=== PATIENT | female | born 1940 | race Caucasian/White ===

== ENCOUNTER 2017-07-22 16:23 | Inpatient (IN) | payer MEDICARE ==
[2017-07-22] MEDS ORDERED: IPRATROPIUM 0.5 MG/2.5 ML NEBU INHALATION STA (16:58)
[2017-07-22] MEDS ORDERED: SODIUM CHLORIDE 0.9% 500 ML IV STA (16:58)
[2017-07-22] MEDS ORDERED: SODIUM CHLORIDE 0.9% 1,000 ML IV STA (16:58)
[2017-07-22] MEDS ORDERED: ALBUTEROL NEBULIZED 2.5 MG/3 ML INHALATION STA (16:58)
--- NOTE | 2017-07-22 16:58 | ED ---
General Adult HPI - General Chief complaint: Shortness of Breath Stated complaint: SOB Time Seen by Provider: 07/22/17 16:57 Source: patient, RN notes reviewed, old records reviewed Mode of arrival: wheelchair Limitations: no limitations - History of Present Illness Initial comments: This is a 37-year-old female here for evaluation Sharla, severe shortness of breath and dyspnea. 3-4 days with taking her 's oxygen is alert has been COPD and having low oxygen levels. Patient has no chest pain no fever. She does have significant increasing cough and congestion. No prior diagnosis of COPD and patient hasn't smoked in 10 days - Related Data Home Medications Medication Instructions Recorded Confirmed Cholecalciferol [Vitamin D3] 1,000 unit PO DAILY 07/22/17 07/22/17 Ipratropium-Albuterol Nebulize 3 ml INHALATION RT-BID 07/22/17 07/22/17 [Duoneb 0.5 mg-3 mg/3 ml Soln] Levothyroxine Sodium [Synthroid] 75 mcg PO DAILY 07/22/17 07/22/17 Montelukast [Singulair] 10 mg PO DAILY 07/22/17 07/22/17 Multivitamins, Thera [Multivitamin 1 tab PO DAILY 07/22/17 07/22/17 (formulary)] Umeclidinium Brm/Vilanterol Tr 1 puff INHALATION RT-DAILY 07/22/17 07/22/17 [Anoro Ellipta 62.5-25 Mcg INH] Venlafaxine HCl [Effexor XR] 75 mg PO DAILY 07/22/17 07/22/17 Vitamin B Complex 1 cap PO DAILY 07/22/17 07/22/17 Allergies Allergy/AdvReac Type Severity Reaction Status Date / Time No Known Allergies Allergy Verified 07/22/17 16:45 Review of Systems ROS Statement: Those systems with pertinent positive or pertinent negative responses have been documented in the HPI. ROS Other: All systems not noted in ROS Statement are negative. Past Medical History Past Medical History: Hyperlipidemia, Thyroid Disorder History of Any Multi-Drug Resistant Organisms: None Reported Past Surgical History: Appendectomy, Hysterectomy Past Psychological History: No Psychological Hx Reported Smoking Status: Former smoker Past Alcohol Use History: None Reported Past Drug Use History: None Reported General Exam Limitations: no limitations General appearance: alert, in no apparent distress Head exam: Present: atraumatic, normocephalic, normal inspection Eye exam: Present: normal appearance, PERRL, EOMI. Absent: scleral icterus, conjunctival injection, periorbital swelling ENT exam: Present: normal exam, mucous membranes moist Neck exam: Present: normal inspection. Absent: tenderness, meningismus, lymphadenopathy Respiratory exam: Present: normal lung sounds bilaterally. Absent: respiratory distress, wheezes, rales, rhonchi, stridor Cardiovascular Exam: Present: regular rate, normal rhythm, normal heart sounds. Absent: systolic murmur, diastolic murmur, rubs, gallop, clicks GI/Abdominal exam: Present: soft, normal bowel sounds. Absent: distended, tenderness, guarding, rebound, rigid Extremities exam: Present: normal inspection, full ROM, normal capillary refill. Absent: tenderness, pedal edema, joint swelling, calf tenderness Back exam: Present: normal inspection Neurological exam: Present: alert, oriented X3, CN II-XII intact Psychiatric exam: Present: normal affect, normal mood Skin exam: Present: warm, dry, intact, normal color. Absent: rash Course Vital Signs 07/22/17 07/22/17 07/22/17 16:31 18:06 18:24 Temperature 98 F Pulse Rate 89 87 88 Respiratory 16 20 Rate Blood Pressure 139/66 132/62 O2 Sat by Pulse 87 L 94 L Oximetry - Reevaluation(s) Reevaluation #1: 07/22/17 18:38 Patient does have improvement with breathing treatment EKG Findings - EKG Comments: EKG Findings:: EKG shows normal sinus rhythm rate of 80, OR 138, QRS 78, QTC 447 Medical Decision Making - Medical Decision Making 77 female ear with significant COPD exacerbation with history of smoking. Hypoxia. Patient will be admitted for continued breathing treatments steroids and IV resuscitation. - Lab Data Result diagrams: 07/22/17 17:10 07/22/17 17:10 Lab Results 07/22/17 07/22/17 07/22/17 Range/Units 17:10 17:10 17:10 WBC 12.3 H (3.8-10.6) k/uL RBC 4.86 (3.80-5.40) m/uL Hgb 16.7 H (11.4-16.0) gm/dL Hct 48.3 H (34.0-46.0) % MCV 99.5 (80.0-100.0) fL MCH 34.4 (25.0-35.0) pg MCHC 34.6 (31.0-37.0) g/dL RDW 12.7 (11.5-15.5) % Plt Count 302 (150-450) k/uL Neutrophils % 57 % Lymphocytes % 27 % Monocytes % 9 % Eosinophils % 5 % Basophils % 1 % Neutrophils # 7.0 (1.3-7.7) k/uL Lymphocytes # 3.3 (1.0-4.8) k/uL Monocytes # 1.1 H (0-1.0) k/uL Eosinophils # 0.6 (0-0.7) k/uL Basophils # 0.1 (0-0.2) k/uL PT (9.0-12.0) sec INR (<1.2) APTT (22.0-30.0) sec D-Dimer (<0.60) mg/L FEU Sodium 141 (137-145) mmol/L Potassium 4.7 (3.5-5.1) mmol/L Chloride 105 (98-107) mmol/L Carbon Dioxide 28 (22-30) mmol/L Anion Gap 8 mmol/L BUN 14 (7-17) mg/dL Creatinine 0.70 (0.52-1.04) mg/dL Est GFR (MDRD) Af Amer >60 (>60 ml/min/1.73 sqM) Est GFR (MDRD) Non-Af >60 (>60 ml/min/1.73 sqM) Glucose 96 (74-99) mg/dL Calcium 10.2 (8.4-10.2) mg/dL Magnesium 1.9 (1.6-2.3) mg/dL Total Bilirubin 0.5 (0.2-1.3) mg/dL AST 29 (14-36) U/L ALT 55 H (9-52) U/L Alkaline Phosphatase 74 (38-126) U/L Total Creatine Kinase 57 (30-135) U/L CK-MB (CK-2) 2.7 H* (0.0-2.4) ng/mL CK-MB (CK-2) Rel Index 4.7 Troponin I <0.012 (0.000-0.034) ng/mL NT-Pro-B Natriuret Pep pg/mL Total Protein 6.8 (6.3-8.2) g/dL Albumin 4.2 (3.5-5.0) g/dL 07/22/17 07/22/17 Range/Units 17:10 17:10 WBC (3.8-10.6) k/uL RBC (3.80-5.40) m/uL Hgb (11.4-16.0) gm/dL Hct (34.0-46.0) % MCV (80.0-100.0) fL MCH (25.0-35.0) pg MCHC (31.0-37.0) g/dL RDW (11.5-15.5) % Plt Count (150-450) k/uL Neutrophils % % Lymphocytes % % Monocytes % % Eosinophils % % Basophils % % Neutrophils # (1.3-7.7) k/uL Lymphocytes # (1.0-4.8) k/uL Monocytes # (0-1.0) k/uL Eosinophils # (0-0.7) k/uL Basophils # (0-0.2) k/uL PT 10.2 (9.0-12.0) sec INR 1.0 (<1.2) APTT 23.0 (22.0-30.0) sec D-Dimer 0.31 (<0.60) mg/L FEU Sodium (137-145) mmol/L Potassium (3.5-5.1) mmol/L Chloride (98-107) mmol/L Carbon Dioxide (22-30) mmol/L Anion Gap mmol/L BUN (7-17) mg/dL Creatinine (0.52-1.04) mg/dL Est GFR (MDRD) Af Amer (>60 ml/min/1.73 sqM) Est GFR (MDRD) Non-Af (>60 ml/min/1.73 sqM) Glucose (74-99) mg/dL Calcium (8.4-10.2) mg/dL Magnesium (1.6-2.3) mg/dL Total Bilirubin (0.2-1.3) mg/dL AST (14-36) U/L ALT (9-52) U/L Alkaline Phosphatase (38-126) U/L Total Creatine Kinase (30-135) U/L CK-MB (CK-2) (0.0-2.4) ng/mL CK-MB (CK-2) Rel Index Troponin I (0.000-0.034) ng/mL NT-Pro-B Natriuret Pep 83 pg/mL Total Protein (6.3-8.2) g/dL Albumin (3.5-5.0) g/dL - Radiology Data Radiology results: report reviewed (Chest x-ray shows COPD), image reviewed Disposition Clinical Impression: Acute exacerbation of chronic obstructive airways disease Disposition: ADMITTED IP TO THIS HOSP Condition: Fair Referrals: Heri Alexandra DO [Primary Care Provider] - 1-2 days
[2017-07-22 17:25] LABS: Basophils # (A) 0.1 k/uL (0-0.2); Basophils % (A) 1 %; CH 33.8; CHCM 34.1; Eosinophils # (A) 0.6 k/uL (0-0.7); Eosinophils % (A) 5 %; HCT 48.3 % (34.0-46.0); HDW 2.26; HGB 16.7 gm/dL (11.4-16.0); Luc # (Auto) 0.32; Luc % (Auto) 3; Lymphocytes # (A) 3.3 k/uL (1.0-4.8); Lymphocytes % (A) 27 %; MCH 34.4 pg (25.0-35.0); MCHC 34.6 g/dL (31.0-37.0); MCV 99.5 fL (80.0-100.0); Mean Platelet Volume 7.4; Monocytes # (A) 1.1 k/uL (0-1.0); Monocytes % (A) 9 %; Neutrophils % (A) 57 %; RBC 4.86 m/uL (3.80-5.40); RDW 12.7 % (11.5-15.5); WBC 12.3 k/uL (3.8-10.6); WBC (Perox) 12.22
[2017-07-22 17:44] LABS: Creatine Kinase 57 U/L (30-135)
[2017-07-22 17:46] LABS: ALT 55 U/L (9-52); AST 29 U/L (14-36); Alkaline Phosphatase 74 U/L (38-126); Anion Gap 8 mmol/L; Blood Urea Nitrogen 14 mg/dL (7-17); Calcium 10.2 mg/dL (8.4-10.2); Carbon Dioxide 28 mmol/L (22-30); Chloride 105 mmol/L (98-107); Glucose 96 mg/dL (74-99); Magnesium 1.9 mg/dL (1.6-2.3); Non-African American GFR(MDRD) >60 (>60 ml/min/1.73 sqM); Potassium 4.7 mmol/L (3.5-5.1); Prothrombin Time 10.2 sec (9.0-12.0); Sodium 141 mmol/L (137-145); Total Bilirubin 0.5 mg/dL (0.2-1.3); Total Protein 6.8 g/dL (6.3-8.2)
[2017-07-22 17:56] LABS: Troponin I <0.012 ng/mL (0.000-0.034)
[2017-07-22 18:07] LABS: Creatine Kinase MB 2.7 ng/mL (0.0-2.4)
--- NOTE | 2017-07-22 18:13 | XR ---
EXAMINATION TYPE: XR chest 2V DATE OF EXAM: 07/22/2017 COMPARISON: NONE HISTORY: Shortness of breath TECHNIQUE: Frontal and lateral views of the chest are obtained. FINDINGS: There is no focal air space opacity, pleural effusion, or pneumothorax seen. There is pulm onary hyperinflation and flattening of the diaphragms on the lateral image. The cardiac silhouette si ze is within normal limits. The osseous structures are intact. Mild degenerative changes are appreciated of the thoracic spine. Degenerative changes are also seen o f the acromio clavicular joints. IMPRESSION: 1. No acute cardiopulmonary process. 2. Radiographic sequela of COPD.
[2017-07-22] MEDS ORDERED: methylPREDNISolone SOD SUCCI 125 MG/2 ML VIAL IV STA (18:36)
[2017-07-22] MEDS: IPRATROPIUM-ALBUTEROL 3 ML NEB INHALATION SCH (20:27)
[2017-07-22 20:31] LABS: Glucose,Whole Blood 178 mg/dL (75-99)
[2017-07-23] MEDS: methylPREDNISolone SOD SUCCI 125 MG/2 ML VIAL IV SCH ×4 (00:24→17:05)
[2017-07-23] MEDS ORDERED: IPRATROPIUM-ALBUTEROL 3 ML NEB INHALATION PRN (03:51)
[2017-07-23 07:13] LABS: Glucose,Whole Blood 160 mg/dL (75-99)
[2017-07-23] MEDS: IPRATROPIUM-ALBUTEROL 3 ML NEB INHALATION SCH ×4 (08:34→20:51)
[2017-07-23] MEDS: INSULIN LISPRO (humaLOG) 300 UNIT/3 ML VIAL SQ SCH ×4 (08:54→21:28)
[2017-07-23] MEDS: NICOTINE 21MG/24HR PATCH TRANSDERM SCH (08:54)
[2017-07-23] MEDS: ENOXAPARIN 40 MG/0.4 ML SYRINGE SQ SCH (08:54)
[2017-07-23 12:25] LABS: Glucose,Whole Blood 178 mg/dL (75-99)
[2017-07-23 12:32] LABS: Hemoglobin A1C 6.6 % (4.2-6.1)
[2017-07-23] MEDS: MULTIVITAMINS, THERA 1 EACH TAB PO SCH (13:28)
[2017-07-23] MEDS: MONTELUKAST 10 MG TAB PO SCH (13:28)
[2017-07-23] MEDS: VENLAFAXINE HCL ER 75 MG CAP PO SCH (13:28)
[2017-07-23] MEDS: LEVOTHYROXINE 75 MCG TAB PO SCH (13:28)
--- NOTE | 2017-07-23 16:04 | P.CNPUL ---
History of Present Illness Consult date: 07/23/17 Reason for consult: COPD History of present illness: 77-year-old female patient who was brought into the ED because of severe shortness of breath. The patient has been gradually getting worse over the past 3-4 days and has been utilizing her 's oxygen. She denied having any chest pain. She had increased cough and congestion. She is a chronic smoker in she states that she hasn't smoked for the past 10 days. She has been maintained on Anoro one inhalation a day on outpatient basis addition to DuoNeb nebulized treatments twice a day. Her chest x-ray shows no acute abnormalities are than chronic COPD. No significant leukocytosis. Her white cell count is at 12.3. The patient's troponin has been negative. BNP level was nonelevated. Rest of the blood work and electrodes are all within normal limits. Note that this is the patient's first hospitalization for COPD exacerbation. She has no previous pulmonary complications pH she states that she was able to do activities of daily today life without any major difficulties. Review of Systems Constitutional: Denies chills, Denies fever Eyes: denies blurred vision, denies bulging eye, denies decreased vision Ears: deny: decreased hearing, ear discharge, earache Ears, nose, mouth and throat: Denies headache, Denies sore throat Breasts: absent: change in shape, gynecomastia Cardiovascular: Reports decreased exercise tolerance, Reports dyspnea on exertion, Reports shortness of breath Respiratory: Reports cough, Reports cough with sputum, Reports dyspnea, Reports wheezing Gastrointestinal: Denies abdominal pain, Denies diarrhea, Denies nausea, Denies vomiting Genitourinary: Denies dysuria, Denies hematuria Musculoskeletal: Denies myalgias Musculoskeletal: absent: ankle pain, ankle stiffness, ankle swelling Integumentary: Denies pruritus, Denies rash Neurological: Denies numbness, Denies weakness Psychiatric: Denies anxiety, Denies depression Endocrine: Reports as per HPI Hematologic/Lymphatic: Reports as per HPI Past Medical History Past Medical History: COPD, Hyperlipidemia, Thyroid Disorder History of Any Multi-Drug Resistant Organisms: None Reported Past Surgical History: Appendectomy, Hysterectomy, Tonsillectomy Past Psychological History: No Psychological Hx Reported Smoking Status: Former smoker Past Alcohol Use History: None Reported Past Drug Use History: None Reported - Past Family History Father Family Medical History: Myocardial Infarction ([place]) Additional Family Medical History / Comment(s): in 2009 from [place]. Mother Family Medical History: COPD Sister(s) Family Medical History: Cancer, COPD Additional Family Medical History / Comment(s): pt has two sisters who both had breast cancer. 1 sister has COPD. Medications and Allergies Home Medications Medication Instructions Recorded Confirmed Type Cholecalciferol [Vitamin D3] 1,000 unit PO DAILY 07/22/17 07/22/17 History Ipratropium-Albuterol Nebulize 3 ml INHALATION RT-BID 07/22/17 07/22/17 History [Duoneb 0.5 mg-3 mg/3 ml Soln] Levothyroxine Sodium [Synthroid] 75 mcg PO DAILY 07/22/17 07/22/17 History Montelukast [Singulair] 10 mg PO DAILY 07/22/17 07/22/17 History Multivitamins, Thera [Multivitamin 1 tab PO DAILY 07/22/17 07/22/17 History (formulary)] Umeclidinium Brm/Vilanterol Tr 1 puff INHALATION RT-DAILY 07/22/17 07/22/17 History [Anoro Ellipta 62.5-25 Mcg INH] Venlafaxine HCl [Effexor XR] 75 mg PO DAILY 07/22/17 07/22/17 History Vitamin B Complex 1 cap PO DAILY 07/22/17 07/22/17 History Allergies Allergy/AdvReac Type Severity Reaction Status Date / Time No Known Allergies Allergy Verified 07/22/17 16:45 Physical Exam Vitals: Vital Signs Temp Pulse Pulse Resp BP BP Pulse Ox 07/23/17 12:42 92 07/23/17 12:32 90 07/23/17 08:44 92 07/23/17 08:35 90 07/23/17 08:00 16 07/23/17 07:00 97.7 F 93 16 132/64 92 L 07/23/17 04:30 92 07/23/17 04:23 88 07/22/17 23:00 97.7 F 100 24 129/60 91 L 07/22/17 20:15 97.9 F 103 H 20 137/69 98 07/22/17 19:35 97.9 F 103 H 20 137/69 98 07/22/17 18:57 91 07/22/17 18:52 98.0 F 97 20 138/60 98 07/22/17 18:24 88 07/22/17 18:06 87 20 132/62 94 L 07/22/17 16:31 98 F 89 16 139/66 87 L Intake and Output 07/22/17 07/23/17 07/23/17 22:59 06:59 14:59 Intake Total 1500 Balance 1500 Intake: Intake, IV Titration 1500 Amount Sodium Chloride 0.9% 1, 1000 000 ml @ 100 mls/hr IV . Q10H STA Rx#:[id number] Sodium Chloride 0.9% 500 500 ml @ 999 mls/hr IV .Q31M STA Rx#:[id number] Other: Voiding Method Bedside Commode Bedside Commode Bedside Commode # Voids 1 Weight 72.575 kg 74.5 kg The patient appeared well nourished and normally developed. Vital signs as documented. Head exam is unremarkable. No scleral icterus or corneal arcus noted. Neck is without jugular venous distension, thyromegaly, or carotid bruits. Carotid upstrokes are brisk bilaterally. Lungs are diminished and there is diffuse expiratory wheezes and prolongation of expiratory phase of breathing.. Cardiac exam reveals the PMI to be normally sized and situated. Rhythm is regular. First and second heart sounds normal. No murmurs, rubs or gallops. Abdominal exam reveals normal bowel sounds, no masses, no organomegaly and no aortic enlargement. Extremities are nonedematous and both femoral and pedal pulses are normal. Results - Laboratory Findings CBC and BMP: 07/22/17 17:10 07/22/17 17:10 PT/INR, D-dimer PT 10.2 sec (9.0-12.0) 07/22/17 17:10 INR 1.0 (<1.2) 07/22/17 17:10 D-Dimer 0.31 mg/L FEU (<0.60) 07/22/17 17:10 Abnormal lab findings: Abnormal Labs 07/22/17 07/22/17 07/22/17 17:10 17:10 17:10 WBC 12.3 H Hgb 16.7 H Hct 48.3 H Monocytes # 1.1 H POC Glucose (mg/dL) ALT 55 H CK-MB (CK-2) 2.7 H* 07/22/17 07/23/17 07/23/17 20:29 06:51 12:21 WBC Hgb Hct Monocytes # POC Glucose (mg/dL) 178 H 160 H 178 H ALT CK-MB (CK-2) - Diagnostic Findings Chest x-ray: image reviewed Assessment and Plan Plan: Assessment 1 acute COPD exacerbation with secondary shortness of breath 2 chronic smoking 3 hypothyroidism 4 depression Plan Immediate smoking cessation and the patient was counseled in this regard. We' ll treat acute COPD exacerbation by putting this patient on DuoNeb nebulized treatments around the clock every 4 hours and IV Solu Medrol 60 mg every 6 hours. We'll add Tussionex for cough and chest congestion. Nicotine patch for smoking cessation. Empiric antibiotic coverage with Zithromax. Outpatient follow-up regarding this patient COPD. She needs oxygen for now however her oxygen requirements will be reassessed and the address of the time of discharge. We'll continue to follow.
[2017-07-23] MEDS: CHLORPHEN-HYDROcod 8-10mg/5ml 5 ML ORAL.SYRG PO SCH (16:49)
[2017-07-23] MEDS: AZITHROMYCIN 250 MG TAB PO SCH (16:49)
[2017-07-23 17:12] LABS: Glucose,Whole Blood 163 mg/dL (75-99)
[2017-07-23 20:59] LABS: Glucose,Whole Blood 231 mg/dL (75-99)
[2017-07-24] MEDS: methylPREDNISolone SOD SUCCI 125 MG/2 ML VIAL IV SCH ×5 (00:10→22:55)
[2017-07-24] MEDS: CHLORPHEN-HYDROcod 8-10mg/5ml 5 ML ORAL.SYRG PO SCH ×2 (06:33→17:12)
[2017-07-24] MEDS: LEVOTHYROXINE 75 MCG TAB PO SCH (06:34)
[2017-07-24 07:11] LABS: Glucose,Whole Blood 148 mg/dL (75-99)
[2017-07-24] MEDS: ENOXAPARIN 40 MG/0.4 ML SYRINGE SQ SCH (07:47)
[2017-07-24] MEDS: NICOTINE 21MG/24HR PATCH TRANSDERM SCH (07:47)
[2017-07-24] MEDS: INSULIN LISPRO (humaLOG) 300 UNIT/3 ML VIAL SQ SCH ×4 (07:48→22:54)
[2017-07-24] MEDS: MONTELUKAST 10 MG TAB PO SCH (07:50)
[2017-07-24] MEDS: VENLAFAXINE HCL ER 75 MG CAP PO SCH (07:51)
[2017-07-24] MEDS: CHOLECALCIFEROL 1,000 UNIT TAB PO SCH (07:51)
[2017-07-24] MEDS: IPRATROPIUM-ALBUTEROL 3 ML NEB INHALATION SCH ×5 (08:36→21:11)
--- NOTE | 2017-07-24 11:03 | P.PN ---
Subjective Principal diagnosis: 77-year-old female who is seen this morning in rounds with Dr. Alexandra. Patient was admitted for shortness of breath and had been using her 's oxygen at home. She has a history of tobacco abuse but states she quit smoking 10 days ago. The patient continues to have audible wheezing and shortness of breath when walking to the bathroom. She states she slept only and feels comfortable this morning. She denies abdominal pain or chest pain. She is tolerating her diet without nausea or vomiting. She is wearing ABE hose. She remained afebrile. Her blood pressure has been stable. She remains on 3 L nasal cannula. Blood cultures were drawn and pulmonary results show gram- positive cocci in clusters. Dr. Alexandra would like to repeat blood cultures today. Dr. Alexandra discussed the possibility of pulmonary rehab once the patient is discharged from the hospital. Objective - Vital Signs Vital signs: Vital Signs Temp 98.6 F 07/24/17 09:11 Pulse 84 07/24/17 09:11 Resp 20 07/24/17 09:11 BP 120/60 07/24/17 09:11 Pulse Ox 91 L 07/24/17 09:11 Intake & Output 07/23/17 07/24/17 07/24/17 18:59 06:59 18:59 Intake Total 472 Balance 472 Intake: Oral 472 Other: Voiding Method Bedside Commode # Voids 2 1 - Exam GENERAL: Alert and oriented. Pleasant and cooperative Appears short of breath when holding a lengthy conversation. RESPIRATORY: Patient with inspiratory and expiratory wheezing. No use of accessory muscles. Remains on nasal cannula. CARDIOVASCULAR: S1 and S2 noted. No murmurs auscultated. No JVD noted. EXTREMITIES: No edema noted. Palpable pedal pulses +2. ABE hose present ABDOMEN: No distention noted. Abdomen soft and round. Normal active bowel sounds auscultated 4 quadrants. No pain or tenderness noted upon palpation. - Labs CBC & Chem 7: 07/22/17 17:10 07/22/17 17:10 Labs: Abnormal Lab Results - Last 24 Hours (Table) 07/22/17 07/23/17 07/23/17 Range/Units 17:10 12:21 16:58 POC Glucose (mg/dL) 178 H 163 H (75-99) mg/dL Hemoglobin A1c 6.6 H (4.2-6.1) % 07/23/17 07/24/17 Range/Units 20:54 07:02 POC Glucose (mg/dL) 231 H 148 H (75-99) mg/dL Hemoglobin A1c (4.2-6.1) % Microbiology - Last 24 Hours (Table) 07/22/17 18:36 Blood Culture Gram Stain - Preliminary Blood 07/22/17 17:10 Blood Culture - Preliminary Blood Assessment and Plan Plan: ASSESSMENT: 1. Chronic obstructive pulmonary disease, acute exacerbation, present on admission 2. History of tobacco abuse 3. Dyspnea, related to acute COPD exacerbation 4. Leukocytosis, likely due to steroid administration in emergency room. 5. History of hypothyroidism 6. History of hyperlipidemia PLAN: -We'll repeat blood cultures. -Continue Zithromax -Continue DuoNeb breathing treatments -Continue IV steroids. Patient receiving 60 mg IV every 6 hours. -Pulmonary on consult. Appreciate recommendations and input -DVT prophylaxis: Patient receiving Lovenox 40 mg daily -GI prophylaxis: Patient receiving 20 mg Pepcid daily -Continue to monitor vital signs address as indicated -Continue home meds -Monitor labs -Encouraged patient to continue with smoking cessation The above impression and plan of care have been discussed and directed by signing physician. Alyson Clemente, nurse practitioner, acting as scribe for signing physician.
[2017-07-24] MEDS: MULTIVITAMINS, THERA 1 EACH TAB PO SCH (11:34)
--- NOTE | 2017-07-24 11:51 | P.PN ---
Subjective 77-year-old female patient who was brought into the ED because of severe shortness of breath. The patient has been gradually getting worse over the past 3-4 days and has been utilizing her 's oxygen. She denied having any chest pain. She had increased cough and congestion. She is a chronic smoker in she states that she hasn't smoked for the past 10 days. She has been maintained on Anoro one inhalation a day on outpatient basis addition to DuoNeb nebulized treatments twice a day. Her chest x-ray shows no acute abnormalities are than chronic COPD. No significant leukocytosis. Her white cell count is at 12.3. The patient's troponin has been negative. BNP level was nonelevated. Rest of the blood work and electrodes are all within normal limits. Note that this is the patient's first hospitalization for COPD exacerbation. She has no previous pulmonary complications pH she states that she was able to do activities of daily today life without any major difficulties. The patient was seen again today 07/24/2017 in follow-up on the regular medical floor. She is awake and alert in no acute distress. She is breathing slightly better today as compared to yesterday. Not quite back to her baseline. She remains on bronchodilators, Singulair, IV Solu-Medrol. She is currently on antibiotics in the form of ceftriaxone and azithromycin. Preliminary blood cultures remain reveal gram-positive cocci in clusters. She is maintaining O2 saturations in the low 90s on 3 L/m per nasal cannula. She's been afebrile. Hemodynamically stable. Objective - Vital Signs Vital signs: Vital Signs Temp 98.6 F 07/24/17 09:11 Pulse 89 07/24/17 11:14 Resp 16 07/24/17 11:14 BP 120/60 07/24/17 09:11 Pulse Ox 91 L 07/24/17 11:04 Intake & Output 07/23/17 07/24/17 07/24/17 18:59 06:59 18:59 Intake Total 472 Balance 472 Intake: Oral 472 Other: Voiding Method Bedside Commode # Voids 2 1 - Exam The patient appeared well nourished and normally developed. Vital signs as documented. Head exam is unremarkable. No scleral icterus or corneal arcus noted. Neck is without jugular venous distension, thyromegaly, or carotid bruits. Carotid upstrokes are brisk bilaterally. Lungs are diminished and there is diffuse expiratory wheezes and prolongation of expiratory phase of breathing.. Cardiac exam reveals the PMI to be normally sized and situated. Rhythm is regular. First and second heart sounds normal. No murmurs, rubs or gallops. Abdominal exam reveals normal bowel sounds, no masses, no organomegaly and no aortic enlargement. Extremities are nonedematous and both femoral and pedal pulses are normal. - Labs CBC & Chem 7: 07/22/17 17:10 07/22/17 17:10 Labs: Abnormal Lab Results - Last 24 Hours (Table) 07/22/17 07/23/17 07/23/17 Range/Units 17:10 12:21 16:58 POC Glucose (mg/dL) 178 H 163 H (75-99) mg/dL Hemoglobin A1c 6.6 H (4.2-6.1) % 07/23/17 07/24/17 Range/Units 20:54 07:02 POC Glucose (mg/dL) 231 H 148 H (75-99) mg/dL Hemoglobin A1c (4.2-6.1) % Microbiology - Last 24 Hours (Table) 07/22/17 18:36 Blood Culture Gram Stain - Preliminary Blood 07/22/17 17:10 Blood Culture - Preliminary Blood Assessment and Plan Plan: Assessment 1 acute COPD exacerbation with secondary shortness of breath 2 chronic smoking 3 hypothyroidism 4 depression Plan: The patient was seen and evaluated by Dr. Zarate. We'll continue with her current medications for now. She is again educated regarding the importance of complete smoking cessation. A NicoDerm patch is in place. We will titrate down the FiO2 well maintaining O2 saturations greater than 90%. We'll continue to follow.
--- NOTE | 2017-07-24 12:25 | HP ---
Patient is a pleasant 77-year-old white female who was admitted through the emergency department with acute exacerbation of COPD/shortness of breath, wheezing and difficulty breathing. She started this a few days prior to hospital admission, about 3 to 4 day. She was taking her 's oxygen. She has no chest pain or fever and patient states she has previously quite smoking earlier in the month of June, approximately 2 to 3 weeks ago. Her current medications include: 1. Vitamin D3. 2. DuoNeb updrafts. 3. Synthroid. 4. Singulair. 5. Effexor. 6. Vitamin B. 7. Multivitamin. No known drug allergies. REVIEW OF SYSTEMS: Patient denies any chest pain. She admits to shortness of breath, wheezing and COPD. She admits to tobacco abuse. She admits to having an underactive thyroid. Other review of systems is essentially unremarkable. She denies any abdominal pain, just severe incontinence. Past medical history is significant for hyperlipidemia, thyroid disease, COPD. PAST SURGICAL HISTORY: Appendix, hysterectomy. Positive for tobacco, quit 2 to 3 weeks ago. Denies any drugs or alcohol. Family history is noncontributory. PHYSICAL EXAM: GENERAL: She is alert and oriented x3, during the breathing treatment, during the evaluation. Head is cephalic, atraumatic. Neck is supple no JVD. HEART: Regular rate and rhythm. LUNGS: Diminished breath sounds with coarse wheezing and rhonchi bilateral with prolonged expiratory phase. EXTREMITIES: No cyanosis, clubbing or jaundice. NEUROLOGICAL: Cranial nerves 2 through 12 are grossly intact. PSYCHOLOGICAL: Answers questions appropriately. Skin is warm and dry to palpation. IMPRESSION: 1. Acute exacerbation of chronic obstructive pulmonary disease. 2. Purulent tracheobronchitis with leukocytosis and possible pneumonia. 3. Chronic hypoxia with history of tobacco abuse with acute respiratory failure. PLAN: 1. Admit patient. 2. Complete pulmonary toilet. 3. Consultation by Dr. Zarate. 4. Continue to follow patient's overall guarded prognosis. [facility]
[2017-07-24 12:41] LABS: Glucose,Whole Blood 165 mg/dL (75-99)
[2017-07-24] MEDS: AZITHROMYCIN 250 MG TAB PO SCH (16:07)
[2017-07-24 17:38] LABS: Glucose,Whole Blood 144 mg/dL (75-99)
[2017-07-24 20:57] LABS: Glucose,Whole Blood 164 mg/dL (75-99)
[2017-07-25] MEDS: methylPREDNISolone SOD SUCCI 125 MG/2 ML VIAL IV SCH ×4 (06:28→23:15)
[2017-07-25] MEDS: CHLORPHEN-HYDROcod 8-10mg/5ml 5 ML ORAL.SYRG PO SCH ×2 (06:28→17:19)
[2017-07-25] MEDS: LEVOTHYROXINE 75 MCG TAB PO SCH (06:29)
[2017-07-25 07:28] LABS: Glucose,Whole Blood 186 mg/dL (75-99)
[2017-07-25] MEDS: NICOTINE 21MG/24HR PATCH TRANSDERM SCH ×2 (07:50→08:42)
[2017-07-25] MEDS: MONTELUKAST 10 MG TAB PO SCH (07:51)
[2017-07-25] MEDS: FAMOTIDINE 20 MG TAB PO SCH (07:51)
[2017-07-25] MEDS: VENLAFAXINE HCL ER 75 MG CAP PO SCH (07:52)
[2017-07-25] MEDS: INSULIN LISPRO (humaLOG) 300 UNIT/3 ML VIAL SQ SCH ×4 (07:53→22:27)
[2017-07-25] MEDS: ENOXAPARIN 40 MG/0.4 ML SYRINGE SQ SCH (07:55)
[2017-07-25] MEDS: CHOLECALCIFEROL 1,000 UNIT TAB PO SCH (07:57)
[2017-07-25] MEDS: IPRATROPIUM-ALBUTEROL 3 ML NEB INHALATION SCH ×4 (08:03→19:46)
--- NOTE | 2017-07-25 08:44 | P.PN ---
Subjective Principal diagnosis: 77-year-old female who is seen this morning by Dr. Alexandra. Patient was admitted for shortness of breath and had been using her 's oxygen at home. She has a history of tobacco abuse but states she quit smoking 10 days ago. The patient's wheezing has improved since yesterday. She did experience a nosebleed yesterday due to nasal cannula. Will add humidified oxygen. She is on 3 L nasal cannula. She is tolerating her diet without nausea or vomiting. She remains afebrile and vital signs are stable. Objective - Vital Signs Vital signs: Vital Signs Temp 98.2 F 07/25/17 08:27 Pulse 83 07/25/17 08:27 Resp 18 07/25/17 08:27 BP 114/66 07/25/17 08:27 Pulse Ox 91 L 07/24/17 23:00 Intake & Output 07/24/17 07/25/17 07/25/17 18:59 06:59 18:59 Other: # Voids 1 1 - Exam GENERAL: Alert and oriented. Pleasant and cooperative. Appears in no acute distress. RESPIRATORY: Patient with inspiratory and expiratory wheezing. No use of accessory muscles. Remains on nasal cannula. CARDIOVASCULAR: S1 and S2 noted. No murmurs auscultated. No JVD noted. EXTREMITIES: No edema noted. Palpable pedal pulses +2. ABE hose present ABDOMEN: No distention noted. Abdomen soft and round. Normal active bowel sounds auscultated 4 quadrants. No pain or tenderness noted upon palpation. - Labs CBC & Chem 7: 07/22/17 17:10 07/22/17 17:10 Labs: Abnormal Lab Results - Last 24 Hours (Table) 07/24/17 07/24/17 07/24/17 Range/Units 12:26 17:14 20:45 POC Glucose (mg/dL) 165 H 144 H 164 H (75-99) mg/dL 07/25/17 Range/Units 07:26 POC Glucose (mg/dL) 186 H (75-99) mg/dL Microbiology - Last 24 Hours (Table) 07/22/17 18:36 Blood Culture Gram Stain - Preliminary Blood Blood Culture - Preliminary Coagulase Negative Staph Assessment and Plan Plan: ASSESSMENT: 1. Chronic obstructive pulmonary disease, acute exacerbation, present on admission 2. History of tobacco abuse 3. Dyspnea, related to acute COPD exacerbation 4. Leukocytosis, likely due to steroid administration in emergency room. 5. History of hypothyroidism 6. History of hyperlipidemia PLAN: -Awaiting results of blood cultures. -Continue Zithromax -Continue DuoNeb breathing treatments -Continue IV steroids. Patient receiving 60 mg IV every 6 hours. taper steroids if okay with pulmonary. -Pulmonary on consult. Appreciate recommendations and input -DVT prophylaxis: Patient receiving Lovenox 40 mg daily -GI prophylaxis: Patient receiving 20 mg Pepcid daily -Continue to monitor vital signs address as indicated -Continue home meds -Monitor labs -Encouraged patient to continue with smoking cessation The above impression and plan of care have been discussed and directed by signing physician. Alyson Clemente, nurse practitioner, acting as scribe for signing physician.
[2017-07-25] MEDS: MULTIVITAMINS, THERA 1 EACH TAB PO SCH (11:27)
[2017-07-25 14:07] LABS: Glucose,Whole Blood 174 mg/dL (75-99)
[2017-07-25] MEDS ORDERED: RX INFO: IV CONTRAST WAS GIVEN 1 EACH MISC MISCELLANE PRN (15:14)
--- NOTE | 2017-07-25 15:32 | P.PN ---
Subjective 77-year-old female patient who was brought into the ED because of severe shortness of breath. The patient has been gradually getting worse over the past 3-4 days and has been utilizing her 's oxygen. She denied having any chest pain. She had increased cough and congestion. She is a chronic smoker in she states that she hasn't smoked for the past 10 days. She has been maintained on Anoro one inhalation a day on outpatient basis addition to DuoNeb nebulized treatments twice a day. Her chest x-ray shows no acute abnormalities are than chronic COPD. No significant leukocytosis. Her white cell count is at 12.3. The patient's troponin has been negative. BNP level was nonelevated. Rest of the blood work and electrodes are all within normal limits. Note that this is the patient's first hospitalization for COPD exacerbation. She has no previous pulmonary complications pH she states that she was able to do activities of daily today life without any major difficulties. The patient was seen again today 07/24/2017 in follow-up on the regular medical floor. She is awake and alert in no acute distress. She is breathing slightly better today as compared to yesterday. Not quite back to her baseline. She remains on bronchodilators, Singulair, IV Solu-Medrol. She is currently on antibiotics in the form of ceftriaxone and azithromycin. Preliminary blood cultures remain reveal gram-positive cocci in clusters. She is maintaining O2 saturations in the low 90s on 3 L/m per nasal cannula. She's been afebrile. Hemodynamically stable. Patient is seen again today 07/25/2017 in follow-up on the regular medical floor. She is awake and alert in no acute distress. Her breathing is a little worse today as compared to yesterday. She is still bronchospastic and wheezing. She still has significant shortness of breath with minimal exertion. Cor in 3 L /m per nasal cannula to maintain O2 saturations in the 90s. She's been hemodynamically stable. Currently afebrile. He has been continued on bronchodilators and IV Solu-Medrol. Objective - Vital Signs Vital signs: Vital Signs Temp 98.2 F 07/25/17 08:27 Pulse 92 07/25/17 12:07 Resp 18 07/25/17 12:07 BP 114/66 07/25/17 08:27 Pulse Ox 91 L 07/24/17 23:00 Intake & Output 07/24/17 07/25/17 07/25/17 18:59 06:59 18:59 Intake Total 480 Balance 480 Intake: Oral 480 Other: Voiding Method Bedside Commode # Voids 1 1 1 - Exam The patient appeared well nourished and normally developed. Vital signs as documented. Head exam is unremarkable. No scleral icterus or corneal arcus noted. Neck is without jugular venous distension, thyromegaly, or carotid bruits. Carotid upstrokes are brisk bilaterally. Lungs are diminished and there is diffuse expiratory wheezes and prolongation of expiratory phase of breathing.. Cardiac exam reveals the PMI to be normally sized and situated. Rhythm is regular. First and second heart sounds normal. No murmurs, rubs or gallops. Abdominal exam reveals normal bowel sounds, no masses, no organomegaly and no aortic enlargement. Extremities are nonedematous and both femoral and pedal pulses are normal. - Labs CBC & Chem 7: 07/22/17 17:10 07/22/17 17:10 Labs: Abnormal Lab Results - Last 24 Hours (Table) 07/24/17 07/24/17 07/25/17 Range/Units 17:14 20:45 07:26 POC Glucose (mg/dL) 144 H 164 H 186 H (75-99) mg/dL 07/25/17 Range/Units 11:27 POC Glucose (mg/dL) 174 H (75-99) mg/dL Microbiology - Last 24 Hours (Table) 07/22/17 17:10 Blood Culture - Final Blood 07/24/17 09:16 Blood Culture - Preliminary Blood No Growth after 24 hours 07/22/17 18:36 Blood Culture Gram Stain - Preliminary Blood Blood Culture - Preliminary Coagulase Negative Staph Assessment and Plan Plan: Assessment 1 acute COPD exacerbation with secondary shortness of breath 2 chronic smoking 3 hypothyroidism 4 depression Plan: The patient was seen and evaluated by Dr. Zarate. We will go ahead and obtain a CT of the chest with contrast as the patient has not shown significant improvement. Will add Pulmicort and Perforomist inhalations twice a day. Continue with bronchodilators, continue IV Solu-Medrol. She remains on antibiotics in the form of ceftriaxone and Zithromax. She is on Lovenox for DVT prophylaxis. Continue Tussionex. She is again educated regarding the importance of complete smoking cessation. A NicoDerm patch is in place. We'll continue to follow.
--- NOTE | 2017-07-25 17:07 | CT ---
EXAMINATION TYPE: CT chest w con DATE OF EXAM: 07/25/2017 COMPARISON: NONE HISTORY: Dyspnea x [address] DLP: 620.00 mGycm Automated exposure control for dose reduction was used. CONTRAST: CT scan of the chest is performed with IV Contrast, patient injected with 100 mL of Omnipaque 300. FINDINGS: There is some pleural thickening at the right lung apex. There is mild upper lobe pulmonary emphysema . There is patchy linear density at the right lung base. Heart size is normal. There is no pericardial effusion. There is no pleural effusion. There is no med iastinal adenopathy. There are no hilar masses. There is no evidence of aortic aneurysm or dissection . The bony thorax appears intact. IMPRESSION: There is some linear consolidation and atelectasis at the right posterior lung base. Mil d pleural thickening at the right lung apex. No evidence of a pulmonary mass. Emphysema. Mild atheros clerotic vascular disease.
[2017-07-25] MEDS: AZITHROMYCIN 250 MG TAB PO SCH (17:19)
[2017-07-25 17:25] LABS: Glucose,Whole Blood 173 mg/dL (75-99)
[2017-07-25] MEDS: FORMOTEROL FUMARATE 20 MCG/2 ML NEBU INHALATION SCH (19:46)
[2017-07-25] MEDS: BUDESONIDE 1 MG/2 ML NEBU INHALATION SCH (19:46)
[2017-07-25 21:25] LABS: Glucose,Whole Blood 214 mg/dL (75-99)
[2017-07-26] MEDS: LEVOTHYROXINE 75 MCG TAB PO SCH (06:33)
[2017-07-26] MEDS: CHLORPHEN-HYDROcod 8-10mg/5ml 5 ML ORAL.SYRG PO SCH ×2 (06:33→17:57)
[2017-07-26] MEDS: methylPREDNISolone SOD SUCCI 125 MG/2 ML VIAL IV SCH ×2 (06:33→21:03)
[2017-07-26] MEDS: INSULIN LISPRO (humaLOG) 300 UNIT/3 ML VIAL SQ SCH ×4 (07:50→22:04)
[2017-07-26] MEDS: ENOXAPARIN 40 MG/0.4 ML SYRINGE SQ SCH (07:51)
[2017-07-26] MEDS: FAMOTIDINE 20 MG TAB PO SCH (07:51)
[2017-07-26] MEDS: MONTELUKAST 10 MG TAB PO SCH (07:51)
[2017-07-26] MEDS: VENLAFAXINE HCL ER 75 MG CAP PO SCH (07:52)
[2017-07-26] MEDS: CHOLECALCIFEROL 1,000 UNIT TAB PO SCH (07:52)
[2017-07-26] MEDS: NICOTINE 21MG/24HR PATCH TRANSDERM SCH (07:53)
[2017-07-26 08:04] LABS: Glucose,Whole Blood 148 mg/dL (75-99)
[2017-07-26] MEDS: BUDESONIDE 1 MG/2 ML NEBU INHALATION SCH ×2 (08:38→19:27)
[2017-07-26] MEDS: IPRATROPIUM-ALBUTEROL 3 ML NEB INHALATION SCH ×4 (08:38→19:27)
[2017-07-26] MEDS: FORMOTEROL FUMARATE 20 MCG/2 ML NEBU INHALATION SCH ×2 (08:38→19:27)
--- NOTE | 2017-07-26 11:14 | P.PN ---
Subjective Principal diagnosis: 77-year-old female who is seen this morning by Dr. Alexandra. Patient was admitted for shortness of breath and had been using her 's oxygen at home. She has a history of tobacco abuse but states she quit smoking a couple weeks ago. The patient had a nicotine patch ordered but states she refused it because she has already went almost 2 weeks without smoking. The patient's wheezing has improved since yesterday and she states she is breathing better. She remained then he modified oxygen at 3 L nasal cannula. She is tolerating her diet without nausea or vomiting. Her vital signs are stable. She remains on IV steroids: 60 mg every 6 hours. We will decrease her steroids to 60 mg every [address] Alexandra. She remains on bronchodilators per pulmonary's recommendations. Objective - Vital Signs Vital signs: Vital Signs Temp 97.8 F 07/26/17 07:00 Pulse 84 07/26/17 09:05 Resp 16 07/26/17 09:05 BP 118/72 07/26/17 07:00 Pulse Ox 93 L 07/26/17 08:38 Intake & Output 07/25/17 07/26/17 07/26/17 18:59 06:59 18:59 Intake Total 480 400 Balance 480 400 Intake: Oral 480 400 Other: Voiding Method Bedside Commode Bedside Commode Bedside Commode # Voids 1 1 - Exam GENERAL: Alert and oriented. Pleasant and cooperative. Appears in no acute distress. RESPIRATORY: Patient with inspiratory and expiratory wheezing. No use of accessory muscles. Remains on nasal cannula. CARDIOVASCULAR: S1 and S2 noted. No murmurs auscultated. No JVD noted. EXTREMITIES: No edema noted. Palpable pedal pulses +2. ABE hose present ABDOMEN: No distention noted. Abdomen soft and round. Normal active bowel sounds auscultated 4 quadrants. No pain or tenderness noted upon palpation. - Labs CBC & Chem 7: 07/22/17 17:10 07/22/17 17:10 Labs: Abnormal Lab Results - Last 24 Hours (Table) 07/25/17 07/25/17 07/25/17 Range/Units 11:27 17:22 21:20 POC Glucose (mg/dL) 174 H 173 H 214 H (75-99) mg/dL 07/26/17 Range/Units 07:44 POC Glucose (mg/dL) 148 H (75-99) mg/dL Microbiology - Last 24 Hours (Table) 07/22/17 18:36 Blood Culture Gram Stain - Final Blood Blood Culture - Final Staph hominis sub sp. hominis 07/22/17 17:10 Blood Culture - Final Blood 07/24/17 09:16 Blood Culture - Preliminary Blood No Growth after 24 hours Assessment and Plan Plan: ASSESSMENT: 1. Chronic obstructive pulmonary disease, acute exacerbation, present on admission 2. History of tobacco abuse 3. Dyspnea, related to acute COPD exacerbation 4. Leukocytosis, likely due to steroid administration in emergency room. 5. History of hypothyroidism 6. History of hyperlipidemia PLAN: -Decrease IV steroids to 60 mg every [address] Alexandra -Pulmonary on consult. Appreciate recommendations and input -DVT prophylaxis: Patient receiving Lovenox 40 mg daily -GI prophylaxis: Patient receiving 20 mg Pepcid daily -Continue Zithromax and ceftriaxone -Pulmonary on consult. Appreciate recommendations and input -DVT prophylaxis: Patient receiving Lovenox 40 mg daily -GI prophylaxis: Patient receiving 20 mg Pepcid daily -Continue to monitor vital signs address as indicated -Continue home meds -Monitor labs -Discontinue nicotine patch -Encouraged patient to continue with smoking cessation -Anticipate discharge in the next 24-48 hours The above impression and plan of care have been discussed and directed by signing physician. Alyson Clemente, nurse practitioner, acting as scribe for signing physician.
[2017-07-26] MEDS: MULTIVITAMINS, THERA 1 EACH TAB PO SCH (12:14)
[2017-07-26 12:17] LABS: Glucose,Whole Blood 220 mg/dL (75-99)
--- NOTE | 2017-07-26 13:39 | P.PN ---
Subjective 77-year-old female patient who was brought into the ED because of severe shortness of breath. The patient has been gradually getting worse over the past 3-4 days and has been utilizing her 's oxygen. She denied having any chest pain. She had increased cough and congestion. She is a chronic smoker in she states that she hasn't smoked for the past 10 days. She has been maintained on Anoro one inhalation a day on outpatient basis addition to DuoNeb nebulized treatments twice a day. Her chest x-ray shows no acute abnormalities are than chronic COPD. No significant leukocytosis. Her white cell count is at 12.3. The patient's troponin has been negative. BNP level was nonelevated. Rest of the blood work and electrodes are all within normal limits. Note that this is the patient's first hospitalization for COPD exacerbation. She has no previous pulmonary complications pH she states that she was able to do activities of daily today life without any major difficulties. The patient was seen again today 07/24/2017 in follow-up on the regular medical floor. She is awake and alert in no acute distress. She is breathing slightly better today as compared to yesterday. Not quite back to her baseline. She remains on bronchodilators, Singulair, IV Solu-Medrol. She is currently on antibiotics in the form of ceftriaxone and azithromycin. Preliminary blood cultures remain reveal gram-positive cocci in clusters. She is maintaining O2 saturations in the low 90s on 3 L/m per nasal cannula. She's been afebrile. Hemodynamically stable. Patient is seen again today 07/25/2017 in follow-up on the regular medical floor. She is awake and alert in no acute distress. Her breathing is a little worse today as compared to yesterday. She is still bronchospastic and wheezing. She still has significant shortness of breath with minimal exertion. Cor in 3 L /m per nasal cannula to maintain O2 saturations in the 90s. She's been hemodynamically stable. Currently afebrile. He has been continued on bronchodilators and IV Solu-Medrol. The patient was seen again today 07/26/2017 in follow-up on the regular medical floor. She is better today as compared to yesterday but still not back to her baseline. She is maintaining good O2 saturations in the low 90s on 3 L/m per nasal cannula. She is afebrile. Hemodynamically stable. Her computed tomography scan of the chest revealed some linear consolidation and atelectasis of the right posterior lung base. No evidence of pulmonary mass. Noted emphysema. Objective - Vital Signs Vital signs: Vital Signs Temp 97.8 F 07/26/17 07:00 Pulse 86 07/26/17 11:55 Resp 16 07/26/17 11:55 BP 118/72 07/26/17 07:00 Pulse Ox 93 L 07/26/17 08:38 Intake & Output 07/25/17 07/26/17 07/26/17 18:59 06:59 18:59 Intake Total 480 400 Balance 480 400 Intake: Oral 480 400 Other: Voiding Method Bedside Commode Bedside Commode Bedside Commode # Voids 1 1 - Exam The patient appeared well nourished and normally developed. Vital signs as documented. Head exam is unremarkable. No scleral icterus or corneal arcus noted. Neck is without jugular venous distension, thyromegaly, or carotid bruits. Carotid upstrokes are brisk bilaterally. Lungs are diminished and there is diffuse expiratory wheezes and prolongation of expiratory phase of breathing.. Cardiac exam reveals the PMI to be normally sized and situated. Rhythm is regular. First and second heart sounds normal. No murmurs, rubs or gallops. Abdominal exam reveals normal bowel sounds, no masses, no organomegaly and no aortic enlargement. Extremities are nonedematous and both femoral and pedal pulses are normal. - Labs CBC & Chem 7: 07/22/17 17:10 07/22/17 17:10 Labs: Abnormal Lab Results - Last 24 Hours (Table) 07/25/17 07/25/17 07/25/17 Range/Units 11:27 17:22 21:20 POC Glucose (mg/dL) 174 H 173 H 214 H (75-99) mg/dL 07/26/17 07/26/17 Range/Units 07:44 12:01 POC Glucose (mg/dL) 148 H 220 H (75-99) mg/dL Microbiology - Last 24 Hours (Table) 07/24/17 09:16 Blood Culture - Preliminary Blood No Growth after 48 hours 07/22/17 18:36 Blood Culture Gram Stain - Final Blood Blood Culture - Final Staph hominis sub sp. hominis 08/27/17 17:10 Blood Culture - Final Blood Assessment and Plan Plan: Assessment 1 acute COPD exacerbation with secondary shortness of breath 2 chronic smoking 3 hypothyroidism 4 depression Plan: The patient was seen and evaluated by Dr. Zarate. Her CAT scan was reviewed. We'll continue with her current medications. Initiate prednisone burst and taper tomorrow prior to her probable discharge. She is again educated regarding the importance of complete smoking cessation. A NicoDerm patch is in place. We'll continue to follow.
[2017-07-26] MEDS: SULFAMETHOX-TMP 800-160MG 1 EACH TAB PO SCH ×2 (14:16→21:04)
[2017-07-26 17:21] LABS: Glucose,Whole Blood 133 mg/dL (75-99)
[2017-07-26] MEDS: AZITHROMYCIN 250 MG TAB PO SCH (17:35)
[2017-07-26 21:07] LABS: Glucose,Whole Blood 128 mg/dL (75-99)
[2017-07-27] MEDS: CHLORPHEN-HYDROcod 8-10mg/5ml 5 ML ORAL.SYRG PO SCH ×2 (06:21→17:13)
[2017-07-27] MEDS: LEVOTHYROXINE 75 MCG TAB PO SCH (06:22)
[2017-07-27 07:53] LABS: Glucose,Whole Blood 159 mg/dL (75-99)
[2017-07-27 08:02] LABS: CH 34.4; CHCM 34.5; HCT 45.2 % (34.0-46.0); HGB 15.1 gm/dL (11.4-16.0); MCH 33.6 pg (25.0-35.0); MCHC 33.5 g/dL (31.0-37.0); MCV 100.3 fL (80.0-100.0); Mean Platelet Volume 7.7; RDW 13.7 % (11.5-15.5); WBC 13.7 k/uL (3.8-10.6)
[2017-07-27 08:16] LABS: ALT 84 U/L (9-52); AST 27 U/L (14-36); Alkaline Phosphatase 57 U/L (38-126); Anion Gap 8 mmol/L; Blood Urea Nitrogen 21 mg/dL (7-17); Calcium 9.2 mg/dL (8.4-10.2); Carbon Dioxide 25 mmol/L (22-30); Chloride 105 mmol/L (98-107); Glucose 152 mg/dL (74-99); Non-African American GFR(MDRD) >60 (>60 ml/min/1.73 sqM); Potassium 4.7 mmol/L (3.5-5.1); Sodium 138 mmol/L (137-145); Total Bilirubin 0.4 mg/dL (0.2-1.3); Total Protein 5.8 g/dL (6.3-8.2)
[2017-07-27] MEDS: CHOLECALCIFEROL 1,000 UNIT TAB PO SCH (08:29)
[2017-07-27] MEDS: FAMOTIDINE 20 MG TAB PO SCH (08:29)
[2017-07-27] MEDS: MONTELUKAST 10 MG TAB PO SCH (08:29)
[2017-07-27] MEDS: INSULIN LISPRO (humaLOG) 300 UNIT/3 ML VIAL SQ SCH ×4 (08:29→21:56)
[2017-07-27] MEDS: VENLAFAXINE HCL ER 75 MG CAP PO SCH (08:29)
[2017-07-27] MEDS: ENOXAPARIN 40 MG/0.4 ML SYRINGE SQ SCH (08:30)
[2017-07-27] MEDS: SULFAMETHOX-TMP 800-160MG 1 EACH TAB PO SCH ×2 (08:30→20:13)
[2017-07-27] MEDS: methylPREDNISolone SOD SUCCI 125 MG/2 ML VIAL IV SCH ×2 (08:30→21:57)
[2017-07-27] MEDS: DOCUSATE 100 MG CAP PO PRN (08:31)
[2017-07-27] MEDS: IPRATROPIUM-ALBUTEROL 3 ML NEB INHALATION SCH ×4 (08:36→21:22)
[2017-07-27] MEDS: FORMOTEROL FUMARATE 20 MCG/2 ML NEBU INHALATION SCH ×2 (08:36→21:22)
[2017-07-27] MEDS: BUDESONIDE 1 MG/2 ML NEBU INHALATION SCH ×2 (08:36→21:22)
[2017-07-27 12:14] LABS: Glucose,Whole Blood 164 mg/dL (75-99)
--- NOTE | 2017-07-27 12:45 | P.DS ---
Providers Date of admission: 07/22/17 18:36 Expected date of discharge: 07/31/17 Attending physician: Heri Alexandra Consults: 07/22/17 18:36 Consult Physician Routine Consulting Provider: Herber Coleman Reason/Comments: copdy Do you want consulting provider notified?: Yes Primary care physician: Heri Alexandra [place] [facility] Course: This is a 77-year-old female who presented to the hospital on 07/22/2017 with a chief complaint of shortness of breath. Patient has a history of COPD and tobacco abuse. She states she quit smoking 10 days before her admission to the hospital. Pulmonary was consulted. The patient received updraft treatments and IV steroids during her admission. A chest x-ray was completed upon admission which displayed chronic changes consistent with COPD but otherwise was unremarkable. A CT of the chest was performed which did not show evidence of a pericardial effusion or pleural effusion. It did show some linear consolidation and atelectasis at the right posterior lung base. A set of blood cultures was drawn which showed gram-positive cocci in clusters. The patient was placed on Zithromax and ceftriaxone. Blood cultures were repeated, which were negative for growth at the [address] Alexandra would like the patient to be discharged home on Bactrim for 7 days. Her blood pressure has been stable and she has remained afebrile. The patient is be discharged home on home o2. Discharge Diagnosis: 1. Chronic obstructive pulmonary disease, acute exacerbation, present on admission, improving 2. History of tobacco abuse 3. Dyspnea, related to acute COPD exacerbation, improving 4. Leukocytosis, blood cultures positive, no indication of sepsis. Patient to be D/C home on Bactrim. 5. History of hypothyroidism 6. History of hyperlipidemia The above impression and plan of care have been discussed and directed by signing physician. Alyson Clemente, nurse practitioner, acting as scribe for signing physician. Patient Condition at Discharge: Stable Plan - Discharge Summary New Discharge Prescriptions: New Sulfamethox-Tmp 800-160Mg [Bactrim DS 800-160 mg] 1 each PO BID #14 tab predniSONE 10 mg PO DAILY #30 tab Continue Venlafaxine HCl [Effexor XR] 75 mg PO DAILY Levothyroxine Sodium [Synthroid] 75 mcg PO DAILY Vitamin B Complex 1 cap PO DAILY Multivitamins, Thera [Multivitamin (formulary)] 1 tab PO DAILY Cholecalciferol [Vitamin D3] 1,000 unit PO DAILY Montelukast [Singulair] 10 mg PO DAILY No Action Umeclidinium Brm/Vilanterol Tr [Anoro Ellipta 62.5-25 Mcg INH] 1 puff INHALATION RT-DAILY Ipratropium-Albuterol Nebulize [Duoneb 0.5 mg-3 mg/3 ml Soln] 3 ml INHALATION RT-BID Discharge Medication List Cholecalciferol [Vitamin D3] 1,000 unit PO DAILY 07/22/17 [History] Ipratropium-Albuterol Nebulize [Duoneb 0.5 mg-3 mg/3 ml Soln] 3 ml INHALATION RT -BID 07/22/17 [History] Levothyroxine Sodium [Synthroid] 75 mcg PO DAILY 07/22/17 [History] Montelukast [Singulair] 10 mg PO DAILY 07/22/17 [History] Multivitamins, Thera [Multivitamin (formulary)] 1 tab PO DAILY 07/22/17 [History ] Umeclidinium Brm/Vilanterol Tr [Anoro Ellipta 62.5-25 Mcg INH] 1 puff INHALATION RT-DAILY 07/22/17 [History] Venlafaxine HCl [Effexor XR] 75 mg PO DAILY 07/22/17 [History] Vitamin B Complex 1 cap PO DAILY 07/22/17 [History] Sulfamethox-Tmp 800-160Mg [Bactrim DS 800-160 mg] 1 each PO BID #14 tab [Rx] predniSONE 10 mg PO DAILY #30 tab 07/27/17 [Rx] Follow up Appointment(s)/Referral(s): Heri Alexandra DO [Primary Care Provider] - 08/02/17 2:20 pm Dani Zarate MD [STAFF PHYSICIAN] - 08/20/17 1:00 pm Patient Instructions/Handouts: COPD (Chronic Obstructive Pulmonary Disease) (DC ), Hypoxia (GEN) Activity/Diet/Wound Care/Special [phone] Discharge Disposition: HOME SELF-CARE
[2017-07-27] MEDS: MULTIVITAMINS, THERA 1 EACH TAB PO SCH (13:44)
[2017-07-27 14:36] VITALS: BMI 27.3
[2017-07-27] MEDS: AZITHROMYCIN 250 MG TAB PO SCH (16:46)
[2017-07-27 17:02] LABS: Glucose,Whole Blood 125 mg/dL (75-99)
--- NOTE | 2017-07-27 18:52 | P.PN ---
Subjective 77-year-old female patient who was brought into the ED because of severe shortness of breath. The patient has been gradually getting worse over the past 3-4 days and has been utilizing her 's oxygen. She denied having any chest pain. She had increased cough and congestion. She is a chronic smoker in she states that she hasn't smoked for the past 10 days. She has been maintained on Anoro one inhalation a day on outpatient basis addition to DuoNeb nebulized treatments twice a day. Her chest x-ray shows no acute abnormalities are than chronic COPD. No significant leukocytosis. Her white cell count is at 12.3. The patient's troponin has been negative. BNP level was nonelevated. Rest of the blood work and electrodes are all within normal limits. Note that this is the patient's first hospitalization for COPD exacerbation. She has no previous pulmonary complications pH she states that she was able to do activities of daily today life without any major difficulties. The patient was seen again today 07/24/2017 in follow-up on the regular medical floor. She is awake and alert in no acute distress. She is breathing slightly better today as compared to yesterday. Not quite back to her baseline. She remains on bronchodilators, Singulair, IV Solu-Medrol. She is currently on antibiotics in the form of ceftriaxone and azithromycin. Preliminary blood cultures remain reveal gram-positive cocci in clusters. She is maintaining O2 saturations in the low 90s on 3 L/m per nasal cannula. She's been afebrile. Hemodynamically stable. Patient is seen again today 07/25/2017 in follow-up on the regular medical floor. She is awake and alert in no acute distress. Her breathing is a little worse today as compared to yesterday. She is still bronchospastic and wheezing. She still has significant shortness of breath with minimal exertion. Cor in 3 L /m per nasal cannula to maintain O2 saturations in the 90s. She's been hemodynamically stable. Currently afebrile. He has been continued on bronchodilators and IV Solu-Medrol. The patient was seen again today 07/26/2017 in follow-up on the regular medical floor. She is better today as compared to yesterday but still not back to her baseline. She is maintaining good O2 saturations in the low 90s on 3 L/m per nasal cannula. She is afebrile. Hemodynamically stable. Her computed tomography scan of the chest revealed some linear consolidation and atelectasis of the right posterior lung base. No evidence of pulmonary mass. Noted emphysema. On 07/27/2017 I'm seeing this patient in follow-up. The patient is doing better. She is gradually improving. She made an attempt to walk today in the hallway around afternoon and she became hypoxic and the walker to be aborted. Her chest is still congested. On and off she is still coughing. Breathing easier however. I will say that his progress however the progress is slow. CAT scan of the chest was essentially negative. No swelling in lower extremities. No side effects of systemic steroids for now. Objective - Vital Signs Vital signs: Vital Signs Temp 97.4 F L 07/27/17 15:00 Pulse 80 07/27/17 17:00 Resp 18 07/27/17 15:00 BP 122/85 07/27/17 15:00 Pulse Ox 99 07/27/17 16:45 Intake & Output 07/26/17 07/27/17 07/27/17 18:59 06:59 18:59 Intake Total 899 016 6989 Balance 748 225 7019 Weight 74.5 kg Intake: Oral 492 765 7286 Other: Voiding Method Bedside Commode Bedside Commode Toilet # Voids 1 1 1 - Exam The patient appeared well nourished and normally developed. Vital signs as documented. Head exam is unremarkable. No scleral icterus or corneal arcus noted. Neck is without jugular venous distension, thyromegaly, or carotid bruits. Carotid upstrokes are brisk bilaterally. Lungs are diminished and there is diffuse expiratory wheezes and prolongation of expiratory phase of breathing.. Cardiac exam reveals the PMI to be normally sized and situated. Rhythm is regular. First and second heart sounds normal. No murmurs, rubs or gallops. Abdominal exam reveals normal bowel sounds, no masses, no organomegaly and no aortic enlargement. Extremities are nonedematous and both femoral and pedal pulses are normal. - Labs CBC & Chem 7: 07/27/17 07:35 07/27/17 07:35 Labs: Abnormal Lab Results - Last 24 Hours (Table) 07/26/17 07/27/17 07/27/17 Range/Units 21:00 07:33 07:35 WBC 13.7 H (3.8-10.6) k/uL MCV 100.3 H (80.0-100.0) fL BUN (7-17) mg/dL Glucose (74-99) mg/dL POC Glucose (mg/dL) 128 H 159 H (75-99) mg/dL ALT (9-52) U/L Total Protein (6.3-8.2) g/dL 07/27/17 07/27/17 07/27/17 Range/Units 07:35 12:11 16:57 WBC (3.8-10.6) k/uL MCV (80.0-100.0) fL BUN 21 H (7-17) mg/dL Glucose 152 H (74-99) mg/dL POC Glucose (mg/dL) 164 H 125 H (75-99) mg/dL ALT 84 H (9-52) U/L Total Protein 5.8 L (6.3-8.2) g/dL Microbiology - Last 24 Hours (Table) 07/24/17 09:16 Blood Culture - Preliminary Blood No Growth after 72 hours Assessment and Plan Plan: Assessment 1 acute COPD exacerbation with secondary shortness of breath 2 chronic smoking 3 hypothyroidism 4 depression Plan Continue DuoNeb nebulized treatments around the clock, continue Pulmicort Respules and Perforomist neb last 2 minutes twice a day, continued IV Solu- Medrol. CAT scan of the chest was reviewed. We'll continue to follow. Improvement is slow. The patient is still experiencing exertional dyspnea and hypoxemia. She would likely need home O2. She will likely need also home nebulizer. Anticipate hospital stay for another 24-48 hours.
[2017-07-27 21:02] LABS: Glucose,Whole Blood 203 mg/dL (75-99)
[2017-07-28] MEDS: CHLORPHEN-HYDROcod 8-10mg/5ml 5 ML ORAL.SYRG PO SCH ×2 (06:24→16:47)
[2017-07-28] MEDS: LEVOTHYROXINE 75 MCG TAB PO SCH (06:24)
[2017-07-28 07:43] LABS: Glucose,Whole Blood 136 mg/dL (75-99)
[2017-07-28] MEDS: INSULIN LISPRO (humaLOG) 300 UNIT/3 ML VIAL SQ SCH ×4 (07:48→22:04)
[2017-07-28] MEDS: CHOLECALCIFEROL 1,000 UNIT TAB PO SCH (07:50)
[2017-07-28] MEDS: FAMOTIDINE 20 MG TAB PO SCH (07:50)
[2017-07-28] MEDS: methylPREDNISolone SOD SUCCI 125 MG/2 ML VIAL IV SCH ×2 (07:50→22:05)
[2017-07-28] MEDS: ENOXAPARIN 40 MG/0.4 ML SYRINGE SQ SCH (07:50)
[2017-07-28] MEDS: VENLAFAXINE HCL ER 75 MG CAP PO SCH (07:51)
[2017-07-28] MEDS: MONTELUKAST 10 MG TAB PO SCH (07:51)
[2017-07-28] MEDS: SULFAMETHOX-TMP 800-160MG 1 EACH TAB PO SCH ×2 (07:51→22:05)
[2017-07-28] MEDS: BUDESONIDE 1 MG/2 ML NEBU INHALATION SCH ×2 (08:12→20:10)
[2017-07-28] MEDS: IPRATROPIUM-ALBUTEROL 3 ML NEB INHALATION SCH ×4 (08:12→20:10)
[2017-07-28] MEDS: FORMOTEROL FUMARATE 20 MCG/2 ML NEBU INHALATION SCH ×2 (08:12→20:10)
[2017-07-28] MEDS: DOCUSATE 100 MG CAP PO PRN (09:40)
[2017-07-28] MEDS: MULTIVITAMINS, THERA 1 EACH TAB PO SCH (11:11)
[2017-07-28 12:31] LABS: Glucose,Whole Blood 302 mg/dL (75-99)
--- NOTE | 2017-07-28 13:40 | P.PN ---
Subjective 77-year-old female patient who was brought into the ED because of severe shortness of breath. The patient has been gradually getting worse over the past 3-4 days and has been utilizing her 's oxygen. She denied having any chest pain. She had increased cough and congestion. She is a chronic smoker in she states that she hasn't smoked for the past 10 days. She has been maintained on Anoro one inhalation a day on outpatient basis addition to DuoNeb nebulized treatments twice a day. Her chest x-ray shows no acute abnormalities are than chronic COPD. No significant leukocytosis. Her white cell count is at 12.3. The patient's troponin has been negative. BNP level was nonelevated. Rest of the blood work and electrodes are all within normal limits. Note that this is the patient's first hospitalization for COPD exacerbation. She has no previous pulmonary complications pH she states that she was able to do activities of daily today life without any major difficulties. The patient was seen again today 07/24/2017 in follow-up on the regular medical floor. She is awake and alert in no acute distress. She is breathing slightly better today as compared to yesterday. Not quite back to her baseline. She remains on bronchodilators, Singulair, IV Solu-Medrol. She is currently on antibiotics in the form of ceftriaxone and azithromycin. Preliminary blood cultures remain reveal gram-positive cocci in clusters. She is maintaining O2 saturations in the low 90s on 3 L/m per nasal cannula. She's been afebrile. Hemodynamically stable. Patient is seen again today 07/25/2017 in follow-up on the regular medical floor. She is awake and alert in no acute distress. Her breathing is a little worse today as compared to yesterday. She is still bronchospastic and wheezing. She still has significant shortness of breath with minimal exertion. Cor in 3 L /m per nasal cannula to maintain O2 saturations in the 90s. She's been hemodynamically stable. Currently afebrile. He has been continued on bronchodilators and IV Solu-Medrol. The patient was seen again today 07/26/2017 in follow-up on the regular medical floor. She is better today as compared to yesterday but still not back to her baseline. She is maintaining good O2 saturations in the low 90s on 3 L/m per nasal cannula. She is afebrile. Hemodynamically stable. Her computed tomography scan of the chest revealed some linear consolidation and atelectasis of the right posterior lung base. No evidence of pulmonary mass. Noted emphysema. On 07/27/2017 I'm seeing this patient in follow-up. The patient is doing better. She is gradually improving. She made an attempt to walk today in the hallway around afternoon and she became hypoxic and the walker to be aborted. Her chest is still congested. On and off she is still coughing. Breathing easier however. I will say that his progress however the progress is slow. CAT scan of the chest was essentially negative. No swelling in lower extremities. No side effects of systemic steroids for now. The patient is seen again today 07/28/2017 in follow-up on the regular medical floor. She is resting quite comfortably in bed. She denies any worsening shortness of breath. She is still dyspneic on minimal exertion. Improved today as compared to yesterday however. Maintaining O2 saturations in the low 90s on 2.5 L/m per nasal cannula. Afebrile. She remains on her COPD exacerbation treatment. Objective - Vital Signs Vital signs: Vital Signs Temp 97.8 F 07/28/17 07:00 Pulse 78 07/28/17 11:46 Resp 16 07/28/17 07:00 BP 117/78 07/28/17 07:00 Pulse Ox 92 L 07/28/17 07:00 Intake & Output 07/27/17 07/28/17 07/28/17 18:59 06:59 18:59 Intake Total 1200 Balance 1200 Weight 74.5 kg Intake: Oral 1200 Other: Voiding Method Toilet # Voids 1 2 - Exam The patient appeared well nourished and normally developed. Vital signs as documented. Head exam is unremarkable. No scleral icterus or corneal arcus noted. Neck is without jugular venous distension, thyromegaly, or carotid bruits. Carotid upstrokes are brisk bilaterally. Lungs are diminished and there is diffuse expiratory wheezes and prolongation of expiratory phase of breathing.. Cardiac exam reveals the PMI to be normally sized and situated. Rhythm is regular. First and second heart sounds normal. No murmurs, rubs or gallops. Abdominal exam reveals normal bowel sounds, no masses, no organomegaly and no aortic enlargement. Extremities are nonedematous and both femoral and pedal pulses are normal. - Labs CBC & Chem 7: 07/27/17 07:35 07/27/17 07:35 Labs: Abnormal Lab Results - Last 24 Hours (Table) 07/27/17 07/27/17 07/28/17 Range/Units 16:57 21:00 07:38 POC Glucose (mg/dL) 125 H 203 H 136 H (75-99) mg/dL 07/28/17 Range/Units 11:59 POC Glucose (mg/dL) 302 H (75-99) mg/dL Microbiology - Last 24 Hours (Table) 07/24/17 09:16 Blood Culture - Preliminary Blood No Growth after 96 hours Assessment and Plan Plan: Assessment 1 acute COPD exacerbation with secondary shortness of breath 2 chronic smoking 3 hypothyroidism 4 depression Plan: The patient was seen and evaluated by Dr. Zarate. We'll continue with her current medications. She has been slow to progress. Initiate prednisone burst and taper prior to her probable discharge. She is again educated regarding the importance of complete smoking cessation. A NicoDerm patch is in place. We'll continue to follow.
[2017-07-28] MEDS: AZITHROMYCIN 250 MG TAB PO SCH (16:47)
[2017-07-28 17:28] LABS: Glucose,Whole Blood 128 mg/dL (75-99)
--- NOTE | 2017-07-28 18:46 | P.PN ---
Subjective Mrs. 77-year-old female seen in [facility] for Dr. Alexandra. Patient apparently has been admitted to the hospital for the last 6 days with difficulty breathing patient was smoking until a month ago and has had smoked intermittently. Patient was admitted to the hospital a CT angiogram was done to rule out a pulmonary embolism patient is noted to have oxygen need. Patient was noted to have significant wheezing on examination patient was started on breathing treatments and steroids appropriately No pneumonic infiltrate is noted Today patient is seen states that she is short of breath with minimal exertion Prior to this patient was able to relate significantly No fevers chills nausea vomiting or diarrhea is reported. Physical exam Gen. appearance oriented 3 in no distress Neck is supple no JVD Lungs good air entry clear to auscultation no rhonchi or wheezing Lower diminished breath sounds did evaluate the patient after breathing treatment patient did appear to be slightly tachypnea. Heart S1-S2 heard regular rate and rhythm no murmurs appreciated Abdomen is soft nontender no organomegaly bowel sounds are intact Neurologically cranial nerves II-12 grossly intact no focal motor or sensory deficits noted Skin no abnormalities appreciated Objective - Vital Signs Vital signs: Vital Signs Temp 97.6 F 07/28/17 14:06 Pulse 68 07/28/17 15:45 Resp 24 07/28/17 14:06 BP 166/74 07/28/17 14:06 Pulse Ox 91 L 07/28/17 14:06 Intake & Output 07/27/17 07/28/17 07/28/17 18:59 06:59 18:59 Intake Total 1200 350 Balance 1200 350 Weight 74.5 kg Intake: Oral 1200 350 Other: Voiding Method Toilet Toilet # Voids 1 2 1 - Labs CBC & Chem 7: 07/27/17 07:35 07/27/17 07:35 Labs: Abnormal Lab Results - Last 24 Hours (Table) 07/27/17 07/28/17 07/28/17 Range/Units 21:00 07:38 11:59 POC Glucose (mg/dL) 203 H 136 H 302 H (75-99) mg/dL 07/28/17 Range/Units 17:15 POC Glucose (mg/dL) 128 H (75-99) mg/dL Microbiology - Last 24 Hours (Table) 07/24/17 09:16 Blood Culture - Preliminary Blood No Growth after 96 hours Assessment and Plan Plan: #1 acute hypoxic respiratory failure secondary to acute exacerbation of COPD from tracheal bronchitis #2 hypothyroidism #3 depression #4 ongoing tobacco use #5 steroid-induced hyperglycemia Plan Patient appears to be slowly improving however difficulty breathing has been prolonged There are some difficulty to communicate with the patient as patient's was at bedside would answer most of her questions During my evaluation patient did appear to be tachypnea however air movement was noted other consideration would be to evaluate right ventricular systolic pressure there is any concern for pulmonary hypertension from another etiology.
[2017-07-28 21:33] LABS: Glucose,Whole Blood 167 mg/dL (75-99)
[2017-07-29] MEDS: CHLORPHEN-HYDROcod 8-10mg/5ml 5 ML ORAL.SYRG PO SCH ×2 (06:30→18:18)
[2017-07-29] MEDS: LEVOTHYROXINE 75 MCG TAB PO SCH (06:31)
[2017-07-29 07:22] LABS: Glucose,Whole Blood 160 mg/dL (75-99)
[2017-07-29] MEDS: IPRATROPIUM-ALBUTEROL 3 ML NEB INHALATION SCH ×4 (07:58→20:51)
[2017-07-29] MEDS: BUDESONIDE 1 MG/2 ML NEBU INHALATION SCH ×2 (07:58→20:51)
[2017-07-29] MEDS: FORMOTEROL FUMARATE 20 MCG/2 ML NEBU INHALATION SCH ×2 (07:58→20:51)
[2017-07-29] MEDS: INSULIN LISPRO (humaLOG) 300 UNIT/3 ML VIAL SQ SCH ×4 (08:35→21:43)
[2017-07-29] MEDS: FAMOTIDINE 20 MG TAB PO SCH (08:36)
[2017-07-29] MEDS: CHOLECALCIFEROL 1,000 UNIT TAB PO SCH (08:36)
[2017-07-29] MEDS: methylPREDNISolone SOD SUCCI 125 MG/2 ML VIAL IV SCH (08:36)
[2017-07-29] MEDS: ENOXAPARIN 40 MG/0.4 ML SYRINGE SQ SCH (08:36)
[2017-07-29] MEDS: SULFAMETHOX-TMP 800-160MG 1 EACH TAB PO SCH ×2 (08:37→21:44)
[2017-07-29] MEDS: VENLAFAXINE HCL ER 75 MG CAP PO SCH (08:37)
[2017-07-29] MEDS: MONTELUKAST 10 MG TAB PO SCH (08:37)
[2017-07-29] MEDS: DOCUSATE 100 MG CAP PO PRN (10:40)
[2017-07-29 12:29] LABS: Glucose,Whole Blood 73 mg/dL (75-99)
[2017-07-29] MEDS: MULTIVITAMINS, THERA 1 EACH TAB PO SCH (12:29)
[2017-07-29] MEDS: AZITHROMYCIN 250 MG TAB PO SCH (15:51)
--- NOTE | 2017-07-29 16:29 | P.PN ---
Subjective 77-year-old female patient who was brought into the ED because of severe shortness of breath. The patient has been gradually getting worse over the past 3-4 days and has been utilizing her 's oxygen. She denied having any chest pain. She had increased cough and congestion. She is a chronic smoker in she states that she hasn't smoked for the past 10 days. She has been maintained on Anoro one inhalation a day on outpatient basis addition to DuoNeb nebulized treatments twice a day. Her chest x-ray shows no acute abnormalities are than chronic COPD. No significant leukocytosis. Her white cell count is at 12.3. The patient's troponin has been negative. BNP level was nonelevated. Rest of the blood work and electrodes are all within normal limits. Note that this is the patient's first hospitalization for COPD exacerbation. She has no previous pulmonary complications pH she states that she was able to do activities of daily today life without any major difficulties. The patient was seen again today 07/24/2017 in follow-up on the regular medical floor. She is awake and alert in no acute distress. She is breathing slightly better today as compared to yesterday. Not quite back to her baseline. She remains on bronchodilators, Singulair, IV Solu-Medrol. She is currently on antibiotics in the form of ceftriaxone and azithromycin. Preliminary blood cultures remain reveal gram-positive cocci in clusters. She is maintaining O2 saturations in the low 90s on 3 L/m per nasal cannula. She's been afebrile. Hemodynamically stable. Patient is seen again today 07/25/2017 in follow-up on the regular medical floor. She is awake and alert in no acute distress. Her breathing is a little worse today as compared to yesterday. She is still bronchospastic and wheezing. She still has significant shortness of breath with minimal exertion. Cor in 3 L /m per nasal cannula to maintain O2 saturations in the 90s. She's been hemodynamically stable. Currently afebrile. He has been continued on bronchodilators and IV Solu-Medrol. The patient was seen again today 07/26/2017 in follow-up on the regular medical floor. She is better today as compared to yesterday but still not back to her baseline. She is maintaining good O2 saturations in the low 90s on 3 L/m per nasal cannula. She is afebrile. Hemodynamically stable. Her computed tomography scan of the chest revealed some linear consolidation and atelectasis of the right posterior lung base. No evidence of pulmonary mass. Noted emphysema. On 07/27/2017 I'm seeing this patient in follow-up. The patient is doing better. She is gradually improving. She made an attempt to walk today in the hallway around afternoon and she became hypoxic and the walker to be aborted. Her chest is still congested. On and off she is still coughing. Breathing easier however. I will say that his progress however the progress is slow. CAT scan of the chest was essentially negative. No swelling in lower extremities. No side effects of systemic steroids for now. The patient is seen again today 07/28/2017 in follow-up on the regular medical floor. She is resting quite comfortably in bed. She denies any worsening shortness of breath. She is still dyspneic on minimal exertion. Improved today as compared to yesterday however. Maintaining O2 saturations in the low 90s on 2.5 L/m per nasal cannula. Afebrile. She remains on her COPD exacerbation treatment. On 07/29/2017, the patient is Down to 2 L of oxygen nasal cannula. She is less short of breath pH is improving. No chest pain. No fever or chills per no other complaints. We will switch her to a prednisone burst taper as of tomorrow. Objective - Vital Signs Vital signs: Vital Signs Temp 97.4 F L 07/29/17 15:00 Pulse 72 07/29/17 16:08 Resp 20 07/29/17 15:00 BP 138/83 07/29/17 15:00 Pulse Ox 93 L 07/29/17 15:00 Intake & Output 07/28/17 07/29/17 07/29/17 18:59 06:59 18:59 Intake Total 350 500 Balance 350 500 Intake: Oral 350 500 Other: Voiding Method Toilet # Voids 1 1 3 - Exam The patient appeared well nourished and normally developed. Vital signs as documented. Head exam is unremarkable. No scleral icterus or corneal arcus noted. Neck is without jugular venous distension, thyromegaly, or carotid bruits. Carotid upstrokes are brisk bilaterally. Lungs are diminished and there is diffuse expiratory wheezes and prolongation of expiratory phase of breathing.. Cardiac exam reveals the PMI to be normally sized and situated. Rhythm is regular. First and second heart sounds normal. No murmurs, rubs or gallops. Abdominal exam reveals normal bowel sounds, no masses, no organomegaly and no aortic enlargement. Extremities are nonedematous and both femoral and pedal pulses are normal. - Labs CBC & Chem 7: 07/27/17 07:35 07/27/17 07:35 Labs: Abnormal Lab Results - Last 24 Hours (Table) 07/28/17 07/28/17 07/29/17 Range/Units 17:15 21:12 07:14 POC Glucose (mg/dL) 128 H 167 H 160 H (75-99) mg/dL 07/29/17 Range/Units 12:26 POC Glucose (mg/dL) 73 L (75-99) mg/dL Microbiology - Last 24 Hours (Table) 07/24/17 09:16 Blood Culture - Preliminary Blood No Growth after 120 hours Assessment and Plan Plan: Assessment 1 acute COPD exacerbation with secondary shortness of breath, improving. The patient's oxygenation is improved and the patient is currently down to 2 L of oxygen nasal cannula. 2 chronic smoking 3 hypothyroidism 4 depression Plan Continue DuoNeb nebulized treatments around the clock, continue Pulmicort Respules and Perforomist neb last 2 minutes twice a day, continued IV Solu- Medrol. The patient is slowly improving from acute COPD exacerbation. I will switch her to a prednisone burst taper as of tomorrow the rest of the treatments can be done on outpatient basis. She may need home O2 for a while. She is fully recovered. This will be decided upon at a day of discharge. She will also need a nebulizer machine at a time of discharge. She is improving.
[2017-07-29 16:47] LABS: Glucose,Whole Blood 188 mg/dL (75-99)
[2017-07-29 21:44] LABS: Glucose,Whole Blood 125 mg/dL (75-99)
[2017-07-29] MEDS: methylPREDNISolone SOD SUCCI 40 MG/ML 1 ML VIAL IV SCH (21:44)
[2017-07-30] MEDS: CHLORPHEN-HYDROcod 8-10mg/5ml 5 ML ORAL.SYRG PO SCH ×2 (06:18→17:44)
[2017-07-30] MEDS: LEVOTHYROXINE 75 MCG TAB PO SCH (06:18)
[2017-07-30] MEDS: BUDESONIDE 1 MG/2 ML NEBU INHALATION SCH ×2 (07:13→20:42)
[2017-07-30] MEDS: FORMOTEROL FUMARATE 20 MCG/2 ML NEBU INHALATION SCH ×2 (07:13→20:41)
[2017-07-30] MEDS: IPRATROPIUM-ALBUTEROL 3 ML NEB INHALATION SCH ×4 (07:13→20:41)
[2017-07-30 07:33] LABS: Glucose,Whole Blood 126 mg/dL (75-99)
[2017-07-30] MEDS: INSULIN LISPRO (humaLOG) 300 UNIT/3 ML VIAL SQ SCH ×4 (07:59→21:01)
[2017-07-30] MEDS: ENOXAPARIN 40 MG/0.4 ML SYRINGE SQ SCH (07:59)
[2017-07-30] MEDS: CHOLECALCIFEROL 1,000 UNIT TAB PO SCH (07:59)
[2017-07-30] MEDS: FAMOTIDINE 20 MG TAB PO SCH (07:59)
[2017-07-30] MEDS: MONTELUKAST 10 MG TAB PO SCH (08:00)
[2017-07-30] MEDS: SULFAMETHOX-TMP 800-160MG 1 EACH TAB PO SCH ×2 (08:00→21:01)
[2017-07-30] MEDS: methylPREDNISolone SOD SUCCI 40 MG/ML 1 ML VIAL IV SCH ×2 (08:00→21:01)
[2017-07-30] MEDS: VENLAFAXINE HCL ER 75 MG CAP PO SCH (08:00)
[2017-07-30] MEDS: DOCUSATE 100 MG CAP PO PRN (09:04)
[2017-07-30] MEDS: MULTIVITAMINS, THERA 1 EACH TAB PO SCH (11:02)
[2017-07-30 11:58] LABS: Glucose,Whole Blood 154 mg/dL (75-99)
--- NOTE | 2017-07-30 12:46 | PN ---
PROGRESS NOTE DATE OF SERVICE: 07/29/2017 I am covering for Dr. Alexandra This 77-year-old woman who was admitted with a COPD acute exacerbation, also had acute hypoxic respiratory failure. On admission the patient was given IV steroids. The patient is feeling slightly better. Dr. Zarate is following the patient closely. No chest pain, no palpitation, no fever. EXAM: Alert and oriented x3. Pulse 88, blood pressure 130/82, respirations 20, temp 97.2, pulse ox 93% on 2 L HEENT: Conjunctivae normal. NECK: No JVD. No carotid bruit. No thyromegaly. CARDIOVASCULAR: S1/S2 normal. RESPIRATORY: Diminished breath sounds especially at the bases. Bilateral scattered rhonchi and crackles. ABDOMEN: Soft, nontender. LEGS: No edema. NERVOUS SYSTEM: No focal deficits. LAB STUDIES: Accu-Cheks 201, 167. WBC 13.7. ASSESSMENT: 1. Chronic obstructive pulmonary disease acute exacerbation with acute tracheobronchitis as well as acute hypoxic respiratory failure. 2. Hypothyroidism. 3. Depression. 4. Ongoing nicotine dependence. 5. History of steroid induced hyperglycemia. 6. Increased WBC. RECOMMENDATIONS AND DISCUSSION: Recommend to continue current medication, continue to monitor, continue symptomatic treatment. Continue to taper steroids. Continue bronchodilators. Closely follow with pulmonary doctor. Prognosis guarded. Further recommendations to follow. MMODL / IJN: [id number] /
--- NOTE | 2017-07-30 15:09 | P.PN ---
Subjective 77-year-old female patient who was brought into the ED because of severe shortness of breath. The patient has been gradually getting worse over the past 3-4 days and has been utilizing her 's oxygen. She denied having any chest pain. She had increased cough and congestion. She is a chronic smoker in she states that she hasn't smoked for the past 10 days. She has been maintained on Anoro one inhalation a day on outpatient basis addition to DuoNeb nebulized treatments twice a day. Her chest x-ray shows no acute abnormalities are than chronic COPD. No significant leukocytosis. Her white cell count is at 12.3. The patient's troponin has been negative. BNP level was nonelevated. Rest of the blood work and electrodes are all within normal limits. Note that this is the patient's first hospitalization for COPD exacerbation. She has no previous pulmonary complications pH she states that she was able to do activities of daily today life without any major difficulties. The patient was seen again today 07/24/2017 in follow-up on the regular medical floor. She is awake and alert in no acute distress. She is breathing slightly better today as compared to yesterday. Not quite back to her baseline. She remains on bronchodilators, Singulair, IV Solu-Medrol. She is currently on antibiotics in the form of ceftriaxone and azithromycin. Preliminary blood cultures remain reveal gram-positive cocci in clusters. She is maintaining O2 saturations in the low 90s on 3 L/m per nasal cannula. She's been afebrile. Hemodynamically stable. Patient is seen again today 07/25/2017 in follow-up on the regular medical floor. She is awake and alert in no acute distress. Her breathing is a little worse today as compared to yesterday. She is still bronchospastic and wheezing. She still has significant shortness of breath with minimal exertion. Cor in 3 L /m per nasal cannula to maintain O2 saturations in the 90s. She's been hemodynamically stable. Currently afebrile. He has been continued on bronchodilators and IV Solu-Medrol. The patient was seen again today 07/26/2017 in follow-up on the regular medical floor. She is better today as compared to yesterday but still not back to her baseline. She is maintaining good O2 saturations in the low 90s on 3 L/m per nasal cannula. She is afebrile. Hemodynamically stable. Her computed tomography scan of the chest revealed some linear consolidation and atelectasis of the right posterior lung base. No evidence of pulmonary mass. Noted emphysema. On 07/27/2017 I'm seeing this patient in follow-up. The patient is doing better. She is gradually improving. She made an attempt to walk today in the hallway around afternoon and she became hypoxic and the walker to be aborted. Her chest is still congested. On and off she is still coughing. Breathing easier however. I will say that his progress however the progress is slow. CAT scan of the chest was essentially negative. No swelling in lower extremities. No side effects of systemic steroids for now. The patient is seen again today 07/28/2017 in follow-up on the regular medical floor. She is resting quite comfortably in bed. She denies any worsening shortness of breath. She is still dyspneic on minimal exertion. Improved today as compared to yesterday however. Maintaining O2 saturations in the low 90s on 2.5 L/m per nasal cannula. Afebrile. She remains on her COPD exacerbation treatment. On 07/29/2017, the patient is Down to 2 L of oxygen nasal cannula. She is less short of breath pH is improving. No chest pain. No fever or chills per no other complaints. We will switch her to a prednisone burst taper as of tomorrow. On 07/30 the patient is being seen in follow-up H is doing well. Her room air pulse ox is ranging between 88-90%. She is also demonstrating some limited desaturation with activity and based on that the patient was discharged home on home oxygen concentrator and portable tanks. She'll be also given a prednisone burst taper. I arranged for her at home nebulizer addition. She has made a commitment not to smoke. She was discharged home to followed up on outpatient basis. Objective - Vital Signs Vital signs: Vital Signs Temp 97.2 F L 07/30/17 07:00 Pulse 80 07/30/17 11:24 Resp 16 07/30/17 07:00 BP 115/68 07/30/17 07:00 Pulse Ox 93 L 07/30/17 07:00 Intake & Output 07/29/17 07/30/17 07/30/17 18:59 06:59 18:59 Intake Total 500 340 Balance 500 340 Intake: Oral 500 340 Other: Voiding Method Toilet # Voids 3 2 2 - Exam The patient appeared well nourished and normally developed. Vital signs as documented. Head exam is unremarkable. No scleral icterus or corneal arcus noted. Neck is without jugular venous distension, thyromegaly, or carotid bruits. Carotid upstrokes are brisk bilaterally. Lungs are diminished and there is diffuse expiratory wheezes and prolongation of expiratory phase of breathing.. Cardiac exam reveals the PMI to be normally sized and situated. Rhythm is regular. First and second heart sounds normal. No murmurs, rubs or gallops. Abdominal exam reveals normal bowel sounds, no masses, no organomegaly and no aortic enlargement. Extremities are nonedematous and both femoral and pedal pulses are normal. - Labs CBC & Chem 7: 07/27/17 07:35 07/27/17 07:35 Labs: Abnormal Lab Results - Last 24 Hours (Table) 07/29/17 07/29/17 07/30/17 Range/Units 16:46 21:41 07:27 POC Glucose (mg/dL) 188 H 125 H 126 H (75-99) mg/dL 07/30/17 Range/Units 11:54 POC Glucose (mg/dL) 154 H (75-99) mg/dL Microbiology - Last 24 Hours (Table) 07/24/17 09:16 Blood Culture - Final Blood No Growth after 144 hours Assessment and Plan Plan: Assessment 1 acute COPD exacerbation with secondary shortness of breath, improving. The patient has significantly improved that she has not completely normalized. Further recovered based anticipated on outpatient basis once the patient's completing a prednisone burst taper. We'll send her home with oxygen and nebulizer. 2 chronic smoking 3 hypothyroidism 4 depression Plan I will follow this patient on outpatient basis regarding her COPD exacerbation. Prednisone burst taper. Oxygen to maintain a saturation above 90%. We'll ask the patient purchase a pulse oximeter. We'll ask the patient to utilize her albuterol about treatments 4 times a day for now and the second being gradually weaned as the patient's condition is improved. Smoking cessation counseling was again done.
[2017-07-30] MEDS: AZITHROMYCIN 250 MG TAB PO SCH (16:07)
[2017-07-30 17:37] LABS: Glucose,Whole Blood 135 mg/dL (75-99)
[2017-07-30 21:03] LABS: Glucose,Whole Blood 197 mg/dL (75-99)
[2017-07-31] MEDS: CHLORPHEN-HYDROcod 8-10mg/5ml 5 ML ORAL.SYRG PO SCH (06:25)
[2017-07-31] MEDS: LEVOTHYROXINE 75 MCG TAB PO SCH (06:25)
[2017-07-31 07:04] LABS: Glucose,Whole Blood 143 mg/dL (75-99)
[2017-07-31] MEDS: INSULIN LISPRO (humaLOG) 300 UNIT/3 ML VIAL SQ SCH ×2 (07:48→13:00)
[2017-07-31] MEDS: FAMOTIDINE 20 MG TAB PO SCH (07:49)
[2017-07-31] MEDS: VENLAFAXINE HCL ER 75 MG CAP PO SCH (07:49)
[2017-07-31] MEDS: CHOLECALCIFEROL 1,000 UNIT TAB PO SCH (07:49)
[2017-07-31] MEDS: methylPREDNISolone SOD SUCCI 40 MG/ML 1 ML VIAL IV SCH (07:49)
[2017-07-31] MEDS: MONTELUKAST 10 MG TAB PO SCH (07:49)
[2017-07-31] MEDS: SULFAMETHOX-TMP 800-160MG 1 EACH TAB PO SCH (07:49)
[2017-07-31] MEDS: ENOXAPARIN 40 MG/0.4 ML SYRINGE SQ SCH (07:50)
[2017-07-31 07:52] VITALS: BP 137/67; RESP 16; TEMP 97.3
[2017-07-31] MEDS: BUDESONIDE 1 MG/2 ML NEBU INHALATION SCH (08:45)
[2017-07-31] MEDS: IPRATROPIUM-ALBUTEROL 3 ML NEB INHALATION SCH ×2 (08:45→12:31)
[2017-07-31] MEDS: FORMOTEROL FUMARATE 20 MCG/2 ML NEBU INHALATION SCH (08:45)
--- NOTE | 2017-07-31 09:02 | PN ---
PROGRESS NOTE DATE OF SERVICE: 07/30/2017 I am covering for Dr. Alexandra. This 77-year-old woman was admitted with COPD acute exacerbation, status post acute tracheobronchitis also acute hypoxic respiratory failure. Patient also requires home oxygen. No chest pain. No palpitations. No fever. EXAM: Alert, oriented x3. Pulse is 85, blood pressure is 115/60, respirations 16, temperature 97.2, pulse ox 93% on 2 L. HEENT: Conjunctivae normal. NECK: No jugular venous distention. CARDIOVASCULAR: S1, S2. RESPIRATORY: Breath sounds diminished in the bases. A few scattered rhonchi and crackles. Expiratory wheezing. ABDOMEN: Soft, nontender. LEGS: No edema. NERVOUS SYSTEM: No focal deficits. LABS: Accu-Cheks noted. ASSESSMENT: 1. Chronic obstructive pulmonary disease acute exacerbation with acute purulent tracheobronchitis, suspected hypoxic respiratory failure. 2. Chronic hypoxic respiratory failure. Needed home O2. 3. Hypothyroidism. 4. Depression. 5. Ongoing nicotine dependence. 6. History of steroid induced hyperglycemia. 7. Increased WBC. RECOMMENDATIONS AND DISCUSSION: I recommend to continue current medications, continue symptomatic treatment. Otherwise, the home O2 could not be arranged today. The patient also will need nebulizer also. We will recommend to continue the current medications and follow closely with pillowcase turner and director of social services tomorrow morning to arrange home O2 and as well as nebulizer treatments. Currently stable. Overall prognosis is guarded. Dr. Alexandra will follow. Discussed with the patient and who understand and agree. MMODL / IJN: [id number] /
--- NOTE | 2017-07-31 10:24 | ECHOF ---
Referral Reason:rvsp MEASUREMENTS -------- HEIGHT: 165.1 cm WEIGHT: 74.4 kg BP: 144/63 RVIDd: 2.6 cm (< 3.3) IVSd: 0.8 cm (0.6 - 1.1) LVIDd: 3.6 cm (3.9 - 5.3) LVPWd: 1.1 cm (0.6 - 1.1) IVSs: 1.4 cm LVIDs: 2.2 cm LVPWs: 1.4 cm LA Diam: 2.4 cm (2.7 - 3.8) LAESV Index (A-L): 26.32 ml/m Ao Diam: 3.1 cm (2.0 - 3.7) AV Cusp: 2.2 cm (1.5 - 2.6) MV EXCURSION: 11.063 mm (> 18.000) MV EF SLOPE: 44 mm/s (70 - 150) EPSS: 0.8 cm MV E Alejandro: 1.04 m/s MV DecT: 294 ms MV A Alejandro: 1.15 m/s MV E/A Ratio: 0.90 FINDINGS -------- Sinus rhythm. This was a technically good study. The left ventricular size is normal. Left ventricular wall thickness is normal. Overall left ventricular systolic function is normal with, an EF between 60 - 65 %. The right ventricle is normal in size. Normal LA size by volume 22+/-6 ml/m2. The right atrium is normal in size. The aortic valve is trileaflet and appears structurally normal. Mild mitral annular calcification present. The tricuspid valve appears structurally normal. The pulmonic valve was not well visualized. The aortic root size is normal. Normal inferior vena cava with normal inspiratory collapse consistent with estimated right atrial pressure of 5 mmHg. There is no pericardial effusion. CONCLUSIONS -------- 1. Sinus rhythm. 2. Mild mitral annular calcification present. 3. The tricuspid valve appears structurally normal. 4. The pulmonic valve was not well visualized. 5. The aortic root size is normal. 6. Normal inferior vena cava with normal inspiratory collapse consistent with estimated right atrial pressure of 5 mmHg. 7. There is no pericardial effusion. 8. This was a technically good study. 9. The left ventricular size is normal. 10. Left ventricular wall thickness is normal. 11. Overall left ventricular systolic function is normal with, an EF between 60 - 65 %. 12. The right ventricle is normal in size. 13. Normal LA size by volume 22+/-6 ml/m2. 14. The right atrium is normal in size. 15. The aortic valve is trileaflet and appears structurally normal. BANKING REPRESENTATIVE: Hilary Devries RDCS
[2017-07-31 12:28] LABS: Glucose,Whole Blood 181 mg/dL (75-99)
[2017-07-31 13:00] VITALS: PULSE 80
[2017-07-31] MEDS: MULTIVITAMINS, THERA 1 EACH TAB PO SCH (13:00)
--- NOTE | 2017-07-31 13:13 | P.PN ---
Subjective 77-year-old female patient who was brought into the ED because of severe shortness of breath. The patient has been gradually getting worse over the past 3-4 days and has been utilizing her 's oxygen. She denied having any chest pain. She had increased cough and congestion. She is a chronic smoker in she states that she hasn't smoked for the past 10 days. She has been maintained on Anoro one inhalation a day on outpatient basis addition to DuoNeb nebulized treatments twice a day. Her chest x-ray shows no acute abnormalities are than chronic COPD. No significant leukocytosis. Her white cell count is at 12.3. The patient's troponin has been negative. BNP level was nonelevated. Rest of the blood work and electrodes are all within normal limits. Note that this is the patient's first hospitalization for COPD exacerbation. She has no previous pulmonary complications pH she states that she was able to do activities of daily today life without any major difficulties. The patient was seen again today 07/24/2017 in follow-up on the regular medical floor. She is awake and alert in no acute distress. She is breathing slightly better today as compared to yesterday. Not quite back to her baseline. She remains on bronchodilators, Singulair, IV Solu-Medrol. She is currently on antibiotics in the form of ceftriaxone and azithromycin. Preliminary blood cultures remain reveal gram-positive cocci in clusters. She is maintaining O2 saturations in the low 90s on 3 L/m per nasal cannula. She's been afebrile. Hemodynamically stable. Patient is seen again today 07/25/2017 in follow-up on the regular medical floor. She is awake and alert in no acute distress. Her breathing is a little worse today as compared to yesterday. She is still bronchospastic and wheezing. She still has significant shortness of breath with minimal exertion. Cor in 3 L /m per nasal cannula to maintain O2 saturations in the 90s. She's been hemodynamically stable. Currently afebrile. He has been continued on bronchodilators and IV Solu-Medrol. The patient was seen again today 07/26/2017 in follow-up on the regular medical floor. She is better today as compared to yesterday but still not back to her baseline. She is maintaining good O2 saturations in the low 90s on 3 L/m per nasal cannula. She is afebrile. Hemodynamically stable. Her computed tomography scan of the chest revealed some linear consolidation and atelectasis of the right posterior lung base. No evidence of pulmonary mass. Noted emphysema. On 07/27/2017 I'm seeing this patient in follow-up. The patient is doing better. She is gradually improving. She made an attempt to walk today in the hallway around afternoon and she became hypoxic and the walker to be aborted. Her chest is still congested. On and off she is still coughing. Breathing easier however. I will say that his progress however the progress is slow. CAT scan of the chest was essentially negative. No swelling in lower extremities. No side effects of systemic steroids for now. The patient is seen again today 07/28/2017 in follow-up on the regular medical floor. She is resting quite comfortably in bed. She denies any worsening shortness of breath. She is still dyspneic on minimal exertion. Improved today as compared to yesterday however. Maintaining O2 saturations in the low 90s on 2.5 L/m per nasal cannula. Afebrile. She remains on her COPD exacerbation treatment. On 07/29/2017, the patient is Down to 2 L of oxygen nasal cannula. She is less short of breath pH is improving. No chest pain. No fever or chills per no other complaints. We will switch her to a prednisone burst taper as of tomorrow. On 07/30/2017 the patient is being seen in follow-up H is doing well. Her room air pulse ox is ranging between 88-90%. She is also demonstrating some limited desaturation with activity and based on that the patient was discharged home on home oxygen concentrator and portable tanks. She'll be also given a prednisone burst taper. I arranged for her at home nebulizer addition. She has made a commitment not to smoke. She was discharged home to followed up on outpatient basis. The patient is seen again today 07/31/2017 in follow-up on the regular medical floor. She is awake and alert in no acute distress. She is back to her baseline as far as her breathing is concerned. However she does qualify for home oxygen now. He is anxious to go home. Objective - Vital Signs Vital signs: Vital Signs Temp 97.3 F L 07/31/17 07:00 Pulse 80 07/31/17 13:00 Resp 16 07/31/17 07:00 BP 137/67 07/31/17 07:00 Pulse Ox 93 L 07/31/17 12:37 Intake & Output 07/30/17 07/31/17 07/31/17 18:59 06:59 18:59 Intake Total 500 Balance 500 Intake: Oral 500 Other: Voiding Method Toilet # Voids 2 1 - Exam The patient appeared well nourished and normally developed. Vital signs as documented. Head exam is unremarkable. No scleral icterus or corneal arcus noted. Neck is without jugular venous distension, thyromegaly, or carotid bruits. Carotid upstrokes are brisk bilaterally. Lungs are diminished and there is faint expiratory wheezes and prolongation of expiratory phase of breathing.. Cardiac exam reveals the PMI to be normally sized and situated. Rhythm is regular. First and second heart sounds normal. No murmurs, rubs or gallops. Abdominal exam reveals normal bowel sounds, no masses, no organomegaly and no aortic enlargement. Extremities are nonedematous and both femoral and pedal pulses are normal. - Labs CBC & Chem 7: 07/27/17 07:35 07/27/17 07:35 Labs: Abnormal Lab Results - Last 24 Hours (Table) 07/30/17 07/30/17 07/31/17 Range/Units 17:33 20:26 06:48 POC Glucose (mg/dL) 135 H 197 H 143 H (75-99) mg/dL 07/31/17 Range/Units 12:24 POC Glucose (mg/dL) 181 H (75-99) mg/dL Microbiology - Last 24 Hours (Table) 07/24/17 09:16 Blood Culture - Final Blood No Growth after 144 hours Assessment and Plan Plan: Assessment 1 acute COPD exacerbation with secondary shortness of breath 2 chronic smoking 3 hypothyroidism 4 depression Plan: The patient was seen and evaluated by Dr. Kaye. She is cleared for discharge from the pulmonary standpoint. She is set up for home oxygen along with the nebulizer and DuoNeb inhalations. Resume her Anoro and Singulair. She'll continue her prednisone taper. She'll follow up with Dr. Zarate in our office in 1-2 weeks' time. She is however encouraged to call sooner if any recurrence of symptoms or other questions or concerns.
== END 2017-07-31 14:31 | disposition home or self-care (01) | DRG 190 ==
LOC: EC 16:23 → 4MS4W 18:36
PROVIDERS: ADMIT Family Medicine; ATTEND Family Medicine
DX: J44.0 Chronic obstructive pulmonary disease with (acute) lower respiratory infection (principal); J96.21 Acute and chronic respiratory failure with hypoxia; J98.11 Atelectasis; F32.9 Major depressive disorder, single episode, unspecified; E03.9 Hypothyroidism, unspecified; J44.1 Chronic obstructive pulmonary disease with (acute) exacerbation; E78.5 Hyperlipidemia, unspecified; J20.9 Acute bronchitis, unspecified; F17.200 Nicotine dependence, unspecified, uncomplicated; R73.9 Hyperglycemia, unspecified; R04.0 Epistaxis; D72.829 Elevated white blood cell count, unspecified; T38.0X5A Adverse effect of glucocorticoids and synthetic analogues, initial encounter; Z79.899 Other long term (current) drug therapy; Z82.5 Family history of asthma and other chronic lower respiratory diseases
CPT/HCPCS: 36415; 71020; 71260; 80053; 82550; 82553; 83036; 83735; 83880; 84484; 85025; 85027; 85379; 85610; 85730; 87040; 87077; 87186; 93005; 93306; 94640; 94760; 96361; 96374; 99285

== ENCOUNTER → 2017-08-20 | Outpatient (CLI) | payer MEDICARE ==
--- NOTE | 2017-08-22 09:19 | MM ---
Reason for exam: screening (asymptomatic). Last mammogram was performed 9 years and 3 months ago. History: Patient is postmenopausal. Family history of breast cancer in sister at age 55 and breast cancer in sister at age 74. Physical Findings: A clinical breast exam by your physician is recommended on an annual basis and results should be correlated with mammographic findings. MG 3D Screening Mammo W/Cad Bilateral CC and MLO view(s) were taken. Prior study comparison: May 25, 2008, mammogram, performed at [facility]. March 26, 2007, mammogram, performed at [facility]. There are scattered fibroglandular densities. There is no discrete abnormality. ASSESSMENT: Negative, BI-RAD 1 RECOMMENDATION: Routine screening mammogram of both breasts in 1 year.
== END | disposition home or self-care (01) ==
LOC: RADMAMWWP 14:50
PROVIDERS: ATTEND Family Medicine
DX: Z12.31 Encounter for screening mammogram for malignant neoplasm of breast (principal)
CPT/HCPCS: 77063; G0202

== ENCOUNTER 2018-01-22 13:39 | Inpatient (IN) | payer MEDICARE ==
[2018-01-22] MEDS ORDERED: IPRATROPIUM 0.5 MG/2.5 ML NEBU INHALATION STA (14:25)
[2018-01-22] MEDS ORDERED: ALBUTEROL NEBULIZED 2.5 MG/3 ML INHALATION STA (14:25)
[2018-01-22] MEDS ORDERED: methylPREDNISolone SOD SUCCI 125 MG/2 ML VIAL IV STA (14:25)
--- NOTE | 2018-01-22 14:28 | ED ---
General Adult HPI - General Chief complaint: Shortness of Breath Stated complaint: Sob Time Seen by Provider: 01/22/18 14:14 Source: patient, RN notes reviewed, old records reviewed Mode of arrival: wheelchair Limitations: no limitations - History of Present Illness Initial comments: 77-year-old female history of COPD presents with a two-week history of worsening cough and dyspnea. Patient was seen by her eye glass frame polisher approximately one week ago started on a prednisone taper, despite oral steroids patient has failed to improve. She was requiring more supplemental oxygen at home and is severely short of breath with ambulation or activity. Patient denies chest pain. Denies fever or chills. States her cough is severe and nonproductive. Denies abdominal pain. Denies nausea vomiting or diarrhea. Denies URI symptoms. - Related Data Home Medications Medication Instructions Recorded Confirmed Ipratropium-Albuterol Nebulize 3 ml INHALATION RT-TID 07/22/17 01/22/18 [Duoneb 0.5 mg-3 mg/3 ml Soln] Levothyroxine Sodium [Synthroid] 75 mcg PO DAILY 07/22/17 01/22/18 Montelukast [Singulair] 10 mg PO DAILY 07/22/17 01/22/18 Umeclidinium Brm/Vilanterol Tr 1 puff INHALATION RT-DAILY 07/22/17 01/22/18 [Anoro Ellipta 62.5-25 Mcg INH] Venlafaxine HCl [Effexor XR] 75 mg PO DAILY 07/22/17 01/22/18 Ascorbic Acid [Vitamin C] 500 mg PO DAILY 09/10/17 01/22/18 Calcium Carbonate/Vitamin D3 1 tab PO DAILY 09/10/17 01/22/18 [Calcium 500-Vit D3 200 Tablet] [place]-3 Fatty Acids/Fish Oil [Fish 1 cap PO DAILY 09/10/17 01/22/18 Oil 1,000 mg Softgel] Amoxicillin/Potassium Clav 1 tab PO Q12HR 01/22/18 01/22/18 [Augmentin 875-125 Tablet] Cholecalciferol [Vitamin D3] 1,000 unit PO DAILY 01/22/18 01/22/18 Promethazine HCl/Codeine 5 ml PO Q6H PRN 01/22/18 01/22/18 [Prometh-Codein 6.25-10 mg/5 ml] Simvastatin [Zocor] 20 mg PO HS 01/22/18 01/22/18 Vitamin B Complex 1 cap PO DAILY 01/22/18 01/22/18 Vitamin E (Dl,Tocopheryl Acet) 400 unit PO DAILY 01/22/18 01/22/18 [Vitamin E] predniSONE See Taper PO DAILY 01/22/18 01/22/18 Allergies Allergy/AdvReac Type Severity Reaction Status Date / Time No Known Allergies Allergy Verified 01/22/18 14:21 Review of Systems ROS Statement: Those systems with pertinent positive or pertinent negative responses have been documented in the HPI. ROS Other: All systems not noted in ROS Statement are negative. Past Medical History Past Medical History: COPD, Hyperlipidemia, Thyroid Disorder History of Any Multi-Drug Resistant Organisms: None Reported Past Surgical History: Appendectomy, Hysterectomy, Tonsillectomy Past Anesthesia/Blood Transfusion Reactions: No Reported Reaction Past Psychological History: No Psychological Hx Reported Smoking Status: Former smoker Past Alcohol Use History: None Reported Past Drug Use History: None Reported - Past Family History Father Family Medical History: Myocardial Infarction ([place]) Additional Family Medical History / Comment(s): in 2009 from [place]. Mother Family Medical History: COPD Sister(s) Family Medical History: Cancer, COPD Additional Family Medical History / Comment(s): pt has two sisters who both had breast cancer. 1 sister has COPD. General Exam Limitations: no limitations General appearance: alert, in distress (Moderate respiratory) Head exam: Present: atraumatic, normocephalic Eye exam: Present: normal appearance, PERRL, EOMI ENT exam: Present: normal exam Neck exam: Present: normal inspection. Absent: tenderness, meningismus Respiratory exam: Present: respiratory distress, wheezes, accessory muscle use, decreased breath sounds, prolonged expiratory Cardiovascular Exam: Present: regular rate, normal rhythm GI/Abdominal exam: Present: soft. Absent: distended, tenderness, guarding Extremities exam: Present: normal inspection, normal capillary refill. Absent: pedal edema Neurological exam: Present: alert, oriented X3, CN II-XII intact. Absent: motor sensory deficit Psychiatric exam: Present: normal affect, normal mood Skin exam: Present: warm, dry, intact. Absent: cyanosis, diaphoretic Course Vital Signs 01/22/18 01/22/18 01/22/18 13:52 14:51 15:05 Temperature 97.9 F Pulse Rate 94 89 91 Respiratory 24 Rate Blood Pressure 144/85 O2 Sat by Pulse 88 L Oximetry 01/22/18 01/22/18 01/22/18 15:07 15:19 15:33 Temperature Pulse Rate 85 90 96 Respiratory 22 Rate Blood Pressure 119/71 O2 Sat by Pulse 96 Oximetry EKG Findings - EKG Comments: EKG Findings:: EKG shows normal sinus rhythm, ventricular rate 87, TN interval 132, castration 82, QTC 450, no signs of ischemia or infarction Medical Decision Making - Medical Decision Making [age] female history of COPD presents with worsening cough and dyspnea. Patient has decreased air entry with wheezing throughout bilateral lung ramirez. She is given albuterol Atrovent, and prednisone in the emergency department with minimal improvement. Laboratory studies reveal white blood cell count 14.4 , however she has been on outpatient steroids. Hemoglobin stable. Lites within normal limits, troponin negative. Influenza negative. There is concern for possible infiltrate on x-ray. Patient's symptoms were consistent with COPD exacerbation without significant pneumonia, however she will be started on oral Levaquin and will be admitted for further treatment of COPD exacerbation. Her eye glass frame polisher will be placed on consult. - Lab Data Result diagrams: 01/22/18 14:40 01/22/18 14:40 Lab Results 01/22/18 01/22/18 01/22/18 Range/Units 14:40 14:40 14:40 WBC 14.4 H (3.8-10.6) k/uL RBC 4.35 (3.80-5.40) m/uL Hgb 14.3 (11.4-16.0) gm/dL Hct 43.0 (34.0-46.0) % MCV 98.9 (80.0-100.0) fL MCH 32.8 (25.0-35.0) pg MCHC 33.2 (31.0-37.0) g/dL RDW 12.7 (11.5-15.5) % Plt Count 337 (150-450) k/uL Neutrophils % 86 % Lymphocytes % 7 % Monocytes % 3 % Eosinophils % 3 % Basophils % 0 % Neutrophils # 12.3 H (1.3-7.7) k/uL Lymphocytes # 1.0 (1.0-4.8) k/uL Monocytes # 0.5 (0-1.0) k/uL Eosinophils # 0.4 (0-0.7) k/uL Basophils # 0.0 (0-0.2) k/uL PT (9.0-12.0) sec INR (<1.2) APTT (22.0-30.0) sec Sodium 140 (137-145) mmol/L Potassium 4.3 (3.5-5.1) mmol/L Chloride 103 (98-107) mmol/L Carbon Dioxide 29 (22-30) mmol/L Anion Gap 8 mmol/L BUN 20 H (7-17) mg/dL Creatinine 0.70 (0.52-1.04) mg/dL Est GFR (MDRD) Af Amer >60 (>60 ml/min/1.73 sqM) Est GFR (MDRD) Non-Af >60 (>60 ml/min/1.73 sqM) Glucose 165 H (74-99) mg/dL Plasma Lactic Acid Iker (0.7-2.0) mmol/L Calcium 9.9 (8.4-10.2) mg/dL Magnesium 2.0 (1.6-2.3) mg/dL Total Bilirubin 0.4 (0.2-1.3) mg/dL AST 22 (14-36) U/L ALT 57 H (9-52) U/L Alkaline Phosphatase 77 (38-126) U/L Total Creatine Kinase 34 (30-135) U/L CK-MB (CK-2) 1.6 (0.0-2.4) ng/mL CK-MB (CK-2) Rel Index 4.7 Troponin I <0.012 (0.000-0.034) ng/mL NT-Pro-B Natriuret Pep pg/mL Total Protein 6.0 L (6.3-8.2) g/dL Albumin 3.8 (3.5-5.0) g/dL Influenza Type A RNA (Not Detectd) Influenza Type B (PCR) (Not Detectd) 01/22/18 01/22/18 01/22/18 Range/Units 14:40 14:40 14:40 WBC (3.8-10.6) k/uL RBC (3.80-5.40) m/uL Hgb (11.4-16.0) gm/dL Hct (34.0-46.0) % MCV (80.0-100.0) fL MCH (25.0-35.0) pg MCHC (31.0-37.0) g/dL RDW (11.5-15.5) % Plt Count (150-450) k/uL Neutrophils % % Lymphocytes % % Monocytes % % Eosinophils % % Basophils % % Neutrophils # (1.3-7.7) k/uL Lymphocytes # (1.0-4.8) k/uL Monocytes # (0-1.0) k/uL Eosinophils # (0-0.7) k/uL Basophils # (0-0.2) k/uL PT 10.1 (9.0-12.0) sec INR 1.0 (<1.2) APTT 21.1 L (22.0-30.0) sec Sodium (137-145) mmol/L Potassium (3.5-5.1) mmol/L Chloride (98-107) mmol/L Carbon Dioxide (22-30) mmol/L Anion Gap mmol/L BUN (7-17) mg/dL Creatinine (0.52-1.04) mg/dL Est GFR (MDRD) Af Amer (>60 ml/min/1.73 sqM) Est GFR (MDRD) Non-Af (>60 ml/min/1.73 sqM) Glucose (74-99) mg/dL Plasma Lactic Acid Iker (0.7-2.0) mmol/L Calcium (8.4-10.2) mg/dL Magnesium (1.6-2.3) mg/dL Total Bilirubin (0.2-1.3) mg/dL AST (14-36) U/L ALT (9-52) U/L Alkaline Phosphatase (38-126) U/L Total Creatine Kinase (30-135) U/L CK-MB (CK-2) (0.0-2.4) ng/mL CK-MB (CK-2) Rel Index Troponin I (0.000-0.034) ng/mL NT-Pro-B Natriuret Pep 212 pg/mL Total Protein (6.3-8.2) g/dL Albumin (3.5-5.0) g/dL Influenza Type A RNA Not Detected (Not Detectd) Influenza Type B (PCR) Not Detected (Not Detectd) 01/22/18 Range/Units 14:40 WBC (3.8-10.6) k/uL RBC (3.80-5.40) m/uL Hgb (11.4-16.0) gm/dL Hct (34.0-46.0) % MCV (80.0-100.0) fL MCH (25.0-35.0) pg MCHC (31.0-37.0) g/dL RDW (11.5-15.5) % Plt Count (150-450) k/uL Neutrophils % % Lymphocytes % % Monocytes % % Eosinophils % % Basophils % % Neutrophils # (1.3-7.7) k/uL Lymphocytes # (1.0-4.8) k/uL Monocytes # (0-1.0) k/uL Eosinophils # (0-0.7) k/uL Basophils # (0-0.2) k/uL PT (9.0-12.0) sec INR (<1.2) APTT (22.0-30.0) sec Sodium (137-145) mmol/L Potassium (3.5-5.1) mmol/L Chloride (98-107) mmol/L Carbon Dioxide (22-30) mmol/L Anion Gap mmol/L BUN (7-17) mg/dL Creatinine (0.52-1.04) mg/dL Est GFR (MDRD) Af Amer (>60 ml/min/1.73 sqM) Est GFR (MDRD) Non-Af (>60 ml/min/1.73 sqM) Glucose (74-99) mg/dL Plasma Lactic Acid Iker 1.7 (0.7-2.0) mmol/L Calcium (8.4-10.2) mg/dL Magnesium (1.6-2.3) mg/dL Total Bilirubin (0.2-1.3) mg/dL AST (14-36) U/L ALT (9-52) U/L Alkaline Phosphatase (38-126) U/L Total Creatine Kinase (30-135) U/L CK-MB (CK-2) (0.0-2.4) ng/mL CK-MB (CK-2) Rel Index Troponin I (0.000-0.034) ng/mL NT-Pro-B Natriuret Pep pg/mL Total Protein (6.3-8.2) g/dL Albumin (3.5-5.0) g/dL Influenza Type A RNA (Not Detectd) Influenza Type B (PCR) (Not Detectd) Disposition Clinical Impression: Acute exacerbation of chronic obstructive airways disease Disposition: ADMITTED IP TO THIS HOSP Condition: Stable Referrals: Heri Alexandra DO [Primary Care Provider] - 1-2 days Decision to Admit Reason: Admit from EC Decision Date: 01/22/18 Decision Time: 16:03
[2018-01-22 14:59] LABS: Basophils % (A) 0 %; Eosinophils # (A) 0.4 k/uL (0-0.7); Eosinophils % (A) 3 %; HGB 14.3 gm/dL (11.4-16.0); Lymphocytes % (A) 7 %; MCH 32.8 pg (25.0-35.0); MCHC 33.2 g/dL (31.0-37.0); MCV 98.9 fL (80.0-100.0); Mean Platelet Volume 7.4; Monocytes # (A) 0.5 k/uL (0-1.0); Monocytes % (A) 3 %; Neutrophils # (A) 12.3 k/uL (1.3-7.7); Neutrophils % (A) 86 %; Platelet Count 337 k/uL (150-450); RBC 4.35 m/uL (3.80-5.40); RDW 12.7 % (11.5-15.5); WBC 14.4 k/uL (3.8-10.6)
[2018-01-22 15:08] LABS: Prothrombin Time 10.1 sec (9.0-12.0)
[2018-01-22 15:14] LABS: Partial Thromboplastin Time 21.1 sec (22.0-30.0)
[2018-01-22 15:20] LABS: ALT 57 U/L (9-52); AST 22 U/L (14-36); Albumin 3.8 g/dL (3.5-5.0); Alkaline Phosphatase 77 U/L (38-126); Anion Gap 8 mmol/L; Blood Urea Nitrogen 20 mg/dL (7-17); Calcium 9.9 mg/dL (8.4-10.2); Carbon Dioxide 29 mmol/L (22-30); Chloride 103 mmol/L (98-107); Creatine Kinase 34 U/L (30-135); Glucose 165 mg/dL (74-99); Potassium 4.3 mmol/L (3.5-5.1); Sodium 140 mmol/L (137-145); Total Bilirubin 0.4 mg/dL (0.2-1.3)
[2018-01-22 15:31] LABS: Creatine Kinase MB 1.6 ng/mL (0.0-2.4); Troponin I <0.012 ng/mL (0.000-0.034)
--- NOTE | 2018-01-22 15:47 | XR ---
EXAMINATION TYPE: XR chest 2V DATE OF EXAM: 01/22/2018 COMPARISON: 01/17/2018 TECHNIQUE: PA and lateral views submitted. HISTORY: Shortness of breath FINDINGS: The lungs are clear and there is no pneumothorax, pleural effusion, or focal pneumonia. Atheroscler otic change aorta. Biapical pleural thickening. Hypertrophic change of the AC joints. Subsegmental ch anges at the right lung base. Degenerative change of the spine. IMPRESSION: 1. Correlate for COPD. Right basilar atelectasis or infiltrate.
[2018-01-22] MEDS ORDERED: IPRATROPIUM-ALBUTEROL 3 ML NEB INHALATION PRN (15:59)
[2018-01-22] MEDS ORDERED: ALBUTEROL NEBULIZED 2.5 MG/3 ML INHALATION PRN (16:01)
[2018-01-22] MEDS ORDERED: PROMETHAZ-COD 6.25-10 MG/5 ML 5 ML CUP PO PRN (17:37)
[2018-01-22] MEDS: LEVOFLOXACIN 500 MG TAB PO SCH (17:39)
[2018-01-22] MEDS: methylPREDNISolone SOD SUCCI 125 MG/2 ML VIAL IV SCH ×2 (17:39→23:31)
[2018-01-22] MEDS: VENLAFAXINE HCL ER 75 MG CAP PO SCH (19:02)
[2018-01-22] MEDS: ATORVASTATIN 10 MG TAB PO SCH (19:39)
[2018-01-22] MEDS ORDERED: IPRATROPIUM-ALBUTEROL 3 ML NEB INHALATION SCH (20:00)
[2018-01-22] MEDS: IPRATROPIUM-ALBUTEROL 3 ML NEB INHALATION SCH ×2 (20:01→20:04)
[2018-01-23] MEDS: methylPREDNISolone SOD SUCCI 125 MG/2 ML VIAL IV SCH ×3 (05:32→17:38)
[2018-01-23] MEDS: LEVOTHYROXINE 75 MCG TAB PO SCH (05:32)
[2018-01-23] MEDS: IPRATROPIUM-ALBUTEROL 3 ML NEB INHALATION SCH ×4 (07:49→20:17)
[2018-01-23] MEDS ORDERED: NON-FORMULARY DRUG (Umeclidinium Brm/Vilanterol Tr [Anoro Ellipta 62.5-25 Mcg Inh] 1 PUFF) INHALATION SCH (08:00)
[2018-01-23] MEDS: MONTELUKAST 10 MG TAB PO SCH (08:31)
[2018-01-23] MEDS: VENLAFAXINE HCL ER 75 MG CAP PO SCH (08:31)
--- NOTE | 2018-01-23 09:57 | P.CNPUL ---
History of Present Illness Consult date: 01/23/18 Reason for consult: dyspnea, cough, COPD, hypoxemia Chief complaint: Shortness of breath History of present illness: Consult dated 01/23/2018 77-year-old female well-known to me. She comes into the hospital with complaints of increasing shortness of breath cough wheezing chest tightness. Lots of chest congestion. She was recently seen by our office and started on prednisone and antibiotics. Despite with a pretty aggressive prednisone burst and taper and antibiotics as shot of Depo-Medrol in the office, she continued to progress. She decided to come into the emergency room to be evaluated. She was producing some phlegm not a lot. Very short of breath. Lots of chest tightness wheezing and chest congestion. No fever or chills. No chest pain or chest discomfort. No nausea vomiting or diarrhea. She was taking her medications and other things as prescribed. She does have a nebulizer treatment at home. In addition, she was on a long-acting muscarinic antagonist/ long-acting beta agonist combination. She has a history of hyperlipidemia COPD previous appendectomy hysterectomy and tonsillectomy as well as hypothyroidism. Her COPD was caused by previous heavy tobacco use. Does not smoke currently. Review of Systems A 12 point review of system is positive for shortness of breath chest tightness wheezing cough chest congestion phlegm production. The rest of the review of systems is unremarkable. Constitutional negative neurologic negative HEENT negative cardiovascular negative GI negative rheumatologic immunologic negative endocrinologic and dermatologic all negative. Past Medical History Past Medical History: COPD, Hyperlipidemia, Thyroid Disorder Additional Past Medical History / Comment(s): home 02 2 lirers at hs and prn, past thyroid nodules(benign) History of Any Multi-Drug Resistant Organisms: None Reported Past Surgical History: Appendectomy, Hysterectomy, Tonsillectomy Additional Past Surgical History / Comment(s): colonoscopy, one thyroid nodule removed from each side-bother were benign. Past Anesthesia/Blood Transfusion Reactions: No Reported Reaction Smoking Status: Former smoker - Past Family History Father Family Medical History: Myocardial Infarction ([place]) Additional Family Medical History / Comment(s): in 2009 from [place]. Mother Family Medical History: COPD Sister(s) Family Medical History: Cancer, COPD Additional Family Medical History / Comment(s): pt has two sisters who both had breast cancer. 1 sister has COPD. Medications and Allergies Home Medications Medication Instructions Recorded Confirmed Type Ipratropium-Albuterol Nebulize 3 ml INHALATION RT-TID 07/22/17 01/22/18 History [Duoneb 0.5 mg-3 mg/3 ml Soln] Levothyroxine Sodium [Synthroid] 75 mcg PO DAILY 07/22/17 01/22/18 History Montelukast [Singulair] 10 mg PO DAILY 07/22/17 01/22/18 History Umeclidinium Brm/Vilanterol Tr 1 puff INHALATION RT-DAILY 07/22/17 01/22/18 History [Anoro Ellipta 62.5-25 Mcg INH] Venlafaxine HCl [Effexor XR] 75 mg PO DAILY 07/22/17 01/22/18 History Ascorbic Acid [Vitamin C] 500 mg PO DAILY 09/10/17 01/22/18 History Calcium Carbonate/Vitamin D3 1 tab PO DAILY 09/10/17 01/22/18 History [Calcium 500-Vit D3 200 Tablet] [place]-3 Fatty Acids/Fish Oil [Fish 1 cap PO DAILY 09/10/17 01/22/18 History Oil 1,000 mg Softgel] Amoxicillin/Potassium Clav 1 tab PO Q12HR 01/22/18 01/22/18 History [Augmentin 875-125 Tablet] Cholecalciferol [Vitamin D3] 1,000 unit PO DAILY 01/22/18 01/22/18 History Promethazine HCl/Codeine 5 ml PO Q6H PRN 01/22/18 01/22/18 History [Prometh-Codein 6.25-10 mg/5 ml] Simvastatin [Zocor] 20 mg PO HS 01/22/18 01/22/18 History Vitamin B Complex 1 cap PO DAILY 01/22/18 01/22/18 History Vitamin E (Dl,Tocopheryl Acet) 400 unit PO DAILY 01/22/18 01/22/18 History [Vitamin E] predniSONE See Taper PO DAILY 01/22/18 01/22/18 History Allergies Allergy/AdvReac Type Severity Reaction Status Date / Time No Known Allergies Allergy Verified 01/22/18 14:21 Physical Exam Osteopathic Statement: *. No significant issues noted on an osteopathic structural exam other than those noted in the History and Physical/Consult. Vitals: Vital Signs Temp Pulse Pulse Resp BP BP Pulse Ox 01/23/18 07:59 89 01/23/18 07:49 88 01/23/18 07:46 97.4 F L 90 16 126/70 92 L 01/22/18 22:48 98.3 F 99 16 126/61 93 L 01/22/18 20:04 94 01/22/18 17:16 99.9 F H 99 20 124/60 93 L 01/22/18 16:23 98.0 F 92 16 138/63 98 01/22/18 15:33 96 01/22/18 15:19 90 01/22/18 15:07 85 22 119/71 96 01/22/18 15:05 91 01/22/18 14:51 89 01/22/18 13:52 97.9 F 94 24 144/85 88 L Intake and Output 01/22/18 01/23/18 01/23/18 22:59 06:59 14:59 Intake Total 780 300 Balance 780 300 Intake: Oral 780 300 Other: Voiding Method Toilet # Voids 1 2 No acute distress, oriented 3. Nasal O2 in place HEENT examination is grossly unremarkable. Mucous membranes are moist. No oral lesions. Neck supple. Full range of motion. No adenopathy thyromegaly or neck vein distention. Cardiovascular examination reveals regular rhythm rate. S1-S2 normal. No S3 or S4. No discernible murmur noted. Lungs reveal diffuse bilateral breath sounds. Diffuse coarse rhonchi and wheezes are noted. Breath sounds are diminished. There is prolongation on forced maneuver. The patient coughs and wheezes on forced maneuver. Abdomen soft bowel sounds are heard. No masses or tenderness. Extremities are intact. No cyanosis clubbing or edema. Skin is without rash or lesion. Neurologic examination is brief but nonfocal. Results - Laboratory Findings CBC and BMP: 01/22/18 14:40 01/22/18 14:40 PT/INR, D-dimer PT 10.1 sec (9.0-12.0) 01/22/18 14:40 INR 1.0 (<1.2) 01/22/18 14:40 Abnormal lab findings: Abnormal Labs 01/22/18 01/22/18 01/22/18 14:40 14:40 14:40 WBC 14.4 H Neutrophils # 12.3 H APTT 21.1 L BUN 20 H Glucose 165 H ALT 57 H Total Protein 6.0 L - Diagnostic Findings Chest x-ray: image reviewed (Chest x-ray labs and medications are all reviewed.) Assessment and Plan Assessment: Assessment COPD exacerbation complicated by purulent tracheobronchitis. No papito pneumonia noted. Right basilar abnormality likely represents atelectasis as opposed infiltrate. History of COPD secondary to tobacco use History of hyperlipidemia Hypothyroidism Failing outpatient therapy. Plan: Plan dated 01/23/2018 The patient's medications labs x-rays are all reviewed. We'll make sure that she is on appropriate medications. She should be on systemic corticosteroids a long-acting beta agonist and inhaled corticosteroid and a short acting beta agonist and some muscarinic antagonist whether it be short or long acting. Additional recommendations and suggestions are forthcoming. We'll continue to follow. Prognosis is guarded. I suspect 2 days here and he will get her turned around and she can probably be discharged by Sunday. Time with Patient: Greater than 30
--- NOTE | 2018-01-23 10:02 | P.HPIM ---
History of Present Illness H&P Date: 01/23/18 Chief Complaint: Shortness of breath 77-year-old female who presented to the emergency room with a chief complaint of worsening shortness of breath and persistent cough. Patient states that she was evaluated by her edi programmer approximately one week ago and was started on Augmentin and oral steroids. She states that she took 5 days of these medications and her symptoms were not improving so she decided to come to the emergency room for further evaluation. Patient states she has quit smoking approximately 2 months ago. She states her shortness of breath has been getting worse and is only able to ambulate a short distance without severe dyspnea. Patient wears home oxygen at 2-3 L per nasal cannula. Positive for nonproductive cough. Patient denies chest pain or pressure. Denies fever or chills. The patient has a history of chronic obstructive pulmonary disease, hyperlipidemia, and thyroid nodules which were removed and benign. She states she quit smoking 2 months ago. She wears home O2 at 2 L. Chest x-ray: Correlate for chronic obstructive disease. Right basilar atelectasis or infiltrate. Laboratory data: WBC 14.4. Hemoglobin 14.3. Platelet count 337. Sodium 140. Potassium 4.3. BUN 20. Creatinine 0.70. Glucose 165. Magnesium 2.0. Troponins negative 1 BNP: 212 Testing for influenza A and B was negative The patient was admitted to the hospital under the care of Dr. Alexandra. Consultations were placed to pulmonary. Review of Systems GENERAL: Patient denies fever. Denies chills. EYES: Denies blurred vision. Denies vision changes. Denies eye pain. EARS, NOSE, MOUTH, & THROAT: Denies headache. Denies sore throat. Denies ear pain. RESPIRATORY: Positive for shortness of breath. Positive for nonproductive cough. Denies sputum production. Denies hemoptysis. CARDIOVASCULAR: Denies chest pain or pressure. Denies palpitations. Denies arrhythmias. GASTROINTESTINAL: Denies abdominal pain. Denies diarrhea. Denies constipation. Denies nausea. Denies vomiting. Denies heartburn. Denies blood in the stool. GENITOURINARY: Denies urinary frequency. Denies burning. Denies dysuria. Denies cloudy urine. Denies blood in the urine. MUSCULOSKELETAL: Denies myalgias. Denies joint swelling. Denies decreased range of motion beyond patients baseline. INTEGUMENTARY: Denies pruitis. Denies rash. PSYCHIATRIC: Denies suicidal or homicial ideations. ENDOCRINE: Denies weight change. Denies polydipsia. Denies polyuria. HEMATOLOGIC: Denies bleeding disorders. Past Medical History Past Medical History: COPD, Hyperlipidemia, Thyroid Disorder Additional Past Medical History / Comment(s): home 02 2 lirers at hs and prn, past thyroid nodules(benign) History of Any Multi-Drug Resistant Organisms: None Reported Past Surgical History: Appendectomy, Hysterectomy, Tonsillectomy Additional Past Surgical History / Comment(s): colonoscopy, one thyroid nodule removed from each side-bother were benign. Past Anesthesia/Blood Transfusion Reactions: No Reported Reaction Smoking Status: Former smoker - Past Family History Father Family Medical History: Myocardial Infarction ([place]) Additional Family Medical History / Comment(s): in 2009 from [place]. Mother Family Medical History: COPD Sister(s) Family Medical History: Cancer, COPD Additional Family Medical History / Comment(s): pt has two sisters who both had breast cancer. 1 sister has COPD. Medications and Allergies Home Medications Medication Instructions Recorded Confirmed Type Ipratropium-Albuterol Nebulize 3 ml INHALATION RT-TID 07/22/17 01/22/18 History [Duoneb 0.5 mg-3 mg/3 ml Soln] Levothyroxine Sodium [Synthroid] 75 mcg PO DAILY 07/22/17 01/22/18 History Montelukast [Singulair] 10 mg PO DAILY 07/22/17 01/22/18 History Umeclidinium Brm/Vilanterol Tr 1 puff INHALATION RT-DAILY 07/22/17 01/22/18 History [Anoro Ellipta 62.5-25 Mcg INH] Venlafaxine HCl [Effexor XR] 75 mg PO DAILY 07/22/17 01/22/18 History Ascorbic Acid [Vitamin C] 500 mg PO DAILY 09/10/17 01/22/18 History Calcium Carbonate/Vitamin D3 1 tab PO DAILY 09/10/17 01/22/18 History [Calcium 500-Vit D3 200 Tablet] [place]-3 Fatty Acids/Fish Oil [Fish 1 cap PO DAILY 09/10/17 01/22/18 History Oil 1,000 mg Softgel] Amoxicillin/Potassium Clav 1 tab PO Q12HR 01/22/18 01/22/18 History [Augmentin 875-125 Tablet] Cholecalciferol [Vitamin D3] 1,000 unit PO DAILY 01/22/18 01/22/18 History Promethazine HCl/Codeine 5 ml PO Q6H PRN 01/22/18 01/22/18 History [Prometh-Codein 6.25-10 mg/5 ml] Simvastatin [Zocor] 20 mg PO HS 01/22/18 01/22/18 History Vitamin B Complex 1 cap PO DAILY 01/22/18 01/22/18 History Vitamin E (Dl,Tocopheryl Acet) 400 unit PO DAILY 01/22/18 01/22/18 History [Vitamin E] predniSONE See Taper PO DAILY 01/22/18 01/22/18 History Allergies Allergy/AdvReac Type Severity Reaction Status Date / Time No Known Allergies Allergy Verified 01/22/18 14:21 Physical Exam Vitals: Vital Signs Temp Pulse Pulse Resp BP BP Pulse Ox 01/23/18 07:59 89 01/23/18 07:49 88 01/23/18 07:46 97.4 F L 90 16 126/70 92 L 01/22/18 22:48 98.3 F 99 16 126/61 93 L 01/22/18 20:04 94 01/22/18 17:16 99.9 F H 99 20 124/60 93 L 01/22/18 16:23 98.0 F 92 16 138/63 98 01/22/18 15:33 96 01/22/18 15:19 90 01/22/18 15:07 85 22 119/71 96 01/22/18 15:05 91 01/22/18 14:51 89 01/22/18 13:52 97.9 F 94 24 144/85 88 L Intake and Output 01/22/18 01/23/18 01/23/18 22:59 06:59 14:59 Intake Total 780 300 Balance 780 300 Intake: Oral 780 300 Other: Voiding Method Toilet # Voids 1 2 GENERAL: This is a 77-year-old female who appears slightly short of breath at the time of examination. HEENT: Head is atraumatic, normocephalic. Pupils are equal, round, and reactive to light. Sclerae anicteric. Conjunctivae are clear. Mucus membranes of the mouth are moist. Neck is supple. RESPIRATORY: Inspiratory and expiratory wheezing throughout. Nonproductive cough noted during examination. Patient maintaining oxygen saturation greater than 92% on 3 L nasal cannula. No chest wall tenderness is noted on palpation or with deep breathing. CARDIOVASCULAR: Regular rate and rhythm. S1 and S2 noted. No JVD noted. No S3 or S4 noted. GASTROINTESTINAL: No distention noted. Abdomen soft and round. Normal active bowel sounds auscultated x 4 quadrants. No pain or tenderness noted upon palpation. INTEGUMENTARY: No cyanosis. No jaundice. No rashes noted. No cellulitis noted. EXTREMITIES: 2+ peripheral pulses. No evidence of peripheral edema. No calf tenderness noted. NEUROLOGIC: Cranial nerves II-XII intact. PSYCHIATRIC: Awake, alert, and oriented X 3. Appropriate affect. Intact judgement and insight. Results CBC & Chem 7: 01/22/18 14:40 01/22/18 14:40 Labs: Abnormal Lab Results - Last 24 Hours (Table) 01/22/18 01/22/18 01/22/18 Range/Units 14:40 14:40 14:40 WBC 14.4 H (3.8-10.6) k/uL Neutrophils # 12.3 H (1.3-7.7) k/uL APTT 21.1 L (22.0-30.0) sec BUN 20 H (7-17) mg/dL Glucose 165 H (74-99) mg/dL ALT 57 H (9-52) U/L Total Protein 6.0 L (6.3-8.2) g/dL Thrombosis Risk Factor Assmnt - Choose All That Apply Any of the Below Risk Factors Present?: Yes Each Factor Represents 1 point: Abnormal pulmonary function (COPD), Obesity ( BMI >25) Other Risk Factors: Yes Each Risk Factor Represents 3 Points: Age 75 years or older Other congenital or acquired thrombophilia - If yes, enter type in comment: No Thrombosis Risk Factor Assessment Total Risk Factor Score: 5 Thrombosis Risk Factor Assessment Level: High Risk Assessment and Plan Plan: ASSESSMENT: Acute exacerbation of chronic obstructive pulmonary disease Leukocytosis, likely secondary to steroids, however cannot rule out possibility of pneumonia as chest x-ray reveals right basilar infiltrates, however atelectasis is more likely Chronic hypoxic respiratory failure, requiring home oxygen Hyperlipidemia Obesity: BMI 31.6 History of nicotine dependence, in remission, patient states she quit smoking approximately 2 months ago PLAN: Pulmonary on consult. Appreciate recommendations and input Continue IV steroids: 60 mg every 6 hours Continue Levaquin: 500 mg every 24 hours Begin novolog sliding scale ACHS secondary to IV steroids Encourage continued smoking cessation Home meds as appropriate Monitor labs GI prophylaxis: Protonix 40 mg PO Daily DVT prophylaxis: Heparin 5000 units subcu every 8 hours Monitor vital signs and address as appropriate Discharge planning: Patient to return home when stable Further recommendations pending patient's course Nurse practitioner note has been reviewed by physician. Signing provider agrees with the documented findings, assessment, and plan of care.
[2018-01-23 12:10] LABS: Glucose,Whole Blood 278 mg/dL (75-99)
[2018-01-23] MEDS: CHOLECALCIFEROL 1,000 UNIT TAB PO SCH (12:33)
[2018-01-23] MEDS: INSULIN ASPART 100 UNIT/ML 1 ML 10 ML VIAL SQ SCH ×3 (12:34→21:07)
[2018-01-23] MEDS: HEPARIN SODIUM,PORCINE 5,000 UNIT/ML 1 ML VIAL SQ SCH (16:12)
[2018-01-23] MEDS: LEVOFLOXACIN 500 MG TAB PO SCH (16:12)
[2018-01-23 16:41] LABS: Glucose,Whole Blood 272 mg/dL (75-99)
[2018-01-23 18:32] LABS: Hemoglobin A1C 7.6 % (4.0-6.0)
[2018-01-23] MEDS: SYMBICORT 160-4.5 MCG INHALER INHALATION SCH ×2 (20:16→20:20)
[2018-01-23 20:40] LABS: Glucose,Whole Blood 286 mg/dL (75-99)
[2018-01-23] MEDS: ATORVASTATIN 10 MG TAB PO SCH (21:07)
[2018-01-24] MEDS: HEPARIN SODIUM,PORCINE 5,000 UNIT/ML 1 ML VIAL SQ SCH ×4 (00:16→23:25)
[2018-01-24] MEDS: methylPREDNISolone SOD SUCCI 125 MG/2 ML VIAL IV SCH ×2 (00:16→05:43)
[2018-01-24] MEDS: LEVOTHYROXINE 75 MCG TAB PO SCH (05:43)
[2018-01-24] MEDS: IPRATROPIUM-ALBUTEROL 3 ML NEB INHALATION SCH ×4 (07:22→18:54)
[2018-01-24] MEDS: SYMBICORT 160-4.5 MCG INHALER INHALATION SCH ×2 (07:23→18:55)
[2018-01-24 07:27] LABS: Glucose,Whole Blood 185 mg/dL (75-99)
[2018-01-24] MEDS: VENLAFAXINE HCL ER 75 MG CAP PO SCH (07:47)
[2018-01-24] MEDS: PANTOPRAZOLE 40 MG TABLET PO SCH (07:47)
[2018-01-24] MEDS: MONTELUKAST 10 MG TAB PO SCH (07:47)
[2018-01-24] MEDS: INSULIN ASPART 100 UNIT/ML 1 ML 10 ML VIAL SQ SCH ×4 (07:48→21:09)
--- NOTE | 2018-01-24 10:32 | P.PN ---
Subjective Progress Note Date: 01/24/18 Principal diagnosis: Shortness of breath Progress note dated 01/24/2018 This is a 77-year-old female Y saw yesterday in consultation. She came into the hospital with complaints of increasing shortness of breath cough wheezing and chest tightness. She is doing better today. She was admitted with a diagnosis of COPD exacerbation. Her COPD was likely complicated by tracheobronchitis. There was no papito pneumonia in my opinion. She has a history of hyperlipidemia and hypothyroidism as well and was admitted primarily because of failing outpatient therapy. The patient is doing better. Feeling better. Less short of breath. Coughing. Not producing any phlegm or mucus. Objective - Vital Signs Vital signs: Vital Signs Temp 97.7 F 01/24/18 07:00 Pulse 79 01/24/18 08:00 Resp 79 H 01/24/18 08:00 BP 130/69 01/24/18 07:00 Pulse Ox 95 01/24/18 07:00 Intake & Output 01/23/18 01/24/18 01/24/18 18:59 06:59 18:59 Intake Total 1560 450 240 Balance 1560 450 240 Weight 86.183 kg Intake: Oral 1560 450 240 Other: Voiding Method Toilet Toilet Toilet # Voids 2 1 - Exam No acute distress, oriented 3. Her face is a bit flushed. HEENT examination is grossly unremarkable. Mucous membranes are moist. No oral lesions. Neck supple. Full range of motion. No adenopathy thyromegaly or neck vein distention. Cardiovascular examination reveals regular rhythm rate. S1-S2 normal. No S3 or S4. No discernible murmur noted. Lungs reveal diffuse inspiratory and expiratory wheezes and rhonchi. Breath sounds are diminished. There is prolongation. The patient does some better today than she did yesterday. Abdomen soft bowel sounds are heard. No masses or tenderness. Extremities are intact. No cyanosis clubbing or edema. Skin is without rash or lesion. Neurologic examination is brief but nonfocal. - Labs CBC & Chem 7: 01/22/18 14:40 01/22/18 14:40 Labs: Abnormal Lab Results - Last 24 Hours (Table) 01/22/18 01/23/18 01/23/18 Range/Units 14:40 12:08 16:40 POC Glucose (mg/dL) 278 H 272 H (75-99) mg/dL Hemoglobin A1c 7.6 H (4.0-6.0) % 01/23/18 01/24/18 Range/Units 20:27 07:26 POC Glucose (mg/dL) 286 H 185 H (75-99) mg/dL Hemoglobin A1c (4.0-6.0) % Microbiology - Last 24 Hours (Table) 01/22/18 14:40 Blood Culture - Preliminary Blood No Growth after 24 hours Assessment and Plan Assessment: Assessment COPD exacerbation complicated by purulent tracheobronchitis. No papito pneumonia noted. Right basilar abnormality likely represents atelectasis as opposed infiltrate. History of COPD secondary to tobacco use History of hyperlipidemia Hypothyroidism Failing outpatient therapy. Plan: Plan dated 01/23/2018 The patient's medications labs x-rays are all reviewed. We'll make sure that she is on appropriate medications. She should be on systemic corticosteroids a long-acting beta agonist and inhaled corticosteroid and a short acting beta agonist and some muscarinic antagonist whether it be short or long acting. Additional recommendations and suggestions are forthcoming. We'll continue to follow. Prognosis is guarded. I suspect 2 days here and he will get her turned around and she can probably be discharged by Sunday. Plan dated 01/24/2018 The patient's medications were reviewed. Her chest x-ray was reviewed. She is doing better. Hoping to be able to discharge her tomorrow on January 25. When she does go home, she should go home a short course of antibiotics for about 5- 7 days. In addition, she should be discharged on a prednisone burst and taper beginning with 40 mg a day for 4 days, 30 mg a day for 4 days, 20 mg a day for 4 days, and then 10 mg a day for 4 days. The patient should follow-up in the pulmonary office. Time with Patient: Less than 30
[2018-01-24 11:02] LABS: Glucose,Whole Blood 310 mg/dL (75-99)
[2018-01-24] MEDS ORDERED: INSULIN ASPART 100 UNIT/ML 1 ML 10 ML VIAL SQ ONE (11:14)
--- NOTE | 2018-01-24 11:17 | P.PN ---
Subjective Progress Note Date: 01/24/18 77-year-old female who presented to the emergency room with a chief complaint of worsening shortness of breath and persistent cough. Patient states that she was evaluated by her pipe fitter maintenance approximately one week ago and was started on Augmentin and oral steroids. She states that she took 5 days of these medications and her symptoms were not improving so she decided to come to the emergency room for further evaluation. Patient states she has quit smoking approximately 2 months ago. She states her shortness of breath has been getting worse and is only able to ambulate a short distance without severe dyspnea. Patient wears home oxygen at 2-3 L per nasal cannula. Positive for nonproductive cough. Patient denies chest pain or pressure. Denies fever or chills. The patient has a history of chronic obstructive pulmonary disease, hyperlipidemia, and thyroid nodules which were removed and benign. She states she quit smoking 2 months ago. She wears home O2 at 2 L. Chest x-ray: Correlate for chronic obstructive disease. Right basilar atelectasis or infiltrate. Laboratory data: WBC 14.4. Hemoglobin 14.3. Platelet count 337. Sodium 140. Potassium 4.3. BUN 20. Creatinine 0.70. Glucose 165. Magnesium 2.0. Troponins negative 1 BNP: 212 Testing for influenza A and B was negative The patient was admitted to the hospital under the care of Dr. Alexandra. Consultations were placed to pulmonary. 01/24/2018 Patient evaluated at the bedside on rounds with Dr. Alexandra. Patient states her breathing feels better this morning. She is sitting up in the bed. Patient remains on 3 L nasal cannula with oxygen saturations greater than 92%. Nonproductive cough continues. Denies chest pain or pressure. Voiding without difficulty. Denies pain or discomfort. Patient remains on IV steroids: 60mg IV Q6 hours. Patient has been hyperglycemic with blood sugars ranging in the 200s. Remains on NovoLog sliding scale coverage. Objective - Vital Signs Vital signs: Vital Signs Temp 97.7 F 01/24/18 07:00 Pulse 82 01/24/18 10:59 Resp 79 H 01/24/18 08:00 BP 130/69 01/24/18 07:00 Pulse Ox 95 01/24/18 07:00 Intake & Output 01/23/18 01/24/18 01/24/18 18:59 06:59 18:59 Intake Total 1560 450 240 Balance 1560 450 240 Weight 86.183 kg Intake: Oral 1560 450 240 Other: Voiding Method Toilet Toilet Toilet # Voids 2 1 - Exam GENERAL: This is a 77-year-old female who appears in no acute distress at the time of examination. HEENT: Head is atraumatic, normocephalic. Pupils are equal, round, and reactive to light. Sclerae anicteric. Conjunctivae are clear. Mucus membranes of the mouth are moist. Neck is supple. RESPIRATORY: Inspiratory and expiratory wheezing throughout, however lung sounds are improved in comparison to yesterday. Nonproductive cough noted during examination. Patient maintaining oxygen saturation greater than 92% on 3 L nasal cannula. No chest wall tenderness is noted on palpation or with deep breathing. CARDIOVASCULAR: Regular rate and rhythm. S1 and S2 noted. No JVD noted. No S3 or S4 noted. GASTROINTESTINAL: No distention noted. Abdomen soft and round. Normal active bowel sounds auscultated x 4 quadrants. No pain or tenderness noted upon palpation. INTEGUMENTARY: No cyanosis. No jaundice. No rashes noted. No cellulitis noted. EXTREMITIES: 2+ peripheral pulses. No evidence of peripheral edema. No calf tenderness noted. NEUROLOGIC: Cranial nerves II-XII intact. PSYCHIATRIC: Awake, alert, and oriented X 3. Appropriate affect. Intact judgement and insight. - Labs CBC & Chem 7: 01/22/18 14:40 01/22/18 14:40 Labs: Abnormal Lab Results - Last 24 Hours (Table) 01/22/18 01/23/18 01/23/18 Range/Units 14:40 12:08 16:40 POC Glucose (mg/dL) 278 H 272 H (75-99) mg/dL Hemoglobin A1c 7.6 H (4.0-6.0) % 01/23/18 01/24/18 Range/Units 20:27 07:26 POC Glucose (mg/dL) 286 H 185 H (75-99) mg/dL Hemoglobin A1c (4.0-6.0) % Microbiology - Last 24 Hours (Table) 01/22/18 14:40 Blood Culture - Preliminary Blood No Growth after 24 hours Assessment and Plan Plan: ASSESSMENT: Acute exacerbation of chronic obstructive pulmonary disease, failed outpatient treatment Leukocytosis, likely secondary to steroids, however cannot rule out possibility of pneumonia as chest x-ray reveals right basilar infiltrates, however atelectasis is more likely Chronic hypoxic respiratory failure, requiring home oxygen Hyperglycemia, secondary to IV steroids Hyperlipidemia Obesity: BMI 31.6 History of nicotine dependence, in remission, patient states she quit smoking approximately 2 months ago PLAN: Pulmonary on consult. Appreciate recommendations and input Spoke with Dayana pulmonary RN PHYSICIAN OFFICE, federico to decrease steroids to 40mg IV Q8 Continue Levaquin: 500 mg every 24 hours Continue novolog sliding scale ACHS secondary to IV steroids Novolog 10 units x1 now Encourage continued smoking cessation Home meds as appropriate Monitor labs GI prophylaxis: Protonix 40 mg PO Daily DVT prophylaxis: Heparin 5000 units subcu every 8 hours Monitor vital signs and address as appropriate Discharge planning: Patient to return home when stable Further recommendations pending patient's course Anticipate discharge home tomorrow if patient remains stable Nurse practitioner note has been reviewed by physician. Signing provider agrees with the documented findings, assessment, and plan of care.
[2018-01-24] MEDS: CHOLECALCIFEROL 1,000 UNIT TAB PO SCH (12:57)
[2018-01-24] MEDS: methylPREDNISolone SOD SUCCI 40 MG/ML 1 ML VIAL IV SCH ×2 (16:32→23:25)
[2018-01-24] MEDS: LEVOFLOXACIN 500 MG TAB PO SCH (17:17)
[2018-01-24 17:18] LABS: Glucose,Whole Blood 243 mg/dL (75-99)
[2018-01-24 19:50] LABS: Glucose,Whole Blood 293 mg/dL (75-99)
[2018-01-24] MEDS: ATORVASTATIN 10 MG TAB PO SCH (20:14)
[2018-01-25] MEDS: LEVOTHYROXINE 75 MCG TAB PO SCH (06:07)
[2018-01-25 07:23] LABS: Glucose,Whole Blood 185 mg/dL (75-99)
[2018-01-25 07:58] VITALS: BP 132/75; RESP 16; TEMP 98.1
[2018-01-25] MEDS: INSULIN ASPART 100 UNIT/ML 1 ML 10 ML VIAL SQ SCH (08:05)
[2018-01-25] MEDS: methylPREDNISolone SOD SUCCI 40 MG/ML 1 ML VIAL IV SCH (08:06)
[2018-01-25] MEDS: PANTOPRAZOLE 40 MG TABLET PO SCH (08:06)
[2018-01-25] MEDS: MONTELUKAST 10 MG TAB PO SCH (08:06)
[2018-01-25] MEDS: HEPARIN SODIUM,PORCINE 5,000 UNIT/ML 1 ML VIAL SQ SCH (08:06)
[2018-01-25] MEDS: VENLAFAXINE HCL ER 75 MG CAP PO SCH (08:06)
[2018-01-25] MEDS: CHOLECALCIFEROL 1,000 UNIT TAB PO SCH (08:10)
--- NOTE | 2018-01-25 09:07 | P.DS ---
Providers Date of admission: 01/22/18 15:59 Expected date of discharge: 01/25/18 Attending physician: Heri Alexandra Consults: 01/22/18 15:59 Consult Physician Routine Consulting Provider: Dani Zarate Consult Reason/Comments: COPD Do you want consulting provider notified?: Yes Primary care physician: Heri Alexandra [facility] Course: 77-year-old female who presented to the emergency room with a chief complaint of worsening shortness of breath and persistent cough. Patient states that she was evaluated by her geriatrician approximately one week ago and was started on Augmentin and oral steroids. She states that she took 5 days of these medications and her symptoms were not improving so she decided to come to the emergency room for further evaluation. Patient states she has quit smoking approximately 2 months ago. She states her shortness of breath has been getting worse and is only able to ambulate a short distance without severe dyspnea. Patient wears home oxygen at 2-3 L per nasal cannula. Positive for nonproductive cough. Patient denies chest pain or pressure. Denies fever or chills. The patient has a history of chronic obstructive pulmonary disease, hyperlipidemia, and thyroid nodules which were removed and benign. She states she quit smoking 2 months ago. She wears home O2 at 2 L. Chest x-ray: Correlate for chronic obstructive disease. Right basilar atelectasis or infiltrate. Laboratory data: WBC 14.4. Hemoglobin 14.3. Platelet count 337. Sodium 140. Potassium 4.3. BUN 20. Creatinine 0.70. Glucose 165. Magnesium 2.0. Troponins negative 1 BNP: 212 Testing for influenza A and B was negative The patient was admitted to the hospital under the care of Dr. Alexandra. Consultations were placed to pulmonary. The patient was started on IV steroids and Levaquin during hospitalization. She also received breathing treatments. She was evaluated by geriatrician. Her steroids were tapered as tolerated. The patient's breathing has improved significantly and patient feels much better. Patient still has slight nonproductive cough which she states is chronic. the patient was hyperglycemic during hospitalization secondary to IV steroids. She was placed on a NovoLog sliding scale. Her blood sugars have improved as her steroids were tapered down. The patient was deemed stable for discharge per Dr. Alexandra. Prescriptions for a prednisone taper and Levaquin were sent to the patient's preferred pharmacy. She is to follow up on an outpatient basis with Dr. Alexandra and her geriatrician. DISCHARGE DIAGNOSIS: Acute exacerbation of chronic obstructive pulmonary disease, failed outpatient treatment, improved at the time of discharge Leukocytosis, likely secondary to steroids, however cannot rule out possibility of pneumonia as chest x-ray reveals right basilar infiltrates, however atelectasis is more likely Chronic hypoxic respiratory failure, requiring home oxygen Hyperglycemia, secondary to IV steroids, improved at the time of discharge Hyperlipidemia Obesity: BMI 31.6 History of nicotine dependence, in remission, patient states she quit smoking approximately 2 months ago Nurse practitioner note has been reviewed by physician. Signing provider agrees with the documented findings, assessment, and plan of care. Patient Condition at Discharge: Stable Plan - Discharge Summary Discharge Rx Participant: Yes New Discharge Prescriptions: New Levofloxacin [Levaquin] 500 mg PO Q24H #7 tab predniSONE See Taper PO DIRECTED #30 tab Continue Venlafaxine HCl [Effexor XR] 75 mg PO DAILY Levothyroxine Sodium [Synthroid] 75 mcg PO DAILY Umeclidinium Brm/Vilanterol Tr [Anoro Ellipta 62.5-25 Mcg INH] 1 puff INHALATION RT-DAILY Montelukast [Singulair] 10 mg PO DAILY Ipratropium-Albuterol Nebulize [Duoneb 0.5 mg-3 mg/3 ml Soln] 3 ml INHALATION RT-TID Calcium Carbonate/Vitamin D3 [Calcium 500-Vit D3 200 Tablet] 1 tab PO DAILY Ascorbic Acid [Vitamin C] 500 mg PO DAILY [place]-3 Fatty Acids/Fish Oil [Fish Oil 1,000 mg Softgel] 1 cap PO DAILY Cholecalciferol [Vitamin D3] 1,000 unit PO DAILY Vitamin B Complex 1 cap PO DAILY Vitamin E (Dl,Tocopheryl Acet) [Vitamin E] 400 unit PO DAILY Promethazine HCl/Codeine [Prometh-Codein 6.25-10 mg/5 ml] 5 ml PO Q6H PRN PRN Reason: cough/congestion Simvastatin [Zocor] 20 mg PO HS Discontinued Amoxicillin/Potassium Clav [Augmentin 875-125 Tablet] 1 tab PO Q12HR predniSONE See Taper PO DAILY Discharge Medication List Ipratropium-Albuterol Nebulize [Duoneb 0.5 mg-3 mg/3 ml Soln] 3 ml INHALATION RT -TID 07/22/17 [History] Levothyroxine Sodium [Synthroid] 75 mcg PO DAILY 07/22/17 [History] Montelukast [Singulair] 10 mg PO DAILY 07/22/17 [History] Umeclidinium Brm/Vilanterol Tr [Anoro Ellipta 62.5-25 Mcg INH] 1 puff INHALATION RT-DAILY 07/22/17 [History] Venlafaxine HCl [Effexor XR] 75 mg PO DAILY 07/22/17 [History] Ascorbic Acid [Vitamin C] 500 mg PO DAILY 09/10/17 [History] Calcium Carbonate/Vitamin D3 [Calcium 500-Vit D3 200 Tablet] 1 tab PO DAILY [History] [place]-3 Fatty Acids/Fish Oil [Fish Oil 1,000 mg Softgel] 1 cap PO DAILY [History] Cholecalciferol [Vitamin D3] 1,000 unit PO DAILY 01/22/18 [History] Promethazine HCl/Codeine [Prometh-Codein 6.25-10 mg/5 ml] 5 ml PO Q6H PRN [History] Simvastatin [Zocor] 20 mg PO HS 01/22/18 [History] Vitamin B Complex 1 cap PO DAILY 01/22/18 [History] Vitamin E (Dl,Tocopheryl Acet) [Vitamin E] 400 unit PO DAILY 01/22/18 [History] Levofloxacin [Levaquin] 500 mg PO Q24H #7 tab 01/25/18 [Rx] predniSONE See Taper PO DIRECTED #30 tab 01/25/18 [Rx] Follow up Appointment(s)/Referral(s): Heri Alexandra DO [Primary Care Provider] - 1 Week Herebr Coleman DO [Doctor of Osteopathic Medicine] - 1 Week Discharge Disposition: HOME SELF-CARE
[2018-01-25] MEDS: SYMBICORT 160-4.5 MCG INHALER INHALATION SCH (10:36)
[2018-01-25] MEDS: IPRATROPIUM-ALBUTEROL 3 ML NEB INHALATION SCH ×2 (10:37→11:14)
[2018-01-25 11:18] VITALS: PULSE 92
--- NOTE | 2018-01-25 12:33 | P.PN ---
Subjective Progress Note Date: 01/25/18 Principal diagnosis: COPD exacerbation comfortable purulent tracheobronchitis, right basilar abnormality representing atelectasis Progress note dated 01/24/2018 This is a 77-year-old female Y saw yesterday in consultation. She came into the hospital with complaints of increasing shortness of breath cough wheezing and chest tightness. She is doing better today. She was admitted with a diagnosis of COPD exacerbation. Her COPD was likely complicated by tracheobronchitis. There was no papito pneumonia in my opinion. She has a history of hyperlipidemia and hypothyroidism as well and was admitted primarily because of failing outpatient therapy. The patient is doing better. Feeling better. Less short of breath. Coughing. Not producing any phlegm or mucus. On 01/25/2018 patient is seen in follow-up. She continues to improve, today's exam revealed hardly any wheezes, good air entry noted bilaterally. She denies any acute respiratory distress. His been ambulating in the room, tolerating it well. Vital signs are stable, she is afebrile, she is on 3 L per nasal cannula with O2 sat 94%. Blood culture remains negative. No chest congestion or sputum production. From pulmonary standpoint patient is stable for discharge home today. Objective - Vital Signs Vital signs: Vital Signs Temp 98.1 F 01/25/18 07:00 Pulse 92 01/25/18 11:29 Resp 16 01/25/18 08:00 BP 132/75 01/25/18 07:00 Pulse Ox 94 L 01/25/18 11:14 Intake & Output 01/24/18 01/25/18 01/25/18 18:59 06:59 18:59 Intake Total 880 240 Balance 880 240 Weight 86.1 kg Intake: Oral 880 240 Other: Voiding Method Toilet Toilet Toilet # Voids 1 - Exam GENERAL EXAM: Alert, pleasant 77-year-old female, comfortable in no apparent distress. HEAD: Normocephalic/atraumatic. EYES: Normal reaction of pupils, equal size. Conjunctiva pink, sclera white. NOSE: Clear with pink turbinates. THROAT: No erythema or exudates. NECK: No masses, no JVD, no thyroid enlargement, no adenopathy. CHEST: No chest wall deformity. Symmetrical expansion. LUNGS: Equal air entry with minimal faint wheezes, but no rhonchi or dullness. CVS: Regular rate and rhythm, normal S1 and S2, no gallops, no murmurs, no rubs ABDOMEN: Soft, nontender. No hepatosplenomegaly, normal bowel sounds, no guarding or rigidity. EXTREMITIES: No clubbing, no edema, no cyanosis, 2+ pulses and upper and lower extremities. MUSCULOSKELETAL: Muscle strength and tone normal. SPINE: No scoliosis or deformity SKIN: No rashes CENTRAL NERVOUS SYSTEM: Alert and oriented -3. No focal deficits, tone is normal in all 4 extremities. PSYCHIATRIC: Alert and oriented -3. Appropriate affect. Intact judgment and insight. - Labs CBC & Chem 7: 01/22/18 14:40 01/22/18 14:40 Labs: Abnormal Lab Results - Last 24 Hours (Table) 01/24/18 01/24/18 01/25/18 Range/Units 17:13 19:48 07:07 POC Glucose (mg/dL) 243 H 293 H 185 H (75-99) mg/dL Microbiology - Last 24 Hours (Table) 01/22/18 14:40 Blood Culture - Preliminary Blood No Growth after 48 hours Assessment and Plan Plan: Assessment: COPD exacerbation complicated by purulent tracheobronchitis. No papito pneumonia noted. Right basilar abnormality likely represents atelectasis as opposed infiltrate. History of COPD secondary to tobacco use History of hyperlipidemia Hypothyroidism Failing outpatient therapy. Plan: Plan dated 01/23/2018 The patient's medications labs x-rays are all reviewed. We'll make sure that she is on appropriate medications. She should be on systemic corticosteroids a long-acting beta agonist and inhaled corticosteroid and a short acting beta agonist and some muscarinic antagonist whether it be short or long acting. Additional recommendations and suggestions are forthcoming. We'll continue to follow. Prognosis is guarded. I suspect 2 days here and he will get her turned around and she can probably be discharged by Sunday. Plan dated 01/24/2018 The patient's medications were reviewed. Her chest x-ray was reviewed. She is doing better. Hoping to be able to discharge her tomorrow on January 25. When she does go home, she should go home a short course of antibiotics for about 5- 7 days. In addition, she should be discharged on a prednisone burst and taper beginning with 40 mg a day for 4 days, 30 mg a day for 4 days, 20 mg a day for 4 days, and then 10 mg a day for 4 days. The patient should follow-up in the pulmonary office. On 01/25/2018 patient continues to improve. Vital signs are stable, she is afebrile. Lung sounds are positive only for minimal faint wheezing. No fevers , no chills, no sputum production or chest congestion. No hemoptysis, no chest wall tenderness. From pulmonary standpoint she stable for discharge home today on outpatient course of Levaquin, and prednisone taper, and her maintenance inhalers and nebulizers. Follow-up with Dr. Coleman in the office in 7-10 days. I performed a history & physical examination of the patient and discussed their management with my nurse practitioner, Dayana Collier. I reviewed the nurse practitioner's note and agree with the documented findings and plan of care. Lung sounds are positive very minimal wheezes. The findings and the impression was discussed with the patient. I attest to the documentation by the nurse practitioner. Time with Patient: Less than 30
== END 2018-01-25 11:30 | disposition home or self-care (01) | DRG 191 ==
LOC: EC 13:39 → 5MS5E 15:59
PROVIDERS: ADMIT Family Medicine; ATTEND Family Medicine
DX: J44.0 Chronic obstructive pulmonary disease with (acute) lower respiratory infection (principal); J98.11 Atelectasis; J96.11 Chronic respiratory failure with hypoxia; Z99.81 Dependence on supplemental oxygen; J20.9 Acute bronchitis, unspecified; J44.1 Chronic obstructive pulmonary disease with (acute) exacerbation; E78.5 Hyperlipidemia, unspecified; E03.9 Hypothyroidism, unspecified; R73.9 Hyperglycemia, unspecified; T38.0X5A Adverse effect of glucocorticoids and synthetic analogues, initial encounter; E66.9 Obesity, unspecified; Z68.31 Body mass index [BMI] 31.0-31.9, adult; F17.211 Nicotine dependence, cigarettes, in remission; Z79.899 Other long term (current) drug therapy; Z90.710 Acquired absence of both cervix and uterus; Z90.49 Acquired absence of other specified parts of digestive tract; Z82.5 Family history of asthma and other chronic lower respiratory diseases
CPT/HCPCS: 36415; 71046; 80053; 82550; 82553; 83036; 83605; 83735; 83880; 84484; 85025; 85610; 85730; 87040; 87502; 93005; 94640; 94644; 94760; 96374; 99285

== ENCOUNTER 2018-02-18 12:01 | Inpatient (IN) | payer MEDICARE ==
[2018-02-18] MEDS ORDERED: methylPREDNISolone SOD SUCCI 125 MG/2 ML VIAL IV STA (12:28)
[2018-02-18] MEDS ORDERED: IPRATROPIUM-ALBUTEROL 3 ML NEB INHALATION STA (12:28)
[2018-02-18 12:42] LABS: Basophils # (A) 0.1 k/uL (0-0.2); Basophils % (A) 1 %; Eosinophils # (A) 1.2 k/uL (0-0.7); Eosinophils % (A) 13 %; HCT 42.6 % (34.0-46.0); HGB 14.5 gm/dL (11.4-16.0); Lymphocytes # (A) 2.1 k/uL (1.0-4.8); Lymphocytes % (A) 21 %; MCHC 34.1 g/dL (31.0-37.0); MCV 96.7 fL (80.0-100.0); Mean Platelet Volume 7.3; Monocytes # (A) 0.8 k/uL (0-1.0); Monocytes % (A) 8 %; Neutrophils # (A) 5.2 k/uL (1.3-7.7); Neutrophils % (A) 55 %; Platelet Count 337 k/uL (150-450); RBC 4.41 m/uL (3.80-5.40); RDW 13.2 % (11.5-15.5); WBC 9.6 k/uL (3.8-10.6)
[2018-02-18 12:51] LABS: Prothrombin Time 9.7 sec (9.0-12.0)
--- NOTE | 2018-02-18 12:54 | ED ---
SOB HPI - General Chief Complaint: Shortness of Breath Stated Complaint: Diff Breathing Time Seen by Provider: 02/18/18 12:07 Source: patient, RN notes reviewed Mode of arrival: ambulatory Limitations: no limitations - History of Present Illness Initial Comments: Is a 77-year-old female presents emergency department with family chief complaint shortness of breath. Patient's had increasing shortness with the last 3 days. Patient has extensive COPD does wear O2 at nighttime. She states her last few days she's having to wear O2 while ambulating and doing activities. Patient states she's had increased wheezing and minimal response with breathing treatments. Patient is on no current steroids. 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 Patient reports no fevers or chills she had slight nasal congestion. Patient has no nausea vomiting diarrhea constipation. No sick contacts. - Related Data Home Medications Medication Instructions Recorded Confirmed Ipratropium-Albuterol Nebulize 3 ml INHALATION RT-TID 07/22/17 02/18/18 [Duoneb 0.5 mg-3 mg/3 ml Soln] Levothyroxine Sodium [Synthroid] 75 mcg PO DAILY 07/22/17 02/18/18 Montelukast [Singulair] 10 mg PO DAILY 07/22/17 02/18/18 Umeclidinium Brm/Vilanterol Tr 1 puff INHALATION RT-DAILY 07/22/17 02/18/18 [Anoro Ellipta 62.5-25 Mcg INH] Venlafaxine HCl [Effexor XR] 75 mg PO DAILY 07/22/17 02/18/18 Ascorbic Acid [Vitamin C] 500 mg PO DAILY 09/10/17 02/18/18 Calcium Carbonate/Vitamin D3 1 tab PO DAILY 09/10/17 02/18/18 [Calcium 500-Vit D3 200 Tablet] [place]-3 Fatty Acids/Fish Oil [Fish 1 cap PO DAILY 09/10/17 02/18/18 Oil 1,000 mg Softgel] Cholecalciferol [Vitamin D3] 1,000 unit PO DAILY 01/22/18 02/18/18 Promethazine HCl/Codeine 5 ml PO Q6H PRN 01/22/18 02/18/18 [Prometh-Codein 6.25-10 mg/5 ml] Simvastatin [Zocor] 20 mg PO HS 01/22/18 02/18/18 Vitamin B Complex 1 cap PO DAILY 01/22/18 02/18/18 Vitamin E (Dl,Tocopheryl Acet) 400 unit PO DAILY 01/22/18 02/18/18 [Vitamin E] guaiFENesin-DM 600/30MG [Mucinex 1 tab PO Q12HR 02/18/18 02/18/18 Dm] Allergies Allergy/AdvReac Type Severity Reaction Status Date / Time No Known Allergies Allergy Verified 02/18/18 12:28 Review of Systems ROS Statement: Those systems with pertinent positive or pertinent negative responses have been documented in the HPI. ROS Other: All systems not noted in ROS Statement are negative. Past Medical History Past Medical History: COPD, Hyperlipidemia, Thyroid Disorder Additional Past Medical History / Comment(s): home 02 2 lirers at hs and prn, past thyroid nodules(benign) History of Any Multi-Drug Resistant Organisms: None Reported Past Surgical History: Appendectomy, Hysterectomy, Tonsillectomy Additional Past Surgical History / Comment(s): colonoscopy, one thyroid nodule removed from each side-bother were benign. Past Anesthesia/Blood Transfusion Reactions: No Reported Reaction Past Psychological History: No Psychological Hx Reported Smoking Status: Former smoker Past Alcohol Use History: None Reported Past Drug Use History: None Reported - Past Family History Father Family Medical History: Myocardial Infarction ([place]) Additional Family Medical History / Comment(s): in 2009 from [place]. Mother Family Medical History: COPD Sister(s) Family Medical History: Cancer, COPD Additional Family Medical History / Comment(s): pt has two sisters who both had breast cancer. 1 sister has COPD. General Exam Limitations: no limitations General appearance: alert, in no apparent distress Eye exam: Present: normal appearance, PERRL, EOMI. Absent: scleral icterus, conjunctival injection, periorbital swelling ENT exam: Present: normal exam, normal oropharynx, mucous membranes moist, TM's normal bilaterally, normal external ear exam Neck exam: Present: normal inspection, full ROM. Absent: tenderness, meningismus, lymphadenopathy Respiratory exam: Present: respiratory distress (moderate), wheezes, accessory muscle use, prolonged expiratory. Absent: normal lung sounds bilaterally, rales , rhonchi, stridor Cardiovascular Exam: Present: normal rhythm, tachycardia, normal heart sounds. Absent: systolic murmur, diastolic murmur, rubs, gallop, clicks Course Vital Signs 02/18/18 02/18/18 02/18/18 12:02 12:35 12:52 Temperature 98.9 F Pulse Rate 102 H 102 H 109 H Respiratory 24 Rate Blood Pressure 152/69 O2 Sat by Pulse 92 L Oximetry Medical Decision Making - Medical Decision Making 77-year-old female present with from for shortness of breath. She's had worsening shortness breath the last 2 days. Patient has a significant history of COPD. Patient has acute COPD exacerbation. Patient be admitted for IV steroids, breathing treatments, Dr. Elliot ramos. Patient was scheduled for bronchoscopy this week. EKG is unchanged chest x-ray shows chronic changes. - Lab Data Result diagrams: 02/18/18 12:31 02/18/18 12:31 Lab Results 02/18/18 02/18/18 02/18/18 Range/Units 12:31 12:31 12:31 WBC 9.6 (3.8-10.6) k/uL RBC 4.41 (3.80-5.40) m/uL Hgb 14.5 (11.4-16.0) gm/dL Hct 42.6 (34.0-46.0) % MCV 96.7 (80.0-100.0) fL MCH 33.0 (25.0-35.0) pg MCHC 34.1 (31.0-37.0) g/dL RDW 13.2 (11.5-15.5) % Plt Count 337 (150-450) k/uL Neutrophils % 55 % Lymphocytes % 21 % Monocytes % 8 % Eosinophils % 13 % Basophils % 1 % Neutrophils # 5.2 (1.3-7.7) k/uL Lymphocytes # 2.1 (1.0-4.8) k/uL Monocytes # 0.8 (0-1.0) k/uL Eosinophils # 1.2 H (0-0.7) k/uL Basophils # 0.1 (0-0.2) k/uL PT (9.0-12.0) sec INR (<1.2) APTT (22.0-30.0) sec Sodium 140 (137-145) mmol/L Potassium 4.4 (3.5-5.1) mmol/L Chloride 103 (98-107) mmol/L Carbon Dioxide 26 (22-30) mmol/L Anion Gap 11 mmol/L BUN 15 (7-17) mg/dL Creatinine 0.70 (0.52-1.04) mg/dL Est GFR (CKD-EPI)AfAm >90 (>60 ml/min/1.73 sqM) Est GFR (CKD-EPI)NonAf 85 (>60 ml/min/1.73 sqM) Glucose 315 H (74-99) mg/dL Calcium 9.5 (8.4-10.2) mg/dL Magnesium 1.9 (1.6-2.3) mg/dL Total Bilirubin 0.5 (0.2-1.3) mg/dL AST 22 (14-36) U/L ALT 57 H (9-52) U/L Alkaline Phosphatase 72 (38-126) U/L Total Creatine Kinase 44 (30-135) U/L CK-MB (CK-2) 1.6 (0.0-2.4) ng/mL CK-MB (CK-2) Rel Index 3.6 Troponin I <0.012 (0.000-0.034) ng/mL NT-Pro-B Natriuret Pep pg/mL Total Protein 5.9 L (6.3-8.2) g/dL Albumin 3.5 (3.5-5.0) g/dL Influenza Type A RNA (Not Detectd) Influenza Type B (PCR) (Not Detectd) 02/18/18 02/18/18 02/18/18 Range/Units 12:31 12:31 13:00 WBC (3.8-10.6) k/uL RBC (3.80-5.40) m/uL Hgb (11.4-16.0) gm/dL Hct (34.0-46.0) % MCV (80.0-100.0) fL MCH (25.0-35.0) pg MCHC (31.0-37.0) g/dL RDW (11.5-15.5) % Plt Count (150-450) k/uL Neutrophils % % Lymphocytes % % Monocytes % % Eosinophils % % Basophils % % Neutrophils # (1.3-7.7) k/uL Lymphocytes # (1.0-4.8) k/uL Monocytes # (0-1.0) k/uL Eosinophils # (0-0.7) k/uL Basophils # (0-0.2) k/uL PT 9.7 (9.0-12.0) sec INR 1.0 (<1.2) APTT 22.0 (22.0-30.0) sec Sodium (137-145) mmol/L Potassium (3.5-5.1) mmol/L Chloride (98-107) mmol/L Carbon Dioxide (22-30) mmol/L Anion Gap mmol/L BUN (7-17) mg/dL Creatinine (0.52-1.04) mg/dL Est GFR (CKD-EPI)AfAm (>60 ml/min/1.73 sqM) Est GFR (CKD-EPI)NonAf (>60 ml/min/1.73 sqM) Glucose (74-99) mg/dL Calcium (8.4-10.2) mg/dL Magnesium (1.6-2.3) mg/dL Total Bilirubin (0.2-1.3) mg/dL AST (14-36) U/L ALT (9-52) U/L Alkaline Phosphatase (38-126) U/L Total Creatine Kinase (30-135) U/L CK-MB (CK-2) (0.0-2.4) ng/mL CK-MB (CK-2) Rel Index Troponin I (0.000-0.034) ng/mL NT-Pro-B Natriuret Pep 78 pg/mL Total Protein (6.3-8.2) g/dL Albumin (3.5-5.0) g/dL Influenza Type A RNA Not Detected (Not Detectd) Influenza Type B (PCR) Not Detected (Not Detectd) - EKG Data EKG Comments: 12:19 normal sinus rhythm with rate of 95 NE 148 QRS 82 QT/QTc is 360/452 Disposition Clinical Impression: Acute exacerbation of chronic obstructive airways disease Disposition: ADMITTED IP TO THIS HOSP Condition: Fair Referrals: Heri Alexandra DO [Primary Care Provider] - 1-2 days
[2018-02-18 13:22] LABS: ALT 57 U/L (9-52); AST 22 U/L (14-36); Albumin 3.5 g/dL (3.5-5.0); Alkaline Phosphatase 72 U/L (38-126); Anion Gap 11 mmol/L; Blood Urea Nitrogen 15 mg/dL (7-17); Calcium 9.5 mg/dL (8.4-10.2); Carbon Dioxide 26 mmol/L (22-30); Chloride 103 mmol/L (98-107); Creatine Kinase 44 U/L (30-135); Glucose 315 mg/dL (74-99); Magnesium 1.9 mg/dL (1.6-2.3); Potassium 4.4 mmol/L (3.5-5.1); Sodium 140 mmol/L (137-145); Total Bilirubin 0.5 mg/dL (0.2-1.3); Total Protein 5.9 g/dL (6.3-8.2)
[2018-02-18] MEDS ORDERED: ALBUTEROL NEBULIZED 2.5 MG/3 ML INHALATION STA (13:23)
[2018-02-18] MEDS ORDERED: INSULIN ASPART 100 UNIT/ML 1 ML 10 ML VIAL SQ ONE (13:27)
[2018-02-18 13:34] LABS: Creatine Kinase MB 1.6 ng/mL (0.0-2.4); Troponin I <0.012 ng/mL (0.000-0.034)
--- NOTE | 2018-02-18 13:42 | XR ---
EXAMINATION TYPE: XR chest 2V DATE OF EXAM: 02/18/2018 COMPARISON: 01/22/2018 TECHNIQUE: PA and lateral views submitted. HISTORY: Difficulty breathing FINDINGS: The lungs are clear and there is no pneumothorax, pleural effusion, or focal pneumonia. Hypertrophi c and degenerative changes spine. Hyperinflation suggests COPD. Biapical pleural thickening. Atherosc lerotic change of aorta. Arthropathy of the shoulders. IMPRESSION: 1. No acute process. Correlate for COPD. 2. Stable chronic apical pleural thickening.
[2018-02-18] MEDS ORDERED: IPRATROPIUM-ALBUTEROL 3 ML NEB INHALATION PRN (13:50)
[2018-02-18] MEDS ORDERED: PROMETHAZ-COD 6.25-10 MG/5 ML 5 ML CUP PO PRN (15:14)
[2018-02-18] MEDS: IPRATROPIUM-ALBUTEROL 3 ML NEB INHALATION SCH ×2 (15:57→20:13)
[2018-02-18] MEDS: HEPARIN SODIUM,PORCINE 5,000 UNIT/ML 1 ML VIAL SQ SCH (16:31)
[2018-02-18] MEDS: methylPREDNISolone SOD SUCCI 125 MG/2 ML VIAL IV SCH (16:31)
[2018-02-18 17:35] LABS: Glucose,Whole Blood 204 mg/dL (75-99)
[2018-02-18] MEDS: INSULIN ASPART 100 UNIT/ML 1 ML 10 ML VIAL SQ SCH ×2 (17:38→21:31)
--- NOTE | 2018-02-18 20:05 | P.CNPUL ---
History of Present Illness Consult date: 02/18/18 Reason for consult: COPD History of present illness: Sofia is a 77-year-old female patient with known history of COPD with a baseline FEV1 of 58% of predicted. She is known to have emphysema. She also has been a smoker in she has quit smoking recently. She has had several hospitalization for COPD exacerbation since the beginning of the year. Her last evaluation was in my office on 02/13/2018 and she was still having some difficulties in breathing. She was maintained on Anoro Ellipta in addition to DuoNeb neb last 2 minutes [id number]. She was also using Ventolin as needed. She continued to have a congested cough. No significant weight gain despite her repeated steroid use. She stated that she had not fully recovered and were planning to do a bronchoscopy for therapeutic it was suctioning 90 the patient continued to have a congested cough and she was not feeling absolutely back to her baseline. Meanwhile her voice was also raspy. Her pulse ox however was 93% on room air. Since then, the patient acutely became progressively more short of breath and more bronchospastic and wheezy. She woke up yesterday with increased dyspnea cough chest tightness and wheezing. She presented to the hospital and a chest x-ray was done that showed no acute pulmonary infiltration or pneumonia. No fever or chills. No nausea vomiting or abdominal pain. No chest pain. No swelling in lower extremities. She denies smoking for the past 3 months. No swelling in lower extremities. For that reason she was admitted to the hospital and a pulmonary consultation was requested. She was started on IV Solu-Medrol and she is feeling slightly better. She is also on DuoNeb nebulized treatments around the clock. No other significant events otherwise. Review of Systems Constitutional: no fever, no night sweats, no significant weight loss, no exercise intolerance, weight gain 8 pounds related to systemic steroid use. Eyes Eyes: no dry eyes, no vision change, no irritation ENMT Ears: no difficulty hearing, no ear pain Nose: no frequent nosebleeds, no nose problems, no sinus problems Mouth/Throat: no sore throat, no bleeding gums, no snoring, no dry mouth, no mouth ulcers, no oral abnormalities, no teeth problems Cardiovascular Cardiovascular: no chest pain, no arm pain on exertion, no shortness of breath when lying down, no palpitations, no known heart murmur, shortness of breath when walking Respiratory Respiratory: no coughing up blood, no sleep apnea, shortness of breath (chest congestion and mucus, unable to bring up sputum.) Gastrointestinal Gastrointestinal: no abdominal pain, no nausea, no vomiting, no constipation, normal appetite, no diarrhea, not vomiting blood, no dyspepsia, no GERD Genitourinary Genitourinary: no incontinence, no difficulty urinating, no hematuria, no increased frequency Musculoskeletal Musculoskeletal: no muscle aches, no muscle weakness, no arthralgias/joint pain , no back pain, no swelling in the extremities Integumentary Skin: no abnormal mole, no jaundice, no rashes, no laceration Neurologic Neurologic: no loss of consciousness, no weakness, no numbness, no seizures, no dizziness, no migraines, no headaches, no tremor Psychiatric Psych: no depression, no sleep disturbances, feeling safe in a relationship, no alcohol abuse, no anxiety, no hallucinations, no suicidal thoughts Endocrine Endocrine: no fatigue Hematologic/Lymphatic Hematologic/Lymphatic no swollen glands, no bruising, no excessive bleeding Allergic/Immunologic Allergy/Immunologic: no runny nose, no sinus pressure, no itching, no hives, no frequent sneezing Past Medical History Past Medical History: COPD, Hyperlipidemia, Thyroid Disorder Additional Past Medical History / Comment(s): home 02 2 lirers at hs and prn, past thyroid nodules(benign) History of Any Multi-Drug Resistant Organisms: Other MDRO Past Surgical History: Appendectomy, Hysterectomy, Tonsillectomy Additional Past Surgical History / Comment(s): colonoscopy, one thyroid nodule removed from each side-bother were benign. Other surgeries include appendectomy , hysterectomy and tonsillectomy Past Anesthesia/Blood Transfusion Reactions: No Reported Reaction Smoking Status: Former smoker (The patient carries a total of [id number] smoking history) - Past Family History Father Family Medical History: Myocardial Infarction ([place]) Additional Family Medical History / Comment(s): in 2009 from [place]. Mother Family Medical History: COPD Sister(s) Family Medical History: Cancer, COPD Additional Family Medical History / Comment(s): pt has two sisters who both had breast cancer. 1 sister has COPD. Medications and Allergies Home Medications Medication Instructions Recorded Confirmed Type Ipratropium-Albuterol Nebulize 3 ml INHALATION RT-TID 07/22/17 02/18/18 History [Duoneb 0.5 mg-3 mg/3 ml Soln] Levothyroxine Sodium [Synthroid] 75 mcg PO DAILY 07/22/17 02/18/18 History Montelukast [Singulair] 10 mg PO DAILY 07/22/17 02/18/18 History Umeclidinium Brm/Vilanterol Tr 1 puff INHALATION RT-DAILY 07/22/17 02/18/18 History [Anoro Ellipta 62.5-25 Mcg INH] Venlafaxine HCl [Effexor XR] 75 mg PO DAILY 07/22/17 02/18/18 History Ascorbic Acid [Vitamin C] 500 mg PO DAILY 09/10/17 02/18/18 History Calcium Carbonate/Vitamin D3 1 tab PO DAILY 09/10/17 02/18/18 History [Calcium 500-Vit D3 200 Tablet] [place]-3 Fatty Acids/Fish Oil [Fish 1 cap PO DAILY 09/10/17 02/18/18 History Oil 1,000 mg Softgel] Cholecalciferol [Vitamin D3] 1,000 unit PO DAILY 01/22/18 02/18/18 History Promethazine HCl/Codeine 5 ml PO Q6H PRN 01/22/18 02/18/18 History [Prometh-Codein 6.25-10 mg/5 ml] Simvastatin [Zocor] 20 mg PO HS 01/22/18 02/18/18 History Vitamin B Complex 1 cap PO DAILY 01/22/18 02/18/18 History Vitamin E (Dl,Tocopheryl Acet) 400 unit PO DAILY 01/22/18 02/18/18 History [Vitamin E] guaiFENesin-DM 600/30MG [Mucinex 1 tab PO Q12HR 02/18/18 02/18/18 History Dm] Allergies Allergy/AdvReac Type Severity Reaction Status Date / Time No Known Allergies Allergy Verified 02/18/18 12:28 Physical Exam Vitals: Vital Signs Temp Pulse Pulse Resp BP BP Pulse Ox 02/18/18 16:19 102 H 02/18/18 15:57 100 94 L 02/18/18 15:24 96.8 F L 99 18 133/72 92 L 02/18/18 14:46 98.1 F 92 18 132/67 95 02/18/18 12:52 109 H 03/26/18 12:35 102 H 02/18/18 12:02 98.9 F 102 H 24 152/69 92 L Intake and Output 02/18/18 02/18/18 02/18/18 06:59 14:59 22:59 Other: Weight 86.636 kg General Appearance no diaphoresis, no respiratory distress, speech not interrupted by breaths, no dyspnea, no pallor, not cachectic, well nourished, appears well, obesity HEENT no pursed lip breathing, no jugular venous distention, no mucous membrane cyanosis, no perioral cyanosis, mallampati classification: class 1, Mallampati Classification: Class 3 Chest no retractions, no sternocleidomastoid muscle contractions, no supraclavicular retractions, no intercostal retractions, no decreased air movement, no rhonchi, no hyperinflation, barrel chest, decreased air movement Heart no right ventricular heave, no distant heart sounds, no s3 gallop, (normal ) jugular vein: jugular venous distention: by 0cm GI bowel sounds: hyperactive (borborygmi), bowel sounds: diminished or absent Extremities no cyanosis, no clubbing, no edema Neurologic no decreased mental status, no somnolence, no confusion Skin Examination of the skin revealed no evidence of significant rashes, suspicious appearing nevi or other concerning lesions. Results - Laboratory Findings CBC and BMP: 02/18/18 12:31 02/18/18 12:31 PT/INR, D-dimer PT 9.7 sec (9.0-12.0) 02/18/18 12:31 INR 1.0 (<1.2) 02/18/18 12:31 Abnormal lab findings: Abnormal Labs 02/18/18 02/18/18 02/18/18 12:31 12:31 17:22 Eosinophils # 1.2 H Glucose 315 H POC Glucose (mg/dL) 204 H ALT 57 H Total Protein 5.9 L - Diagnostic Findings Chest x-ray: image reviewed Assessment and Plan Plan: Assessment 1 acute COPD exacerbation with secondary shortness of breath. This is a recurrent event as the patient has had several hospitalization for this current year for COPD exacerbation. Chest x-ray is free of any acute pulmonary infiltrates. She has a congested cough without significant sputum production. No signs of any fluid overload. 2 COPD which is of a moderate severity at baseline with an FEV1 of 58% of predicted 3 history of smoking 4 hypothyroidism 5 history of depression Plan We'll treat acute COPD exacerbation by putting this patient on DuoNeb nebulized treatments around the clock every 4 hours and IV Solu Medrol 60 mg every 6 hours. We'll add Tussionex for cough and chest congestion. . We'll continue to follow. I am considering a bronchoscopy on this patient with the next 24-48 hours once her COPD is much better optimized to make sure there is no ongoing respirator infection as a maintenance sugar for recurrent COPD exacerbations. She has had previous swallow evaluations from 09/13/2017 and that was within normal limits. Echocardiogram from the past was also within normal limits and the patient has a preserved LV function. Monitor the blood sugars and cover the patient was placed on sliding scale coverage. Influenza screen was negative.
[2018-02-18 20:34] LABS: Glucose,Whole Blood 331 mg/dL (75-99)
[2018-02-18] MEDS: ATORVASTATIN 10 MG TAB PO SCH (21:31)
[2018-02-18] MEDS: guaiFENesin-DM 600/30MG 1 EACH TAB.ER.12H PO SCH (21:31)
[2018-02-19] MEDS: HEPARIN SODIUM,PORCINE 5,000 UNIT/ML 1 ML VIAL SQ SCH ×4 (01:38→23:37)
[2018-02-19] MEDS: methylPREDNISolone SOD SUCCI 125 MG/2 ML VIAL IV SCH ×5 (01:38→23:36)
[2018-02-19] MEDS: LEVOTHYROXINE 75 MCG TAB PO SCH (06:15)
[2018-02-19 07:44] LABS: Glucose,Whole Blood 267 mg/dL (75-99)
[2018-02-19] MEDS: IPRATROPIUM-ALBUTEROL 3 ML NEB INHALATION SCH ×4 (07:51→19:42)
[2018-02-19] MEDS: INSULIN ASPART 100 UNIT/ML 1 ML 10 ML VIAL SQ SCH ×4 (08:13→22:06)
[2018-02-19] MEDS: guaiFENesin-DM 600/30MG 1 EACH TAB.ER.12H PO SCH ×2 (08:14→20:16)
[2018-02-19] MEDS: PANTOPRAZOLE 40 MG TABLET PO SCH (08:14)
[2018-02-19] MEDS: MONTELUKAST 10 MG TAB PO SCH (08:15)
[2018-02-19] MEDS: VENLAFAXINE HCL ER 75 MG CAP PO SCH (08:15)
[2018-02-19] MEDS: LEVOFLOXACIN 500 MG TAB PO SCH (09:55)
[2018-02-19] MEDS ORDERED: MORPHINE SULFATE/PF 10MG/10ML VL IVP PRN (09:57)
--- NOTE | 2018-02-19 10:22 | P.HPIM ---
History of Present Illness H&P Date: 02/19/18 Chief Complaint: Shortness of breath 77-year-old female who presented to the emergency room with a chief complaint of difficulty in breathing 3 days that is increasing in severity. Patient states she saw her peanut sheller, Dr. Zarate, in the office on 2017 and states he was planning to perform a bronchoscopy this week as patient has had multiple hospitalizations for COPD. She states her breathing continued to get more labored and she presented to the ER for further evaluation. Patient denies chest pain or pressure. Denies nausea or vomiting. Denies lightheadedness or dizziness. Denies fever or chills. The patient has a history of COPD. She wears home oxygen. She also has a history of hyperlipidemia and hypothyroidism. She is a former cigarette smoker and recently quit smoking. Chest x-ray: Negative for an acute process. Correlate for COPD. Stable chronic apical pleural thickening. Laboratory data: WBC 9.6. Hemoglobin 14.5. Platelet count 337. Sodium 140. Potassium 4.4. BUN 15. Creatinine 0.70. Glucose 315. BNP: 78 Troponin: Negative 1 Testing for influenza A and B was negative The patient was admitted to the hospital under the care of Dr. Alexandra. Consultations were placed to pulmonary. Review of Systems GENERAL: Patient denies fever. Denies chills. EYES: Denies blurred vision. Denies vision changes. Denies eye pain. EARS, NOSE, MOUTH, & THROAT: Denies headache. Denies sore throat. Denies ear pain. RESPIRATORY: Positive for shortness of breath. Positive for wheezing. Positive for nonproductive cough. Denies hemoptysis. CARDIOVASCULAR: Denies chest pain or pressure. Denies palpitations. Denies arrhythmias. GASTROINTESTINAL: Denies abdominal pain. Denies diarrhea. Denies constipation. Denies nausea. Denies vomiting. Denies heartburn. Denies blood in the stool. GENITOURINARY: Denies urinary frequency. Denies burning. Denies dysuria. Denies cloudy urine. Denies blood in the urine. MUSCULOSKELETAL: Denies myalgias. Denies joint swelling. Denies decreased range of motion beyond patients baseline. INTEGUMENTARY: Denies pruitis. Denies rash. PSYCHIATRIC: Denies suicidal or homicial ideations. ENDOCRINE: Denies weight change. Denies polydipsia. Denies polyuria. HEMATOLOGIC: Denies bleeding disorders. Past Medical History Past Medical History: COPD, Hyperlipidemia, Thyroid Disorder Additional Past Medical History / Comment(s): home 02 2 lirers at hs and prn, past thyroid nodules(benign) History of Any Multi-Drug Resistant Organisms: Other MDRO Past Surgical History: Appendectomy, Hysterectomy, Tonsillectomy Additional Past Surgical History / Comment(s): colonoscopy, one thyroid nodule removed from each side-bother were benign. Other surgeries include appendectomy , hysterectomy and tonsillectomy Past Anesthesia/Blood Transfusion Reactions: No Reported Reaction Smoking Status: Former smoker (The patient carries a total of [id number] smoking history) - Past Family History Father Family Medical History: Myocardial Infarction ([place]) Additional Family Medical History / Comment(s): in 2009 from [place]. Mother Family Medical History: COPD Sister(s) Family Medical History: Cancer, COPD Additional Family Medical History / Comment(s): pt has two sisters who both had breast cancer. 1 sister has COPD. Medications and Allergies Home Medications Medication Instructions Recorded Confirmed Type Ipratropium-Albuterol Nebulize 3 ml INHALATION RT-TID 07/22/17 02/18/18 History [Duoneb 0.5 mg-3 mg/3 ml Soln] Levothyroxine Sodium [Synthroid] 75 mcg PO DAILY 07/22/17 02/18/18 History Montelukast [Singulair] 10 mg PO DAILY 07/22/17 02/18/18 History Umeclidinium Brm/Vilanterol Tr 1 puff INHALATION RT-DAILY 07/22/17 02/18/18 History [Anoro Ellipta 62.5-25 Mcg INH] Venlafaxine HCl [Effexor XR] 75 mg PO DAILY 07/22/17 02/18/18 History Ascorbic Acid [Vitamin C] 500 mg PO DAILY 09/10/17 02/18/18 History Calcium Carbonate/Vitamin D3 1 tab PO DAILY 09/10/17 02/18/18 History [Calcium 500-Vit D3 200 Tablet] [place]-3 Fatty Acids/Fish Oil [Fish 1 cap PO DAILY 09/10/17 02/18/18 History Oil 1,000 mg Softgel] Cholecalciferol [Vitamin D3] 1,000 unit PO DAILY 01/22/18 02/18/18 History Promethazine HCl/Codeine 5 ml PO Q6H PRN 01/22/18 02/18/18 History [Prometh-Codein 6.25-10 mg/5 ml] Simvastatin [Zocor] 20 mg PO HS 01/22/18 02/18/18 History Vitamin B Complex 1 cap PO DAILY 01/22/18 02/18/18 History Vitamin E (Dl,Tocopheryl Acet) 400 unit PO DAILY 01/22/18 02/18/18 History [Vitamin E] [id number]-DM 600/30MG [Mucinex 1 tab PO Q12HR 02/18/18 02/18/18 History Dm] Allergies Allergy/AdvReac Type Severity Reaction Status Date / Time No Known Allergies Allergy Verified 02/18/18 12:28 Physical Exam Vitals: Vital Signs Temp Pulse Pulse Resp BP BP Pulse Ox 02/19/18 08:09 106 H 02/19/18 07:54 100 95 02/19/18 07:00 97.1 F L 97 16 116/66 96 02/18/18 22:55 97.8 F 101 H 16 167/72 92 L 02/18/18 20:25 98 02/18/18 20:13 100 02/18/18 16:19 102 H 02/18/18 15:57 100 94 L 02/18/18 15:24 96.8 F L 99 18 133/72 92 L 02/18/18 14:46 98.1 F 92 18 132/67 95 02/18/18 12:52 109 H 02/18/18 12:35 102 H 02/18/18 12:02 98.9 F 102 H 24 152/69 92 L Intake and Output 02/18/18 02/19/18 02/19/18 22:59 06:59 14:59 Other: # Voids 1 1 GENERAL: This is a 77-year-old female in no apparent distress at the time of examination. Pleasant and cooperative. HEENT: Head is atraumatic, normocephalic. Pupils are equal, round, and reactive to light. Sclerae anicteric. Conjunctivae are clear. Mucus membranes of the mouth are moist. Neck is supple. RESPIRATORY: Decreased air exchange. Expiratory wheezing and scattered rhonchi noted. No use of accessory muscles. Patient maintaining oxygen saturation greater than 92% on nasal cannula. No chest wall tenderness is noted on palpation or with deep breathing. CARDIOVASCULAR: Regular rate and rhythm. S1 and S2 noted. No systolic or diastolic murmur auscultated. No JVD noted. No S3 or S4 noted. GASTROINTESTINAL: No distention noted. Abdomen soft and round. Normal active bowel sounds auscultated x 4 quadrants. No pain or tenderness noted upon palpation. INTEGUMENTARY: No cyanosis. No jaundice. No rashes noted. No cellulitis noted. EXTREMITIES: 2+ peripheral pulses. No evidence of peripheral edema. No calf tenderness noted. NEUROLOGIC: Cranial nerves II-XII intact. PSYCHIATRIC: Awake, alert, and oriented X 3. Appropriate affect. Intact judgement and insight. Results CBC & Chem 7: 02/18/18 12:31 02/18/18 12:31 Labs: Abnormal Lab Results - Last 24 Hours (Table) 02/18/18 02/18/18 02/18/18 Range/Units 12:31 12:31 17:22 Eosinophils # 1.2 H (0-0.7) k/uL Glucose 315 H (74-99) mg/dL POC Glucose (mg/dL) 204 H (75-99) mg/dL ALT 57 H (9-52) U/L Total Protein 5.9 L (6.3-8.2) g/dL 02/18/18 02/19/18 Range/Units 20:30 07:19 Eosinophils # (0-0.7) k/uL Glucose (74-99) mg/dL POC Glucose (mg/dL) 331 H 267 H (75-99) mg/dL ALT (9-52) U/L Total Protein (6.3-8.2) g/dL Thrombosis Risk Factor Assmnt - Choose All That Apply Any of the Below Risk Factors Present?: Yes Each Factor Represents 1 point: Abnormal pulmonary function (COPD), Obesity ( BMI >25) Other Risk Factors: Yes Each Risk Factor Represents 3 Points: Age 75 years or older Other congenital or acquired thrombophilia - If yes, enter type in comment: No Thrombosis Risk Factor Assessment Total Risk Factor Score: 5 Thrombosis Risk Factor Assessment Level: High Risk Assessment and Plan Plan: ASSESSMENT: Acute exacerbation of chronic obstructive pulmonary disease Recent hospitalization secondary to COPD Acute on chronic hypoxic respiratory failure, requiring home oxygen Hyperglycemia, likely secondary to IV steroids Hyperlipidemia Hypothyroidism Obesity: BMI 31.8 History of nicotine dependence, in remission, patient states she quit smoking 3 months ago PLAN: Pulmonary on consult. Appreciate recommendations and input Possible bronchoscopy per pulmonary Continue IV steroids: Solu-Medrol 60 mg every 6 hours IV Continue Levaquin 500 mg every 24 hours Capillary blood glucose accu-checks AC/HS NovoLog sliding scale insulin coverage AC/HS Home meds as appropriate Monitor labs GI prophylaxis: Protonix 40 mg PO Daily DVT prophylaxis: Heparin 5000 units subcu every 8 hours Monitor vital signs and address as appropriate Discharge planning: Patient to return home when stable Further recommendations pending patient's course Nurse practitioner note has been reviewed by physician. Signing provider agrees with the documented findings, assessment, and plan of care.
[2018-02-19] MEDS: FORMOTEROL FUMARATE 20 MCG/2 ML NEBU INHALATION SCH ×2 (11:39→19:42)
[2018-02-19] MEDS: BUDESONIDE 1 MG/2 ML NEBU INHALATION SCH ×2 (11:39→19:42)
[2018-02-19 11:54] LABS: Glucose,Whole Blood 320 mg/dL (75-99)
[2018-02-19] MEDS: ASCORBIC ACID 500 MG TAB PO SCH (11:59)
[2018-02-19] MEDS: CALCIUM CARB-VIT D 500MG-200UN 1 EACH TAB PO SCH (11:59)
[2018-02-19] MEDS: B COMPLEX-VIT C-VIT E-ZINC 1 EACH TAB PO SCH (11:59)
[2018-02-19] MEDS: CHOLECALCIFEROL 1,000 UNIT TAB PO SCH (12:00)
[2018-02-19] MEDS: ACETAMINOPHEN TAB 325 MG TAB PO PRN (12:01)
[2018-02-19] MEDS: VITAMIN E (DL,TOCOPHERYL ACET) 400 UNIT CAP PO SCH (12:01)
--- NOTE | 2018-02-19 17:14 | P.PN ---
Subjective Progress Note Date: 02/19/18 Principal diagnosis: COPD exacerbation Sofia is a 77-year-old female patient with known history of COPD with a baseline FEV1 of 58% of predicted. She is known to have emphysema. She also has been a smoker in she has quit smoking recently. She has had several hospitalization for COPD exacerbation since the beginning of the year. Her last evaluation was in my office on 02/13/2018 and she was still having some difficulties in breathing. She was maintained on Anoro Ellipta in addition to DuoNeb neb last 2 minutes [id number]. She was also using Ventolin as needed. She continued to have a congested cough. No significant weight gain despite her repeated steroid use. She stated that she had not fully recovered and were planning to do a bronchoscopy for therapeutic it was suctioning 90 the patient continued to have a congested cough and she was not feeling absolutely back to her baseline. Meanwhile her voice was also raspy. Her pulse ox however was 93% on room air. Since then, the patient acutely became progressively more short of breath and more bronchospastic and wheezy. She woke up yesterday with increased dyspnea cough chest tightness and wheezing. She presented to the hospital and a chest x-ray was done that showed no acute pulmonary infiltration or pneumonia. No fever or chills. No nausea vomiting or abdominal pain. No chest pain. No swelling in lower extremities. She denies smoking for the past 3 months. No swelling in lower extremities. For that reason she was admitted to the hospital and a pulmonary consultation was requested. She was started on IV Solu-Medrol and she is feeling slightly better. She is also on DuoNeb nebulized treatments around the clock. No other significant events otherwise. On 02/19/2018 patient seen in follow-up on medical surgical floor. She is resting in bed, denies any acute distress. Her lung sounds remain very bronchospastic and congested. Overall she reports some improvement with her dyspnea. She is wearing oxygen intermittently, on room air her O2 sat was 94%. She remains slightly tachycardic with a heart rate up to 104 BPM, she is afebrile, vital signs are stable. Her influenza screen was negative, she has a productive cough with white sputum. In view of her recurrent hospitalizations for COPD exacerbations, patient will be scheduled for bronchoscopy with BAL by Dr. Zarate tomorrow at 11:30 in the morning. This was communicated to the patient, and the patient is in agreement with the plan. Objective - Vital Signs Vital signs: Vital Signs Temp 97.1 F L 02/19/18 07:00 Pulse 100 02/19/18 15:56 Resp 20 02/19/18 15:00 BP 137/71 02/19/18 15:00 Pulse Ox 94 L 02/19/18 15:00 Intake & Output 02/18/18 02/19/18 02/19/18 18:59 06:59 18:59 Weight 86.636 kg Other: # Voids 1 3 - Exam GENERAL EXAM: Alert, pleasant, 77-year-old white female comfortable in no apparent distress. HEAD: Normocephalic/atraumatic. EYES: Normal reaction of pupils, equal size. Conjunctiva pink, sclera white. NOSE: Clear with pink turbinates. THROAT: No erythema or exudates. NECK: No masses, no JVD, no thyroid enlargement, no adenopathy. CHEST: No chest wall deformity. Symmetrical expansion. LUNGS: Equal air entry with diffuse wheezes and rhonchi CVS: Regular rate and rhythm, normal S1 and S2, no gallops, no murmurs, no rubs ABDOMEN: Soft, nontender. No hepatosplenomegaly, normal bowel sounds, no guarding or rigidity. EXTREMITIES: No clubbing, no edema, no cyanosis, 2+ pulses and upper and lower extremities. MUSCULOSKELETAL: Muscle strength and tone normal. SPINE: No scoliosis or deformity SKIN: No rashes CENTRAL NERVOUS SYSTEM: Alert and oriented -3. No focal deficits, tone is normal in all 4 extremities. PSYCHIATRIC: Alert and oriented -3. Appropriate affect. Intact judgment and insight. - Labs CBC & Chem 7: 02/18/18 12:31 02/18/18 12:31 Labs: Abnormal Lab Results - Last 24 Hours (Table) 02/18/18 02/18/18 02/19/18 Range/Units 17:22 20:30 07:19 POC Glucose (mg/dL) 204 H 331 H 267 H (75-99) mg/dL 02/19/18 Range/Units 11:42 POC Glucose (mg/dL) 320 H (75-99) mg/dL Microbiology - Last 24 Hours (Table) 02/18/18 12:31 Blood Culture - Preliminary Blood No Growth after 24 hours Assessment and Plan Plan: Assessment: 1 acute COPD exacerbation with secondary shortness of breath. This is a recurrent event as the patient has had several hospitalization for this current year for COPD exacerbation. Chest x-ray is free of any acute pulmonary infiltrates. She has a congested cough without significant sputum production. No signs of any fluid overload. 2 COPD which is of a moderate severity at baseline with an FEV1 of 58% of predicted 3 history of smoking 4 hypothyroidism 5 history of depression Plan Patient reports some limited improvement in her dyspnea, but overall continues to be very bronchospastic, and congested. Continue current treatment, will add Levaquin, will add Pulmicort and Perforomist. Continue IV Solu-Medrol. In view of patient's recurrent hospitalizations for COPD exacerbation, we will proceed with bronchoscopy with BAL by Dr. Zarate tomorrow at 11:30 in the morning. The patient is in agreement with the plan. Nothing by mouth after midnight. I performed a history & physical examination of the patient and discussed their management with my nurse practitioner, Dayana Collier. I reviewed the nurse practitioner's note and agree with the documented findings and plan of care. Lung sounds are positive for diffuse wheezes and rhonchi throughout the lung ramirez. The findings and the impression was discussed with the patient. I attest to the documentation by the nurse practitioner. Time with Patient: Less than 30
[2018-02-19 17:50] LABS: Glucose,Whole Blood 318 mg/dL (75-99)
[2018-02-19] MEDS: ATORVASTATIN 10 MG TAB PO SCH (20:16)
[2018-02-19 20:58] LABS: Glucose,Whole Blood 365 mg/dL (75-99)
[2018-02-19] MEDS ORDERED: INSULIN ASPART 100 UNIT/ML 1 ML 10 ML VIAL SQ ONE (21:32)
[2018-02-19] MEDS: LACTATED RINGERS 1,000 ML IV SCH (22:06)
[2018-02-20] MEDS: methylPREDNISolone SOD SUCCI 125 MG/2 ML VIAL IV SCH ×3 (06:27→17:08)
[2018-02-20] MEDS: IPRATROPIUM-ALBUTEROL 3 ML NEB INHALATION SCH ×4 (07:29→20:47)
[2018-02-20] MEDS: BUDESONIDE 1 MG/2 ML NEBU INHALATION SCH ×2 (07:29→20:46)
[2018-02-20] MEDS: FORMOTEROL FUMARATE 20 MCG/2 ML NEBU INHALATION SCH ×2 (07:29→20:46)
[2018-02-20] MEDS: INSULIN ASPART 100 UNIT/ML 1 ML 10 ML VIAL SQ SCH ×6 (07:35→22:28)
[2018-02-20 07:44] LABS: Glucose,Whole Blood 281 mg/dL (75-99)
[2018-02-20] MEDS: PANTOPRAZOLE 40 MG TABLET PO SCH (08:32)
[2018-02-20] MEDS: LEVOTHYROXINE 75 MCG TAB PO SCH (08:32)
[2018-02-20] MEDS: VENLAFAXINE HCL ER 75 MG CAP PO SCH (08:33)
[2018-02-20] MEDS: MONTELUKAST 10 MG TAB PO SCH (08:33)
[2018-02-20] MEDS: HEPARIN SODIUM,PORCINE 5,000 UNIT/ML 1 ML VIAL SQ SCH ×3 (08:33→22:48)
[2018-02-20] MEDS: LEVOFLOXACIN 500 MG TAB PO SCH (08:33)
[2018-02-20] MEDS: guaiFENesin-DM 600/30MG 1 EACH TAB.ER.12H PO SCH ×2 (08:33→20:07)
--- NOTE | 2018-02-20 10:59 | P.PN ---
Subjective Progress Note Date: 02/20/18 77-year-old female who presented to the emergency room with a chief complaint of difficulty in breathing 3 days that is increasing in severity. Patient states she saw her automatic packer operator, Dr. Zarate, in the office on 2017 and states he was planning to perform a bronchoscopy this week as patient has had multiple hospitalizations for COPD. She states her breathing continued to get more labored and she presented to the ER for further evaluation. Patient denies chest pain or pressure. Denies nausea or vomiting. Denies lightheadedness or dizziness. Denies fever or chills. The patient has a history of COPD. She wears home oxygen. She also has a history of hyperlipidemia and hypothyroidism. She is a former cigarette smoker and recently quit smoking. Chest x-ray: Negative for an acute process. Correlate for COPD. Stable chronic apical pleural thickening. Laboratory data: WBC 9.6. Hemoglobin 14.5. Platelet count 337. Sodium 140. Potassium 4.4. BUN 15. Creatinine 0.70. Glucose 315. BNP: 78 Troponin: Negative 1 Testing for influenza A and B was negative The patient was admitted to the hospital under the care of Dr. Alexandra. Consultations were placed to pulmonary. 02/20/2018 Patient examined at the bedside on rounds with Dr. Alexandra. Patient is awake and alert. Currently receiving nebulizer treatment. Patient reports dyspnea and wheezing at rest. Patient remains on 2 L nasal cannula with oxygen saturations greater than 92%. Patient's heart rate is in the low 100s. Blood pressure is stable at 125/69. Patient's blood sugar last night was 365. Patient received 15 units of NovoLog last night. Her blood sugar this morning is 281. She is NPO for bronchoscopy today. Will adjust insulin after procedure when patient is able to eat. Objective - Vital Signs Vital signs: Vital Signs Temp 97.3 F L 02/20/18 06:27 Pulse 100 02/20/18 08:03 Resp 18 02/20/18 06:27 BP 125/69 02/20/18 06:27 Pulse Ox 94 L 02/20/18 06:27 Intake & Output 02/19/18 02/20/18 02/20/18 18:59 06:59 18:59 Other: # Voids 3 2 - Exam GENERAL: This is a 77-year-old female in no apparent distress at the time of examination. Pleasant and cooperative. HEENT: Head is atraumatic, normocephalic. Pupils are equal, round, and reactive to light. Sclerae anicteric. Conjunctivae are clear. Mucus membranes of the mouth are moist. Neck is supple. RESPIRATORY: Decreased air exchange. Inspiratory and expiratory wheezing and scattered rhonchi noted. No use of accessory muscles. Patient maintaining oxygen saturation greater than 92% on nasal cannula. No chest wall tenderness is noted on palpation or with deep breathing. CARDIOVASCULAR: Regular rate and rhythm. S1 and S2 noted. No systolic or diastolic murmur auscultated. No JVD noted. No S3 or S4 noted. GASTROINTESTINAL: No distention noted. Abdomen soft and round. Normal active bowel sounds auscultated x 4 quadrants. No pain or tenderness noted upon palpation. INTEGUMENTARY: No cyanosis. No jaundice. No rashes noted. No cellulitis noted. EXTREMITIES: 2+ peripheral pulses. No evidence of peripheral edema. No calf tenderness noted. NEUROLOGIC: Cranial nerves II-XII intact. PSYCHIATRIC: Awake, alert, and oriented X 3. Appropriate affect. Intact judgement and insight. - Labs CBC & Chem 7: 02/18/18 12:31 02/18/18 12:31 Labs: Abnormal Lab Results - Last 24 Hours (Table) 02/19/18 02/19/18 02/19/18 Range/Units 11:42 17:33 20:56 POC Glucose (mg/dL) 320 H 318 H 365 H (75-99) mg/dL 02/20/18 Range/Units 07:15 POC Glucose (mg/dL) 281 H (75-99) mg/dL Microbiology - Last 24 Hours (Table) 02/18/18 12:31 Blood Culture - Preliminary Blood No Growth after 24 hours Assessment and Plan Plan: ASSESSMENT: Acute exacerbation of chronic obstructive pulmonary disease Recent hospitalization secondary to COPD Acute on chronic hypoxic respiratory failure, requiring home oxygen Steroid-induced hyperglycemia Hyperlipidemia Hypothyroidism Obesity: BMI 31.8 History of nicotine dependence, in remission, patient states she quit smoking 3 months ago PLAN: Pulmonary on consult. Appreciate recommendations and input Patient scheduled for bronchoscopy with BAL today per pulmonary Continue IV steroids: Solu-Medrol 60 mg every 6 hours IV Continue Levaquin 500 mg every 24 hours Capillary blood glucose accu-checks AC/HS NovoLog sliding scale insulin coverage AC/HS Add 5 units NovoLog with meals 15 units Levemir at HS Home meds as appropriate Monitor labs GI prophylaxis: Protonix 40 mg PO Daily DVT prophylaxis: Heparin 5000 units subcu every 8 hours Monitor vital signs and address as appropriate Discharge planning: Patient to return home when stable Further recommendations pending patient's course Nurse practitioner note has been reviewed by physician. Signing provider agrees with the documented findings, assessment, and plan of care.
[2018-02-20] MEDS ORDERED: PROPOFOL 10 MG/ML 20 ML VIAL IV ONE (11:39)
[2018-02-20] MEDS ORDERED: LIDOCAINE 1% INJ 10MG/ML (20 ML MDV) ONE (11:39)
[2018-02-20] MEDS ORDERED: LIDOCAINE 2% INJ 20 MG/ML INTRATRACH ONE (12:18)
[2018-02-20] MEDS: ASCORBIC ACID 500 MG TAB PO SCH (12:36)
[2018-02-20] MEDS: VITAMIN E (DL,TOCOPHERYL ACET) 400 UNIT CAP PO SCH (12:36)
[2018-02-20] MEDS: B COMPLEX-VIT C-VIT E-ZINC 1 EACH TAB PO SCH (12:36)
[2018-02-20] MEDS: CHOLECALCIFEROL 1,000 UNIT TAB PO SCH (12:37)
[2018-02-20] MEDS: CALCIUM CARB-VIT D 500MG-200UN 1 EACH TAB PO SCH (12:37)
[2018-02-20 12:48] LABS: Glucose,Whole Blood 283 mg/dL (75-99)
[2018-02-20] MEDS: ACETAMINOPHEN TAB 325 MG TAB PO PRN (12:53)
--- NOTE | 2018-02-20 13:05 | P.PN ---
Subjective Progress Note Date: 02/20/18 Principal diagnosis: COPD exacerbation Sofia is a 77-year-old female patient with known history of COPD with a baseline FEV1 of 58% of predicted. She is known to have emphysema. She also has been a smoker in she has quit smoking recently. She has had several hospitalization for COPD exacerbation since the beginning of the year. Her last evaluation was in my office on 02/13/2018 and she was still having some difficulties in breathing. She was maintained on Anoro Ellipta in addition to DuoNeb neb last 2 minutes [id number]. She was also using Ventolin as needed. She continued to have a congested cough. No significant weight gain despite her repeated steroid use. She stated that she had not fully recovered and were planning to do a bronchoscopy for therapeutic it was suctioning 90 the patient continued to have a congested cough and she was not feeling absolutely back to her baseline. Meanwhile her voice was also raspy. Her pulse ox however was 93% on room air. Since then, the patient acutely became progressively more short of breath and more bronchospastic and wheezy. She woke up yesterday with increased dyspnea cough chest tightness and wheezing. She presented to the hospital and a chest x-ray was done that showed no acute pulmonary infiltration or pneumonia. No fever or chills. No nausea vomiting or abdominal pain. No chest pain. No swelling in lower extremities. She denies smoking for the past 3 months. No swelling in lower extremities. For that reason she was admitted to the hospital and a pulmonary consultation was requested. She was started on IV Solu-Medrol and she is feeling slightly better. She is also on DuoNeb nebulized treatments around the clock. No other significant events otherwise. On 02/19/2018 patient seen in follow-up on medical surgical floor. She is resting in bed, denies any acute distress. Her lung sounds remain very bronchospastic and congested. Overall she reports some improvement with her dyspnea. She is wearing oxygen intermittently, on room air her O2 sat was 94%. She remains slightly tachycardic with a heart rate up to 104 BPM, she is afebrile, vital signs are stable. Her influenza screen was negative, she has a productive cough with white sputum. In view of her recurrent hospitalizations for COPD exacerbations, patient will be scheduled for bronchoscopy with BAL by Dr. Zarate tomorrow at 11:30 in the morning. This was communicated to the patient, and the patient is in agreement with the plan. On 02/20/2018 patient seen in follow-up. She is resting comfortably in bed, denies any acute distress. Her lung sounds are positive for some scattered wheezes, but this appears to be improved from previous exams. She still has a productive cough with occasional production of white sputum. Denies any fever, denies any chills, denies any chest pain. I'll signs are stable, patient is afebrile, she is currently on 2 L per nasal cannula with O2 sat 94%. Patient is on IV steroids, Levaquin, Pulmicort, Brovana, DuoNeb nebulized treatments. We will proceed with bronchoscopy with BAL today by Dr. Zarate. Objective - Vital Signs Vital signs: Vital Signs Temp 97.3 F L 02/20/18 06:27 Pulse 104 H 02/20/18 11:23 Resp 18 02/20/18 06:27 BP 125/69 02/20/18 06:27 Pulse Ox 94 L 02/20/18 06:27 Intake & Output 02/19/18 02/20/18 02/20/18 18:59 06:59 18:59 Other: # Voids 3 2 - Exam GENERAL EXAM: Alert, pleasant, 77-year-old white female comfortable in no apparent distress. HEAD: Normocephalic/atraumatic. EYES: Normal reaction of pupils, equal size. Conjunctiva pink, sclera white. NOSE: Clear with pink turbinates. THROAT: No erythema or exudates. NECK: No masses, no JVD, no thyroid enlargement, no adenopathy. CHEST: No chest wall deformity. Symmetrical expansion. LUNGS: Equal air entry with diffuse wheezes, improved from yesterday's exam CVS: Regular rate and rhythm, normal S1 and S2, no gallops, no murmurs, no rubs ABDOMEN: Soft, nontender. No hepatosplenomegaly, normal bowel sounds, no guarding or rigidity. EXTREMITIES: No clubbing, no edema, no cyanosis, 2+ pulses and upper and lower extremities. MUSCULOSKELETAL: Muscle strength and tone normal. SPINE: No scoliosis or deformity SKIN: No rashes CENTRAL NERVOUS SYSTEM: Alert and oriented -3. No focal deficits, tone is normal in all 4 extremities. PSYCHIATRIC: Alert and oriented -3. Appropriate affect. Intact judgment and insight. - Labs CBC & Chem 7: 02/18/18 12:31 02/18/18 12:31 Labs: Abnormal Lab Results - Last 24 Hours (Table) 02/19/18 02/19/18 02/20/18 Range/Units 17:33 20:56 07:15 POC Glucose (mg/dL) 318 H 365 H 281 H (75-99) mg/dL 02/20/18 Range/Units 12:34 POC Glucose (mg/dL) 283 H (75-99) mg/dL Microbiology - Last 24 Hours (Table) 02/18/18 12:31 Blood Culture - Preliminary Blood No Growth after 24 hours Assessment and Plan Plan: Assessment: 1 acute COPD exacerbation with secondary shortness of breath. This is a recurrent event as the patient has had several hospitalization for this current year for COPD exacerbation. Chest x-ray is free of any acute pulmonary infiltrates. She has a congested cough with whitishsputum production. No signs of any fluid overload. 2 COPD which is of a moderate severity at baseline with an FEV1 of 58% of predicted 3 history of smoking 4 hypothyroidism 5 history of depression Plan Continue current treatment, continue empiric antibiotics, Pulmicort, Brovana, DuoNeb, IV Solu-Medrol. We'll proceed with bronchoscopy with BAL by Dr. Zarate today. I performed a history & physical examination of the patient and discussed their management with my nurse practitioner, Dayana Collier. I reviewed the nurse practitioner's note and agree with the documented findings and plan of care. Lung sounds are positive for diffuse wheeze throughout the lung ramirez. The findings and the impression was discussed with the patient. I attest to the documentation by the nurse practitioner. Time with Patient: Less than 30
[2018-02-20] MEDS ORDERED: ALPRAZolam 0.5 MG TAB PO STA (13:17)
[2018-02-20] MEDS ORDERED: MORPHINE ORAL SOLN 10 MG/5 ML CUP PO PRN (15:21)
[2018-02-20 17:34] LABS: Glucose,Whole Blood 305 mg/dL (75-99)
--- NOTE | 2018-02-20 17:41 | P.PCN ---
Date of Procedure: 02/20/18 Preoperative Diagnosis: Acute COPD exacerbation, acute tracheal bronchitis, possible pneumonia Postoperative Diagnosis: Acute tracheal bronchitis, acute COPD exacerbation, possible pneumonia Procedure(s) Performed: Bronchoscopy and bronchioloalveolar lavage Anesthesia: MAC Surgeon: Dani Zarate Estimated Blood Loss (ml): 0 Pathology: other Condition: stable Disposition: floor Operative Findings: This procedure was done under conscious sedation with anesthetic agents being administered by anesthesia the bedside. After achieving adequate sedation the flexible bronchoscope was inserted through the left nostril was advanced upper airway. Examination of posterior oropharynx, larynx, epiglottis and vocal cords was done and all of these upper airway structures were within normal limits. Vocal cord function and mobility was within normal limits. A total of 2 mL of 1% lidocaine was applied to the vocal cords and following that the bronchoscope was advanced into the upper trachea and examination of the tracheal bronchial tree was done. The visualized airways including the entire trachea. Examination of the right side included a right mainstem bronchus, right upper lobe bronchus, bronchus intermedius, right middle lobe bronchus and right lower lobe bronchus along with a segments and subsegments. Examination of the left side included the left mainstem bronchus, left upper lobe bronchus, lingular segment and left lower lobe bronchus. Some loose respiratory secretions were encountered and there were suctioned out. It was suctioning was done. Following that the bronchoscope was wedged into the lingula and the bronchioloalveolar lavage was done over a total of 80 mL of fluid was infused and 25-30 mL's was suctioned back. Patient tolerated the procedure well. No desaturations were encountered. The bronchoscope was removed and the patient was transferred recovery in stable condition. The samples will be sent for cultures.
[2018-02-20] MEDS: ATORVASTATIN 10 MG TAB PO SCH (20:07)
[2018-02-20] MEDS ORDERED: INSULIN DETEMIR 100 UNIT/ML 10 ML VIAL SQ SCH (21:00)
[2018-02-20 21:37] LABS: Glucose,Whole Blood 362 mg/dL (75-99)
[2018-02-20] MEDS ORDERED: INSULIN ASPART 100 UNIT/ML 1 ML 10 ML VIAL SQ ONE (22:37)
[2018-02-20] MEDS: LACTATED RINGERS 1,000 ML IV SCH (23:07)
[2018-02-21] MEDS: methylPREDNISolone SOD SUCCI 125 MG/2 ML VIAL IV SCH ×4 (01:08→17:03)
[2018-02-21] MEDS: LEVOTHYROXINE 75 MCG TAB PO SCH (06:45)
[2018-02-21 07:44] LABS: Glucose,Whole Blood 286 mg/dL (75-99)
[2018-02-21] MEDS: LEVOFLOXACIN 500 MG TAB PO SCH (08:24)
[2018-02-21] MEDS: guaiFENesin-DM 600/30MG 1 EACH TAB.ER.12H PO SCH ×2 (08:24→21:39)
[2018-02-21] MEDS: INSULIN ASPART 100 UNIT/ML 1 ML 10 ML VIAL SQ SCH ×7 (08:24→21:40)
[2018-02-21] MEDS: HEPARIN SODIUM,PORCINE 5,000 UNIT/ML 1 ML VIAL SQ SCH ×2 (08:24→16:35)
[2018-02-21] MEDS: PANTOPRAZOLE 40 MG TABLET PO SCH (08:24)
[2018-02-21] MEDS: VENLAFAXINE HCL ER 75 MG CAP PO SCH (08:24)
[2018-02-21] MEDS: MONTELUKAST 10 MG TAB PO SCH (08:24)
[2018-02-21] MEDS: FORMOTEROL FUMARATE 20 MCG/2 ML NEBU INHALATION SCH ×2 (08:51→20:56)
[2018-02-21] MEDS: IPRATROPIUM-ALBUTEROL 3 ML NEB INHALATION SCH ×4 (08:51→20:56)
[2018-02-21] MEDS: BUDESONIDE 1 MG/2 ML NEBU INHALATION SCH ×2 (08:51→20:56)
--- NOTE | 2018-02-21 09:04 | P.PN ---
Subjective Progress Note Date: 02/21/18 77-year-old female who presented to the emergency room with a chief complaint of difficulty in breathing 3 days that is increasing in severity. Patient states she saw her career guidance counselor, Dr. Zarate, in the office on 2017 and states he was planning to perform a bronchoscopy this week as patient has had multiple hospitalizations for COPD. She states her breathing continued to get more labored and she presented to the ER for further evaluation. Patient denies chest pain or pressure. Denies nausea or vomiting. Denies lightheadedness or dizziness. Denies fever or chills. The patient has a history of COPD. She wears home oxygen. She also has a history of hyperlipidemia and hypothyroidism. She is a former cigarette smoker and recently quit smoking. Chest x-ray: Negative for an acute process. Correlate for COPD. Stable chronic apical pleural thickening. Laboratory data: WBC 9.6. Hemoglobin 14.5. Platelet count 337. Sodium 140. Potassium 4.4. BUN 15. Creatinine 0.70. Glucose 315. BNP: 78 Troponin: Negative 1 Testing for influenza A and B was negative The patient was admitted to the hospital under the care of Dr. Alexandra. Consultations were placed to pulmonary. 02/20/2018 Patient examined at the bedside on rounds with Dr. Alexandra. Patient is awake and alert. Currently receiving nebulizer treatment. Patient reports dyspnea and wheezing at rest. Patient remains on 2 L nasal cannula with oxygen saturations greater than 92%. Patient's heart rate is in the low 100s. Blood pressure is stable at 125/69. Patient's blood sugar last night was 365. Patient received 15 units of NovoLog last night. Her blood sugar this morning is 281. She is NPO for bronchoscopy today. Will adjust insulin after procedure when patient is able to eat. 02/20/2018 Patient examined at the bedside on rounds with Dr. Alexandra. Patient is awake and alert. Patient underwent bronchoscopy with BAL yesterday. Patient denies shortness of breath at rest, but states she becomes short of breath with minimal exertion. Patient remains on IV steroids: 60mg IV q 6 hours. Blood sugars remain elevated. Patient denies chest pain or pressure. Denies nausea or vomiting. States appetite is good. Voiding without difficulty. Objective - Vital Signs Vital signs: Vital Signs Temp 97.3 F L 02/21/18 07:00 Pulse 83 02/21/18 08:53 Resp 20 02/21/18 07:00 BP 118/56 02/21/18 07:00 Pulse Ox 91 L 02/21/18 07:00 Intake & Output 02/20/18 02/21/18 02/21/18 18:59 06:59 18:59 Intake Total 300 Balance 300 Intake: Oral 300 Other: # Voids 6 2 # Bowel Movements 0 - Exam GENERAL: This is a 77-year-old female in no apparent distress at the time of examination. Pleasant and cooperative. HEENT: Head is atraumatic, normocephalic. Pupils are equal, round, and reactive to light. Sclerae anicteric. Conjunctivae are clear. Mucus membranes of the mouth are moist. Neck is supple. RESPIRATORY: Expiratory wheezing noted, improved since yesterday. No use of accessory muscles. Patient maintaining oxygen saturation greater than 92% on nasal cannula. No chest wall tenderness is noted on palpation or with deep breathing. CARDIOVASCULAR: Regular rate and rhythm. S1 and S2 noted. No systolic or diastolic murmur auscultated. No JVD noted. No S3 or S4 noted. GASTROINTESTINAL: No distention noted. Abdomen soft and round. Normal active bowel sounds auscultated x 4 quadrants. No pain or tenderness noted upon palpation. INTEGUMENTARY: No cyanosis. No jaundice. No rashes noted. No cellulitis noted. EXTREMITIES: 2+ peripheral pulses. No evidence of peripheral edema. No calf tenderness noted. NEUROLOGIC: Cranial nerves II-XII intact. PSYCHIATRIC: Awake, alert, and oriented X 3. Appropriate affect. Intact judgement and insight. - Labs CBC & Chem 7: 02/18/18 12:31 02/18/18 12:31 Labs: Abnormal Lab Results - Last 24 Hours (Table) 02/20/18 02/20/18 02/20/18 Range/Units 12:34 17:16 21:09 POC Glucose (mg/dL) 283 H 305 H 362 H (75-99) mg/dL 02/21/18 Range/Units 07:23 POC Glucose (mg/dL) 286 H (75-99) mg/dL Microbiology - Last 24 Hours (Table) 02/20/18 11:50 Acid Fast Bacilli Smear - Final Bronchoalviolar Lavage - Left Acid Fast Bacilli Culture - Preliminary 02/20/18 11:50 Gram Stain - Preliminary Bronchoalviolar Lavage - Left Bronchial Washings Culture - Preliminary 02/20/18 11:50 Fungal Culture - Preliminary Bronchoalviolar Lavage - Left 02/18/18 12:31 Blood Culture - Preliminary Blood No Growth after 48 hours Assessment and Plan Plan: ASSESSMENT: Acute exacerbation of chronic obstructive pulmonary disease with acute tracheal bronchitis, s/p bronchoscopy with BAL Recent hospitalization secondary to COPD Acute on chronic hypoxic respiratory failure, requiring home oxygen Steroid-induced hyperglycemia Hyperlipidemia Hypothyroidism Obesity: BMI 31.8 History of nicotine dependence, in remission, patient states she quit smoking 3 months ago PLAN: Pulmonary on consult. Appreciate recommendations and input Continue IV steroids: Solu-Medrol 60 mg every 6 hours IV. Wean per pulmonary Continue Levaquin 500 mg every 24 hours Capillary blood glucose accu-checks AC/HS NovoLog sliding scale insulin coverage AC/HS Increase NovoLog to 10 units with meals Increase Levemir to 20 units at HS Home meds as appropriate Monitor labs GI prophylaxis: Protonix 40 mg PO Daily DVT prophylaxis: Heparin 5000 units subcu every 8 hours Monitor vital signs and address as appropriate Discharge planning: Patient to return home when stable Further recommendations pending patient's course Please note Dr. Tran will be covering for Dr. Alexandra from 02-22-2018 until 2017 Nurse practitioner note has been reviewed by physician. Signing provider agrees with the documented findings, assessment, and plan of care.
[2018-02-21 12:01] LABS: Glucose,Whole Blood 286 mg/dL (75-99)
[2018-02-21] MEDS: VITAMIN E (DL,TOCOPHERYL ACET) 400 UNIT CAP PO SCH (12:43)
[2018-02-21] MEDS: CALCIUM CARB-VIT D 500MG-200UN 1 EACH TAB PO SCH (12:43)
[2018-02-21] MEDS: ASCORBIC ACID 500 MG TAB PO SCH (12:43)
[2018-02-21] MEDS: B COMPLEX-VIT C-VIT E-ZINC 1 EACH TAB PO SCH (12:43)
[2018-02-21] MEDS: CHOLECALCIFEROL 1,000 UNIT TAB PO SCH (12:48)
--- NOTE | 2018-02-21 15:29 | P.PN ---
Subjective Progress Note Date: 02/21/18 Principal diagnosis: COPD exacerbation Sofia is a 77-year-old female patient with known history of COPD with a baseline FEV1 of 58% of predicted. She is known to have emphysema. She also has been a smoker in she has quit smoking recently. She has had several hospitalization for COPD exacerbation since the beginning of the year. Her last evaluation was in my office on 02/13/2018 and she was still having some difficulties in breathing. She was maintained on Anoro Ellipta in addition to DuoNeb neb last 2 minutes [id number]. She was also using Ventolin as needed. She continued to have a congested cough. No significant weight gain despite her repeated steroid use. She stated that she had not fully recovered and were planning to do a bronchoscopy for therapeutic it was suctioning 90 the patient continued to have a congested cough and she was not feeling absolutely back to her baseline. Meanwhile her voice was also raspy. Her pulse ox however was 93% on room air. Since then, the patient acutely became progressively more short of breath and more bronchospastic and wheezy. She woke up yesterday with increased dyspnea cough chest tightness and wheezing. She presented to the hospital and a chest x-ray was done that showed no acute pulmonary infiltration or pneumonia. No fever or chills. No nausea vomiting or abdominal pain. No chest pain. No swelling in lower extremities. She denies smoking for the past 3 months. No swelling in lower extremities. For that reason she was admitted to the hospital and a pulmonary consultation was requested. She was started on IV Solu-Medrol and she is feeling slightly better. She is also on DuoNeb nebulized treatments around the clock. No other significant events otherwise. On 02/19/2018 patient seen in follow-up on medical surgical floor. She is resting in bed, denies any acute distress. Her lung sounds remain very bronchospastic and congested. Overall she reports some improvement with her dyspnea. She is wearing oxygen intermittently, on room air her O2 sat was 94%. She remains slightly tachycardic with a heart rate up to 104 BPM, she is afebrile, vital signs are stable. Her influenza screen was negative, she has a productive cough with white sputum. In view of her recurrent hospitalizations for COPD exacerbations, patient will be scheduled for bronchoscopy with BAL by Dr. Zarate tomorrow at 11:30 in the morning. This was communicated to the patient, and the patient is in agreement with the plan. On 02/20/2018 patient seen in follow-up. She is resting comfortably in bed, denies any acute distress. Her lung sounds are positive for some scattered wheezes, but this appears to be improved from previous exams. She still has a productive cough with occasional production of white sputum. Denies any fever, denies any chills, denies any chest pain. I'll signs are stable, patient is afebrile, she is currently on 2 L per nasal cannula with O2 sat 94%. Patient is on IV steroids, Levaquin, Pulmicort, Brovana, DuoNeb nebulized treatments. We will proceed with bronchoscopy with BAL today by Dr. Zarate. On 02/21/2018 patient seen in follow-up in the surgical. Yesterday after bronchoscopy patient was a bit more bronchospastic, and required BiPAP support for. About 4 hours, after which she was able to come off the BiPAP and her breathing improved. Overnight she did not require BiPAP support. Currently patient is on 3 L per nasal cannula with O2 sat between 91 and 92%. She states she is feeling better today, lung sounds are positive for scattered wheezes, a bit better from yesterday's exam. Bronchial wash cultures are pending at this time, patient continues on oral Levaquin, IV Solu-Medrol and nebulized treatments. Continue current treatment, patient was encouraged to use the BiPAP support is needed. Encourage activity as tolerated. Continue to follow Objective - Vital Signs Vital signs: Vital Signs Temp 97.3 F L 02/21/18 07:00 Pulse 88 02/21/18 12:10 Resp 20 02/21/18 07:00 BP 118/56 02/21/18 07:00 Pulse Ox 91 L 02/21/18 07:00 Intake & Output 02/20/18 02/21/18 02/21/18 18:59 06:59 18:59 Intake Total 300 440 Balance 300 440 Intake: Oral 300 440 Other: # Voids 6 2 # Bowel Movements 0 - Exam GENERAL EXAM: Alert, pleasant, 77-year-old white female comfortable in no apparent distress. HEAD: Normocephalic/atraumatic. EYES: Normal reaction of pupils, equal size. Conjunctiva pink, sclera white. NOSE: Clear with pink turbinates. THROAT: No erythema or exudates. NECK: No masses, no JVD, no thyroid enlargement, no adenopathy. CHEST: No chest wall deformity. Symmetrical expansion. LUNGS: Equal air entry with diffuse wheezes, improved from yesterday's exam CVS: Regular rate and rhythm, normal S1 and S2, no gallops, no murmurs, no rubs ABDOMEN: Soft, nontender. No hepatosplenomegaly, normal bowel sounds, no guarding or rigidity. EXTREMITIES: No clubbing, no edema, no cyanosis, 2+ pulses and upper and lower extremities. MUSCULOSKELETAL: Muscle strength and tone normal. SPINE: No scoliosis or deformity SKIN: No rashes CENTRAL NERVOUS SYSTEM: Alert and oriented -3. No focal deficits, tone is normal in all 4 extremities. PSYCHIATRIC: Alert and oriented -3. Appropriate affect. Intact judgment and insight. - Labs CBC & Chem 7: 02/18/18 12:31 02/18/18 12:31 Labs: Abnormal Lab Results - Last 24 Hours (Table) 02/20/18 02/20/18 02/21/18 Range/Units 17:16 21:09 07:23 POC Glucose (mg/dL) 305 H 362 H 286 H (75-99) mg/dL 02/21/18 Range/Units 11:41 POC Glucose (mg/dL) 286 H (75-99) mg/dL Microbiology - Last 24 Hours (Table) 02/18/18 12:31 Blood Culture - Preliminary Blood No Growth after 72 hours 02/20/18 11:50 Acid Fast Bacilli Smear - Final Bronchoalviolar Lavage - Left Acid Fast Bacilli Culture - Preliminary 02/20/18 11:50 Gram Stain - Preliminary Bronchoalviolar Lavage - Left Bronchial Washings Culture - Preliminary 02/20/18 11:50 Fungal Culture - Preliminary Bronchoalviolar Lavage - Left Assessment and Plan Plan: Assessment: 1 acute COPD exacerbation with secondary shortness of breath. This is a recurrent event as the patient has had several hospitalization for this current year for COPD exacerbation. Chest x-ray is free of any acute pulmonary infiltrates. She has a congested cough with whitishsputum production. No signs of any fluid overload. 2 COPD which is of a moderate severity at baseline with an FEV1 of 58% of predicted 3 history of smoking 4 hypothyroidism 5 history of depression Plan Continue BiPAP support as needed, encourage activity, continue current medical treatment. Continue current antibiotic coverage, will await the final cultures. Bronchial washings. Continue IV steroids and nebulized treatments. We'll continue to follow. I performed a history & physical examination of the patient and discussed their management with my nurse practitioner, Dayana Collier. I reviewed the nurse practitioner's note and agree with the documented findings and plan of care. Lung sounds are positive for diffuse wheeze throughout the lung ramirez. The findings and the impression was discussed with the patient. I attest to the documentation by the nurse practitioner. Time with Patient: Less than 30
[2018-02-21] MEDS ORDERED: ALPRAZolam 0.5 MG TAB PO PRN (16:29)
[2018-02-21 17:23] LABS: Glucose,Whole Blood 347 mg/dL (75-99)
[2018-02-21 21:15] LABS: Glucose,Whole Blood 334 mg/dL (75-99)
[2018-02-21] MEDS: LACTATED RINGERS 1,000 ML IV SCH (21:39)
[2018-02-21] MEDS: ATORVASTATIN 10 MG TAB PO SCH (21:39)
[2018-02-21] MEDS: INSULIN DETEMIR 100 UNIT/ML 10 ML VIAL SQ SCH (21:41)
[2018-02-22] MEDS: methylPREDNISolone SOD SUCCI 125 MG/2 ML VIAL IV SCH ×5 (00:12→23:02)
[2018-02-22] MEDS: ACETAMINOPHEN TAB 325 MG TAB PO PRN (00:12)
[2018-02-22] MEDS: HEPARIN SODIUM,PORCINE 5,000 UNIT/ML 1 ML VIAL SQ SCH ×4 (00:13→23:02)
[2018-02-22] MEDS: LEVOTHYROXINE 75 MCG TAB PO SCH (06:41)
[2018-02-22] MEDS: BUDESONIDE 1 MG/2 ML NEBU INHALATION SCH ×2 (07:12→20:00)
[2018-02-22] MEDS: IPRATROPIUM-ALBUTEROL 3 ML NEB INHALATION SCH ×4 (07:12→20:00)
[2018-02-22] MEDS: FORMOTEROL FUMARATE 20 MCG/2 ML NEBU INHALATION SCH ×2 (07:12→20:00)
[2018-02-22 07:35] LABS: Glucose,Whole Blood 273 mg/dL (75-99)
[2018-02-22] MEDS: LEVOFLOXACIN 500 MG TAB PO SCH (07:59)
[2018-02-22] MEDS: VENLAFAXINE HCL ER 75 MG CAP PO SCH (07:59)
[2018-02-22] MEDS: PANTOPRAZOLE 40 MG TABLET PO SCH (07:59)
[2018-02-22] MEDS: MONTELUKAST 10 MG TAB PO SCH (07:59)
[2018-02-22] MEDS: guaiFENesin-DM 600/30MG 1 EACH TAB.ER.12H PO SCH ×2 (07:59→21:04)
[2018-02-22] MEDS: INSULIN ASPART 100 UNIT/ML 1 ML 10 ML VIAL SQ SCH ×7 (07:59→22:53)
[2018-02-22 12:01] LABS: Glucose,Whole Blood 342 mg/dL (75-99)
[2018-02-22] MEDS: VITAMIN E (DL,TOCOPHERYL ACET) 400 UNIT CAP PO SCH (12:41)
[2018-02-22] MEDS: ASCORBIC ACID 500 MG TAB PO SCH (12:41)
[2018-02-22] MEDS: CHOLECALCIFEROL 1,000 UNIT TAB PO SCH (12:41)
[2018-02-22] MEDS: CALCIUM CARB-VIT D 500MG-200UN 1 EACH TAB PO SCH (12:41)
[2018-02-22] MEDS: B COMPLEX-VIT C-VIT E-ZINC 1 EACH TAB PO SCH (12:41)
[2018-02-22] MEDS ORDERED: THEOPHYLLINE 24 HOUR 300 MG CAP.ER.24H PO STA (13:45)
[2018-02-22] MEDS ORDERED: FUROSEMIDE 10 MG/ML 4 ML VIAL IV STA (13:52)
[2018-02-22 14:27] LABS: Calcium 9.6 mg/dL (8.4-10.2); Potassium 4.3 mmol/L (3.5-5.1)
[2018-02-22] MEDS: CITALOPRAM HYDROBROMIDE 20 MG TAB PO SCH (14:46)
--- NOTE | 2018-02-22 15:13 | P.PN ---
Subjective Progress Note Date: 02/22/18 Principal diagnosis: COPD exacerbation Sofia is a 77-year-old female patient with known history of COPD with a baseline FEV1 of 58% of predicted. She is known to have emphysema. She also has been a smoker in she has quit smoking recently. She has had several hospitalization for COPD exacerbation since the beginning of the year. Her last evaluation was in my office on 02/13/2018 and she was still having some difficulties in breathing. She was maintained on Anoro Ellipta in addition to DuoNeb neb last 2 minutes [id number]. She was also using Ventolin as needed. She continued to have a congested cough. No significant weight gain despite her repeated steroid use. She stated that she had not fully recovered and were planning to do a bronchoscopy for therapeutic it was suctioning 90 the patient continued to have a congested cough and she was not feeling absolutely back to her baseline. Meanwhile her voice was also raspy. Her pulse ox however was 93% on room air. Since then, the patient acutely became progressively more short of breath and more bronchospastic and wheezy. She woke up yesterday with increased dyspnea cough chest tightness and wheezing. She presented to the hospital and a chest x-ray was done that showed no acute pulmonary infiltration or pneumonia. No fever or chills. No nausea vomiting or abdominal pain. No chest pain. No swelling in lower extremities. She denies smoking for the past 3 months. No swelling in lower extremities. For that reason she was admitted to the hospital and a pulmonary consultation was requested. She was started on IV Solu-Medrol and she is feeling slightly better. She is also on DuoNeb nebulized treatments around the clock. No other significant events otherwise. On 02/19/2018 patient seen in follow-up on medical surgical floor. She is resting in bed, denies any acute distress. Her lung sounds remain very bronchospastic and congested. Overall she reports some improvement with her dyspnea. She is wearing oxygen intermittently, on room air her O2 sat was 94%. She remains slightly tachycardic with a heart rate up to 104 BPM, she is afebrile, vital signs are stable. Her influenza screen was negative, she has a productive cough with white sputum. In view of her recurrent hospitalizations for COPD exacerbations, patient will be scheduled for bronchoscopy with BAL by Dr. Zarate tomorrow at 11:30 in the morning. This was communicated to the patient, and the patient is in agreement with the plan. On 02/20/2018 patient seen in follow-up. She is resting comfortably in bed, denies any acute distress. Her lung sounds are positive for some scattered wheezes, but this appears to be improved from previous exams. She still has a productive cough with occasional production of white sputum. Denies any fever, denies any chills, denies any chest pain. I'll signs are stable, patient is afebrile, she is currently on 2 L per nasal cannula with O2 sat 94%. Patient is on IV steroids, Levaquin, Pulmicort, Brovana, DuoNeb nebulized treatments. We will proceed with bronchoscopy with BAL today by Dr. Zarate. On 02/21/2018 patient seen in follow-up in the surgical. Yesterday after bronchoscopy patient was a bit more bronchospastic, and required BiPAP support for. About 4 hours, after which she was able to come off the BiPAP and her breathing improved. Overnight she did not require BiPAP support. Currently patient is on 3 L per nasal cannula with O2 sat between 91 and 92%. She states she is feeling better today, lung sounds are positive for scattered wheezes, a bit better from yesterday's exam. Bronchial wash cultures are pending at this time, patient continues on oral Levaquin, IV Solu-Medrol and nebulized treatments. Continue current treatment, patient was encouraged to use the BiPAP support is needed. Encourage activity as tolerated. Continue to follow On 02/22/2018 patient seen in follow-up. She remains very dyspneic with any exertion, even using the bedside commode. At rest she appears to be comfortable , she did wear a BiPAP for 2 hours.yesterday in the afternoon, she did not her BiPAP support at night. She remains on empiric antibiotics of Levaquin, nebulized treatments, IV Solu-Medrol 60 mg every 6 hours. Despite all this patient has intermittent episodes of respiratory distress,, her activity remains very limited, she has only been get not Use the bedside commode, but for the most pressure has been on bedrest. And when necessary Xanax, today we will switch to schedule dose 3 times a day [id number]. Theophylline will be initiated, patient Solu-Medrol will be increased to 125 mg 6 hours. Monitor for patient's response. Objective - Vital Signs Vital signs: Vital Signs Temp 96.7 F L 02/22/18 14:59 Pulse 91 02/22/18 14:59 Resp 21 02/22/18 14:59 BP 126/60 02/22/18 14:59 Pulse Ox 92 L 02/22/18 14:59 Intake & Output 02/21/18 02/22/18 02/22/18 18:59 06:59 18:59 Intake Total 440 300 Balance 440 300 Intake: Oral 440 300 Other: # Voids 2 3 - Exam GENERAL EXAM: Alert, pleasant, 77-year-old white female comfortable in no apparent distress. HEAD: Normocephalic/atraumatic. EYES: Normal reaction of pupils, equal size. Conjunctiva pink, sclera white. NOSE: Clear with pink turbinates. THROAT: No erythema or exudates. NECK: No masses, no JVD, no thyroid enlargement, no adenopathy. CHEST: No chest wall deformity. Symmetrical expansion. LUNGS: Equal air entry with diffuse wheezes, improved from yesterday's exam. However patient was noted to have increased wheezing with any activity CVS: Regular rate and rhythm, normal S1 and S2, no gallops, no murmurs, no rubs ABDOMEN: Soft, nontender. No hepatosplenomegaly, normal bowel sounds, no guarding or rigidity. EXTREMITIES: No clubbing, no edema, no cyanosis, 2+ pulses and upper and lower extremities. MUSCULOSKELETAL: Muscle strength and tone normal. SPINE: No scoliosis or deformity SKIN: No rashes CENTRAL NERVOUS SYSTEM: Alert and oriented -3. No focal deficits, tone is normal in all 4 extremities. PSYCHIATRIC: Alert and oriented -3. Appropriate affect. Intact judgment and insight. - Labs CBC & Chem 7: 02/18/18 12:31 02/22/18 13:54 Labs: Abnormal Lab Results - Last 24 Hours (Table) 02/21/18 02/21/18 02/22/18 Range/Units 17:12 21:11 07:03 BUN (7-17) mg/dL Glucose (74-99) mg/dL POC Glucose (mg/dL) 347 H 334 H 273 H (75-99) mg/dL 02/22/18 02/22/18 Range/Units 11:58 13:54 BUN 25 H (7-17) mg/dL Glucose 306 H (74-99) mg/dL POC Glucose (mg/dL) 342 H (75-99) mg/dL Microbiology - Last 24 Hours (Table) 02/18/18 12:31 Blood Culture - Preliminary Blood No Growth after 96 hours 02/20/18 11:50 Gram Stain - Final Bronchoalviolar Lavage - Left Bronchial Washings Culture - Final Assessment and Plan Plan: Assessment: 1 acute COPD exacerbation with secondary shortness of breath. This is a recurrent event as the patient has had several hospitalization for this current year for COPD exacerbation. Chest x-ray is free of any acute pulmonary infiltrates. She has a congested cough with whitishsputum production. No signs of any fluid overload. 2 COPD which is of a moderate severity at baseline with an FEV1 of 58% of predicted 3 history of smoking 4 hypothyroidism 5 history of depression Plan Increased IV Solu-Medrol 225 mg every 6 hours, we will add theophylline 300 mg by mouth once daily, continue current antibiotic coverage, continue nebulized treatments. BiPAP support is needed. Increase activity as tolerated. Bronchial washing cultures remain negative to date. Switch Xanax to scheduled dose of Xanax 0.5 every 8 hours [id number]. We will add Celexa 20 mg once daily for patient's depression. Continue to follow. I performed a history & physical examination of the patient and discussed their management with my nurse practitioner, Dayana Collier. I reviewed the nurse practitioner's note and agree with the documented findings and plan of care. Lung sounds are positive for diffuse wheeze throughout the lung ramirez. The findings and the impression was discussed with the patient. I attest to the documentation by the nurse practitioner. Time with Patient: Less than 30
[2018-02-22] MEDS: ALPRAZolam 0.5 MG TAB PO SCH ×2 (16:17→22:53)
[2018-02-22 17:10] LABS: Glucose,Whole Blood 274 mg/dL (75-99)
[2018-02-22 20:35] LABS: Glucose,Whole Blood 327 mg/dL (75-99)
[2018-02-22] MEDS: ATORVASTATIN 10 MG TAB PO SCH (21:04)
[2018-02-22] MEDS: LACTATED RINGERS 1,000 ML IV SCH (21:53)
[2018-02-22] MEDS ORDERED: INSULIN DETEMIR 100 UNIT/ML 10 ML VIAL SQ SCH (22:00)
[2018-02-22] MEDS: INSULIN DETEMIR 100 UNIT/ML 10 ML VIAL SQ SCH (22:59)
[2018-02-23 02:17] LABS: Glucose,Whole Blood 349 mg/dL (75-99)
[2018-02-23] MEDS: LEVOTHYROXINE 75 MCG TAB PO SCH (05:36)
[2018-02-23] MEDS: methylPREDNISolone SOD SUCCI 125 MG/2 ML VIAL IV SCH ×4 (05:36→23:18)
[2018-02-23 07:38] LABS: Glucose,Whole Blood 250 mg/dL (75-99)
[2018-02-23] MEDS: PANTOPRAZOLE 40 MG TABLET PO SCH (07:57)
[2018-02-23] MEDS: HEPARIN SODIUM,PORCINE 5,000 UNIT/ML 1 ML VIAL SQ SCH ×3 (07:57→23:18)
[2018-02-23] MEDS: INSULIN ASPART 100 UNIT/ML 1 ML 10 ML VIAL SQ SCH ×7 (07:57→21:32)
[2018-02-23] MEDS: ALPRAZolam 0.5 MG TAB PO SCH ×3 (07:57→21:31)
[2018-02-23] MEDS: VENLAFAXINE HCL ER 75 MG CAP PO SCH (07:58)
[2018-02-23] MEDS: CITALOPRAM HYDROBROMIDE 20 MG TAB PO SCH (07:58)
[2018-02-23] MEDS: guaiFENesin-DM 600/30MG 1 EACH TAB.ER.12H PO SCH ×2 (07:58→21:31)
[2018-02-23] MEDS: THEOPHYLLINE 24 HOUR 300 MG CAP.ER.24H PO SCH (07:58)
[2018-02-23] MEDS: LEVOFLOXACIN 500 MG TAB PO SCH (07:58)
[2018-02-23] MEDS: IPRATROPIUM-ALBUTEROL 3 ML NEB INHALATION SCH ×4 (08:41→19:54)
[2018-02-23] MEDS: BUDESONIDE 1 MG/2 ML NEBU INHALATION SCH ×2 (08:41→19:55)
[2018-02-23] MEDS: FORMOTEROL FUMARATE 20 MCG/2 ML NEBU INHALATION SCH ×2 (08:41→19:55)
[2018-02-23] MEDS: MONTELUKAST 10 MG TAB PO SCH (10:03)
[2018-02-23] MEDS: ASCORBIC ACID 500 MG TAB PO SCH (12:03)
[2018-02-23] MEDS: B COMPLEX-VIT C-VIT E-ZINC 1 EACH TAB PO SCH (12:03)
[2018-02-23] MEDS: VITAMIN E (DL,TOCOPHERYL ACET) 400 UNIT CAP PO SCH (12:03)
[2018-02-23] MEDS: CHOLECALCIFEROL 1,000 UNIT TAB PO SCH (12:03)
[2018-02-23] MEDS: CALCIUM CARB-VIT D 500MG-200UN 1 EACH TAB PO SCH (12:03)
[2018-02-23 12:48] LABS: Glucose,Whole Blood 253 mg/dL (75-99)
--- NOTE | 2018-02-23 13:18 | P.PN ---
Subjective Progress Note Date: 02/23/18 Sofia is a 77-year-old female patient with known history of COPD with a baseline FEV1 of 58% of predicted. She is known to have emphysema. She also has been a smoker in she has quit smoking recently. She has had several hospitalization for COPD exacerbation since the beginning of the year. Her last evaluation was in my office on 02/13/2018 and she was still having some difficulties in breathing. She was maintained on Anoro Ellipta in addition to DuoNeb neb last 2 minutes [id number]. She was also using Ventolin as needed. She continued to have a congested cough. No significant weight gain despite her repeated steroid use. She stated that she had not fully recovered and were planning to do a bronchoscopy for therapeutic it was suctioning 90 the patient continued to have a congested cough and she was not feeling absolutely back to her baseline. Meanwhile her voice was also raspy. Her pulse ox however was 93% on room air. Since then, the patient acutely became progressively more short of breath and more bronchospastic and wheezy. She woke up yesterday with increased dyspnea cough chest tightness and wheezing. She presented to the hospital and a chest x-ray was done that showed no acute pulmonary infiltration or pneumonia. No fever or chills. No nausea vomiting or abdominal pain. No chest pain. No swelling in lower extremities. She denies smoking for the past 3 months. No swelling in lower extremities. For that reason she was admitted to the hospital and a pulmonary consultation was requested. She was started on IV Solu-Medrol and she is feeling slightly better. She is also on DuoNeb nebulized treatments around the clock. No other significant events otherwise. On 02/19/2018 patient seen in follow-up on medical surgical floor. She is resting in bed, denies any acute distress. Her lung sounds remain very bronchospastic and congested. Overall she reports some improvement with her dyspnea. She is wearing oxygen intermittently, on room air her O2 sat was 94%. She remains slightly tachycardic with a heart rate up to 104 BPM, she is afebrile, vital signs are stable. Her influenza screen was negative, she has a productive cough with white sputum. In view of her recurrent hospitalizations for COPD exacerbations, patient will be scheduled for bronchoscopy with BAL by Dr. Zarate tomorrow at 11:30 in the morning. This was communicated to the patient, and the patient is in agreement with the plan. On 02/20/2018 patient seen in follow-up. She is resting comfortably in bed, denies any acute distress. Her lung sounds are positive for some scattered wheezes, but this appears to be improved from previous exams. She still has a productive cough with occasional production of white sputum. Denies any fever, denies any chills, denies any chest pain. I'll signs are stable, patient is afebrile, she is currently on 2 L per nasal cannula with O2 sat 94%. Patient is on IV steroids, Levaquin, Pulmicort, Brovana, DuoNeb nebulized treatments. We will proceed with bronchoscopy with BAL today by Dr. Zarate. On 02/21/2018 patient seen in follow-up in the surgical. Yesterday after bronchoscopy patient was a bit more bronchospastic, and required BiPAP support for. About 4 hours, after which she was able to come off the BiPAP and her breathing improved. Overnight she did not require BiPAP support. Currently patient is on 3 L per nasal cannula with O2 sat between 91 and 92%. She states she is feeling better today, lung sounds are positive for scattered wheezes, a bit better from yesterday's exam. Bronchial wash cultures are pending at this time, patient continues on oral Levaquin, IV Solu-Medrol and nebulized treatments. Continue current treatment, patient was encouraged to use the BiPAP support is needed. Encourage activity as tolerated. Continue to follow On 02/22/2018 patient seen in follow-up. She remains very dyspneic with any exertion, even using the bedside commode. At rest she appears to be comfortable , she did wear a BiPAP for 2 hours.yesterday in the afternoon, she did not her BiPAP support at night. She remains on empiric antibiotics of Levaquin, nebulized treatments, IV Solu-Medrol 60 mg every 6 hours. Despite all this patient has intermittent episodes of respiratory distress,, her activity remains very limited, she has only been get not Use the bedside commode, but for the most pressure has been on bedrest. And when necessary Xanax, today we will switch to schedule dose 3 times a day [id number]. Theophylline will be initiated, patient Solu-Medrol will be increased to 125 mg 6 hours. Monitor for patient's response. On 02/23/2018, the patient is slightly less short of breath compared to yesterday. After yesterday's evaluation, I put the patient on theophylline and I increased the Solu Medrol 225 mg every 6 hours. This has helped in the patient's last bronchus spastic and wheezy. She is able to sit up on a chair for a longer period of time. Cough and congestion is improved. She did not use BiPAP overnight. No significant anxiety as the patient was started on accommodation of Celexa and Xanax also for now. Bronchioloalveolar lavage has been negative thus far. She is gradually improving. No other significant events overnight. Objective - Vital Signs Vital signs: Vital Signs Temp 97.0 F L 02/23/18 06:37 Pulse 92 02/23/18 13:09 Resp 24 02/23/18 06:37 BP 135/73 02/23/18 06:37 Pulse Ox 92 L 02/23/18 06:37 Intake & Output 02/22/18 02/23/18 02/23/18 18:59 06:59 18:59 Intake Total 320 Balance 320 Weight 86 kg Intake: Oral 320 Other: Voiding Method Bedside Commode # Voids 3 2 - Exam GENERAL EXAM: Alert, pleasant, 77-year-old white female comfortable in no apparent distress. HEAD: Normocephalic/atraumatic. EYES: Normal reaction of pupils, equal size. Conjunctiva pink, sclera white. NOSE: Clear with pink turbinates. THROAT: No erythema or exudates. NECK: No masses, no JVD, no thyroid enlargement, no adenopathy. CHEST: No chest wall deformity. Symmetrical expansion. LUNGS: Equal air entry with diffuse wheezes, improved from yesterday's exam. However patient was noted to have increased wheezing with any activity CVS: Regular rate and rhythm, normal S1 and S2, no gallops, no murmurs, no rubs ABDOMEN: Soft, nontender. No hepatosplenomegaly, normal bowel sounds, no guarding or rigidity. EXTREMITIES: No clubbing, no edema, no cyanosis, 2+ pulses and upper and lower extremities. MUSCULOSKELETAL: Muscle strength and tone normal. SPINE: No scoliosis or deformity SKIN: No rashes CENTRAL NERVOUS SYSTEM: Alert and oriented -3. No focal deficits, tone is normal in all 4 extremities. PSYCHIATRIC: Alert and oriented -3. Appropriate affect. Intact judgment and insight. - Labs CBC & Chem 7: 02/18/18 12:31 02/22/18 13:54 Labs: Abnormal Lab Results - Last 24 Hours (Table) 02/22/18 02/22/18 02/22/18 Range/Units 13:54 16:50 20:33 BUN 25 H (7-17) mg/dL Glucose 306 H (74-99) mg/dL POC Glucose (mg/dL) 274 H 327 H (75-99) mg/dL 02/23/18 02/23/18 02/23/18 Range/Units 02:15 07:19 12:18 BUN (7-17) mg/dL Glucose (74-99) mg/dL POC Glucose (mg/dL) 349 H 250 H 253 H (75-99) mg/dL Microbiology - Last 24 Hours (Table) 02/18/18 12:31 Blood Culture - Preliminary Blood No Growth after 96 hours 02/20/18 11:50 Gram Stain - Final Bronchoalviolar Lavage - Left Bronchial Washings Culture - Final Assessment and Plan Plan: Assessment: 1 acute COPD exacerbation with secondary shortness of breath. This is a recurrent event as the patient has had several hospitalization for this current year for COPD exacerbation. Chest x-ray is free of any acute pulmonary infiltrates. She has a congested cough with whitishsputum production. No signs of any fluid overload. The patient is currently on high dose Solu-Medrol which will be extended for another 24 hours. She is gradually improving. I would suggest her using the BiPAP on and off during the day for increased shortness of breath. The patient's bronchioloalveolar lavage has not yielded any microbial growth 2 COPD which is of a moderate severity at baseline with an FEV1 of 58% of predicted 3 history of smoking 4 hypothyroidism 5 history of depression Plan The patient is getting the treatments including normalized treatments, antibiotics and steroids. The patient is also on theophylline. We'll continue the high-dose for the medical for another 24 hours and if things remain stable and improving the patient will be titrated as of tomorrow. We'll continue to follow.
--- NOTE | 2018-02-23 16:03 | P.PN ---
Subjective Progress Note Date: 02/22/18 Progress Note being dictated for Dr. Tran. Interval history: This is a 77-year-old female admitted with acute exacerbation COPD with acute tracheobronchitis and multiple other medical issues. Maintained on nebulized bronchodilators, IV steroids, Levaquin. Breathing slowly improving, did not require BiPAP during the night. Complains of exertional dyspnea with bedside commode. IV steroids dose increased. Blood sugars elevated. Bronchial cultures currently negative. Cytology negative for malignancy. Objective - Vital Signs Vital signs: Vital Signs Temp 96.5 F L 02/23/18 15:00 Pulse 78 02/23/18 15:00 Resp 19 02/23/18 15:00 BP 128/63 02/23/18 15:00 Pulse Ox 90 L 02/23/18 15:00 Intake & Output 02/22/18 02/23/18 02/23/18 18:59 06:59 18:59 Intake Total 320 Balance 320 Weight 86 kg Intake: Oral 320 Other: Voiding Method Bedside Commode # Voids 3 2 - Exam PHYSICAL EXAM: VITAL SIGNS: [Temperature 96.7 oral, pulse 91, respiratory rate 21, blood pressure 126/60, O2 sat 92% on 3 L] GENERAL: Sitting up in bed, no acute distress HEENT: Conjunctivae normal. eyes normal. Oral mucosa moist NECK: No JVD. No thyroid enlargement. No LNs CARDIOVASCULAR: S1, S2 muffled. No murmur RESPIRATION: Breath sounds diminished in the bases. No rhonchi or crackles. Occasional fine expiratory wheezing, ABDOMEN: Soft, nontender . No guarding. no masses palpable. No ascites, No hepatosplenomegaly.Bowel sounds heard. LEGS: No edema. no swelling PSYCHIATRY: Alert and oriented -3, mood and affect normal. NERVOUS SYSTEM: Cranial N 2-12 grossly normal. Moves all 4 limbs. Diffuse weakness No focal deficits. No sensory deficit. No signs of cerebellar dysfucntion. Skin: no ulcer no rash Joints: No active swelling. No inflammation. Lymphatic system. No LN neck axilla or groin. - Labs CBC & Chem 7: 02/18/18 12:31 02/22/18 13:54 Labs: Abnormal Lab Results - Last 24 Hours (Table) 02/22/18 02/22/18 02/23/18 Range/Units 16:50 20:33 02:15 POC Glucose (mg/dL) 274 H 327 H 349 H (75-99) mg/dL 02/23/18 02/23/18 Range/Units 07:19 12:18 POC Glucose (mg/dL) 250 H 253 H (75-99) mg/dL Microbiology - Last 24 Hours (Table) 02/18/18 12:31 Blood Culture - Preliminary Blood No Growth after 120 hours Assessment and Plan Assessment: 1. Acute COPD exacerbation with acute tracheobronchitis, status post bronchoscopy 2. Acute on chronic hypoxic respiratory failure 3. Steroid-induced hyperglycemia 4. Hyperlipidemia 5. Hypothyroidism 6. Obesity, BMI 31.6 7. History of nicotine dependence, recently quit smoking 3 months ago Plan: Continue on current medication regime ,monitoring and symptomatic treatment. Maintain nebulized bronchodilators, Levaquin, IV steroids. Aggressive pulmonary toileting. Levemir dose increased with close monitoring of Accu-Cheks. Xanax around the clock. Further recommendations to follow. The impression and plan of care has been dictated as directed. : I performed a history and examination of this patient, discussed the same with the dictator. I agree with the dictator's note ,documented as a scribe. Any additional findings or plans will be noted.
--- NOTE | 2018-02-23 16:43 | PN ---
PROGRESS NOTE DATE OF SERVICE: 02/23/2018 I am covering for Dr. Alexandra. HISTORY OF PRESENT ILLNESS: This 77-year-old woman was admitted with COPD acute exacerbation, is on high-dose IV steroids. The patient still has shortness of breath. No chest pain. No palpitations. No fever. EXAM: Alert, and oriented x3. Pulse 78, blood pressure 120/68, respiration 18, temp 98.4, pulse ox 98% on 2 L. HEENT: Conjunctivae normal. NECK: No jugular venous distention. CARDIOVASCULAR: S1, S2. RESPIRATORY: Breath sounds diminished in the bases. Bilateral scattered rhonchi and crackles. ABDOMEN: Soft, nontender. LEGS: No edema. NERVOUS SYSTEM: No focal deficits. LABS: Glucose 327. ASSESSMENT: 1. Chronic obstructive pulmonary disease acute exacerbation with acute purulent tracheobronchitis. 2. Acute on chronic hypoxic respiratory failure. 3. Steroid induced hyperglycemia. 4. Hyperlipidemia. 5. Hypothyroidism. 6. Obesity. 7. History of nicotine dependence. RECOMMENDATIONS AND DISCUSSION: I recommend to continue current management and treatment. Continue the bronchodilators. Continue with antibiotics and steroids, high-dose IV steroids. Closely follow with Dr. Zarate. Guarded prognosis. Further recommendations to follow. MMODL / IJN: [id number] /
[2018-02-23 17:00] LABS: Glucose,Whole Blood 368 mg/dL (75-99)
[2018-02-23 20:40] LABS: Glucose,Whole Blood 327 mg/dL (75-99)
[2018-02-23] MEDS: ATORVASTATIN 10 MG TAB PO SCH (21:31)
[2018-02-23] MEDS: INSULIN DETEMIR 100 UNIT/ML 10 ML VIAL SQ SCH (21:32)
[2018-02-23] MEDS: LACTATED RINGERS 1,000 ML IV SCH (21:34)
[2018-02-24] MEDS: methylPREDNISolone SOD SUCCI 125 MG/2 ML VIAL IV SCH (05:36)
[2018-02-24] MEDS: LEVOTHYROXINE 75 MCG TAB PO SCH (05:36)
[2018-02-24 07:01] LABS: Glucose,Whole Blood 280 mg/dL (75-99)
[2018-02-24] MEDS: IPRATROPIUM-ALBUTEROL 3 ML NEB INHALATION SCH ×4 (07:42→20:03)
[2018-02-24] MEDS: BUDESONIDE 1 MG/2 ML NEBU INHALATION SCH ×2 (07:42→20:03)
[2018-02-24] MEDS: FORMOTEROL FUMARATE 20 MCG/2 ML NEBU INHALATION SCH ×2 (07:42→20:03)
[2018-02-24 08:15] LABS: Basophils # (A) 0.1 k/uL (0-0.2); Basophils % (A) 1 %; Eosinophils % (A) 0 %; HCT 42.3 % (34.0-46.0); HGB 14.1 gm/dL (11.4-16.0); Lymphocytes # (A) 1.6 k/uL (1.0-4.8); Lymphocytes % (A) 8 %; MCH 32.6 pg (25.0-35.0); MCHC 33.3 g/dL (31.0-37.0); MCV 97.9 fL (80.0-100.0); Mean Platelet Volume 7.9; Monocytes # (A) 0.9 k/uL (0-1.0); Monocytes % (A) 5 %; Neutrophils # (A) 16.2 k/uL (1.3-7.7); Neutrophils % (A) 86 %; Platelet Count 273 k/uL (150-450); RBC 4.32 m/uL (3.80-5.40); WBC 18.9 k/uL (3.8-10.6)
[2018-02-24] MEDS: ALPRAZolam 0.5 MG TAB PO SCH ×3 (08:30→22:14)
[2018-02-24] MEDS: THEOPHYLLINE 24 HOUR 300 MG CAP.ER.24H PO SCH (08:30)
[2018-02-24] MEDS: VENLAFAXINE HCL ER 75 MG CAP PO SCH (08:31)
[2018-02-24] MEDS: guaiFENesin-DM 600/30MG 1 EACH TAB.ER.12H PO SCH ×2 (08:31→22:18)
[2018-02-24] MEDS: HEPARIN SODIUM,PORCINE 5,000 UNIT/ML 1 ML VIAL SQ SCH ×3 (08:31→23:40)
[2018-02-24] MEDS: CITALOPRAM HYDROBROMIDE 20 MG TAB PO SCH (08:31)
[2018-02-24] MEDS: LEVOFLOXACIN 500 MG TAB PO SCH (08:31)
[2018-02-24] MEDS: MONTELUKAST 10 MG TAB PO SCH (08:31)
[2018-02-24] MEDS: PANTOPRAZOLE 40 MG TABLET PO SCH (08:32)
[2018-02-24] MEDS: INSULIN ASPART 100 UNIT/ML 1 ML 10 ML VIAL SQ SCH ×7 (08:32→22:14)
[2018-02-24 08:49] LABS: Calcium 9.2 mg/dL (8.4-10.2); Potassium 4.6 mmol/L (3.5-5.1)
[2018-02-24 11:38] LABS: Glucose,Whole Blood 315 mg/dL (75-99)
[2018-02-24] MEDS: CHOLECALCIFEROL 1,000 UNIT TAB PO SCH (12:50)
[2018-02-24] MEDS: ASCORBIC ACID 500 MG TAB PO SCH (12:50)
[2018-02-24] MEDS: CALCIUM CARB-VIT D 500MG-200UN 1 EACH TAB PO SCH (12:50)
[2018-02-24] MEDS: B COMPLEX-VIT C-VIT E-ZINC 1 EACH TAB PO SCH (12:50)
[2018-02-24] MEDS: VITAMIN E (DL,TOCOPHERYL ACET) 400 UNIT CAP PO SCH (12:50)
--- NOTE | 2018-02-24 13:34 | P.PN ---
Subjective Progress Note Date: 02/24/18 Sofia is a 77-year-old female patient with known history of COPD with a baseline FEV1 of 58% of predicted. She is known to have emphysema. She also has been a smoker in she has quit smoking recently. She has had several hospitalization for COPD exacerbation since the beginning of the year. Her last evaluation was in my office on 02/13/2018 and she was still having some difficulties in breathing. She was maintained on Anoro Ellipta in addition to DuoNeb neb last 2 minutes [id number]. She was also using Ventolin as needed. She continued to have a congested cough. No significant weight gain despite her repeated steroid use. She stated that she had not fully recovered and were planning to do a bronchoscopy for therapeutic it was suctioning 90 the patient continued to have a congested cough and she was not feeling absolutely back to her baseline. Meanwhile her voice was also raspy. Her pulse ox however was 93% on room air. Since then, the patient acutely became progressively more short of breath and more bronchospastic and wheezy. She woke up yesterday with increased dyspnea cough chest tightness and wheezing. She presented to the hospital and a chest x-ray was done that showed no acute pulmonary infiltration or pneumonia. No fever or chills. No nausea vomiting or abdominal pain. No chest pain. No swelling in lower extremities. She denies smoking for the past 3 months. No swelling in lower extremities. For that reason she was admitted to the hospital and a pulmonary consultation was requested. She was started on IV Solu-Medrol and she is feeling slightly better. She is also on DuoNeb nebulized treatments around the clock. No other significant events otherwise. On 02/19/2018 patient seen in follow-up on medical surgical floor. She is resting in bed, denies any acute distress. Her lung sounds remain very bronchospastic and congested. Overall she reports some improvement with her dyspnea. She is wearing oxygen intermittently, on room air her O2 sat was 94%. She remains slightly tachycardic with a heart rate up to 104 BPM, she is afebrile, vital signs are stable. Her influenza screen was negative, she has a productive cough with white sputum. In view of her recurrent hospitalizations for COPD exacerbations, patient will be scheduled for bronchoscopy with BAL by Dr. Zarate tomorrow at 11:30 in the morning. This was communicated to the patient, and the patient is in agreement with the plan. On 02/20/2018 patient seen in follow-up. She is resting comfortably in bed, denies any acute distress. Her lung sounds are positive for some scattered wheezes, but this appears to be improved from previous exams. She still has a productive cough with occasional production of white sputum. Denies any fever, denies any chills, denies any chest pain. I'll signs are stable, patient is afebrile, she is currently on 2 L per nasal cannula with O2 sat 94%. Patient is on IV steroids, Levaquin, Pulmicort, Brovana, DuoNeb nebulized treatments. We will proceed with bronchoscopy with BAL today by Dr. Zarate. On 02/21/2018 patient seen in follow-up in the surgical. Yesterday after bronchoscopy patient was a bit more bronchospastic, and required BiPAP support for. About 4 hours, after which she was able to come off the BiPAP and her breathing improved. Overnight she did not require BiPAP support. Currently patient is on 3 L per nasal cannula with O2 sat between 91 and 92%. She states she is feeling better today, lung sounds are positive for scattered wheezes, a bit better from yesterday's exam. Bronchial wash cultures are pending at this time, patient continues on oral Levaquin, IV Solu-Medrol and nebulized treatments. Continue current treatment, patient was encouraged to use the BiPAP support is needed. Encourage activity as tolerated. Continue to follow On 02/22/2018 patient seen in follow-up. She remains very dyspneic with any exertion, even using the bedside commode. At rest she appears to be comfortable , she did wear a BiPAP for 2 hours.yesterday in the afternoon, she did not her BiPAP support at night. She remains on empiric antibiotics of Levaquin, nebulized treatments, IV Solu-Medrol 60 mg every 6 hours. Despite all this patient has intermittent episodes of respiratory distress,, her activity remains very limited, she has only been get not Use the bedside commode, but for the most pressure has been on bedrest. And when necessary Xanax, today we will switch to schedule dose 3 times a day [id number]. Theophylline will be initiated, patient Solu-Medrol will be increased to 125 mg 6 hours. Monitor for patient's response. On 02/23/2018, the patient is slightly less short of breath compared to yesterday. After yesterday's evaluation, I put the patient on theophylline and I increased the Solu Medrol 225 mg every 6 hours. This has helped in the patient's last bronchus spastic and wheezy. She is able to sit up on a chair for a longer period of time. Cough and congestion is improved. She did not use BiPAP overnight. No significant anxiety as the patient was started on accommodation of Celexa and Xanax also for now. Bronchioloalveolar lavage has been negative thus far. She is gradually improving. No other significant events overnight. On 1017 the patient is ambulating more actively compared to yesterday. She is less short of breath. I put this patient on high dose IV Solu-Medrol 125 mg every 6 hours for the past 48 hours and today I'm going to taper down to prednisone. She is doing well. No other new complaints otherwise for now. Cough has subsided. The bronchioloalveolar lavage has been negative for any microbial growth. She has developed some steroid use hyperglycemia which improved with the discontinuation of the IV Solu-Medrol. She is also getting some increased anxiety and tremors which is probably related to the steroids and breathing treatments. Objective - Vital Signs Vital signs: Vital Signs Temp 97.8 F 02/24/18 06:49 Pulse 89 02/24/18 11:22 Resp 20 02/24/18 08:40 BP 129/60 02/24/18 06:49 Pulse Ox 92 L 02/24/18 06:49 Intake & Output 02/23/18 02/24/18 02/24/18 18:59 06:59 18:59 Intake Total 320 275 Balance 320 275 Weight 86 kg Intake: Oral 320 275 Other: Voiding Method Bedside Commode Bedside Commode # Voids 2 1 # Bowel Movements 1 - Exam GENERAL EXAM: Alert, pleasant, 77-year-old white female comfortable in no apparent distress. HEAD: Normocephalic/atraumatic. EYES: Normal reaction of pupils, equal size. Conjunctiva pink, sclera white. NOSE: Clear with pink turbinates. THROAT: No erythema or exudates. NECK: No masses, no JVD, no thyroid enlargement, no adenopathy. CHEST: No chest wall deformity. Symmetrical expansion. LUNGS: Equal air entry with diffuse wheezes, improved from yesterday's exam. However patient was noted to have increased wheezing with any activity CVS: Regular rate and rhythm, normal S1 and S2, no gallops, no murmurs, no rubs ABDOMEN: Soft, nontender. No hepatosplenomegaly, normal bowel sounds, no guarding or rigidity. EXTREMITIES: No clubbing, no edema, no cyanosis, 2+ pulses and upper and lower extremities. MUSCULOSKELETAL: Muscle strength and tone normal. SPINE: No scoliosis or deformity SKIN: No rashes CENTRAL NERVOUS SYSTEM: Alert and oriented -3. No focal deficits, tone is normal in all 4 extremities. PSYCHIATRIC: Alert and oriented -3. Appropriate affect. Intact judgment and insight. - Labs CBC & Chem 7: 02/24/18 07:31 02/24/18 07:31 Labs: Abnormal Lab Results - Last 24 Hours (Table) 02/23/18 02/23/18 02/24/18 Range/Units 16:55 20:38 06:52 WBC (3.8-10.6) k/uL Neutrophils # (1.3-7.7) k/uL Sodium (137-145) mmol/L BUN (7-17) mg/dL Glucose (74-99) mg/dL POC Glucose (mg/dL) 368 H 327 H 280 H (75-99) mg/dL 02/24/18 02/24/18 02/24/18 Range/Units 07:31 07:31 11:33 WBC 18.9 H (3.8-10.6) k/uL Neutrophils # 16.2 H (1.3-7.7) k/uL Sodium 136 L (137-145) mmol/L BUN 31 H (7-17) mg/dL Glucose 236 H (74-99) mg/dL POC Glucose (mg/dL) 315 H (75-99) mg/dL Microbiology - Last 24 Hours (Table) 02/18/18 12:31 Blood Culture - Preliminary Blood No Growth after 120 hours Assessment and Plan Plan: Assessment: 1 acute COPD exacerbation with secondary shortness of breath. This is a recurrent event as the patient has had several hospitalization for this current year for COPD exacerbation. Chest x-ray is free of any acute pulmonary infiltrates. She has a congested cough with whitishsputum production. No signs of any fluid overload. The patient is currently on high dose Solu-Medrol which will be extended for another 24 hours. She is gradually improving. I would suggest her using the BiPAP on and off during the day for increased shortness of breath. The patient's bronchioloalveolar lavage has not yielded any microbial growth 2 COPD which is of a moderate severity at baseline with an FEV1 of 58% of predicted 3 history of smoking 4 hypothyroidism 5 history of depression Plan We will discontinue the IV Solu-Medrol and put the patient on a high-dose prednisone taper. BiPAP on and off during the day. Cultures of been all negative. Clinically improved and the patient has extreme some side effect of high-dose steroids. We'll continue to follow and will put the patient a prednisone burst taper for now. Reevaluate this patient in a.m.
[2018-02-24] MEDS ORDERED: FLUCONAZOLE 150 MG TAB PO STA (14:34)
--- NOTE | 2018-02-24 16:54 | P.PN ---
Subjective Progress Note Date: 02/24/18 Principal diagnosis: Acute COPD exacerbation Interval history: This is a 77-year-old female admitted with acute exacerbation COPD with acute tracheobronchitis and multiple other medical issues. Maintained on nebulized bronchodilators, IV steroids, Levaquin. Breathing slowly improving, did not require BiPAP during the night. Complains of exertional dyspnea with bedside commode. IV steroids dose increased. Blood sugars elevated. Bronchial cultures currently negative. Cytology negative for malignancy. 02/24/2018 Patient denied any worsening chest pain or shortness of breath. Able to sit in the bed today. No chest pain. No fever no chills. Patient is being maintained on antibiotics in the form of levofloxacin. BAL fluid cultures showed no growth. WBC 18.9 likely due to steroids. Patient still anxious otherwise. IV steroids have been changed to prednisone 40 mg daily. Pulmonary is following. All other review of systems negative except the above Active Medications Generic Name Dose Route Start Last Admin Trade Name Freq PRN Reason Stop Dose Admin Acetaminophen 650 mg 02/19/18 09:57 02/22/18 00:12 Tylenol Tab PO 650 mg Q6HR PRN Administration Fever and/ or MILD Pain Albuterol/Ipratropium 3 ml 02/18/18 13:50 02/20/18 13:01 Duoneb 0.5 Mg-3 Mg/3 Ml Soln INHALATION 3 ml RT-Q4H PRN Administration Shortness Of Breath Or Wheezing Albuterol/Ipratropium 3 ml 02/18/18 16:00 02/24/18 15:36 Duoneb 0.5 Mg-3 Mg/3 Ml Soln INHALATION 3 ml RT-QID EDILMA Administration Alprazolam 0.5 mg 02/22/18 16:00 02/24/18 16:08 Xanax PO Not Given TID EDILMA Ascorbic Acid 500 mg 02/19/18 12:00 02/24/18 12:50 Vitamin C PO 500 mg 1200 EDILMA Administration Atorvastatin Calcium 10 mg 02/18/18 21:00 02/23/18 21:31 Lipitor PO 10 mg HS EDILMA Administration Budesonide 1 mg 02/19/18 09:15 02/24/18 07:42 Pulmicort INHALATION 1 mg RT-BID EDILMA Administration Calcium Carbonate 1 each 02/19/18 12:00 02/24/18 12:50 Oscal 500+D PO 1 each 1200 EDILMA Administration Cholecalciferol 1,000 unit 02/19/18 12:00 02/24/18 12:50 Vitamin D3 PO 1,000 unit 1200 EDILMA Administration Citalopram Hydrobromide 20 mg 02/22/18 14:00 02/24/18 08:31 Celexa PO 20 mg DAILY EDILMA Administration Formoterol Fumarate 20 mcg 02/19/18 09:15 02/24/18 07:42 Perforomist INHALATION 20 mcg RT-BID [facility] Administration Guaifenesin/Dextromethorphan 1 each 02/18/18 21:00 02/24/18 08:31 Mucinex Dm PO 1 each Q12HR EDILMA Administration Heparin Sodium (Porcine) 5,000 unit 02/18/18 16:00 02/24/18 15:34 Heparin SQ 5,000 unit Q8HR EDILMA Administration Lactated Ringer's 1,000 mls @ 20 mls/hr 02/19/18 20:15 02/23/18 21:34 Lactated Ringers IV Not Given .Q24H [facility] Insulin Aspart 0 unit 02/18/18 17:30 02/24/18 12:51 Novolog SQ 8 unit ACHS [facility] Administration Protocol Insulin Aspart 10 unit 02/21/18 12:30 02/24/18 12:51 Novolog SQ 10 unit AC-TID [facility] Administration Insulin Detemir 30 unit 02/23/18 21:00 02/23/18 21:32 Levemir SQ 30 unit HS [facility] Administration Levofloxacin 500 mg 02/19/18 09:30 02/24/18 08:31 Levaquin PO 500 mg Q24H [facility] Administration Levothyroxine Sodium 75 mcg 02/19/18 06:30 02/24/18 05:36 Synthroid PO 75 mcg 0630 [facility] Administration Montelukast Sodium 10 mg 02/19/18 09:00 02/24/18 08:31 Singulair PO 10 mg DAILY [facility] Administration Morphine Sulfate 6 mg 02/20/18 15:21 Morphine Oral Shanice 2mg/Ml PO Q4HR PRN Pain Pantoprazole Sodium 40 mg 02/19/18 07:30 02/24/18 08:32 Protonix PO 40 mg [id number] EDILMA Administration Prednisone 40 mg 02/25/18 09:00 PO DAILY [facility] Promethazine HCl/Codeine 5 ml 02/18/18 15:14 Phenergan With Codeine PO Q6H PRN cough/congestion Theophylline 300 mg 02/23/18 09:00 02/24/18 08:30 Ben-24 PO 300 mg DAILY EDILMA Administration Venlafaxine HCl 75 mg 02/19/18 09:00 02/24/18 08:31 Effexor Xr PO 75 mg DAILY EDILMA Administration Vitamin B Complex/Vit C/Vit E/Zinc 1 each 02/19/18 12:00 02/24/18 12:50 Z-Bec PO 1 each 1200 EDILMA Administration Vitamin E 400 unit 02/19/18 12:00 02/24/18 12:50 Vitamin E PO 400 unit 1200 EDILMA Administration Objective - Vital Signs Vital signs: Vital Signs Temp 97.5 F L 02/24/18 14:29 Pulse 92 02/24/18 15:50 Resp 20 02/24/18 15:48 BP 135/62 02/24/18 14:29 Pulse Ox 91 L 02/24/18 14:29 Intake & Output 02/23/18 02/24/18 02/24/18 18:59 06:59 18:59 Intake Total 320 275 Balance 320 275 Weight 86 kg 86 kg Intake: Oral 320 275 Other: Voiding Method Bedside Commode Bedside Commode # Voids 2 1 3 # Bowel Movements 1 - Exam PHYSICAL EXAMINATION: Patient is lying in the bed comfortably, no acute distress, awake alert and oriented.. HEENT: Normocephalic. Neck is supple. Pupils reactive. Nostrils clear. Oral cavity is moist. Ears reveal no drainage. Neck reveals no JVD, carotid bruits, or thyromegaly. CHEST EXAMINATION: Trachea is central. Symmetrical expansion. Bilateral improved air entry and prominent expiration with minimal wheezing. CARDIAC: Normal S1, S2 with no gallops. No murmurs ABDOMEN: Soft. Bowel sounds normal. No organomegaly. No abdominal bruits. Extremities: reveal no edema. No clubbing or cyanosis Neurologically awake, alert, oriented x3 with well-coordinated movements. No focal deficits noted Skin: No rash or skin lesions. Psychiatric: Cooperative. Nonsuicidal Musculoskeletal: No joint swelling or deformity. Normal range of motion. - Labs CBC & Chem 7: 02/24/18 07:31 02/24/18 07:31 Labs: Abnormal Lab Results - Last 24 Hours (Table) 03/31/18 03/31/18 04/01/18 Range/Units 16:55 20:38 06:52 WBC (3.8-10.6) k/uL Neutrophils # (1.3-7.7) k/uL Sodium (137-145) mmol/L BUN (7-17) mg/dL Glucose (74-99) mg/dL POC Glucose (mg/dL) 368 H 327 H 280 H (75-99) mg/dL 02/24/18 02/24/18 02/24/18 Range/Units 07:31 07:31 11:33 WBC 18.9 H (3.8-10.6) k/uL Neutrophils # 16.2 H (1.3-7.7) k/uL Sodium 136 L (137-145) mmol/L BUN 31 H (7-17) mg/dL Glucose 236 H (74-99) mg/dL POC Glucose (mg/dL) 315 H (75-99) mg/dL Microbiology - Last 24 Hours (Table) 02/18/18 12:31 Blood Culture - Final Blood No Growth after 144 hours Assessment and Plan Assessment: 1. Acute COPD exacerbation with acute tracheobronchitis, status post bronchoscopy. 2. Acute on chronic hypoxic respiratory failure 3. Steroid-induced hyperglycemia 4. Hyperlipidemia 5. Hypothyroidism 6. Obesity, BMI 31.6 7. History of nicotine dependence, recently quit smoking 3 months ago Plan: Continue on current medication regime ,monitoring and symptomatic treatment. Maintain nebulized bronchodilators, Levaquin. Patient was on high- dose IV steroids currently changed to prednisone orally.. Aggressive pulmonary toileting. Levemir dose increased with close monitoring of Accu-Cheks. Xanax around the clock. Further recommendations to follow. Time with Patient: Greater than 30
[2018-02-24 17:22] LABS: Glucose,Whole Blood 392 mg/dL (75-99)
[2018-02-24 20:37] LABS: Glucose,Whole Blood 345 mg/dL (75-99)
[2018-02-24] MEDS: INSULIN DETEMIR 100 UNIT/ML 10 ML VIAL SQ SCH (22:14)
[2018-02-24] MEDS: ATORVASTATIN 10 MG TAB PO SCH (22:14)
[2018-02-24] MEDS ORDERED: guaiFENesin-DM 100-10MG/5ML 10 ML CUP PO PRN (22:17)
[2018-02-24] MEDS: LACTATED RINGERS 1,000 ML IV SCH (22:17)
[2018-02-24] MEDS: guaiFENesin 600 MG TABLET.ER PO SCH (23:40)
[2018-02-25 02:27] LABS: Glucose,Whole Blood 157 mg/dL (75-99)
[2018-02-25] MEDS: LEVOTHYROXINE 75 MCG TAB PO SCH (06:40)
[2018-02-25 07:00] LABS: Glucose,Whole Blood 102 mg/dL (75-99)
[2018-02-25] MEDS: INSULIN ASPART 100 UNIT/ML 1 ML 10 ML VIAL SQ SCH ×7 (07:34→20:50)
[2018-02-25] MEDS: FORMOTEROL FUMARATE 20 MCG/2 ML NEBU INHALATION SCH ×2 (08:25→21:01)
[2018-02-25] MEDS: IPRATROPIUM-ALBUTEROL 3 ML NEB INHALATION SCH ×4 (08:25→21:01)
[2018-02-25] MEDS: BUDESONIDE 1 MG/2 ML NEBU INHALATION SCH ×2 (08:25→21:01)
[2018-02-25] MEDS: HEPARIN SODIUM,PORCINE 5,000 UNIT/ML 1 ML VIAL SQ SCH ×3 (08:33→23:38)
[2018-02-25] MEDS: LEVOFLOXACIN 500 MG TAB PO SCH (08:33)
[2018-02-25] MEDS: ALPRAZolam 0.5 MG TAB PO SCH (08:33)
[2018-02-25] MEDS: PANTOPRAZOLE 40 MG TABLET PO SCH (08:33)
[2018-02-25 08:34] LABS: Basophils # (A) 0.2 k/uL (0-0.2); Basophils % (A) 1 %; Eosinophils # (A) 0.2 k/uL (0-0.7); Eosinophils % (A) 1 %; HCT 42.2 % (34.0-46.0); HGB 14.2 gm/dL (11.4-16.0); Lymphocytes # (A) 3.9 k/uL (1.0-4.8); Lymphocytes % (A) 19 %; MCH 32.9 pg (25.0-35.0); MCHC 33.7 g/dL (31.0-37.0); MCV 97.5 fL (80.0-100.0); Mean Platelet Volume 8.3; Monocytes # (A) 1.3 k/uL (0-1.0); Monocytes % (A) 6 %; Neutrophils # (A) 15.1 k/uL (1.3-7.7); Neutrophils % (A) 73 %; Platelet Count 273 k/uL (150-450); RBC 4.33 m/uL (3.80-5.40); RDW 13.1 % (11.5-15.5); WBC 20.8 k/uL (3.8-10.6)
[2018-02-25] MEDS: CITALOPRAM HYDROBROMIDE 20 MG TAB PO SCH (08:34)
[2018-02-25] MEDS: guaiFENesin 600 MG TABLET.ER PO SCH ×2 (08:34→20:23)
[2018-02-25] MEDS: VENLAFAXINE HCL ER 75 MG CAP PO SCH (08:34)
[2018-02-25] MEDS: predniSONE 20 MG TAB PO SCH (08:34)
[2018-02-25] MEDS: MONTELUKAST 10 MG TAB PO SCH (08:34)
[2018-02-25] MEDS: THEOPHYLLINE 24 HOUR 300 MG CAP.ER.24H PO SCH (08:35)
[2018-02-25 08:56] LABS: Calcium 9.1 mg/dL (8.4-10.2); Potassium 4.4 mmol/L (3.5-5.1)
--- NOTE | 2018-02-25 12:19 | P.PN ---
Subjective Progress Note Date: 02/25/18 Principal diagnosis: Acute exacerbation of COPD Sofia is a 77-year-old female patient with known history of COPD with a baseline FEV1 of 58% of predicted. She is known to have emphysema. She also has been a smoker in she has quit smoking recently. She has had several hospitalization for COPD exacerbation since the beginning of the year. Her last evaluation was in my office on 02/13/2018 and she was still having some difficulties in breathing. She was maintained on Anoro Ellipta in addition to DuoNeb neb last 2 minutes [id number]. She was also using Ventolin as needed. She continued to have a congested cough. No significant weight gain despite her repeated steroid use. She stated that she had not fully recovered and were planning to do a bronchoscopy for therapeutic it was suctioning 90 the patient continued to have a congested cough and she was not feeling absolutely back to her baseline. Meanwhile her voice was also raspy. Her pulse ox however was 93% on room air. Since then, the patient acutely became progressively more short of breath and more bronchospastic and wheezy. She woke up yesterday with increased dyspnea cough chest tightness and wheezing. She presented to the hospital and a chest x-ray was done that showed no acute pulmonary infiltration or pneumonia. No fever or chills. No nausea vomiting or abdominal pain. No chest pain. No swelling in lower extremities. She denies smoking for the past 3 months. No swelling in lower extremities. For that reason she was admitted to the hospital and a pulmonary consultation was requested. She was started on IV Solu-Medrol and she is feeling slightly better. She is also on DuoNeb nebulized treatments around the clock. No other significant events otherwise. On 02/19/2018 patient seen in follow-up on medical surgical floor. She is resting in bed, denies any acute distress. Her lung sounds remain very bronchospastic and congested. Overall she reports some improvement with her dyspnea. She is wearing oxygen intermittently, on room air her O2 sat was 94%. She remains slightly tachycardic with a heart rate up to 104 BPM, she is afebrile, vital signs are stable. Her influenza screen was negative, she has a productive cough with white sputum. In view of her recurrent hospitalizations for COPD exacerbations, patient will be scheduled for bronchoscopy with BAL by Dr. Zarate tomorrow at 11:30 in the morning. This was communicated to the patient, and the patient is in agreement with the plan. On 02/20/2018 patient seen in follow-up. She is resting comfortably in bed, denies any acute distress. Her lung sounds are positive for some scattered wheezes, but this appears to be improved from previous exams. She still has a productive cough with occasional production of white sputum. Denies any fever, denies any chills, denies any chest pain. I'll signs are stable, patient is afebrile, she is currently on 2 L per nasal cannula with O2 sat 94%. Patient is on IV steroids, Levaquin, Pulmicort, Brovana, DuoNeb nebulized treatments. We will proceed with bronchoscopy with BAL today by Dr. Zarate. On 02/21/2018 patient seen in follow-up in the surgical. Yesterday after bronchoscopy patient was a bit more bronchospastic, and required BiPAP support for. About 4 hours, after which she was able to come off the BiPAP and her breathing improved. Overnight she did not require BiPAP support. Currently patient is on 3 L per nasal cannula with O2 sat between 91 and 92%. She states she is feeling better today, lung sounds are positive for scattered wheezes, a bit better from yesterday's exam. Bronchial wash cultures are pending at this time, patient continues on oral Levaquin, IV Solu-Medrol and nebulized treatments. Continue current treatment, patient was encouraged to use the BiPAP support is needed. Encourage activity as tolerated. Continue to follow On 02/22/2018 patient seen in follow-up. She remains very dyspneic with any exertion, even using the bedside commode. At rest she appears to be comfortable , she did wear a BiPAP for 2 hours.yesterday in the afternoon, she did not her BiPAP support at night. She remains on empiric antibiotics of Levaquin, nebulized treatments, IV Solu-Medrol 60 mg every 6 hours. Despite all this patient has intermittent episodes of respiratory distress,, her activity remains very limited, she has only been get not Use the bedside commode, but for the most pressure has been on bedrest. And when necessary Xanax, today we will switch to schedule dose 3 times a day [id number]. Theophylline will be initiated, patient Solu-Medrol will be increased to 125 mg 6 hours. Monitor for patient's response. On 02/23/2018, the patient is slightly less short of breath compared to yesterday. After yesterday's evaluation, I put the patient on theophylline and I increased the Solu Medrol 225 mg every 6 hours. This has helped in the patient's last bronchus spastic and wheezy. She is able to sit up on a chair for a longer period of time. Cough and congestion is improved. She did not use BiPAP overnight. No significant anxiety as the patient was started on accommodation of Celexa and Xanax also for now. Bronchioloalveolar lavage has been negative thus far. She is gradually improving. No other significant events overnight. On 1017 the patient is ambulating more actively compared to yesterday. She is less short of breath. I put this patient on high dose IV Solu-Medrol 125 mg every 6 hours for the past 48 hours and today I'm going to taper down to prednisone. She is doing well. No other new complaints otherwise for now. Cough has subsided. The bronchioloalveolar lavage has been negative for any microbial growth. She has developed some steroid use hyperglycemia which improved with the discontinuation of the IV Solu-Medrol. She is also getting some increased anxiety and tremors which is probably related to the steroids and breathing treatments. On 02/25/2018, patient seems to be doing a bit better, according to her she is 50 % improved. is at bedside, quite concerned that he cannot take care of her at home, because he is disabled. Hence I recommended that she should seriously consider going to a rehab facility. Patient continues to have cough and wheezing, but significantly improved about 50% improvement noted according to her. Intermittent cough and wheezing is still present. Labs were reviewed including WBC count of 20.8 Lites and renal profile are normal. Objective - Vital Signs Vital signs: Vital Signs Temp 97.6 F 02/25/18 07:00 Pulse 90 02/25/18 11:51 Resp 20 02/25/18 08:00 BP 104/62 02/25/18 07:00 Pulse Ox 93 L 02/25/18 08:28 Intake & Output 02/24/18 02/25/18 02/25/18 18:59 06:59 18:59 Intake Total 275 1300 240 Balance 275 1300 240 Weight 86 kg 90.5 kg 90.5 kg Intake: Oral 275 1300 240 Other: Voiding Method Bedside Commode Bedside Commode # Voids 3 1 1 - Exam GENERAL EXAM: Alert, pleasant, 77-year-old white female comfortable in no apparent distress. HEAD: Normocephalic/atraumatic. EYES: Normal reaction of pupils, equal size. Conjunctiva pink, sclera white. NOSE: Clear with pink turbinates. THROAT: No erythema or exudates. NECK: No masses, no JVD, no thyroid enlargement, no adenopathy. CHEST: No chest wall deformity. Symmetrical expansion. LUNGS: Continues to have significant rhonchi and wheezes more so on forced expiratory maneuver. CVS: Regular rate and rhythm, normal S1 and S2, no gallops, no murmurs, no rubs ABDOMEN: Soft, nontender. No hepatosplenomegaly, normal bowel sounds, no guarding or rigidity. EXTREMITIES: No clubbing, no edema, no cyanosis, 2+ pulses and upper and lower extremities. MUSCULOSKELETAL: Muscle strength and tone normal. SPINE: No scoliosis or deformity SKIN: No rashes CENTRAL NERVOUS SYSTEM: Alert and oriented -3. No focal deficits, tone is normal in all 4 extremities. PSYCHIATRIC: Alert and oriented -3. Appropriate affect. Intact judgment and insight. - Labs CBC & Chem 7: 02/25/18 07:56 02/25/18 07:56 Labs: Abnormal Lab Results - Last 24 Hours (Table) 02/24/18 02/24/18 02/25/18 Range/Units 17:06 20:23 02:12 WBC (3.8-10.6) k/uL Neutrophils # (1.3-7.7) k/uL Monocytes # (0-1.0) k/uL Carbon Dioxide (22-30) mmol/L BUN (7-17) mg/dL POC Glucose (mg/dL) 392 H 345 H 157 H (75-99) mg/dL 02/25/18 02/25/18 02/25/18 Range/Units 06:52 07:56 07:56 WBC 20.8 H (3.8-10.6) k/uL Neutrophils # 15.1 H (1.3-7.7) k/uL Monocytes # 1.3 H (0-1.0) k/uL Carbon Dioxide 31 H (22-30) mmol/L BUN 29 H (7-17) mg/dL POC Glucose (mg/dL) 102 H (75-99) mg/dL Microbiology - Last 24 Hours (Table) 02/18/18 12:31 Blood Culture - Final Blood No Growth after 144 hours Assessment and Plan Assessment: Assessment: 1 acute COPD exacerbation with secondary shortness of breath. This is a recurrent event as the patient has had several hospitalization for this current year for COPD exacerbation. Chest x-ray is free of any acute pulmonary infiltrates. She has a congested cough with whitishsputum production. No signs of any fluid overload. The patient is currently on high dose Solu-Medrol which will be extended for another 24 hours. She is gradually improving. I would suggest her using the BiPAP on and off during the day for increased shortness of breath. The patient's bronchioloalveolar lavage has not yielded any microbial growth 2 COPD which is of a moderate severity at baseline with an FEV1 of 58% of predicted 3 history of smoking 4 hypothyroidism 5 history of depression Recommendation: Patient is improved, according to her she is 50% improved, not back to her baseline. Labs were reviewed suggested considering going to a rehab facility for at least a week before going home. Patient is not quite ready for discharge planning at this point, but seriously consider rehab referral. Time with Patient: Less than 30
[2018-02-25 12:47] LABS: Glucose,Whole Blood 199 mg/dL (75-99)
[2018-02-25] MEDS: B COMPLEX-VIT C-VIT E-ZINC 1 EACH TAB PO SCH (13:07)
[2018-02-25] MEDS: VITAMIN E (DL,TOCOPHERYL ACET) 400 UNIT CAP PO SCH (13:07)
[2018-02-25] MEDS: ASCORBIC ACID 500 MG TAB PO SCH (13:08)
[2018-02-25] MEDS: CHOLECALCIFEROL 1,000 UNIT TAB PO SCH (13:08)
[2018-02-25] MEDS: CALCIUM CARB-VIT D 500MG-200UN 1 EACH TAB PO SCH (13:08)
[2018-02-25 17:43] LABS: Glucose,Whole Blood 217 mg/dL (75-99)
[2018-02-25] MEDS: ATORVASTATIN 10 MG TAB PO SCH (20:23)
[2018-02-25] MEDS: INSULIN DETEMIR 100 UNIT/ML 10 ML VIAL SQ SCH (20:50)
[2018-02-25] MEDS: ALPRAZolam 0.5 MG TAB PO PRN (20:50)
[2018-02-25 21:07] LABS: Glucose,Whole Blood 271 mg/dL (75-99)
[2018-02-26 02:23] LABS: Glucose,Whole Blood 230 mg/dL (75-99)
[2018-02-26] MEDS: LEVOTHYROXINE 75 MCG TAB PO SCH (06:41)
[2018-02-26 07:21] LABS: Glucose,Whole Blood 163 mg/dL (75-99)
[2018-02-26] MEDS: INSULIN ASPART 100 UNIT/ML 1 ML 10 ML VIAL SQ SCH ×7 (07:44→20:39)
[2018-02-26] MEDS: HEPARIN SODIUM,PORCINE 5,000 UNIT/ML 1 ML VIAL SQ SCH ×2 (07:45→17:13)
[2018-02-26] MEDS: guaiFENesin 600 MG TABLET.ER PO SCH ×2 (07:45→20:27)
[2018-02-26] MEDS: PANTOPRAZOLE 40 MG TABLET PO SCH (07:45)
[2018-02-26] MEDS: predniSONE 20 MG TAB PO SCH (07:46)
[2018-02-26] MEDS: CITALOPRAM HYDROBROMIDE 20 MG TAB PO SCH (07:46)
[2018-02-26] MEDS: THEOPHYLLINE 24 HOUR 300 MG CAP.ER.24H PO SCH (07:46)
[2018-02-26] MEDS: VENLAFAXINE HCL ER 75 MG CAP PO SCH (07:46)
[2018-02-26] MEDS: LEVOFLOXACIN 500 MG TAB PO SCH (07:46)
[2018-02-26] MEDS: MONTELUKAST 10 MG TAB PO SCH (07:46)
[2018-02-26 07:54] LABS: HCT 40.3 % (34.0-46.0); HGB 13.6 gm/dL (11.4-16.0); MCH 32.9 pg (25.0-35.0); MCHC 33.7 g/dL (31.0-37.0); MCV 97.7 fL (80.0-100.0); Mean Platelet Volume 7.9; Platelet Count 252 k/uL (150-450); RBC 4.12 m/uL (3.80-5.40); RDW 13.4 % (11.5-15.5); WBC 18.8 k/uL (3.8-10.6)
[2018-02-26 08:14] LABS: Calcium 8.5 mg/dL (8.4-10.2); Potassium 4.3 mmol/L (3.5-5.1)
[2018-02-26 08:17] LABS: Band Neutrophils % 4 %; Lymphocytes # (M) 2.26 k/uL (1.0-4.8); Neutrophils % (M) 76 %; Nucleated Red Blood Cells 0 /100 WBC (0-0); Total Cells Counted 100
[2018-02-26] MEDS: BUDESONIDE 1 MG/2 ML NEBU INHALATION SCH ×2 (08:41→21:04)
[2018-02-26] MEDS: IPRATROPIUM-ALBUTEROL 3 ML NEB INHALATION SCH ×4 (08:42→21:04)
[2018-02-26] MEDS: FORMOTEROL FUMARATE 20 MCG/2 ML NEBU INHALATION SCH ×2 (08:42→21:04)
[2018-02-26] MEDS: B COMPLEX-VIT C-VIT E-ZINC 1 EACH TAB PO SCH (12:02)
[2018-02-26] MEDS: CALCIUM CARB-VIT D 500MG-200UN 1 EACH TAB PO SCH (12:02)
[2018-02-26] MEDS: VITAMIN E (DL,TOCOPHERYL ACET) 400 UNIT CAP PO SCH (12:02)
[2018-02-26] MEDS: ASCORBIC ACID 500 MG TAB PO SCH (12:02)
[2018-02-26] MEDS: CHOLECALCIFEROL 1,000 UNIT TAB PO SCH (12:04)
[2018-02-26 12:29] LABS: Glucose,Whole Blood 166 mg/dL (75-99)
--- NOTE | 2018-02-26 15:13 | P.PN ---
Subjective Progress Note Date: 02/26/18 Principal diagnosis: Acute exacerbation of COPD Sofia is a 77-year-old female patient with known history of COPD with a baseline FEV1 of 58% of predicted. She is known to have emphysema. She also has been a smoker in she has quit smoking recently. She has had several hospitalization for COPD exacerbation since the beginning of the year. Her last evaluation was in my office on 02/13/2018 and she was still having some difficulties in breathing. She was maintained on Anoro Ellipta in addition to DuoNeb neb last 2 minutes [id number]. She was also using Ventolin as needed. She continued to have a congested cough. No significant weight gain despite her repeated steroid use. She stated that she had not fully recovered and were planning to do a bronchoscopy for therapeutic it was suctioning 90 the patient continued to have a congested cough and she was not feeling absolutely back to her baseline. Meanwhile her voice was also raspy. Her pulse ox however was 93% on room air. Since then, the patient acutely became progressively more short of breath and more bronchospastic and wheezy. She woke up yesterday with increased dyspnea cough chest tightness and wheezing. She presented to the hospital and a chest x-ray was done that showed no acute pulmonary infiltration or pneumonia. No fever or chills. No nausea vomiting or abdominal pain. No chest pain. No swelling in lower extremities. She denies smoking for the past 3 months. No swelling in lower extremities. For that reason she was admitted to the hospital and a pulmonary consultation was requested. She was started on IV Solu-Medrol and she is feeling slightly better. She is also on DuoNeb nebulized treatments around the clock. No other significant events otherwise. On 02/19/2018 patient seen in follow-up on medical surgical floor. She is resting in bed, denies any acute distress. Her lung sounds remain very bronchospastic and congested. Overall she reports some improvement with her dyspnea. She is wearing oxygen intermittently, on room air her O2 sat was 94%. She remains slightly tachycardic with a heart rate up to 104 BPM, she is afebrile, vital signs are stable. Her influenza screen was negative, she has a productive cough with white sputum. In view of her recurrent hospitalizations for COPD exacerbations, patient will be scheduled for bronchoscopy with BAL by Dr. Zarate tomorrow at 11:30 in the morning. This was communicated to the patient, and the patient is in agreement with the plan. On 02/20/2018 patient seen in follow-up. She is resting comfortably in bed, denies any acute distress. Her lung sounds are positive for some scattered wheezes, but this appears to be improved from previous exams. She still has a productive cough with occasional production of white sputum. Denies any fever, denies any chills, denies any chest pain. I'll signs are stable, patient is afebrile, she is currently on 2 L per nasal cannula with O2 sat 94%. Patient is on IV steroids, Levaquin, Pulmicort, Brovana, DuoNeb nebulized treatments. We will proceed with bronchoscopy with BAL today by Dr. Zarate. On 02/21/2018 patient seen in follow-up in the surgical. Yesterday after bronchoscopy patient was a bit more bronchospastic, and required BiPAP support for. About 4 hours, after which she was able to come off the BiPAP and her breathing improved. Overnight she did not require BiPAP support. Currently patient is on 3 L per nasal cannula with O2 sat between 91 and 92%. She states she is feeling better today, lung sounds are positive for scattered wheezes, a bit better from yesterday's exam. Bronchial wash cultures are pending at this time, patient continues on oral Levaquin, IV Solu-Medrol and nebulized treatments. Continue current treatment, patient was encouraged to use the BiPAP support is needed. Encourage activity as tolerated. Continue to follow On 02/22/2018 patient seen in follow-up. She remains very dyspneic with any exertion, even using the bedside commode. At rest she appears to be comfortable , she did wear a BiPAP for 2 hours.yesterday in the afternoon, she did not her BiPAP support at night. She remains on empiric antibiotics of Levaquin, nebulized treatments, IV Solu-Medrol 60 mg every 6 hours. Despite all this patient has intermittent episodes of respiratory distress,, her activity remains very limited, she has only been get not Use the bedside commode, but for the most pressure has been on bedrest. And when necessary Xanax, today we will switch to schedule dose 3 times a day [id number]. Theophylline will be initiated, patient Solu-Medrol will be increased to 125 mg 6 hours. Monitor for patient's response. On 02/23/2018, the patient is slightly less short of breath compared to yesterday. After yesterday's evaluation, I put the patient on theophylline and I increased the Solu Medrol 225 mg every 6 hours. This has helped in the patient's last bronchus spastic and wheezy. She is able to sit up on a chair for a longer period of time. Cough and congestion is improved. She did not use BiPAP overnight. No significant anxiety as the patient was started on accommodation of Celexa and Xanax also for now. Bronchioloalveolar lavage has been negative thus far. She is gradually improving. No other significant events overnight. On 1017 the patient is ambulating more actively compared to yesterday. She is less short of breath. I put this patient on high dose IV Solu-Medrol 125 mg every 6 hours for the past 48 hours and today I'm going to taper down to prednisone. She is doing well. No other new complaints otherwise for now. Cough has subsided. The bronchioloalveolar lavage has been negative for any microbial growth. She has developed some steroid use hyperglycemia which improved with the discontinuation of the IV Solu-Medrol. She is also getting some increased anxiety and tremors which is probably related to the steroids and breathing treatments. On 02/25/2018, patient seems to be doing a bit better, according to her she is 50 % improved. is at bedside, quite concerned that he cannot take care of her at home, because he is disabled. Hence I recommended that she should seriously consider going to a rehab facility. Patient continues to have cough and wheezing, but significantly improved about 50% improvement noted according to her. Intermittent cough and wheezing is still present. Labs were reviewed including WBC count of 20.8 Lites and renal profile are normal. Reevaluated today on 02/26/2018, patient is doing better, breathing a lot easier, ambulating down the hallway, uses oxygen, less cough and less wheezing less shortness of breath. Patient is clearly ready to be discharged home today, however she needs to continue on her present meds, home O2, and bronchodilators as well as steroids burst and taper. Labs were reviewed, WBC count is 18.8, chest x-ray on admission showed no evidence of pneumonia. Objective - Vital Signs Vital signs: Vital Signs Temp 97.9 F 02/26/18 14:13 Pulse 96 02/26/18 14:13 Resp 20 02/26/18 14:13 BP 123/71 02/26/18 14:13 Pulse Ox 91 L 02/26/18 14:13 Intake & Output 02/25/18 02/26/18 02/26/18 18:59 06:59 18:59 Intake Total 240 1150 480 Balance 240 1150 480 Weight 90.5 kg 90 kg Intake: Oral 240 1150 480 Other: Voiding Method Bedside Commode Bedside Commode # Voids 2 2 2 # Bowel Movements 1 0 - Exam GENERAL EXAM: Alert, pleasant, 77-year-old white female comfortable in no apparent distress. HEAD: Normocephalic/atraumatic. EYES: Normal reaction of pupils, equal size. Conjunctiva pink, sclera white. NOSE: Clear with pink turbinates. THROAT: No erythema or exudates. NECK: No masses, no JVD, no thyroid enlargement, no adenopathy. CHEST: No chest wall deformity. Symmetrical expansion. LUNGS: Diminished breath sound bilaterally, minimal wheezing on forced expiratory maneuver only. CVS: Regular rate and rhythm, normal S1 and S2, no gallops, no murmurs, no rubs ABDOMEN: Soft, nontender. No hepatosplenomegaly, normal bowel sounds, no guarding or rigidity. EXTREMITIES: No clubbing, no edema, no cyanosis, 2+ pulses and upper and lower extremities. MUSCULOSKELETAL: Muscle strength and tone normal. SPINE: No scoliosis or deformity SKIN: No rashes CENTRAL NERVOUS SYSTEM: Alert and oriented -3. No focal deficits, tone is normal in all 4 extremities. PSYCHIATRIC: Alert and oriented -3. Appropriate affect. Intact judgment and insight. - Labs CBC & Chem 7: 02/26/18 07:34 02/26/18 07:34 Labs: Abnormal Lab Results - Last 24 Hours (Table) 02/25/18 02/25/18 02/26/18 Range/Units 17:38 20:39 02:11 WBC (3.8-10.6) k/uL Neutrophils # (Manual) (1.3-7.7) k/uL Monocytes # (Manual) (0-1.0) k/uL BUN (7-17) mg/dL Glucose (74-99) mg/dL POC Glucose (mg/dL) 217 H 271 H 230 H (75-99) mg/dL 02/26/18 02/26/18 02/26/18 Range/Units 07:13 07:34 07:34 WBC 18.8 H (3.8-10.6) k/uL Neutrophils # (Manual) 15.00 H (1.3-7.7) k/uL Monocytes # (Manual) 1.50 H (0-1.0) k/uL BUN 27 H (7-17) mg/dL Glucose 154 H (74-99) mg/dL POC Glucose (mg/dL) 163 H (75-99) mg/dL 02/26/18 Range/Units 12:20 WBC (3.8-10.6) k/uL Neutrophils # (Manual) (1.3-7.7) k/uL Monocytes # (Manual) (0-1.0) k/uL BUN (7-17) mg/dL Glucose (74-99) mg/dL POC Glucose (mg/dL) 166 H (75-99) mg/dL Microbiology - Last 24 Hours (Table) 02/20/18 11:50 Fungal Culture - Preliminary Bronchoalviolar Lavage - Left Smita glabrata Yeast species Smita albicans Assessment and Plan Assessment: Assessment: 1 acute COPD exacerbation and acute purulent tracheobronchitis. 2 COPD which is of a moderate severity at baseline with an FEV1 of 58% of predicted 3 history of smoking 4 hypothyroidism 5 history of depression 6 acute on chronic hypoxic respiratory failure, secondary to COPD and purulent tracheobronchitis. No evidence of focal pneumonia noted on the chest x-ray on admission. Patient had chronic stable apical pleural thickening. Recommendation: Patient is improved, consider switching patient to oral antibiotics, prednisone burst and taper orally over the next 3 weeks, follow up in our office in 1-2 weeks. It for discharge home today. Time with Patient: Less than 30
[2018-02-26 17:10] LABS: Glucose,Whole Blood 275 mg/dL (75-99)
[2018-02-26 20:26] LABS: Glucose,Whole Blood 261 mg/dL (75-99)
[2018-02-26] MEDS: ATORVASTATIN 10 MG TAB PO SCH (20:27)
[2018-02-26] MEDS: ALPRAZolam 0.5 MG TAB PO PRN (20:39)
[2018-02-26] MEDS: INSULIN DETEMIR 100 UNIT/ML 10 ML VIAL SQ SCH (20:40)
--- NOTE | 2018-02-26 23:23 | P.PN ---
Subjective Progress Note Date: 02/25/18 Principal diagnosis: Acute COPD exacerbation Interval history: This is a 77-year-old female admitted with acute exacerbation COPD with acute tracheobronchitis and multiple other medical issues. Maintained on nebulized bronchodilators, IV steroids, Levaquin. Breathing slowly improving, did not require BiPAP during the night. Complains of exertional dyspnea with bedside commode. IV steroids dose increased. Blood sugars elevated. Bronchial cultures currently negative. Cytology negative for malignancy. 02/24/2018 Patient denied any worsening chest pain or shortness of breath. Able to sit in the bed today. No chest pain. No fever no chills. Patient is being maintained on antibiotics in the form of levofloxacin. BAL fluid cultures showed no growth. WBC 18.9 likely due to steroids. Patient still anxious otherwise. IV steroids have been changed to prednisone 40 mg daily. Pulmonary is following. 02/25/2018 Patient says that her breathing is better today. Not at baseline. Patient will be continued on IV Solu-Medrol and breathing treatments along with antibiotics. Still having significant leukocytosis. Pulmonary is following. Anticipate discharged to rehab once clinically improved. All other review of systems negative except the above Active Medications Generic Name Dose Route Start Last Admin Trade Name Freq PRN Reason Stop Dose Admin Acetaminophen 650 mg 02/19/18 09:57 02/22/18 00:12 Tylenol Tab PO 650 mg Q6HR PRN Administration Fever and/ or MILD Pain Albuterol/Ipratropium 3 ml 02/18/18 13:50 02/20/18 13:01 Duoneb 0.5 Mg-3 Mg/3 Ml Soln INHALATION 3 ml RT-Q4H PRN Administration Shortness Of Breath Or Wheezing Albuterol/Ipratropium 3 ml 02/18/18 16:00 02/24/18 15:36 Duoneb 0.5 Mg-3 Mg/3 Ml Soln INHALATION 3 ml RT-QID EDILMA Administration Alprazolam 0.5 mg 02/22/18 16:00 02/24/18 16:08 Xanax PO Not Given TID EDILMA Ascorbic Acid 500 mg 02/19/18 12:00 02/24/18 12:50 Vitamin C PO 500 mg 1200 EDILMA Administration Atorvastatin Calcium 10 mg 02/18/18 21:00 02/23/18 21:31 Lipitor PO 10 mg HS EDILMA Administration Budesonide 1 mg 02/19/18 09:15 02/24/18 07:42 Pulmicort INHALATION 1 mg RT-BID EDILMA Administration Calcium Carbonate 1 each 02/19/18 12:00 02/24/18 12:50 Oscal 500+D PO 1 each 1200 EDILMA Administration Cholecalciferol 1,000 unit 02/19/18 12:00 02/24/18 12:50 Vitamin D3 PO 1,000 unit 1200 EDILMA Administration Citalopram Hydrobromide 20 mg 02/22/18 14:00 02/24/18 08:31 Celexa PO 20 mg DAILY EDILMA Administration Formoterol Fumarate 20 mcg 02/19/18 09:15 02/24/18 07:42 Perforomist INHALATION 20 mcg RT-BID DEILMA Administration Guaifenesin/Dextromethorphan 1 each 02/18/18 21:00 02/24/18 08:31 Mucinex Dm PO 1 each Q12HR EDILMA Administration Heparin Sodium (Porcine) 5,000 unit 02/18/18 16:00 02/24/18 15:34 Heparin SQ 5,000 unit Q8HR EDILMA Administration Lactated Ringer's 1,000 mls @ 20 mls/hr 02/19/18 20:15 02/23/18 21:34 Lactated Ringers IV Not Given .Q24H [facility] Insulin Aspart 0 unit 02/18/18 17:30 02/24/18 12:51 Novolog SQ 8 unit ACHS EDILMA Administration Protocol Insulin Aspart 10 unit 02/21/18 12:30 02/24/18 12:51 Novolog SQ 10 unit AC-TID EDILMA Administration Insulin Detemir 30 unit 02/23/18 21:00 02/23/18 21:32 Levemir SQ 30 unit HS EDILMA Administration Levofloxacin 500 mg 02/19/18 09:30 02/24/18 08:31 Levaquin PO 500 mg Q24H EDILMA Administration Levothyroxine Sodium 75 mcg 02/19/18 06:30 02/24/18 05:36 Synthroid PO 75 mcg 0630 EDILMA Administration Montelukast Sodium 10 mg 02/19/18 09:00 02/24/18 08:31 Singulair PO 10 mg DAILY EDILMA Administration Morphine Sulfate 6 mg 02/20/18 15:21 Morphine Oral Shanice 2mg/Ml PO Q4HR PRN Pain Pantoprazole Sodium 40 mg 03/27/18 07:30 02/24/18 08:32 Protonix PO 40 mg AC-BRKFST EDILMA Administration Prednisone 40 mg 02/25/18 09:00 PO DAILY EDILMA Promethazine HCl/Codeine 5 ml 02/18/18 15:14 Phenergan With Codeine PO Q6H PRN cough/congestion Theophylline 300 mg 02/23/18 09:00 02/24/18 08:30 Ben-24 PO 300 mg DAILY EDILMA Administration Venlafaxine HCl 75 mg 02/19/18 09:00 02/24/18 08:31 Effexor Xr PO 75 mg DAILY EDILMA Administration Vitamin B Complex/Vit C/Vit E/Zinc 1 each 02/19/18 12:00 02/24/18 12:50 Z-Bec PO 1 each 1200 EDILMA Administration Vitamin E 400 unit 02/19/18 12:00 02/24/18 12:50 Vitamin E PO 400 unit 1200 EDILMA Administration Objective - Vital Signs Vital signs: Vital Signs Temp 97.9 F 02/25/18 15:00 Pulse 92 02/25/18 16:12 Resp 20 02/25/18 15:00 BP 113/63 02/25/18 15:00 Pulse Ox 92 L 02/25/18 15:00 Intake & Output 02/25/18 02/25/18 02/26/18 06:59 18:59 06:59 Intake Total 1300 240 Balance 1300 240 Weight 90.5 kg 90.5 kg Intake: Oral 1300 240 Other: Voiding Method Bedside Commode # Voids 1 2 - Exam PHYSICAL EXAMINATION: Patient is lying in the bed comfortably, no acute distress, awake alert and oriented.. HEENT: Normocephalic. Neck is supple. Pupils reactive. Nostrils clear. Oral cavity is moist. Ears reveal no drainage. Neck reveals no JVD, carotid bruits, or thyromegaly. CHEST EXAMINATION: Trachea is central. Symmetrical expansion. Bilateral improved air entry and prolonged expiration with minimal wheezing. CARDIAC: Normal S1, S2 with no gallops. No murmurs ABDOMEN: Soft. Bowel sounds normal. No organomegaly. No abdominal bruits. Extremities: reveal no edema. No clubbing or cyanosis Neurologically awake, alert, oriented x3 with well-coordinated movements. No focal deficits noted Skin: No rash or skin lesions. Psychiatric: Cooperative. Nonsuicidal Musculoskeletal: No joint swelling or deformity. Normal range of motion. - Labs CBC & Chem 7: 02/26/18 07:34 02/26/18 07:34 Labs: Abnormal Lab Results - Last 24 Hours (Table) 02/25/18 02/25/18 02/25/18 Range/Units 02:12 06:52 07:56 WBC 20.8 H (3.8-10.6) k/uL Neutrophils # 15.1 H (1.3-7.7) k/uL Monocytes # 1.3 H (0-1.0) k/uL Carbon Dioxide (22-30) mmol/L BUN (7-17) mg/dL POC Glucose (mg/dL) 157 H 102 H (75-99) mg/dL 02/25/18 02/25/18 02/25/18 Range/Units 07:56 12:35 17:38 WBC (3.8-10.6) k/uL Neutrophils # (1.3-7.7) k/uL Monocytes # (0-1.0) k/uL Carbon Dioxide 31 H (22-30) mmol/L BUN 29 H (7-17) mg/dL POC Glucose (mg/dL) 199 H 217 H (75-99) mg/dL Microbiology - Last 24 Hours (Table) 02/20/18 11:50 Fungal Culture - Preliminary Bronchoalviolar Lavage - Left Smita glabrata Yeast species Smita albicans Assessment and Plan Assessment: 1. Acute COPD exacerbation with acute tracheobronchitis, status post bronchoscopy. 2. Acute on chronic hypoxic respiratory failure 3. Steroid-induced hyperglycemia 4. Hyperlipidemia 5. Hypothyroidism 6. Obesity, BMI 31.6 7. History of nicotine dependence, recently quit smoking 3 months ago Plan: Continue on current medication regime ,monitoring and symptomatic treatment. Maintain nebulized bronchodilators, Levaquin. Patient was on high- dose IV steroids currently changed to prednisone orally.. Aggressive pulmonary toileting. Levemir dose increased with close monitoring of Accu-Cheks. Xanax when necessary. Further recommendations to follow. Time with Patient: Greater than 30
--- NOTE | 2018-02-26 23:24 | P.PN ---
Subjective Progress Note Date: 02/26/18 Principal diagnosis: Acute COPD exacerbation Interval history: This is a 77-year-old female admitted with acute exacerbation COPD with acute tracheobronchitis and multiple other medical issues. Maintained on nebulized bronchodilators, IV steroids, Levaquin. Breathing slowly improving, did not require BiPAP during the night. Complains of exertional dyspnea with bedside commode. IV steroids dose increased. Blood sugars elevated. Bronchial cultures currently negative. Cytology negative for malignancy. 02/24/2018 Patient denied any worsening chest pain or shortness of breath. Able to sit in the bed today. No chest pain. No fever no chills. Patient is being maintained on antibiotics in the form of levofloxacin. BAL fluid cultures showed no growth. WBC 18.9 likely due to steroids. Patient still anxious otherwise. IV steroids have been changed to prednisone 40 mg daily. Pulmonary is following. 02/25/2018 Patient says that her breathing is better today. Not at baseline. Patient will be continued on IV Solu-Medrol and breathing treatments along with antibiotics. Still having significant leukocytosis. Pulmonary is following. Anticipate discharged to rehab once clinically improved. 02/26/2018 Patient's breathing status is much improved now. Able to ambulate without much short of breath. Patient refused to go to rehab .otherwise anticipate discharge home with home care likely next 24 hours. All other review of systems negative except the above Active Medications Generic Name Dose Route Start Last Admin Trade Name Freq PRN Reason Stop Dose Admin Acetaminophen 650 mg 02/19/18 09:57 02/22/18 00:12 Tylenol Tab PO 650 mg Q6HR PRN Administration Fever and/ or MILD Pain Albuterol/Ipratropium 3 ml 02/18/18 13:50 02/20/18 13:01 Duoneb 0.5 Mg-3 Mg/3 Ml Soln INHALATION 3 ml RT-Q4H PRN Administration Shortness Of Breath Or Wheezing Albuterol/Ipratropium 3 ml 02/18/18 16:00 02/24/18 15:36 Duoneb 0.5 Mg-3 Mg/3 Ml Soln INHALATION 3 ml RT-QID EDILMA Administration Alprazolam 0.5 mg 02/22/18 16:00 02/24/18 16:08 Xanax PO Not Given TID EDILMA Ascorbic Acid 500 mg 02/19/18 12:00 02/24/18 12:50 Vitamin C PO 500 mg 1200 EDILMA Administration Atorvastatin Calcium 10 mg 02/18/18 21:00 02/23/18 21:31 Lipitor PO 10 mg HS EDILMA Administration Budesonide 1 mg 02/19/18 09:15 02/24/18 07:42 Pulmicort INHALATION 1 mg RT-BID EDILMA Administration Calcium Carbonate 1 each 02/19/18 12:00 02/24/18 12:50 Oscal 500+D PO 1 each 1200 EDILMA Administration Cholecalciferol 1,000 unit 02/19/18 12:00 02/24/18 12:50 Vitamin D3 PO 1,000 unit 1200 EDILMA Administration Citalopram Hydrobromide 20 mg 02/22/18 14:00 02/24/18 08:31 Celexa PO 20 mg DAILY EDILMA Administration Formoterol Fumarate 20 mcg 02/19/18 09:15 02/24/18 07:42 Perforomist INHALATION 20 mcg RT-BID EDILMA Administration Guaifenesin/Dextromethorphan 1 each 02/18/18 21:00 02/24/18 08:31 Mucinex Dm PO 1 each Q12HR EDILMA Administration Heparin Sodium (Porcine) 5,000 unit 02/18/18 16:00 02/24/18 15:34 Heparin SQ 5,000 unit Q8HR EDILMA Administration Lactated Ringer's 1,000 mls @ 20 mls/hr 02/19/18 20:15 02/23/18 21:34 Lactated Ringers IV Not Given .Q24H EDILMA Insulin Aspart 0 unit 02/18/18 17:30 02/24/18 12:51 Novolog SQ 8 unit ACHS EDILMA Administration Protocol Insulin Aspart 10 unit 02/21/18 12:30 02/24/18 12:51 Novolog SQ 10 unit AC-TID EDILMA Administration Insulin Detemir 30 unit 02/23/18 21:00 02/23/18 21:32 Levemir SQ 30 unit HS EDILMA Administration Levofloxacin 500 mg 02/19/18 09:30 02/24/18 08:31 Levaquin PO 500 mg Q24H EDILMA Administration Levothyroxine Sodium 75 mcg 02/19/18 06:30 02/24/18 05:36 Synthroid PO 75 mcg 0630 EDILMA Administration Montelukast Sodium 10 mg 02/19/18 09:00 02/24/18 08:31 Singulair PO 10 mg DAILY EDILMA Administration Morphine Sulfate 6 mg 02/20/18 15:21 Morphine Oral Shanice 2mg/Ml PO Q4HR PRN Pain Pantoprazole Sodium 40 mg 02/19/18 07:30 02/24/18 08:32 Protonix PO 40 mg AC-BRKFST EDILMA Administration Prednisone 40 mg 02/25/18 09:00 PO DAILY EDILMA Promethazine HCl/Codeine 5 ml 02/18/18 15:14 Phenergan With Codeine PO Q6H PRN cough/congestion Theophylline 300 mg 02/23/18 09:00 02/24/18 08:30 Ben-24 PO 300 mg DAILY EDILMA Administration Venlafaxine HCl 75 mg 02/19/18 09:00 02/24/18 08:31 Effexor Xr PO 75 mg DAILY EDILMA Administration Vitamin B Complex/Vit C/Vit E/Zinc 1 each 02/19/18 12:00 02/24/18 12:50 Z-Bec PO 1 each 1200 EDILMA Administration Vitamin E 400 unit 02/19/18 12:00 02/24/18 12:50 Vitamin E PO 400 unit 1200 EDILMA Administration Objective - Vital Signs Vital signs: Vital Signs Temp 98.9 F 02/26/18 22:50 Pulse 95 02/26/18 22:50 Resp 18 02/26/18 22:50 BP 107/61 02/26/18 22:50 Pulse Ox 91 L 02/26/18 22:50 Intake & Output 02/26/18 02/26/18 02/27/18 06:59 18:59 06:59 Intake Total 1150 480 Balance 1150 480 Weight 90 kg Intake: Oral 1150 480 Other: Voiding Method Bedside Commode # Voids 2 2 # Bowel Movements 1 0 - Exam PHYSICAL EXAMINATION: Patient is lying in the bed comfortably, no acute distress, awake alert and oriented.. HEENT: Normocephalic. Neck is supple. Pupils reactive. Nostrils clear. Oral cavity is moist. Ears reveal no drainage. Neck reveals no JVD, carotid bruits, or thyromegaly. CHEST EXAMINATION: Trachea is central. Symmetrical expansion. Bilateral improved air entry and prolonged expiration with minimal wheezing. CARDIAC: Normal S1, S2 with no gallops. No murmurs ABDOMEN: Soft. Bowel sounds normal. No organomegaly. No abdominal bruits. Extremities: reveal no edema. No clubbing or cyanosis Neurologically awake, alert, oriented x3 with well-coordinated movements. No focal deficits noted Skin: No rash or skin lesions. Psychiatric: Cooperative. Nonsuicidal Musculoskeletal: No joint swelling or deformity. Normal range of motion. - Labs CBC & Chem 7: 02/26/18 07:34 02/26/18 07:34 Labs: Abnormal Lab Results - Last 24 Hours (Table) 02/26/18 02/26/18 02/26/18 Range/Units 02:11 07:13 07:34 WBC 18.8 H (3.8-10.6) k/uL Neutrophils # (Manual) 15.00 H (1.3-7.7) k/uL Monocytes # (Manual) 1.50 H (0-1.0) k/uL BUN (7-17) mg/dL Glucose (74-99) mg/dL POC Glucose (mg/dL) 230 H 163 H (75-99) mg/dL 02/26/18 02/26/18 02/26/18 Range/Units 07:34 12:20 17:04 WBC (3.8-10.6) k/uL Neutrophils # (Manual) (1.3-7.7) k/uL Monocytes # (Manual) (0-1.0) k/uL BUN 27 H (7-17) mg/dL Glucose 154 H (74-99) mg/dL POC Glucose (mg/dL) 166 H 275 H (75-99) mg/dL 02/26/18 Range/Units 20:25 WBC (3.8-10.6) k/uL Neutrophils # (Manual) (1.3-7.7) k/uL Monocytes # (Manual) (0-1.0) k/uL BUN (7-17) mg/dL Glucose (74-99) mg/dL POC Glucose (mg/dL) 261 H (75-99) mg/dL Assessment and Plan Assessment: 1. Acute COPD exacerbation with acute tracheobronchitis, status post bronchoscopy. 2. Acute on chronic hypoxic respiratory failure 3. Steroid-induced hyperglycemia 4. Hyperlipidemia 5. Hypothyroidism 6. Obesity, BMI 31.6 7. History of nicotine dependence, recently quit smoking 3 months ago Plan: Continue on current medication regime ,monitoring and symptomatic treatment. Maintain nebulized bronchodilators, Levaquin. Patient was on high- dose IV steroids currently changed to prednisone orally.. Aggressive pulmonary toileting. Levemir dose increased with close monitoring of Accu-Cheks. Xanax when necessary. Further recommendations to follow. Time with Patient: Greater than 30
[2018-02-27] MEDS: HEPARIN SODIUM,PORCINE 5,000 UNIT/ML 1 ML VIAL SQ SCH ×4 (00:28→21:37)
[2018-02-27 02:16] LABS: Glucose,Whole Blood 127 mg/dL (75-99)
[2018-02-27] MEDS: LEVOTHYROXINE 75 MCG TAB PO SCH (06:54)
[2018-02-27 07:05] LABS: Glucose,Whole Blood 111 mg/dL (75-99)
[2018-02-27] MEDS: INSULIN ASPART 100 UNIT/ML 1 ML 10 ML VIAL SQ SCH ×7 (07:28→21:34)
[2018-02-27] MEDS: BUDESONIDE 1 MG/2 ML NEBU INHALATION SCH ×2 (07:46→19:53)
[2018-02-27] MEDS: IPRATROPIUM-ALBUTEROL 3 ML NEB INHALATION SCH ×4 (07:46→19:53)
[2018-02-27] MEDS: FORMOTEROL FUMARATE 20 MCG/2 ML NEBU INHALATION SCH ×2 (07:47→19:53)
[2018-02-27] MEDS: PANTOPRAZOLE 40 MG TABLET PO SCH (08:30)
[2018-02-27] MEDS: CITALOPRAM HYDROBROMIDE 20 MG TAB PO SCH (08:30)
[2018-02-27] MEDS: guaiFENesin 600 MG TABLET.ER PO SCH ×2 (08:30→21:35)
[2018-02-27] MEDS: THEOPHYLLINE 24 HOUR 300 MG CAP.ER.24H PO SCH (08:31)
[2018-02-27] MEDS: LEVOFLOXACIN 500 MG TAB PO SCH (08:31)
[2018-02-27] MEDS: VENLAFAXINE HCL ER 75 MG CAP PO SCH (08:31)
[2018-02-27] MEDS: MONTELUKAST 10 MG TAB PO SCH (08:31)
[2018-02-27] MEDS: predniSONE 20 MG TAB PO SCH (08:31)
[2018-02-27] MEDS: ASCORBIC ACID 500 MG TAB PO SCH (12:22)
[2018-02-27] MEDS: CHOLECALCIFEROL 1,000 UNIT TAB PO SCH (12:22)
[2018-02-27] MEDS: CALCIUM CARB-VIT D 500MG-200UN 1 EACH TAB PO SCH (12:22)
[2018-02-27] MEDS: B COMPLEX-VIT C-VIT E-ZINC 1 EACH TAB PO SCH (12:22)
[2018-02-27] MEDS: VITAMIN E (DL,TOCOPHERYL ACET) 400 UNIT CAP PO SCH (12:23)
[2018-02-27 12:24] LABS: Glucose,Whole Blood 299 mg/dL (75-99)
--- NOTE | 2018-02-27 14:00 | P.PN ---
Subjective Progress Note Date: 02/27/18 Principal diagnosis: Acute exacerbation of COPD Sofia is a 77-year-old female patient with known history of COPD with a baseline FEV1 of 58% of predicted. She is known to have emphysema. She also has been a smoker in she has quit smoking recently. She has had several hospitalization for COPD exacerbation since the beginning of the year. Her last evaluation was in my office on 02/13/2018 and she was still having some difficulties in breathing. She was maintained on Anoro Ellipta in addition to DuoNeb neb last 2 minutes [id number]. She was also using Ventolin as needed. She continued to have a congested cough. No significant weight gain despite her repeated steroid use. She stated that she had not fully recovered and were planning to do a bronchoscopy for therapeutic it was suctioning 90 the patient continued to have a congested cough and she was not feeling absolutely back to her baseline. Meanwhile her voice was also raspy. Her pulse ox however was 93% on room air. Since then, the patient acutely became progressively more short of breath and more bronchospastic and wheezy. She woke up yesterday with increased dyspnea cough chest tightness and wheezing. She presented to the hospital and a chest x-ray was done that showed no acute pulmonary infiltration or pneumonia. No fever or chills. No nausea vomiting or abdominal pain. No chest pain. No swelling in lower extremities. She denies smoking for the past 3 months. No swelling in lower extremities. For that reason she was admitted to the hospital and a pulmonary consultation was requested. She was started on IV Solu-Medrol and she is feeling slightly better. She is also on DuoNeb nebulized treatments around the clock. No other significant events otherwise. On 02/19/2018 patient seen in follow-up on medical surgical floor. She is resting in bed, denies any acute distress. Her lung sounds remain very bronchospastic and congested. Overall she reports some improvement with her dyspnea. She is wearing oxygen intermittently, on room air her O2 sat was 94%. She remains slightly tachycardic with a heart rate up to 104 BPM, she is afebrile, vital signs are stable. Her influenza screen was negative, she has a productive cough with white sputum. In view of her recurrent hospitalizations for COPD exacerbations, patient will be scheduled for bronchoscopy with BAL by Dr. Zarate tomorrow at 11:30 in the morning. This was communicated to the patient, and the patient is in agreement with the plan. On 02/20/2018 patient seen in follow-up. She is resting comfortably in bed, denies any acute distress. Her lung sounds are positive for some scattered wheezes, but this appears to be improved from previous exams. She still has a productive cough with occasional production of white sputum. Denies any fever, denies any chills, denies any chest pain. I'll signs are stable, patient is afebrile, she is currently on 2 L per nasal cannula with O2 sat 94%. Patient is on IV steroids, Levaquin, Pulmicort, Brovana, DuoNeb nebulized treatments. We will proceed with bronchoscopy with BAL today by Dr. Zarate. On 02/21/2018 patient seen in follow-up in the surgical. Yesterday after bronchoscopy patient was a bit more bronchospastic, and required BiPAP support for. About 4 hours, after which she was able to come off the BiPAP and her breathing improved. Overnight she did not require BiPAP support. Currently patient is on 3 L per nasal cannula with O2 sat between 91 and 92%. She states she is feeling better today, lung sounds are positive for scattered wheezes, a bit better from yesterday's exam. Bronchial wash cultures are pending at this time, patient continues on oral Levaquin, IV Solu-Medrol and nebulized treatments. Continue current treatment, patient was encouraged to use the BiPAP support is needed. Encourage activity as tolerated. Continue to follow On 02/22/2018 patient seen in follow-up. She remains very dyspneic with any exertion, even using the bedside commode. At rest she appears to be comfortable , she did wear a BiPAP for 2 hours.yesterday in the afternoon, she did not her BiPAP support at night. She remains on empiric antibiotics of Levaquin, nebulized treatments, IV Solu-Medrol 60 mg every 6 hours. Despite all this patient has intermittent episodes of respiratory distress,, her activity remains very limited, she has only been get not Use the bedside commode, but for the most pressure has been on bedrest. And when necessary Xanax, today we will switch to schedule dose 3 times a day [id number]. Theophylline will be initiated, patient Solu-Medrol will be increased to 125 mg 6 hours. Monitor for patient's response. On 02/23/2018, the patient is slightly less short of breath compared to yesterday. After yesterday's evaluation, I put the patient on theophylline and I increased the Solu Medrol 225 mg every 6 hours. This has helped in the patient's last bronchus spastic and wheezy. She is able to sit up on a chair for a longer period of time. Cough and congestion is improved. She did not use BiPAP overnight. No significant anxiety as the patient was started on accommodation of Celexa and Xanax also for now. Bronchioloalveolar lavage has been negative thus far. She is gradually improving. No other significant events overnight. On 1017 the patient is ambulating more actively compared to yesterday. She is less short of breath. I put this patient on high dose IV Solu-Medrol 125 mg every 6 hours for the past 48 hours and today I'm going to taper down to prednisone. She is doing well. No other new complaints otherwise for now. Cough has subsided. The bronchioloalveolar lavage has been negative for any microbial growth. She has developed some steroid use hyperglycemia which improved with the discontinuation of the IV Solu-Medrol. She is also getting some increased anxiety and tremors which is probably related to the steroids and breathing treatments. On 02/25/2018, patient seems to be doing a bit better, according to her she is 50 % improved. is at bedside, quite concerned that he cannot take care of her at home, because he is disabled. Hence I recommended that she should seriously consider going to a rehab facility. Patient continues to have cough and wheezing, but significantly improved about 50% improvement noted according to her. Intermittent cough and wheezing is still present. Labs were reviewed including WBC count of 20.8 Lites and renal profile are normal. Reevaluated today on 02/26/2018, patient is doing better, breathing a lot easier, ambulating down the hallway, uses oxygen, less cough and less wheezing less shortness of breath. Patient is clearly ready to be discharged home today, however she needs to continue on her present meds, home O2, and bronchodilators as well as steroids burst and taper. Labs were reviewed, WBC count is 18.8, chest x-ray on admission showed no evidence of pneumonia. Reevaluated today on 02/27/2018, patient is feeling much better, breathing a lot easier, she is ambulating without chair, and she is not desaturating. Hence she made a significant improvement since admission. I believe the patient is ready to be discharged home today. All her labs were reviewed. And basic metabolic profile is normal. Has a bit of leukocytosis most likely related to steroids. Objective - Vital Signs Vital signs: Vital Signs Temp 98.3 F 02/27/18 06:01 Pulse 88 02/27/18 11:37 Resp 18 02/27/18 09:34 BP 103/68 02/27/18 06:01 Pulse Ox 94 L 02/27/18 09:34 Intake & Output 02/26/18 02/27/18 02/27/18 18:59 06:59 18:59 Intake Total 480 Balance 480 Weight 94 kg Intake: Oral 480 Other: # Voids 2 3 # Bowel Movements 0 - Exam GENERAL EXAM: Alert, pleasant, 77-year-old white female comfortable in no apparent distress. HEAD: Normocephalic/atraumatic. EYES: Normal reaction of pupils, equal size. Conjunctiva pink, sclera white. NOSE: Clear with pink turbinates. THROAT: No erythema or exudates. NECK: No masses, no JVD, no thyroid enlargement, no adenopathy. CHEST: No chest wall deformity. Symmetrical expansion. LUNGS: Diminished breath sound bilaterally, no crackles or rhonchi or wheezes. CVS: Regular rate and rhythm, normal S1 and S2, no gallops, no murmurs, no rubs ABDOMEN: Soft, nontender. No hepatosplenomegaly, normal bowel sounds, no guarding or rigidity. EXTREMITIES: No clubbing, no edema, no cyanosis, 2+ pulses and upper and lower extremities. MUSCULOSKELETAL: Muscle strength and tone normal. SPINE: No scoliosis or deformity SKIN: No rashes CENTRAL NERVOUS SYSTEM: Alert and oriented -3. No focal deficits, tone is normal in all 4 extremities. PSYCHIATRIC: Alert and oriented -3. Appropriate affect. Intact judgment and insight. - Labs CBC & Chem 7: 02/26/18 07:34 02/26/18 07:34 Labs: Abnormal Lab Results - Last 24 Hours (Table) 02/26/18 02/26/18 02/27/18 Range/Units 17:04 20:25 02:15 POC Glucose (mg/dL) 275 H 261 H 127 H (75-99) mg/dL 02/27/18 02/27/18 Range/Units 06:57 12:14 POC Glucose (mg/dL) 111 H 299 H (75-99) mg/dL Assessment and Plan Assessment: Assessment: 1 acute COPD exacerbation and acute purulent tracheobronchitis. 2 COPD which is of a moderate severity at baseline with an FEV1 of 58% of predicted 3 history of smoking 4 hypothyroidism 5 history of depression 6 acute on chronic hypoxic respiratory failure, secondary to COPD and purulent tracheobronchitis. No evidence of focal pneumonia noted on the chest x-ray on admission. Patient had chronic stable apical pleural thickening. Recommendation: Patient is improved, cleared for discharge home today, patient is to be discharged on DuoNeb, Symbicort, prednisone 40 mg tapered over the next 2 weeks or until seen by us in the office, no need for any more antibiotics at this point. Patient should make an appointment to be seen in our office in the next 10 days. Time with Patient: Less than 30
[2018-02-27 17:19] LABS: Glucose,Whole Blood 196 mg/dL (75-99)
[2018-02-27 19:55] VITALS: RESP 18
[2018-02-27 20:41] LABS: Glucose,Whole Blood 320 mg/dL (75-99)
[2018-02-27] MEDS ORDERED: INSULIN ASPART 100 UNIT/ML 1 ML 10 ML VIAL SQ ONE (21:21)
[2018-02-27] MEDS: ALPRAZolam 0.5 MG TAB PO PRN (21:35)
[2018-02-27] MEDS: INSULIN DETEMIR 100 UNIT/ML 10 ML VIAL SQ SCH (21:35)
[2018-02-27] MEDS: ATORVASTATIN 10 MG TAB PO SCH (21:35)
[2018-02-27] MEDS: ACETAMINOPHEN TAB 325 MG TAB PO PRN (22:40)
--- NOTE | 2018-02-28 01:16 | P.PN ---
Subjective Progress Note Date: 02/27/18 Principal diagnosis: Acute COPD exacerbation Interval history: This is a 77-year-old female admitted with acute exacerbation COPD with acute tracheobronchitis and multiple other medical issues. Maintained on nebulized bronchodilators, IV steroids, Levaquin. Breathing slowly improving, did not require BiPAP during the night. Complains of exertional dyspnea with bedside commode. IV steroids dose increased. Blood sugars elevated. Bronchial cultures currently negative. Cytology negative for malignancy. 02/24/2018 Patient denied any worsening chest pain or shortness of breath. Able to sit in the bed today. No chest pain. No fever no chills. Patient is being maintained on antibiotics in the form of levofloxacin. BAL fluid cultures showed no growth. WBC 18.9 likely due to steroids. Patient still anxious otherwise. IV steroids have been changed to prednisone 40 mg daily. Pulmonary is following. 02/25/2018 Patient says that her breathing is better today. Not at baseline. Patient will be continued on IV Solu-Medrol and breathing treatments along with antibiotics. Still having significant leukocytosis. Pulmonary is following. Anticipate discharged to rehab once clinically improved. 02/26/2018 Patient's breathing status is much improved now. Able to ambulate without much short of breath. Patient refused to go to rehab .otherwise anticipate discharge home with home care likely next 24 hours. 02/27/2018 Patient's breathing status is much improved now and is stable to be discharged home. Otherwise blood sugar is still elevated patient was found have his B A1c 7.6 sometime in December 2017. Patient does not have any history of diabetes. Patient was started on Lantus and preprandial insulin dose. Diabetic education consult has been placed. Patient is being taken for insulin dosing. We will repeat h B A1c level. Anticipate discharge in next 24 hours with final plan regarding insulin dose and diabetic education. Otherwise no acute overnight issues. All other review of systems negative except the above Active Medications Generic Name Dose Route Start Last Admin Trade Name Freq PRN Reason Stop Dose Admin Acetaminophen 650 mg 02/19/18 09:57 02/22/18 00:12 Tylenol Tab PO 650 mg Q6HR PRN Administration Fever and/ or MILD Pain Albuterol/Ipratropium 3 ml 02/18/18 13:50 02/20/18 13:01 Duoneb 0.5 Mg-3 Mg/3 Ml Soln INHALATION 3 ml RT-Q4H PRN Administration Shortness Of Breath Or Wheezing Albuterol/Ipratropium 3 ml 02/18/18 16:00 02/24/18 15:36 Duoneb 0.5 Mg-3 Mg/3 Ml Soln INHALATION 3 ml RT-QID EDILMA Administration Alprazolam 0.5 mg 02/22/18 16:00 02/24/18 16:08 Xanax PO Not Given TID EDILMA Ascorbic Acid 500 mg 02/19/18 12:00 02/24/18 12:50 Vitamin C PO 500 mg 1200 EDILMA Administration Atorvastatin Calcium 10 mg 02/18/18 21:00 02/23/18 21:31 Lipitor PO 10 mg HS EDILMA Administration Budesonide 1 mg 02/19/18 09:15 02/24/18 07:42 Pulmicort INHALATION 1 mg RT-BID EDILMA Administration Calcium Carbonate 1 each 02/19/18 12:00 02/24/18 12:50 Oscal 500+D PO 1 each 1200 EDILMA Administration Cholecalciferol 1,000 unit 02/19/18 12:00 02/24/18 12:50 Vitamin D3 PO 1,000 unit 1200 EDILMA Administration Citalopram Hydrobromide 20 mg 02/22/18 14:00 02/24/18 08:31 Celexa PO 20 mg DAILY EDILMA Administration Formoterol Fumarate 20 mcg 02/19/18 09:15 02/24/18 07:42 Perforomist INHALATION 20 mcg RT-BID EDILMA Administration Guaifenesin/Dextromethorphan 1 each 02/18/18 21:00 02/24/18 08:31 Mucinex Dm PO 1 each Q12HR EDILMA Administration Heparin Sodium (Porcine) 5,000 unit 02/18/18 16:00 02/24/18 15:34 Heparin SQ 5,000 unit Q8HR EDILMA Administration Lactated Ringer's 1,000 mls @ 20 mls/hr 02/19/18 20:15 02/23/18 21:34 Lactated Ringers IV Not Given .Q24H EDILMA Insulin Aspart 0 unit 02/18/18 17:30 02/24/18 12:51 Novolog SQ 8 unit ACHS EDILMA Administration Protocol Insulin Aspart 10 unit 02/21/18 12:30 02/24/18 12:51 Novolog SQ 10 unit AC-TID EDILMA Administration Insulin Detemir 30 unit 02/23/18 21:00 02/23/18 21:32 Levemir SQ 30 unit HS EDILMA Administration Levofloxacin 500 mg 02/19/18 09:30 02/24/18 08:31 Levaquin PO 500 mg Q24H EDILMA Administration Levothyroxine Sodium 75 mcg 02/19/18 06:30 02/24/18 05:36 Synthroid PO 75 mcg 0630 EDILMA Administration Montelukast Sodium 10 mg 02/19/18 09:00 02/24/18 08:31 Singulair PO 10 mg DAILY EDILMA Administration Morphine Sulfate 6 mg 02/20/18 15:21 Morphine Oral Shanice 2mg/Ml PO Q4HR PRN Pain Pantoprazole Sodium 40 mg 02/19/18 07:30 02/24/18 08:32 Protonix PO 40 mg [id number] EDILMA Administration Prednisone 40 mg 02/25/18 09:00 PO DAILY EDILMA Promethazine HCl/Codeine 5 ml 02/18/18 15:14 Phenergan With Codeine PO Q6H PRN cough/congestion Theophylline 300 mg 02/23/18 09:00 02/24/18 08:30 Ben-24 PO 300 mg DAILY [facility] Administration Venlafaxine HCl 75 mg 02/19/18 09:00 02/24/18 08:31 Effexor Xr PO 75 mg DAILY [facility] Administration Vitamin B Complex/Vit C/Vit E/Zinc 1 each 02/19/18 12:00 02/24/18 12:50 Z-Bec PO 1 each 1200 [facility] Administration Vitamin E 400 unit 02/19/18 12:00 02/24/18 12:50 Vitamin E PO 400 unit 1200 EDILMA Administration Objective - Vital Signs Vital signs: Vital Signs Temp 98.1 F 02/27/18 14:29 Pulse 90 02/27/18 20:15 Resp 18 02/27/18 20:15 BP 139/77 02/27/18 14:29 Pulse Ox 92 L 02/27/18 14:29 Intake & Output 02/27/18 02/27/18 02/28/18 06:59 18:59 06:59 Weight 94 kg Other: # Voids 3 4 - Exam PHYSICAL EXAMINATION: Patient is lying in the bed comfortably, no acute distress, awake alert and oriented.. HEENT: Normocephalic. Neck is supple. Pupils reactive. Nostrils clear. Oral cavity is moist. Ears reveal no drainage. Neck reveals no JVD, carotid bruits, or thyromegaly. CHEST EXAMINATION: Trachea is central. Symmetrical expansion. Bilateral improved air entry and prolonged expiration with minimal wheezing. CARDIAC: Normal S1, S2 with no gallops. No murmurs ABDOMEN: Soft. Bowel sounds normal. No organomegaly. No abdominal bruits. Extremities: reveal no edema. No clubbing or cyanosis Neurologically awake, alert, oriented x3 with well-coordinated movements. No focal deficits noted Skin: No rash or skin lesions. Psychiatric: Cooperative. Nonsuicidal Musculoskeletal: No joint swelling or deformity. Normal range of motion. - Labs CBC & Chem 7: 02/26/18 07:34 02/26/18 07:34 Labs: Abnormal Lab Results - Last 24 Hours (Table) 02/27/18 02/27/18 02/27/18 Range/Units 02:15 06:57 12:14 POC Glucose (mg/dL) 127 H 111 H 299 H (75-99) mg/dL 02/27/18 02/27/18 Range/Units 17:12 20:39 POC Glucose (mg/dL) 196 H 320 H (75-99) mg/dL Assessment and Plan Assessment: 1. Acute COPD exacerbation with acute tracheobronchitis, status post bronchoscopy. Improved clinically. FLUID cultures showed no growth 2. Acute on chronic hypoxic respiratory failure 3. Steroid-induced hyperglycemia 4. Hyperlipidemia 5. Hypothyroidism 6. Obesity, BMI 31.6 7. History of nicotine dependence, recently quit smoking 3 months ago 8. Diabetes type 2. New diagnosis. His B A1c 7.6, 2 months ago Plan: Continue on current medication regime ,monitoring and symptomatic treatment. Maintain nebulized bronchodilators, Levaquin. Patient was on high- dose IV steroids currently changed to prednisone orally.. Insulin dose with Lantus 30 units daily at bedtime and aspart 10 units 3 times a day before meals. Aggressive pulmonary toileting. Levemir dose increased with close monitoring of Accu-Cheks. Xanax when necessary. Further recommendations to follow. Time with Patient: Greater than 30
[2018-02-28 02:37] LABS: Glucose,Whole Blood 194 mg/dL (75-99)
[2018-02-28] MEDS: LEVOTHYROXINE 75 MCG TAB PO SCH (06:36)
[2018-02-28 07:09] LABS: Glucose,Whole Blood 106 mg/dL (75-99)
[2018-02-28] MEDS: INSULIN ASPART 100 UNIT/ML 1 ML 10 ML VIAL SQ SCH ×4 (07:14→12:47)
[2018-02-28 07:24] VITALS: BP 110/73; TEMP 97.8
[2018-02-28] MEDS: FORMOTEROL FUMARATE 20 MCG/2 ML NEBU INHALATION SCH (07:29)
[2018-02-28] MEDS: BUDESONIDE 1 MG/2 ML NEBU INHALATION SCH (07:29)
[2018-02-28] MEDS: IPRATROPIUM-ALBUTEROL 3 ML NEB INHALATION SCH ×2 (07:29→11:38)
[2018-02-28 07:52] LABS: Basophils # (A) 0.1 k/uL (0-0.2); Basophils % (A) 1 %; Eosinophils # (A) 0.1 k/uL (0-0.7); Eosinophils % (A) 1 %; HCT 44.3 % (34.0-46.0); HGB 14.6 gm/dL (11.4-16.0); Lymphocytes # (A) 4.4 k/uL (1.0-4.8); Lymphocytes % (A) 20 %; MCH 32.2 pg (25.0-35.0); MCHC 32.9 g/dL (31.0-37.0); MCV 97.9 fL (80.0-100.0); Mean Platelet Volume 9.4; Monocytes # (A) 1.3 k/uL (0-1.0); Monocytes % (A) 6 %; Neutrophils % (A) 72 %; Platelet Count 223 k/uL (150-450); RBC 4.53 m/uL (3.80-5.40); RDW 13.4 % (11.5-15.5); WBC 22.1 k/uL (3.8-10.6)
[2018-02-28 08:14] LABS: Calcium 9.3 mg/dL (8.4-10.2); Potassium 4.4 mmol/L (3.5-5.1)
[2018-02-28] MEDS: HEPARIN SODIUM,PORCINE 5,000 UNIT/ML 1 ML VIAL SQ SCH (08:17)
[2018-02-28] MEDS: MONTELUKAST 10 MG TAB PO SCH (08:18)
[2018-02-28] MEDS: LEVOFLOXACIN 500 MG TAB PO SCH (08:18)
[2018-02-28] MEDS: VENLAFAXINE HCL ER 75 MG CAP PO SCH (08:18)
[2018-02-28] MEDS: PANTOPRAZOLE 40 MG TABLET PO SCH (08:18)
[2018-02-28] MEDS: guaiFENesin 600 MG TABLET.ER PO SCH (08:18)
[2018-02-28] MEDS: ASCORBIC ACID 500 MG TAB PO SCH (08:18)
[2018-02-28] MEDS: CHOLECALCIFEROL 1,000 UNIT TAB PO SCH (08:18)
[2018-02-28] MEDS: CITALOPRAM HYDROBROMIDE 20 MG TAB PO SCH (08:18)
[2018-02-28] MEDS: B COMPLEX-VIT C-VIT E-ZINC 1 EACH TAB PO SCH (08:18)
[2018-02-28] MEDS: VITAMIN E (DL,TOCOPHERYL ACET) 400 UNIT CAP PO SCH (08:18)
[2018-02-28] MEDS: predniSONE 20 MG TAB PO SCH (08:18)
[2018-02-28] MEDS: CALCIUM CARB-VIT D 500MG-200UN 1 EACH TAB PO SCH (08:18)
[2018-02-28] MEDS: THEOPHYLLINE 24 HOUR 300 MG CAP.ER.24H PO SCH (08:18)
[2018-02-28 09:36] VITALS: BMI 34.7
[2018-02-28 11:34] LABS: Glucose,Whole Blood 198 mg/dL (75-99)
--- NOTE | 2018-02-28 11:38 | P.PN ---
Subjective Progress Note Date: 02/28/18 Principal diagnosis: Acute exacerbation of COPD Sofia is a 77-year-old female patient with known history of COPD with a baseline FEV1 of 58% of predicted. She is known to have emphysema. She also has been a smoker in she has quit smoking recently. She has had several hospitalization for COPD exacerbation since the beginning of the year. Her last evaluation was in my office on 02/13/2018 and she was still having some difficulties in breathing. She was maintained on Anoro Ellipta in addition to DuoNeb neb last 2 minutes [id number]. She was also using Ventolin as needed. She continued to have a congested cough. No significant weight gain despite her repeated steroid use. She stated that she had not fully recovered and were planning to do a bronchoscopy for therapeutic it was suctioning 90 the patient continued to have a congested cough and she was not feeling absolutely back to her baseline. Meanwhile her voice was also raspy. Her pulse ox however was 93% on room air. Since then, the patient acutely became progressively more short of breath and more bronchospastic and wheezy. She woke up yesterday with increased dyspnea cough chest tightness and wheezing. She presented to the hospital and a chest x-ray was done that showed no acute pulmonary infiltration or pneumonia. No fever or chills. No nausea vomiting or abdominal pain. No chest pain. No swelling in lower extremities. She denies smoking for the past 3 months. No swelling in lower extremities. For that reason she was admitted to the hospital and a pulmonary consultation was requested. She was started on IV Solu-Medrol and she is feeling slightly better. She is also on DuoNeb nebulized treatments around the clock. No other significant events otherwise. On 02/19/2018 patient seen in follow-up on medical surgical floor. She is resting in bed, denies any acute distress. Her lung sounds remain very bronchospastic and congested. Overall she reports some improvement with her dyspnea. She is wearing oxygen intermittently, on room air her O2 sat was 94%. She remains slightly tachycardic with a heart rate up to 104 BPM, she is afebrile, vital signs are stable. Her influenza screen was negative, she has a productive cough with white sputum. In view of her recurrent hospitalizations for COPD exacerbations, patient will be scheduled for bronchoscopy with BAL by Dr. Zarate tomorrow at 11:30 in the morning. This was communicated to the patient, and the patient is in agreement with the plan. On 02/20/2018 patient seen in follow-up. She is resting comfortably in bed, denies any acute distress. Her lung sounds are positive for some scattered wheezes, but this appears to be improved from previous exams. She still has a productive cough with occasional production of white sputum. Denies any fever, denies any chills, denies any chest pain. I'll signs are stable, patient is afebrile, she is currently on 2 L per nasal cannula with O2 sat 94%. Patient is on IV steroids, Levaquin, Pulmicort, Brovana, DuoNeb nebulized treatments. We will proceed with bronchoscopy with BAL today by Dr. Zarate. On 02/21/2018 patient seen in follow-up in the surgical. Yesterday after bronchoscopy patient was a bit more bronchospastic, and required BiPAP support for. About 4 hours, after which she was able to come off the BiPAP and her breathing improved. Overnight she did not require BiPAP support. Currently patient is on 3 L per nasal cannula with O2 sat between 91 and 92%. She states she is feeling better today, lung sounds are positive for scattered wheezes, a bit better from yesterday's exam. Bronchial wash cultures are pending at this time, patient continues on oral Levaquin, IV Solu-Medrol and nebulized treatments. Continue current treatment, patient was encouraged to use the BiPAP support is needed. Encourage activity as tolerated. Continue to follow On 02/22/2018 patient seen in follow-up. She remains very dyspneic with any exertion, even using the bedside commode. At rest she appears to be comfortable , she did wear a BiPAP for 2 hours.yesterday in the afternoon, she did not her BiPAP support at night. She remains on empiric antibiotics of Levaquin, nebulized treatments, IV Solu-Medrol 60 mg every 6 hours. Despite all this patient has intermittent episodes of respiratory distress,, her activity remains very limited, she has only been get not Use the bedside commode, but for the most pressure has been on bedrest. And when necessary Xanax, today we will switch to schedule dose 3 times a day [id number]. Theophylline will be initiated, patient Solu-Medrol will be increased to 125 mg 6 hours. Monitor for patient's response. On 02/23/2018, the patient is slightly less short of breath compared to yesterday. After yesterday's evaluation, I put the patient on theophylline and I increased the Solu Medrol 225 mg every 6 hours. This has helped in the patient's last bronchus spastic and wheezy. She is able to sit up on a chair for a longer period of time. Cough and congestion is improved. She did not use BiPAP overnight. No significant anxiety as the patient was started on accommodation of Celexa and Xanax also for now. Bronchioloalveolar lavage has been negative thus far. She is gradually improving. No other significant events overnight. On 1017 the patient is ambulating more actively compared to yesterday. She is less short of breath. I put this patient on high dose IV Solu-Medrol 125 mg every 6 hours for the past 48 hours and today I'm going to taper down to prednisone. She is doing well. No other new complaints otherwise for now. Cough has subsided. The bronchioloalveolar lavage has been negative for any microbial growth. She has developed some steroid use hyperglycemia which improved with the discontinuation of the IV Solu-Medrol. She is also getting some increased anxiety and tremors which is probably related to the steroids and breathing treatments. On 02/25/2018, patient seems to be doing a bit better, according to her she is 50 % improved. is at bedside, quite concerned that he cannot take care of her at home, because he is disabled. Hence I recommended that she should seriously consider going to a rehab facility. Patient continues to have cough and wheezing, but significantly improved about 50% improvement noted according to her. Intermittent cough and wheezing is still present. Labs were reviewed including WBC count of 20.8 Lites and renal profile are normal. Reevaluated today on 02/26/2018, patient is doing better, breathing a lot easier, ambulating down the hallway, uses oxygen, less cough and less wheezing less shortness of breath. Patient is clearly ready to be discharged home today, however she needs to continue on her present meds, home O2, and bronchodilators as well as steroids burst and taper. Labs were reviewed, WBC count is 18.8, chest x-ray on admission showed no evidence of pneumonia. Reevaluated today on 02/27/2018, patient is feeling much better, breathing a lot easier, she is ambulating without chair, and she is not desaturating. Hence she made a significant improvement since admission. I believe the patient is ready to be discharged home today. All her labs were reviewed. And basic metabolic profile is normal. Has a bit of leukocytosis most likely related to steroids. Reevaluated today on 02/28/2018, patient continues to do well, breathing a lot easier, no cough no wheezing no shortness of breath, sugars were noted to be elevated, and she had diabetic teaching. That is being addressed by the hospitalist. Pulmonary-gabriel no significant complaints, patient was cleared for discharge home today again. Objective - Vital Signs Vital signs: Vital Signs Temp 97.8 F 02/28/18 07:00 Pulse 92 02/28/18 07:50 Resp 18 02/28/18 07:00 BP 110/73 02/28/18 07:00 Pulse Ox 93 L 02/28/18 07:00 Intake & Output 02/27/18 02/28/18 02/28/18 18:59 06:59 18:59 Weight 94.5 kg 94.5 kg Other: # Voids 4 1 - Exam GENERAL EXAM: Alert, pleasant, 77-year-old white female comfortable in no apparent distress. HEAD: Normocephalic/atraumatic. Patient is noted to be a bit cushingoid. EYES: Normal reaction of pupils, equal size. Conjunctiva pink, sclera white. NOSE: Clear with pink turbinates. THROAT: No erythema or exudates. NECK: No masses, no JVD, no thyroid enlargement, no adenopathy. CHEST: No chest wall deformity. Symmetrical expansion. LUNGS: Clear throughout, no crackles or rhonchi or wheezes. CVS: Regular rate and rhythm, normal S1 and S2, no gallops, no murmurs, no rubs ABDOMEN: Soft, nontender. No hepatosplenomegaly, normal bowel sounds, no guarding or rigidity. EXTREMITIES: No clubbing, no edema, no cyanosis, 2+ pulses and upper and lower extremities. MUSCULOSKELETAL: Muscle strength and tone normal. SPINE: No scoliosis or deformity SKIN: No rashes CENTRAL NERVOUS SYSTEM: Alert and oriented -3. No focal deficits, tone is normal in all 4 extremities. PSYCHIATRIC: Alert and oriented -3. Appropriate affect. Intact judgment and insight. - Labs CBC & Chem 7: 02/28/18 07:26 02/28/18 07:26 Labs: Abnormal Lab Results - Last 24 Hours (Table) 02/27/18 02/27/18 02/27/18 Range/Units 12:14 17:12 20:39 WBC (3.8-10.6) k/uL Neutrophils # (1.3-7.7) k/uL Monocytes # (0-1.0) k/uL BUN (7-17) mg/dL POC Glucose (mg/dL) 299 H 196 H 320 H (75-99) mg/dL 02/28/18 02/28/18 02/28/18 Range/Units 02:11 07:03 07:26 WBC 22.1 H (3.8-10.6) k/uL Neutrophils # 16.0 H (1.3-7.7) k/uL Monocytes # 1.3 H (0-1.0) k/uL BUN (7-17) mg/dL POC Glucose (mg/dL) 194 H 106 H (75-99) mg/dL 02/28/18 02/28/18 Range/Units 07:26 11:24 WBC (3.8-10.6) k/uL Neutrophils # (1.3-7.7) k/uL Monocytes # (0-1.0) k/uL BUN 26 H (7-17) mg/dL POC Glucose (mg/dL) 198 H (75-99) mg/dL Microbiology - Last 24 Hours (Table) 02/20/18 11:50 Acid Fast Bacilli Smear - Final Bronchoalviolar Lavage - Left Acid Fast Bacilli Culture - Preliminary Assessment and Plan Assessment: Assessment: 1 acute COPD exacerbation and acute purulent tracheobronchitis. 2 COPD which is of a moderate severity at baseline with an FEV1 of 58% of predicted 3 history of smoking 4 hypothyroidism 5 history of depression 6 acute on chronic hypoxic respiratory failure, secondary to COPD and purulent tracheobronchitis. No evidence of focal pneumonia noted on the chest x-ray on admission. Patient had chronic stable apical pleural thickening. Recommendation: Patient is improved, cleared for discharge home today, patient is to be discharged on DuoNeb, Symbicort, prednisone 40 mg tapered over the next 2 weeks or until seen by us in the office, no need for any more antibiotics at this point. Patient should make an appointment with Dr. Zarate in the next one week. Time with Patient: Less than 30
[2018-02-28 12:11] VITALS: PULSE 94
[2018-02-28 14:50] LABS: Hemoglobin A1C 9.6 % (4.0-6.0)
--- NOTE | 2018-03-01 01:19 | P.DS ---
Providers Date of admission: 02/18/18 14:15 Expected date of discharge: 02/28/18 Attending physician: Heri Alexandra Consults: 02/18/18 13:50 Consult Physician Stat Consulting Provider: Dani Camarena Consult Reason/Comments: COPD exacerbation Do you want consulting provider notified?: Yes Primary care physician: Heri Alexandra [facility] Hospital Course: Discharge diagnosis 1. Acute COPD exacerbation with acute tracheobronchitis, status post bronchoscopy. Improved clinically. FLUID cultures showed no growth 2. Acute on chronic hypoxic respiratory failure 3. Steroid-induced hyperglycemia 4. Hyperlipidemia 5. Hypothyroidism 6. Obesity, BMI 31.6 7. History of nicotine dependence, recently quit smoking 3 months ago 8. Diabetes type 2. New diagnosis. His B A1c 9.6 now. 7.6, 2 months ago Hospital course Interval history: This is a 77-year-old female admitted with acute exacerbation COPD with acute tracheobronchitis and multiple other medical issues. Maintained on nebulized bronchodilators, IV steroids, Levaquin. Breathing slowly improving, did not require BiPAP during the night. Complains of exertional dyspnea with bedside commode. IV steroids dose increased. Blood sugars elevated. Bronchial cultures currently negative. Cytology negative for malignancy. 02/24/2018 Patient denied any worsening chest pain or shortness of breath. Able to sit in the bed today. No chest pain. No fever no chills. Patient is being maintained on antibiotics in the form of levofloxacin. BAL fluid cultures showed no growth. WBC 18.9 likely due to steroids. Patient still anxious otherwise. IV steroids have been changed to prednisone 40 mg daily. Pulmonary is following. 02/25/2018 Patient says that her breathing is better today. Not at baseline. Patient will be continued on IV Solu-Medrol and breathing treatments along with antibiotics. Still having significant leukocytosis. Pulmonary is following. Anticipate discharged to rehab once clinically improved. 02/26/2018 Patient's breathing status is much improved now. Able to ambulate without much short of breath. Patient refused to go to rehab .otherwise anticipate discharge home with home care likely next 24 hours. 02/27/2018 Patient's breathing status is much improved now and is stable to be discharged home. Otherwise blood sugar is still elevated patient was found have his B A1c 7.6 sometime in December 2017. Patient does not have any history of diabetes. Patient was started on Lantus and preprandial insulin dose. Diabetic education consult has been placed. Patient is being taken for insulin dosing. We will repeat h B A1c level. Anticipate discharge in next 24 hours with final plan regarding insulin dose and diabetic education. Otherwise no acute overnight issues. Patient was continued on IV Solu-Medrol breathing treatments and antibiotics in the form of levofloxacin. Breathing status improved slowly a gallardo is status post bronchoscopy and fluid cultures showed no growth. Otherwise patient is hyperglycemic due to diabetes and steroids. Patient was started on Lantus 20 units and metformin and recommended to follow with primary care physician in 1- 3 days. Glucometer has been supplied and diabetic education was provided. Otherwise patient is clinically much improved now saturating well on room air at rest. Patient does require nasal cannula oxygen with ambulation and at sleep. Otherwise patient is stable to be discharged home. PHYSICAL EXAMINATION: Patient is lying in the bed comfortably, no acute distress, awake alert and oriented.. HEENT: Normocephalic. Neck is supple. Pupils reactive. Nostrils clear. Oral cavity is moist. Ears reveal no drainage. Neck reveals no JVD, carotid bruits, or thyromegaly. CHEST EXAMINATION: Trachea is central. Symmetrical expansion. Prolonged expiration. Lung ramirez clear to auscultation and percussion. CARDIAC: Normal S1, S2 with no gallops. No murmurs ABDOMEN: Soft. Bowel sounds normal. No organomegaly. No abdominal bruits. Extremities: reveal no edema. No clubbing or cyanosis Neurologically awake, alert, oriented x3 with well-coordinated movements. No focal deficits noted Skin: No rash or skin lesions. Psychiatric: Coperative. Nonsuicidal Musculoskeletal: No joint swelling or deformity. Normal range of motion. Vital Signs - 24 hr 02/28/18 02/28/18 02/28/18 07:00 07:29 07:39 Temperature 97.8 F Pulse Rate 88 90 Pulse Rate [ 82 Pulse Oximetery ] Respiratory 18 Rate Blood Pressure 110/73 [Left Arm] O2 Sat by Pulse 93 L Oximetry 02/28/18 02/28/18 02/28/18 07:40 07:50 11:38 Temperature Pulse Rate 90 92 90 Pulse Rate [ Pulse Oximetery ] Respiratory Rate Blood Pressure [Left Arm] O2 Sat by Pulse Oximetry 02/28/18 11:49 Temperature Pulse Rate 94 Pulse Rate [ Pulse Oximetery ] Respiratory Rate Blood Pressure [Left Arm] O2 Sat by Pulse Oximetry Total time taken greater than 35 minutes including 18 minutes for counseling and coordination of care. Patient Condition at Discharge: Fair Plan - Discharge Summary Discharge Rx Participant: Yes New Discharge Prescriptions: New RX: predniSONE See Taper PO DAILY #30 tab RX: Citalopram Hydrobromide [CeleXA] 20 mg PO DAILY #30 tab RX: Theophylline 24 Hour [Ben-24] 300 mg PO DAILY #30 cap.er.24h Insulin Detemir [Levemir] 20 unit SQ HS 30 Days #1 vial RX: metFORMIN HCL [Glucophage Xr] 500 mg PO BID #60 tab Continue RX: Venlafaxine HCl [Effexor XR] 75 mg PO DAILY RX: Levothyroxine Sodium [Synthroid] 75 mcg PO DAILY RX: Umeclidinium Brm/Vilanterol Tr [Anoro Ellipta 62.5-25 Mcg INH] 1 puff INHALATION RT-DAILY RX: Montelukast [Singulair] 10 mg PO DAILY RX: Ipratropium-Albuterol Nebulize [Duoneb 0.5 mg-3 mg/3 ml Soln] 3 ml INHALATION RT-TID RX: Calcium Carbonate/Vitamin D3 [Calcium 500-Vit D3 200 Tablet] 1 tab PO DAILY RX: Ascorbic Acid [Vitamin C] 500 mg PO DAILY RX: [place]-3 Fatty Acids/Fish Oil [Fish Oil 1,000 mg Softgel] 1 cap PO DAILY RX: Cholecalciferol [Vitamin D3] 1,000 unit PO DAILY RX: Vitamin B Complex 1 cap PO DAILY RX: Vitamin E (Dl,Tocopheryl Acet) [Vitamin E] 400 unit PO DAILY RX: Promethazine HCl/Codeine [Prometh-Codein 6.25-10 mg/5 ml] 5 ml PO Q6H PRN PRN Reason: cough/congestion RX: Simvastatin [Zocor] 20 mg PO HS RX: guaiFENesin-DM 600/30MG [Mucinex Dm] 1 tab PO Q12HR Discharge Medication List RX: Ipratropium-Albuterol Nebulize [Duoneb 0.5 mg-3 mg/3 ml Soln] 3 ml INHALATION RT-TID 07/22/17 [History] RX: Levothyroxine Sodium [Synthroid] 75 mcg PO DAILY 07/22/17 [History] RX: Montelukast [Singulair] 10 mg PO DAILY 07/22/17 [History] RX: Umeclidinium Brm/Vilanterol Tr [Anoro Ellipta 62.5-25 Mcg INH] 1 puff INHALATION RT-DAILY 07/22/17 [History] RX: Venlafaxine HCl [Effexor XR] 75 mg PO DAILY 07/22/17 [History] RX: Ascorbic Acid [Vitamin C] 500 mg PO DAILY 09/10/17 [History] RX: Calcium Carbonate/Vitamin D3 [Calcium 500-Vit D3 200 Tablet] 1 tab PO DAILY 09/10/17 [History] RX: [place]-3 Fatty Acids/Fish Oil [Fish Oil 1,000 mg Softgel] 1 cap PO DAILY [History] RX: Cholecalciferol [Vitamin D3] 1,000 unit PO DAILY 01/22/18 [History] RX: Promethazine HCl/Codeine [Prometh-Codein 6.25-10 mg/5 ml] 5 ml PO Q6H PRN [History] RX: Simvastatin [Zocor] 20 mg PO HS 01/22/18 [History] RX: Vitamin B Complex 1 cap PO DAILY 01/22/18 [History] RX: Vitamin E (Dl,Tocopheryl Acet) [Vitamin E] 400 unit PO DAILY 01/22/18 [ History] RX: guaiFENesin-DM 600/30MG [Mucinex Dm] 1 tab PO Q12HR 02/18/18 [History] RX: Citalopram Hydrobromide [CeleXA] 20 mg PO DAILY #30 tab 02/27/18 [Rx] RX: Theophylline 24 Hour [Ben-24] 300 mg PO DAILY #30 cap.er.24h 02/27/18 [Rx] RX: predniSONE See Taper PO DAILY #30 tab 02/27/18 [Rx] Insulin Detemir [Levemir] 20 unit SQ HS 30 Days #1 vial 02/28/18 [Rx] RX: metFORMIN HCL [Glucophage Xr] 500 mg PO BID #60 tab 02/28/18 [Rx] Follow up Appointment(s)/Referral(s): Hua Kaye MD [STAFF PHYSICIAN] - 03/06/18 3:15 pm (WITH DR. CAMARENA) Heri Alexandra DO [Primary Care Provider] - 03/21/18 9:00 am [facility] Visiting Nurse, [NON-STAFF] - Discharge Disposition: HOME WITH HOME HEALTH SERVICES
--- NOTE | 2018-03-12 12:42 | CDI ---
Last Revision, October 2017 Documentation Clarification Form Date: 03/12/18 From: Rosa Farmer Phone: If you have a question regarding this query, please contact Ria Watson at [phone] between 8am and 5pm Admit Date: 02/18/2018 2:15:00 PM Patient Name: Sofia Green Visit Number: [id number] Discharge Date: ATTENTION: The Clinical Documentation Specialists (CDI) and [facility] Coding Staff appreciate your assistance in clarifying documentation. Please respond to the clarification below the line at the bottom and electronically sign. The CDI & [facility] Coding staff will review the response and follow-up if needed. Please note: Queries are made part of the Legal Health Record. If you have any questions, please contact the author of this message via ITS. Dr. Dani Zarate Patient was admitted for acute COPD exacerbation and acute tracheal bronchitis. Documentation in the PAP stain states chronic active bronchitis Patient had a bronchoscopy with BAL. Please clarify the acuity of bronchitis: Acute Acute on chronic Other (please specify) Clinically unable to determine Other, please specify Unable to determine Acute on chronic bronchitis MTDD
== END 2018-02-28 15:02 | disposition home health service (06) | DRG 166 ==
LOC: EC 12:01 → 4MS4W 14:15
PROVIDERS: ADMIT Family Medicine; ATTEND Family Medicine
PROC: 5A09357 Assistance with Respiratory Ventilation, Less than 24 Consecutive Hours, Continuous Positive Airway Pressure (ICD-10-PCS; 2018-02-18)
PROC: 0B988ZZ Drainage of Left Upper Lobe Bronchus, Via Natural or Artificial Opening Endoscopic (ICD-10-PCS; 2018-02-20)
PROC: 0B978ZZ Drainage of Left Main Bronchus, Via Natural or Artificial Opening Endoscopic (ICD-10-PCS; 2018-02-20)
PROC: 0B9B8ZZ Drainage of Left Lower Lobe Bronchus, Via Natural or Artificial Opening Endoscopic (ICD-10-PCS; 2018-02-20)
PROC: 0B9H8ZX Drainage of Lung Lingula, Via Natural or Artificial Opening Endoscopic, Diagnostic (ICD-10-PCS; principal; 2018-02-20 11:35)
PROC: 0B998ZZ Drainage of Lingula Bronchus, Via Natural or Artificial Opening Endoscopic (ICD-10-PCS; 2018-02-20 11:35)
DX: J44.1 Chronic obstructive pulmonary disease with (acute) exacerbation (principal); J96.21 Acute and chronic respiratory failure with hypoxia; E11.65 Type 2 diabetes mellitus with hyperglycemia; J44.0 Chronic obstructive pulmonary disease with (acute) lower respiratory infection; J20.9 Acute bronchitis, unspecified; E03.9 Hypothyroidism, unspecified; E66.9 Obesity, unspecified; E78.5 Hyperlipidemia, unspecified; F41.9 Anxiety disorder, unspecified; T38.0X5A Adverse effect of glucocorticoids and synthetic analogues, initial encounter; F17.201 Nicotine dependence, unspecified, in remission; F32.9 Major depressive disorder, single episode, unspecified; R25.1 Tremor, unspecified; D72.829 Elevated white blood cell count, unspecified; Z68.31 Body mass index [BMI] 31.0-31.9, adult; Z79.899 Other long term (current) drug therapy; Z90.710 Acquired absence of both cervix and uterus; Z90.49 Acquired absence of other specified parts of digestive tract; Z82.49 Family history of ischemic heart disease and other diseases of the circulatory system; Y92.009 Unspecified place in unspecified non-institutional (private) residence as the place of occurrence of the external cause
CPT/HCPCS: 31624; 31645; 36415; 71046; 80048; 80053; 82550; 82553; 83036; 83605; 83735; 83880; 84484; 85025; 85610; 85730; 87040; 87070; 87102; 87116; 87205; 87206; 87252; 87496; 87498; 87502; 87529; 87634; 87798; 88108; 88305; 93005; 94640; 94660; 94760; 96374; 99285

== ENCOUNTER → 2018-04-05 | Outpatient (CLI) | payer MEDICARE ==
[2018-04-05 19:45] LABS: Immunoglobulin E 3.43 IU/mL (0.00-114.00)
[2018-04-05 20:10] LABS: Alternaria alternata IgE <0.10 kU/L; Birch IgE <0.10 kU/L; Cat Epith & Dander IgE <0.10 kU/L; Cockroach IgE <0.10 kU/L; Dermato. farinae IgE <0.10 kU/L; Dog Dander IgE <0.10 kU/L; Elm IgE <0.10 kU/L; Maple (Box Elder) IgE <0.10 kU/L; Oak IgE <0.10 kU/L; Ragweed,Common IgE <0.10 kU/L; Red Top (Bentgrass) IgE <0.10 kU/L
== END | disposition home or self-care (01) ==
LOC: LABWHC1 11:56
PROVIDERS: ATTEND Internal Medicine Critical Care Medicine
DX: J18.9 Pneumonia, unspecified organism (principal); J44.9 Chronic obstructive pulmonary disease, unspecified; R06.02 Shortness of breath; R05 Cough
CPT/HCPCS: 36415; 82785; 86003

== ENCOUNTER 2018-05-30 19:32 | Emergency (ER) | payer MEDICARE ==
[2018-05-30 19:57] VITALS: RESP 18
[2018-05-30] MEDS ORDERED: ONDANSETRON ODT 8 MG TAB.RAPDIS PO STA (21:00)
[2018-05-30] MEDS ORDERED: SODIUM CHLORIDE 0.9% 500 ML IV STA (21:00)
[2018-05-30] MEDS ORDERED: KETOROLAC 30 MG/ML 1 ML VIAL IVP STA (21:00)
--- NOTE | 2018-05-30 21:47 | CT ---
EXAMINATION TYPE: CT abdomen pelvis wo con DATE OF EXAM: 05/30/2018 COMPARISON: HISTORY: Left side abdominal pain and nausea. CT DLP: 650.3 mGycm Automated exposure control for dose reduction was used. TECHNIQUE: Helical acquisition of images was performed from the lung bases through the pelvis. FINDINGS: There is patchy linear density at the lung bases consistent with scarring or atelectasis. There is no pleural effusion. Heart size is normal. Liver shows no focal defect. Gallbladder appears normal. Spleen appears normal. There is no pancreati c mass. Bile ducts are not dilated. There is no adrenal mass. Kidneys have normal size and contour. There is mild left-sided hydronephros is. There is 7 mm calculus at the left ureteropelvic junction. Abdominal aorta is atheromatous. There is no retroperitoneal adenopathy. I see no intestinal wall thickening. There are no dilated loops. There is no ascites. Appendix is not seen. There is no sign of appendicitis. I see no bony destructive process. There is mild facet arthr opathy in the lower lumbar spine. IMPRESSION: OBSTRUCTING CALCULUS AT THE LEFT URETEROPELVIC JUNCTION. PATCHY SCARRING AND ATELECTASIS AT THE LUNG BASES.
[2018-05-30 22:13] LABS: Basophils % (A) 0 %; Eosinophils # (A) 0.1 k/uL (0-0.7); Eosinophils % (A) 1 %; HCT 41.5 % (34.0-46.0); HGB 13.8 gm/dL (11.4-16.0); Lymphocytes # (A) 1.4 k/uL (1.0-4.8); Lymphocytes % (A) 8 %; MCH 32.9 pg (25.0-35.0); MCHC 33.3 g/dL (31.0-37.0); MCV 98.7 fL (80.0-100.0); Mean Platelet Volume 7.8; Monocytes # (A) 0.8 k/uL (0-1.0); Monocytes % (A) 5 %; Neutrophils % (A) 85 %; Platelet Count 274 k/uL (150-450); RDW 13.6 % (11.5-15.5); WBC 16.4 k/uL (3.8-10.6)
[2018-05-30 22:26] LABS: ALT 59 U/L (9-52); AST 33 U/L (14-36); Albumin 3.8 g/dL (3.5-5.0); Alkaline Phosphatase 62 U/L (38-126); Anion Gap 11 mmol/L; Blood Urea Nitrogen 16 mg/dL (7-17); Calcium 9.5 mg/dL (8.4-10.2); Carbon Dioxide 24 mmol/L (22-30); Chloride 106 mmol/L (98-107); Glucose 140 mg/dL (74-99); Lipase 23 U/L (23-300); Potassium 4.2 mmol/L (3.5-5.1); Sodium 141 mmol/L (137-145); Total Bilirubin 0.5 mg/dL (0.2-1.3)
[2018-05-30 23:12] LABS: Appearance,Urine Cloudy (Clear); Bilirubin,Urine Negative (Negative); Blood,Urine Large (Negative); Color,Urine Light Red; Glucose,Urine (UA) Negative (Negative); Ketones,Urine 1+ (Negative); Leukocyte Esterase,Urine Trace (Negative); Mucus,Urine Occasional /hpf; Nitrite,Urine Negative (Negative); Protein,Urine 1+ (Negative); RBC,Urine >182 /hpf (0-5); Specific Gravity,Urine 1.019 (1.001-1.035); Squamous Epithelial Cell,Urine 2 /hpf (0-4); Urobilinogen,Urine <2.0 mg/dL (<2.0); WBC,Urine 118 /hpf (0-5)
--- NOTE | 2018-05-30 23:14 | XR ---
EXAMINATION TYPE: XR KUB DATE OF EXAM: 05/30/2018 COMPARISON: NONE HISTORY: Left flank pain TECHNIQUE: 2 supine views FINDINGS: There is no sign of intestinal obstruction or pneumoperitoneum. Fecal pattern is normal. Th ere are no pathologic calcifications. There is no evidence of a mass. IMPRESSION: Nonacute abdomen.
[2018-05-30 23:51] LABS: Glucose,Whole Blood 135 mg/dL (75-99)
[2018-05-30] MEDS ORDERED: HYDROcodone/APAP 5-325MG 1 EACH TAB PO STA (23:57)
--- NOTE | 2018-05-31 01:07 | ED ---
Abdominal Pain HPI - General Chief Complaint: Abdominal Pain Stated Complaint: Abd Pain Source: patient Mode of arrival: wheelchair Limitations: no limitations - History of Present Illness Initial Comments: Dictation was produced using [employer] dictation software. please excuse any grammatical, word or spelling errors. Chief Complaint: 77-year-old female with past medical history of COPD , hyperlipidemia and thyroid disorder presents with left-sided flank pain. History of Present Illness: This dictation was performed 5 days after emergency room presentation. Dictation performed to the best of my knowledge of this visit at the time. Patient is a 77-year-old female with past medical history of COPD, hyperlipidemia and thyroid disorder presents with multiple days history of left-sided flank pain. Patient has reported blood in her urine. She reports pain as constant left-sided flank pain with radiation to the groin with episodic exacerbations. Denies any constitutional symptoms. The ROS documented in this emergency department record has been reviewed and confirmed by me. Those systems with pertinent positive or negative responses have been documented in the HPI. All other systems are other negative and/or noncontributory. - Related Data Home Medications Medication Instructions Recorded Confirmed Ipratropium-Albuterol Nebulize 3 ml INHALATION RT-TID 07/22/17 05/30/18 [Duoneb 0.5 mg-3 mg/3 ml Soln] Levothyroxine Sodium [Synthroid] 75 mcg PO DAILY 07/22/17 05/30/18 Montelukast [Singulair] 10 mg PO DAILY 07/22/17 05/30/18 Umeclidinium Brm/Vilanterol Tr 1 puff INHALATION RT-DAILY 07/22/17 05/30/18 [Anoro Ellipta 62.5-25 Mcg INH] Venlafaxine HCl [Effexor XR] 75 mg PO DAILY 07/22/17 05/30/18 Ascorbic Acid [Vitamin C] 500 mg PO DAILY 09/10/17 05/30/18 Calcium Carbonate/Vitamin D3 1 tab PO DAILY 09/10/17 05/30/18 [Calcium 500-Vit D3 200 Tablet] [place]-3 Fatty Acids/Fish Oil [Fish 1 cap PO DAILY 09/10/17 05/30/18 Oil 1,000 mg Softgel] Cholecalciferol [Vitamin D3] 1,000 unit PO DAILY 01/22/18 05/30/18 Simvastatin [Zocor] 20 mg PO HS 01/22/18 05/30/18 Vitamin B Complex 1 cap PO DAILY 01/22/18 05/30/18 Vitamin E (Dl,Tocopheryl Acet) 400 unit PO DAILY 01/22/18 05/30/18 [Vitamin E] Insulin Detemir [Levemir] See Protocol SQ HS 05/30/18 05/30/18 predniSONE 5 mg PO DAILY 05/30/18 05/30/18 Previous Rx's Medication Instructions Recorded Citalopram Hydrobromide [CeleXA] 20 mg PO DAILY #30 tab 02/27/18 Theophylline 24 Hour [Ben-24] 300 mg PO DAILY #30 cap.er.24h 02/27/18 HYDROcodone/APAP 5-325MG [[place] 1 tab PO Q4HR PRN 3 Days #12 tab 05/31/18 5-325] Ondansetron Odt [Zofran Odt] 4 mg PO Q8HR PRN #10 tab 05/31/18 Sulfamethox-Tmp 800-160Mg [Bactrim 1 tab PO Q12HR #8 tab 05/31/18 DS 800-160 mg] Allergies Allergy/AdvReac Type Severity Reaction Status Date / Time No Known Allergies Allergy Verified 05/30/18 20:59 Review of Systems ROS Statement: Those systems with pertinent positive or pertinent negative responses have been documented in the HPI. ROS Other: All systems not noted in ROS Statement are negative. Past Medical History Past Medical History: COPD, Hyperlipidemia, Thyroid Disorder Additional Past Medical History / Comment(s): home 02 2 lirers at hs and prn, past thyroid nodules(benign) History of Any Multi-Drug Resistant Organisms: None Reported, Other MDRO Past Surgical History: Appendectomy, Hysterectomy, Tonsillectomy Additional Past Surgical History / Comment(s): colonoscopy, one thyroid nodule removed from each side-bother were benign. Other surgeries include appendectomy , hysterectomy and tonsillectomy Past Anesthesia/Blood Transfusion Reactions: No Reported Reaction Past Psychological History: No Psychological Hx Reported Smoking Status: Former smoker Past Alcohol Use History: None Reported Past Drug Use History: None Reported - Past Family History Father Family Medical History: Myocardial Infarction ([place]) Additional Family Medical History / Comment(s): in 2009 from [place]. Mother Family Medical History: COPD Sister(s) Family Medical History: Cancer, COPD Additional Family Medical History / Comment(s): pt has two sisters who both had breast cancer. 1 sister has COPD. General Exam - General Exam Comments Initial Comments: PHYSICAL EXAM: General Impression: Alert and oriented x3, not in acute distress HEENT: Normocephalic atraumatic, extra-ocular movements intact, pupils equal and reactive to light bilaterally, mucous membranes moist. Cardiovascular: Heart regular rate and rhythm, S1&S2 audible, no murmurs, rubs or gallops Chest: Lungs clear to auscultation bilaterally, no rhonchi, no wheeze, no rales Abdomen: Bowel sounds present, abdomen soft, non-tender, non-distended, no organomegaly Musculoskeletal: Pulses present and equal in all extremities, no peripheral edema Motor: Power 5/5 bilaterally, no focal deficits noted Neurological: CN II-XII grossly intact, no focal motor or sensory deficits noted Skin: Intact with no visualized rashes Psych: Normal affect and mood Limitations: no limitations Course Vital Signs 05/30/18 05/30/18 05/31/18 19:55 22:59 01:24 Temperature 98.4 F 98.9 F Pulse Rate 89 88 98 Respiratory 18 18 18 Rate Blood Pressure 161/79 122/60 121/62 O2 Sat by Pulse 95 91 L 93 L Oximetry Medical Decision Making - Medical Decision Making ED course: Patient is a 77 year female who presents with chief complaint of acute left-sided flank pain. Vital signs upon arrival are within acceptable limits. Patient mildly hypertensive at 161/79. Laboratory evaluation tape were showing leukocytosis of 6.4. Normal hemoglobin. Cumbersome metabolic panel shows mild hyperglycemia 140. This is unremarkable. Urinalysis shows 182 red blood cells, 1+ ketonuria, 118 white blood cells. Computed tomography scan of the abdomen and pelvis without contrast was obtained showing 7 mm calculus at the left ureteropelvic junction showing mild left-sided hydronephrosis. Discussed patient case with urology on-call doctor Dr. Fay who recommended patient did not need to be admitted to the hospital and can be safely discharged with outpatient urology follow-up. Discussed my conversation with the urologist with the patient who is understandable and agreeable to discharge. Patient to be discharge with by mouth analgesia, antinausea medication and Bactrim. Patient is told to return to emergency Department with any worsening symptoms. Patient is satisfied with plan. - Lab Data Result diagrams: 05/30/18 21:53 05/30/18 21:53 Lab Results 05/30/18 05/30/18 05/30/18 Range/Units 21:53 21:53 22:06 WBC 16.4 H (3.8-10.6) k/uL RBC 4.20 (3.80-5.40) m/uL Hgb 13.8 (11.4-16.0) gm/dL Hct 41.5 (34.0-46.0) % MCV 98.7 (80.0-100.0) fL MCH 32.9 (25.0-35.0) pg MCHC 33.3 (31.0-37.0) g/dL RDW 13.6 (11.5-15.5) % Plt Count 274 (150-450) k/uL Neutrophils % 85 % Lymphocytes % 8 % Monocytes % 5 % Eosinophils % 1 % Basophils % 0 % Neutrophils # 14.0 H (1.3-7.7) k/uL Lymphocytes # 1.4 (1.0-4.8) k/uL Monocytes # 0.8 (0-1.0) k/uL Eosinophils # 0.1 (0-0.7) k/uL Basophils # 0.0 (0-0.2) k/uL Sodium 141 (137-145) mmol/L Potassium 4.2 (3.5-5.1) mmol/L Chloride 106 (98-107) mmol/L Carbon Dioxide 24 (22-30) mmol/L Anion Gap 11 mmol/L BUN 16 (7-17) mg/dL Creatinine 0.70 (0.52-1.04) mg/dL Est GFR (CKD-EPI)AfAm >90 (>60 ml/min/1.73 sqM) Est GFR (CKD-EPI)NonAf 85 (>60 ml/min/1.73 sqM) Glucose 140 H (74-99) mg/dL POC Glucose (mg/dL) (75-99) mg/dL POC Glu Genetic Coordinator ID Calcium 9.5 (8.4-10.2) mg/dL Total Bilirubin 0.5 (0.2-1.3) mg/dL AST 33 (14-36) U/L ALT 59 H (9-52) U/L Alkaline Phosphatase 62 (38-126) U/L Total Protein 6.0 L (6.3-8.2) g/dL Albumin 3.8 (3.5-5.0) g/dL Lipase 23 (23-300) U/L Urine Color Urine Appearance (Clear) Urine pH (5.0-8.0) Ur Specific [place] (1.001-1.035) Urine Protein (Negative) Urine Glucose (UA) (Negative) Urine Ketones (Negative) Urine Blood (Negative) Urine Nitrite (Negative) Urine Bilirubin (Negative) Urine Urobilinogen (<2.0) mg/dL Ur Leukocyte Esterase (Negative) Urine RBC (0-5) /hpf Urine WBC (0-5) /hpf Ur Squamous Epith Cells (0-4) /hpf Urine Mucus (None) /hpf Blood Type AB Positive Blood Type Recheck CABO Indicated Antibody Screen NEGATIVE Spec Expiration Date 05/30/2018230505/30/18 05/30/18 Range/Units 23:02 23:47 WBC (3.8-10.6) k/uL RBC (3.80-5.40) m/uL Hgb (11.4-16.0) gm/dL Hct (34.0-46.0) % MCV (80.0-100.0) fL MCH (25.0-35.0) pg MCHC (31.0-37.0) g/dL RDW (11.5-15.5) % Plt Count (150-450) k/uL Neutrophils % % Lymphocytes % % Monocytes % % Eosinophils % % Basophils % % Neutrophils # (1.3-7.7) k/uL Lymphocytes # (1.0-4.8) k/uL Monocytes # (0-1.0) k/uL Eosinophils # (0-0.7) k/uL Basophils # (0-0.2) k/uL Sodium (137-145) mmol/L Potassium (3.5-5.1) mmol/L Chloride (98-107) mmol/L Carbon Dioxide (22-30) mmol/L Anion Gap mmol/L BUN (7-17) mg/dL Creatinine (0.52-1.04) mg/dL Est GFR (CKD-EPI)AfAm (>60 ml/min/1.73 sqM) Est GFR (CKD-EPI)NonAf (>60 ml/min/1.73 sqM) Glucose (74-99) mg/dL POC Glucose (mg/dL) 135 H (75-99) mg/dL POC Glu Genetic Coordinator Mitzi Tobias Calcium (8.4-10.2) mg/dL Total Bilirubin (0.2-1.3) mg/dL AST (14-36) U/L ALT (9-52) U/L Alkaline Phosphatase (38-126) U/L Total Protein (6.3-8.2) g/dL Albumin (3.5-5.0) g/dL Lipase (23-300) U/L Urine Color Light Red Urine Appearance Cloudy H (Clear) Urine pH 6.0 (5.0-8.0) Ur Specific [place] 1.019 (1.001-1.035) Urine Protein 1+ H (Negative) Urine Glucose (UA) Negative (Negative) Urine Ketones 1+ H (Negative) Urine Blood Large H (Negative) Urine Nitrite Negative (Negative) Urine Bilirubin Negative (Negative) Urine Urobilinogen <2.0 (<2.0) mg/dL Ur Leukocyte Esterase Trace H (Negative) Urine RBC >182 H (0-5) /hpf Urine WBC 118 H (0-5) /hpf Ur Squamous Epith Cells 2 (0-4) /hpf Urine Mucus Occasional H (None) /hpf Blood Type Blood Type Recheck Antibody Screen Spec Expiration Date Disposition Clinical Impression: Nephrolithiasis Disposition: HOME SELF-CARE Condition: Fair Instructions: Kidney Stones (ED) Prescriptions: HYDROcodone/APAP 5-325MG [[place] 5-325] 1 tab PO Q4HR PRN 3 Days #12 tab PRN Reason: Pain Ondansetron Odt [Zofran Odt] 4 mg PO Q8HR PRN #10 tab PRN Reason: Nausea Sulfamethox-Tmp 800-160Mg [Bactrim DS 800-160 mg] 1 tab PO Q12HR #8 tab Is patient prescribed a controlled substance at d/c from ED?: Yes When asked, does pt state using other controlled substances?: No If prescribed controlled substance>3 days was MAPS reviewed?: Prescribed <3 Days Referrals: Heri Alexandra DO [Primary Care Provider] - 1-2 days David Fay MD [STAFF PHYSICIAN] - 1-2 days Time of Disposition: 01:07
[2018-05-31 01:25] VITALS: BP 121/62; PULSE 98; TEMP 98.9
== END 2018-05-31 01:24 | disposition home or self-care (01) ==
LOC: EC 19:32
DX: N13.2 Hydronephrosis with renal and ureteral calculous obstruction (principal); I10 Essential (primary) hypertension; D72.829 Elevated white blood cell count, unspecified; R73.9 Hyperglycemia, unspecified; E78.5 Hyperlipidemia, unspecified; J44.9 Chronic obstructive pulmonary disease, unspecified; E07.9 Disorder of thyroid, unspecified; Z87.891 Personal history of nicotine dependence; Z79.4 Long term (current) use of insulin; Z79.52 Long term (current) use of systemic steroids; Z79.899 Other long term (current) drug therapy; Z99.81 Dependence on supplemental oxygen; Z90.49 Acquired absence of other specified parts of digestive tract; Z82.49 Family history of ischemic heart disease and other diseases of the circulatory system
CPT/HCPCS: 36415; 93005; 86900; 86901; 80053; 83690; 85025; 86850; 81001; 87086; 74018; 74176; 99285; 96374; 96361; J1885

== ENCOUNTER 2018-06-09 15:16 | Observation (INO) | payer MEDICARE ==
[2018-06-09] MEDS ORDERED: SODIUM CHLORIDE 0.9% 1,000 ML IV STA (15:30)
[2018-06-09] MEDS ORDERED: KETOROLAC 30 MG/ML 1 ML VIAL IVP STA (15:30)
[2018-06-09 15:49] LABS: Basophils % (A) 0 %; Eosinophils # (A) 0.1 k/uL (0-0.7); Eosinophils % (A) 1 %; HCT 41.9 % (34.0-46.0); HGB 13.9 gm/dL (11.4-16.0); Lymphocytes # (A) 1.2 k/uL (1.0-4.8); Lymphocytes % (A) 7 %; MCH 32.9 pg (25.0-35.0); MCHC 33.2 g/dL (31.0-37.0); MCV 98.9 fL (80.0-100.0); Monocytes # (A) 0.7 k/uL (0-1.0); Monocytes % (A) 4 %; Neutrophils # (A) 15.2 k/uL (1.3-7.7); Neutrophils % (A) 88 %; Platelet Count 333 k/uL (150-450); RBC 4.24 m/uL (3.80-5.40); RDW 13.3 % (11.5-15.5); WBC 17.4 k/uL (3.8-10.6)
[2018-06-09] MEDS ORDERED: MORPHINE SULFATE 4 MG/ML SYRINGE IVP STA (15:50)
[2018-06-09] MEDS ORDERED: ONDANSETRON 4 MG/2 ML VIAL IVP STA (15:50)
[2018-06-09 16:06] LABS: ALT 58 U/L (9-52); AST 38 U/L (14-36); Albumin 3.9 g/dL (3.5-5.0); Alkaline Phosphatase 56 U/L (38-126); Amylase <30 U/L (30-110); Anion Gap 7 mmol/L; Blood Urea Nitrogen 19 mg/dL (7-17); Calcium 9.4 mg/dL (8.4-10.2); Carbon Dioxide 23 mmol/L (22-30); Chloride 110 mmol/L (98-107); Glucose 153 mg/dL (74-99); Lipase 18 U/L (23-300); Potassium 4.8 mmol/L (3.5-5.1); Sodium 140 mmol/L (137-145); Total Bilirubin 0.6 mg/dL (0.2-1.3); Total Protein 6.2 g/dL (6.3-8.2)
--- NOTE | 2018-06-09 16:24 | ED ---
Abdominal Pain HPI - General Source: patient, EMS, RN notes reviewed Mode of arrival: EMS Limitations: no limitations <Jorge Alberto Gilmore - Last Filed: 06/09/18 18:06> <Tangela Connell - Last Filed: 06/09/18 18:14> - General Chief Complaint: Abdominal Pain Stated Complaint: Flank Pain Time Seen by Provider: 06/09/18 15:29 - History of Present Illness Initial Comments: This a 77-year-old female presents emergency Department chief complaint of left flank pain. Patient states that she was seen here couple days ago for kidney stone and did follow-up with urology who scheduled her for procedure tomorrow. She states ever since morning she has had constant pain in the left flank region. She states that she tried her [place] and she had no relief. She states that the pain was controlled prior to this when she is taking [place] every 4 hours. Patient was seen here and found to have a 7 mm stone left UVJ region. Patient states that she's had some nausea denies any fever or chills. Patient states she was taking antibiotics for urinary tract infection. Culture was reviewed which showed no growth. (Jorge Alberto iGlmore) - Related Data Home Medications Medication Instructions Recorded Confirmed Ipratropium-Albuterol Nebulize 3 ml INHALATION RT-TID 07/22/17 05/30/18 [Duoneb 0.5 mg-3 mg/3 ml Soln] Levothyroxine Sodium [Synthroid] 75 mcg PO DAILY 07/22/17 05/30/18 Montelukast [Singulair] 10 mg PO DAILY 07/22/17 05/30/18 Umeclidinium Brm/Vilanterol Tr 1 puff INHALATION RT-DAILY 07/22/17 05/30/18 [Anoro Ellipta 62.5-25 Mcg INH] Venlafaxine HCl [Effexor XR] 75 mg PO DAILY 07/22/17 05/30/18 Ascorbic Acid [Vitamin C] 500 mg PO DAILY 09/10/17 05/30/18 Calcium Carbonate/Vitamin D3 1 tab PO DAILY 09/10/17 05/30/18 [Calcium 500-Vit D3 200 Tablet] [place]-3 Fatty Acids/Fish Oil [Fish 1 cap PO DAILY 09/10/17 05/30/18 Oil 1,000 mg Softgel] Cholecalciferol [Vitamin D3] 1,000 unit PO DAILY 01/22/18 05/30/18 Simvastatin [Zocor] 20 mg PO HS 01/22/18 05/30/18 Vitamin B Complex 1 cap PO DAILY 01/22/18 05/30/18 predniSONE 5 mg PO DAILY 05/30/18 05/30/18 Previous Rx's Medication Instructions Recorded Citalopram Hydrobromide [CeleXA] 20 mg PO DAILY #30 tab 02/27/18 Theophylline 24 Hour [Ben-24] 300 mg PO DAILY #30 cap.er.24h 02/27/18 HYDROcodone/APAP 5-325MG [[place] 1 tab PO Q4HR PRN 3 Days #12 tab 05/31/18 5-325] Allergies Allergy/AdvReac Type Severity Reaction Status Date / Time No Known Allergies Allergy Verified 06/07/18 12:04 Review of Systems ROS Other: All systems not noted in ROS Statement are negative. <Jorge Alberto Gilmore - Last Filed: 06/09/18 18:06> ROS Other: All systems not noted in ROS Statement are negative. <Tangela Connell - Last Filed: 06/09/18 18:14> ROS Statement: Those systems with pertinent positive or pertinent negative responses have been documented in the HPI. Past Medical History Past Medical History: COPD, Hyperlipidemia, Hypertension, Thyroid Disorder Additional Past Medical History / Comment(s): home 02 2L at hs and prn, past thyroid nodules, kidney stones. History of Any Multi-Drug Resistant Organisms: None Reported, Other MDRO Past Surgical History: Appendectomy, Hysterectomy, Tonsillectomy Additional Past Surgical History / Comment(s): colonoscopy, one thyroid nodule removed from each side-bother were benign. Other surgeries include appendectomy , hysterectomy and tonsillectomy Past Anesthesia/Blood Transfusion Reactions: No Reported Reaction Past Psychological History: No Psychological Hx Reported Smoking Status: Former smoker Past Alcohol Use History: None Reported Past Drug Use History: None Reported - Past Family History Father Family Medical History: [place] Inf[place]ction [place]) Additional Family Medical History / Comment(s): in 2009 from [place]. Mother Family Medical History: COPD Sister(s) Family Medical History: Cancer, COPD Additional Family Medical History / Comment(s): pt has two sisters who both had breast cancer. 1 sister has COPD. <Jorge Alberto Gilmore - Last Filed: 06/09/18 18:06> General Exam Limitations: no limitations General appearance: alert, in no apparent distress Head exam: Present: atraumatic, normocephalic, normal inspection Neck exam: Present: normal inspection. Absent: tenderness, meningismus, lymphadenopathy Respiratory exam: Present: normal lung sounds bilaterally. Absent: respiratory distress, wheezes, rales, rhonchi, stridor Cardiovascular Exam: Present: regular rate, normal rhythm, normal heart sounds. Absent: systolic murmur, diastolic murmur, rubs, gallop, clicks GI/Abdominal exam: Present: soft, normal bowel sounds. Absent: distended, tenderness, guarding, rebound, rigid Back exam: Present: CVA tenderness (L). Absent: CVA tenderness (R) Neurological exam: Present: alert, oriented X3, CN II-XII intact Skin exam: Present: warm, dry, intact, normal color. Absent: rash <Jorge Alberto Gilmore - Last Filed: 06/09/18 18:06> Vital Signs 06/09/18 06/09/18 15:19 16:36 Temperature 97.7 F Pulse Rate 85 86 Respiratory 18 16 Rate Blood Pressure 153/74 132/65 O2 Sat by Pulse 93 L 93 L Oximetry Medical Decision Making - Lab Data Result diagrams: 06/09/18 15:25 06/09/18 15:25 <Jorge Alberto Gilmore - Last Filed: 06/09/18 18:06> - Lab Data Result diagrams: 06/09/18 15:25 06/09/18 15:25 <Tangela Connell - Last Filed: 06/09/18 18:14> - Medical Decision Making Case discussed with Dr. Connell who discussed the case with Dr. Menchaca who recommends the patient be given Zosyn for possible urinary tract infection she will be admitted to observation for IV pain medicine, fluids and procedure tomorrow. (Jorge Alberto Gilmore) I saw and evaluated the patient. Patient with a known 7.1 mm UVJ stone, persistently worsening pain, anorexia, feeling unwell. Labs reveal normal kidney function, leukocytosis and urinary tract infection. A urine culture and Zosyn were ordered. Patient care was discussed with urology Dr. Betrus who is familiar with the patient. He accepts the patient to his service for observation with the plan for intervention tomorrow. (Tangela Connell) - Lab Data Lab Results 06/09/18 06/09/18 06/09/18 Range/Units 15:25 15:25 16:20 WBC 17.4 H (3.8-10.6) k/uL RBC 4.24 (3.80-5.40) m/uL Hgb 13.9 (11.4-16.0) gm/dL Hct 41.9 (34.0-46.0) % MCV 98.9 (80.0-100.0) fL MCH 32.9 (25.0-35.0) pg MCHC 33.2 (31.0-37.0) g/dL RDW 13.3 (11.5-15.5) % Plt Count 333 (150-450) k/uL Neutrophils % 88 % Lymphocytes % 7 % Monocytes % 4 % Eosinophils % 1 % Basophils % 0 % Neutrophils # 15.2 H (1.3-7.7) k/uL Lymphocytes # 1.2 (1.0-4.8) k/uL Monocytes # 0.7 (0-1.0) k/uL Eosinophils # 0.1 (0-0.7) k/uL Basophils # 0.0 (0-0.2) k/uL Sodium 140 (137-145) mmol/L Potassium 4.8 (3.5-5.1) mmol/L Chloride 110 H (98-107) mmol/L Carbon Dioxide 23 (22-30) mmol/L Anion Gap 7 mmol/L BUN 19 H (7-17) mg/dL Creatinine 0.90 (0.52-1.04) mg/dL Est GFR (CKD-EPI)AfAm 73 (>60 ml/min/1.73 sqM) Est GFR (CKD-EPI)NonAf 63 (>60 ml/min/1.73 sqM) Glucose 153 H (74-99) mg/dL Calcium 9.4 (8.4-10.2) mg/dL Total Bilirubin 0.6 (0.2-1.3) mg/dL AST 38 H (14-36) U/L ALT 58 H (9-52) U/L Alkaline Phosphatase 56 (38-126) U/L Total Protein 6.2 L (6.3-8.2) g/dL Albumin 3.9 (3.5-5.0) g/dL Amylase <30 L (30-110) U/L Lipase 18 L (23-300) U/L Urine Color Yellow Urine Appearance Clear (Clear) Urine pH 5.5 (5.0-8.0) Ur Specific [place] 1.022 (1.001-1.035) Urine Protein Trace H (Negative) Urine Glucose (UA) Negative (Negative) Urine Ketones 1+ H (Negative) Urine Blood Moderate H (Negative) Urine Nitrite Negative (Negative) Urine Bilirubin Negative (Negative) Urine Urobilinogen <2.0 (<2.0) mg/dL Ur Leukocyte Esterase Moderate H (Negative) Urine RBC 61 H (0-5) /hpf Urine WBC 17 H (0-5) /hpf Ur Squamous Epith Cells 2 (0-4) /hpf Amorphous Sediment Rare H (None) /hpf Hyaline Casts 1 (0-2) /lpf Urine Mucus Few H (None) /hpf Disposition <Jorge Alberto Gilmore M - Last Filed: 06/09/18 18:06> <Tangela Connell P - Last Filed: 06/09/18 18:14> Clinical Impression: Intractable abdominal pain, Ureteral calculi, UTI (urinary tract infection) Disposition: ADMITTED IP TO THIS HOSP Condition: Stable Referrals: Heri Alexandra DO [Primary Care Provider] - 1-2 days
[2018-06-09 16:43] LABS: Amorphous Sediment,Urine Rare /hpf; Appearance,Urine Clear (Clear); Bilirubin,Urine Negative (Negative); Blood,Urine Moderate (Negative); Color,Urine Yellow; Glucose,Urine (UA) Negative (Negative); Hyaline Casts,Urine 1 /lpf (0-2); Ketones,Urine 1+ (Negative); Leukocyte Esterase,Urine Moderate (Negative); Mucus,Urine Few /hpf; Nitrite,Urine Negative (Negative); PH, Urine 5.5 (5.0-8.0); Protein,Urine Trace (Negative); RBC,Urine 61 /hpf (0-5); Specific Gravity,Urine 1.022 (1.001-1.035); Squamous Epithelial Cell,Urine 2 /hpf (0-4); Urobilinogen,Urine <2.0 mg/dL (<2.0); WBC,Urine 17 /hpf (0-5)
--- NOTE | 2018-06-09 17:20 | XR ---
Abdomen HISTORY: Left flank pain, history of stones Frontal view of the abdomen on 2 images correlated to prior abdomen and CT abdomen pelvis 05/30/2018 Patchy densities present at the lung bases. Retained fecal debris present within the colon, bowel gas may obscure detail. There is a spinal curvature. No evident bowel obstruction or pneumoperitoneum. B one mineralization is within normal limits. Possible calculus at the level of the sacral ala on the l eft IMPRESSION: Basilar atelectasis, correlate for fecal stasis. Difficult to exclude ureteral calculus.
[2018-06-09] MEDS ORDERED: PIPERACILLIN-TAZOBACTAM 3.375 GM in DEXTROSE/WATER 1 50ML.BAG IVPB STA ×2 (18:05→18:09)
[2018-06-09] MEDS ORDERED: MORPHINE SULFATE 4 MG/ML SYRINGE IV PRN (18:08)
[2018-06-09] MEDS ORDERED: ONDANSETRON 4 MG/2 ML VIAL IVP PRN (18:08)
[2018-06-09] MEDS: SODIUM CHLORIDE 0.9% 1,000 ML IV SCH (18:30)
[2018-06-09] MEDS ORDERED: HYDROcodone/APAP 5-325MG 1 EACH TAB PO PRN (21:35)
[2018-06-10] MEDS: PIPERACILLIN-TAZOBACTAM 3.375 GM in DEXTROSE/WATER 1 50ML.BAG IVPB SCH ×3 (00:18→15:54)
[2018-06-10] MEDS ORDERED: LEVOTHYROXINE 75 MCG TAB PO SCH (06:30)
[2018-06-10] MEDS ORDERED: FORMOTEROL FUMARATE 20 MCG/2 ML NEBU INHALATION SCH (08:00)
[2018-06-10] MEDS: IPRATROPIUM-ALBUTEROL 3 ML NEB INHALATION SCH ×2 (08:18→16:36)
[2018-06-10 08:45] LABS: Basophils % (A) 0 %; Eosinophils # (A) 0.3 k/uL (0-0.7); Eosinophils % (A) 2 %; HCT 38.5 % (34.0-46.0); HGB 12.7 gm/dL (11.4-16.0); Lymphocytes % (A) 28 %; MCV 100.1 fL (80.0-100.0); Mean Platelet Volume 7.4; Monocytes # (A) 0.8 k/uL (0-1.0); Monocytes % (A) 8 %; Neutrophils # (A) 6.4 k/uL (1.3-7.7); Neutrophils % (A) 60 %; Platelet Count 292 k/uL (150-450); RBC 3.84 m/uL (3.80-5.40); RDW 13.2 % (11.5-15.5); WBC 10.7 k/uL (3.8-10.6)
[2018-06-10] MEDS ORDERED: MONTELUKAST 10 MG TAB PO SCH (09:00)
[2018-06-10] MEDS ORDERED: VENLAFAXINE HCL ER 75 MG CAP PO SCH (09:00)
[2018-06-10] MEDS ORDERED: CITALOPRAM HYDROBROMIDE 20 MG TAB PO SCH (09:00)
[2018-06-10] MEDS ORDERED: THEOPHYLLINE 24 HOUR 300 MG CAP.ER.24H PO SCH (09:00)
[2018-06-10] MEDS ORDERED: predniSONE 5 MG TAB PO SCH (09:00)
[2018-06-10] MEDS: SODIUM CHLORIDE 0.9% 1,000 ML IV SCH (09:35)
--- NOTE | 2018-06-10 11:53 | P.GSHP ---
History of Present Illness H&P Date: 06/10/18 Chief Complaint: Left flank pain The patient is a 77-year-old white female with recent left renal colic due to a 7 mm left UPJ calculus. She was scheduled to undergo ureteroscopic removal of the calculus on 06/10/2018. However, she developed intractable pain on June 09 and was admitted. - Constitutional Constitutional: Denies fever - Genitourinary (Female) Genitourinary: Reports flank pain, Reports kidney stones Past Medical History Past Medical History: COPD, Hyperlipidemia, Hypertension, Thyroid Disorder Additional Past Medical History / Comment(s): home 02 2L at hs and prn, past thyroid nodules, kidney stones. History of Any Multi-Drug Resistant Organisms: None Reported, Other MDRO Past Surgical History: Appendectomy, Hysterectomy, Tonsillectomy Additional Past Surgical History / Comment(s): colonoscopy, one thyroid nodule removed from each side-bother were benign. Other surgeries include appendectomy , hysterectomy and tonsillectomy Past Anesthesia/Blood Transfusion Reactions: No Reported Reaction Past Psychological History: No Psychological Hx Reported Additional Psychological History / Comment(s): lives with spouse. has home 02 and nebilizer Smoking Status: Former smoker Past Alcohol Use History: None Reported Additional Past Alcohol Use History / Comment(s): started smoking at age 22(1962 ), quit 2017 smoked 1 ppd Past Drug Use History: None Reported - Past Family History Father Family Medical History: Myocardial Infarction ([place]) Additional Family Medical History / Comment(s): in 2009 from [place]. Mother Family Medical History: COPD Sister(s) Family Medical History: Cancer, COPD Additional Family Medical History / Comment(s): pt has two sisters who both had breast cancer. 1 sister has COPD. Medications and Allergies Home Medications Medication Instructions Recorded Confirmed Type Ipratropium-Albuterol Nebulize 3 ml INHALATION RT-TID 07/22/17 06/10/18 History [Duoneb 0.5 mg-3 mg/3 ml Soln] Levothyroxine Sodium [Synthroid] 75 mcg PO DAILY 07/22/17 06/10/18 History Montelukast [Singulair] 10 mg PO DAILY 07/22/17 06/10/18 History Umeclidinium Brm/Vilanterol Tr 1 puff INHALATION RT-DAILY 07/22/17 06/10/18 History [Anoro Ellipta 62.5-25 Mcg INH] Venlafaxine HCl [Effexor XR] 75 mg PO DAILY 07/22/17 06/10/18 History Ascorbic Acid [Vitamin C] 500 mg PO DAILY 09/10/17 06/10/18 History Calcium Carbonate/Vitamin D3 1 tab PO DAILY 09/10/17 06/10/18 History [Calcium 500-Vit D3 200 Tablet] [place]-3 Fatty Acids/Fish Oil [Fish 1 cap PO DAILY 09/10/17 06/10/18 History Oil 1,000 mg Softgel] Cholecalciferol [Vitamin D3] 1,000 unit PO DAILY 01/22/18 06/10/18 History Simvastatin [Zocor] 20 mg PO HS 01/22/18 06/10/18 History Vitamin B Complex 1 cap PO DAILY 01/22/18 06/10/18 History Citalopram Hydrobromide [CeleXA] 20 mg PO DAILY #30 tab 02/27/18 06/10/18 Rx Theophylline 24 Hour [Ben-24] 300 mg PO DAILY #30 cap.er.24h 02/27/18 06/10/18 Rx predniSONE 5 mg PO DAILY 05/30/18 06/10/18 History HYDROcodone/APAP 5-325MG [[place] 1 tab PO Q4HR PRN 3 Days #12 tab 05/31/18 Rx 5-325] Allergies Allergy/AdvReac Type Severity Reaction Status Date / Time No Known Allergies Allergy Verified 06/10/18 09:29 Surgical - Exam Vital Signs Temp Pulse Resp BP Pulse Ox 97.7 F 85 18 153/74 93 L 06/09/18 15:19 06/09/18 15:19 06/09/18 15:19 06/09/18 15:19 06/09/18 15:19 - General well developed, well nourished, no distress - Respiratory normal respiratory effort - Abdomen Abdomen: soft, tender (Mild left lower quadrant tenderness to palpation), no masses, no guarding, no rigid, no rebound, no distended - Psychiatric oriented to time, oriented to person, oriented to place, speech is normal, memory intact Results - Labs 06/10/18 08:29 06/09/18 15:25 Abnormal Lab Results - Last 24 Hours (Table) 06/09/18 06/09/18 06/09/18 Range/Units 15:25 15:25 16:20 WBC 17.4 H (3.8-10.6) k/uL MCV (80.0-100.0) fL Neutrophils # 15.2 H (1.3-7.7) k/uL Chloride 110 H (98-107) mmol/L BUN 19 H (7-17) mg/dL Glucose 153 H (74-99) mg/dL AST 38 H (14-36) U/L ALT 58 H (9-52) U/L Total Protein 6.2 L (6.3-8.2) g/dL Amylase <30 L (30-110) U/L Lipase 18 L (23-300) U/L Urine Protein Trace H (Negative) Urine Ketones 1+ H (Negative) Urine Blood Moderate H (Negative) Ur Leukocyte Esterase Moderate H (Negative) Urine RBC 61 H (0-5) /hpf Urine WBC 17 H (0-5) /hpf Amorphous Sediment Rare H (None) /hpf Urine Mucus Few H (None) /hpf 06/10/18 Range/Units 08:29 WBC 10.7 H (3.8-10.6) k/uL MCV 100.1 H (80.0-100.0) fL Neutrophils # (1.3-7.7) k/uL Chloride (98-107) mmol/L BUN (7-17) mg/dL Glucose (74-99) mg/dL AST (14-36) U/L ALT (9-52) U/L Total Protein (6.3-8.2) g/dL Amylase (30-110) U/L Lipase (23-300) U/L Urine Protein (Negative) Urine Ketones (Negative) Urine Blood (Negative) Ur Leukocyte Esterase (Negative) Urine RBC (0-5) /hpf Urine WBC (0-5) /hpf Amorphous Sediment (None) /hpf Urine Mucus (None) /hpf Microbiology - Last 24 Hours (Table) 06/09/18 16:20 Urine Culture - Preliminary Urine,Voided Diabetes panel 06/09/18 Range/Units 15:25 Sodium 140 (137-145) mmol/L Potassium 4.8 (3.5-5.1) mmol/L Chloride 110 H (98-107) mmol/L Carbon Dioxide 23 (22-30) mmol/L BUN 19 H (7-17) mg/dL Creatinine 0.90 (0.52-1.04) mg/dL Glucose 153 H (74-99) mg/dL Calcium 9.4 (8.4-10.2) mg/dL AST 38 H (14-36) U/L ALT 58 H (9-52) U/L Alkaline Phosphatase 56 (38-126) U/L Total Protein 6.2 L (6.3-8.2) g/dL Albumin 3.9 (3.5-5.0) g/dL Calcium panel 06/09/18 Range/Units 15:25 Calcium 9.4 (8.4-10.2) mg/dL Albumin 3.9 (3.5-5.0) g/dL Pituitary panel 06/09/18 Range/Units 15:25 Sodium 140 (137-145) mmol/L Potassium 4.8 (3.5-5.1) mmol/L Chloride 110 H (98-107) mmol/L Carbon Dioxide 23 (22-30) mmol/L BUN 19 H (7-17) mg/dL Creatinine 0.90 (0.52-1.04) mg/dL Glucose 153 H (74-99) mg/dL Calcium 9.4 (8.4-10.2) mg/dL Adrenal panel 06/09/18 Range/Units 15:25 Sodium 140 (137-145) mmol/L Potassium 4.8 (3.5-5.1) mmol/L Chloride 110 H (98-107) mmol/L Carbon Dioxide 23 (22-30) mmol/L BUN 19 H (7-17) mg/dL Creatinine 0.90 (0.52-1.04) mg/dL Glucose 153 H (74-99) mg/dL Calcium 9.4 (8.4-10.2) mg/dL Total Bilirubin 0.6 (0.2-1.3) mg/dL AST 38 H (14-36) U/L ALT 58 H (9-52) U/L Alkaline Phosphatase 56 (38-126) U/L Total Protein 6.2 L (6.3-8.2) g/dL Albumin 3.9 (3.5-5.0) g/dL Assessment and Plan (1) Nephrolithiasis Current Visit: No Status: Acute Code(s): N20.0 - CALCULUS OF KIDNEY SNOMED Code(s): 31157149 Plan: The patient is admitted for pain control, and will undergo ureteroscopic removal of her calculus as planned.
[2018-06-10] MEDS ORDERED: LIDOCAINE 1% 20 ML VIAL (10MG/ML) FOR IV START INTRADERMA ONE (12:37)
[2018-06-10] MEDS ORDERED: IV FLUID CONTINUATION 1,000 ML IV ONE (13:12)
[2018-06-10] MEDS ORDERED: fentaNYL (PF) 50 MCG/ML 2 ML AMP ONE (13:28)
[2018-06-10] MEDS ORDERED: LIDOCAINE 1% INJ 10MG/ML (20 ML MDV) ONE (13:28)
[2018-06-10] MEDS ORDERED: SUCCINYLCHOLINE CHLORIDE 100 MG/5 ML SYR IV ONE (13:28)
[2018-06-10] MEDS ORDERED: PROPOFOL 10 MG/ML 20 ML VIAL IV ONE (13:28)
[2018-06-10] MEDS ORDERED: MIDAZOLAM 2 MG/2 ML VIAL ONE (13:28)
[2018-06-10] MEDS ORDERED: IOPAMIDOL-370 50ML BTL MISCELLANE ONE ×2 (13:46)
[2018-06-10] MEDS ORDERED: LACTATED RINGERS 1,000 ML IV ONE ×2 (13:54)
--- NOTE | 2018-06-10 14:40 | P.OP ---
Date of Procedure: 06/10/18 Preoperative Diagnosis: Left renal calculus Postoperative Diagnosis: Same Procedure(s) Performed: Cystoscopy, left retrograde pyelogram, left ureteroscopy with Holmium laser lithotripsy and stone basketing, left ureteral stent insertion Anesthesia: MO Surgeon: Sukumar Menchaca Estimated Blood Loss (ml): 10 IV fluids (ml): 300 Pathology: other (Calculus fragments, sent for chemical analysis) Condition: stable Disposition: PACU Indications for Procedure: The patient is a 77-year-old woman with no prior history of urolithiasis. She presents with a 10 day history of left lower back and abdominal pain. A computed tomography scan shows mild left hydronephrosis due to a 7 mm left UPJ calculus. She has elected to undergo ureteroscopic removal of the calculus. Operative Findings: Renal pelvic calculus, fragmented and basketed completely. Description of Procedure: The patient was taken to the operating room and placed in the dorsolithotomy position, with legs supported in Stevie stirrups. The external genitalia was prepped and draped sterilely. The 30 lens was used to introduce the 19-[place]ib[place]ian Stortz cystoscopic sheath through the urethra and into the bladder under direct vision. The bladder was examined in its entirety. Both ureteral orifices were normal anatomic location and configuration, and clear urine effluxed from both. No tumors or foreign bodies were seen. Using a 10-[place]ib[place]ian cone-tip catheter, a left retrograde pyelogram was performed. The course of the ureter appeared normal, though the proximal ureter appeared somewhat dilated. No filling defects were seen within the ureter. However, there was no evidence of mild left hydronephrosis, and a filling defect was noted likely representing the calculus. A 0.038 inch Glidewire was passed through the cystoscope. The left ureteral orifice was cannulated, and the Glidewire was advanced up to the left renal pelvis. The cystoscope was removed , and an 11/13-[place]iboutian ureteral access catheter was passed over the wire, up to the proximal ureter. The mini flexible ureteroscope was passed through the ureteral access catheter sheath and advanced under direct vision, up to the left renal pelvis. The calculus was identified. The 200 micron Holmium laser probe was passed through the ureteroscope, and lithotripsy was performed. A dusting technique was performed, but ultimately the calculus fragmented and a 1.9-Djiboutian nitinol basket was used to used to remove the calculus fragments. These were saved and sent for chemical analysis. After removing all visible calculus fragments, the Glidewire was passed through the ureteral access catheter sheath, which was removed. The Glidewire was then backloaded into the cystoscope, which was passed into the bladder. A 26 cm, 4.8-Djiboutian double-J ureteral stent was placed over the wire. Proper stent positioning was verified fluoroscopically and endoscopically. The bladder was emptied and the cystoscope removed. The patient tolerated the procedure well and was taken to the recovery room in stable condition.
--- NOTE | 2018-06-10 15:18 | FL ---
Fluoroscopy HISTORY: Stent placement 32 seconds fluoroscopy time supplied to the referring clinician. 2 intraoperative C-arm images docum ent the procedure. See dictated report from urology.
[2018-06-10 18:13] VITALS: TEMP 98.9
[2018-06-10 18:14] VITALS: RESP 18
[2018-06-10 18:20] VITALS: BP 122/69; PULSE 79
[2018-06-10] MEDS ORDERED: ATORVASTATIN 10 MG TAB PO SCH (21:00)
== END 2018-06-10 18:55 | disposition home or self-care (01) ==
LOC: EC 15:16 → 4MS4W 18:07
PROVIDERS: ADMIT Urology; ATTEND Urology
DX: N20.2 Calculus of kidney with calculus of ureter (principal); N39.0 Urinary tract infection, site not specified; J44.9 Chronic obstructive pulmonary disease, unspecified; I10 Essential (primary) hypertension; E78.5 Hyperlipidemia, unspecified; E04.2 Nontoxic multinodular goiter; Z87.442 Personal history of urinary calculi; Z99.81 Dependence on supplemental oxygen; Z90.710 Acquired absence of both cervix and uterus; Z90.89 Acquired absence of other organs; Z87.891 Personal history of nicotine dependence; Z79.890 Hormone replacement therapy; Z79.52 Long term (current) use of systemic steroids; Z79.899 Other long term (current) drug therapy; Z82.49 Family history of ischemic heart disease and other diseases of the circulatory system; Z82.5 Family history of asthma and other chronic lower respiratory diseases; Z80.3 Family history of malignant neoplasm of breast
CPT/HCPCS: 52356; 99285 ×2; 96365 ×2; 96375 ×4; 96361 ×3; 96366; 36415; 80053; 82150; 83690; 85025 ×2; 81001; 87086; 74420; 74018; G0378 ×2; C2625; C1758; C1769; C1894; J2250; J2270; J2405 ×2; J2001; J3010; J1885; J2543 ×2; J0330; J2704; J7512; Q9967

== ENCOUNTER → 2018-06-10 | Day surgery (SDC) | payer MEDICARE ==
[2018-06-07 12:34] VITALS: BMI 30.6
--- NOTE | 2018-06-09 08:26 | P.GSHP ---
History of Present Illness H&P Date: 06/09/18 Chief Complaint: Left lower back pain The patient is a 77-year-old woman with no prior history of urolithiasis. She presents with a 10 day history of left lower back and abdominal pain. A computed tomography scan shows mild left hydronephrosis due to a 7 mm left UPJ calculus. - Constitutional Constitutional: Denies chills, Denies fever - Gastrointestinal Gastrointestinal: Reports nausea, Denies vomiting - Genitourinary (Female) Genitourinary: Denies dysuria, Denies hematuria Past Medical History Past Medical History: COPD, Hyperlipidemia, Hypertension, Thyroid Disorder Additional Past Medical History / Comment(s): home 02 2L at hs and prn, past thyroid nodules, kidney stones. History of Any Multi-Drug Resistant Organisms: None Reported, Other MDRO Past Surgical History: Appendectomy, Hysterectomy, Tonsillectomy Additional Past Surgical History / Comment(s): colonoscopy, one thyroid nodule removed from each side-bother were benign. Other surgeries include appendectomy , hysterectomy and tonsillectomy Past Anesthesia/Blood Transfusion Reactions: No Reported Reaction Smoking Status: Former smoker - Past Family History Father Family Medical History: Myocardial Infarction ([place]) Additional Family Medical History / Comment(s): in 2009 from [place]. Mother Family Medical History: COPD Sister(s) Family Medical History: Cancer, COPD Additional Family Medical History / Comment(s): pt has two sisters who both had breast cancer. 1 sister has COPD. Medications and Allergies Home Medications Medication Instructions Recorded Confirmed Type Ipratropium-Albuterol Nebulize 3 ml INHALATION RT-TID 07/22/17 05/30/18 History [Duoneb 0.5 mg-3 mg/3 ml Soln] Levothyroxine Sodium [Synthroid] 75 mcg PO DAILY 07/22/17 05/30/18 History Montelukast [Singulair] 10 mg PO DAILY 07/22/17 05/30/18 History Umeclidinium Brm/Vilanterol Tr 1 puff INHALATION RT-DAILY 07/22/17 05/30/18 History [Anoro Ellipta 62.5-25 Mcg INH] Venlafaxine HCl [Effexor XR] 75 mg PO DAILY 07/22/17 05/30/18 History Ascorbic Acid [Vitamin C] 500 mg PO DAILY 09/10/17 05/30/18 History Calcium Carbonate/Vitamin D3 1 tab PO DAILY 09/10/17 05/30/18 History [Calcium 500-Vit D3 200 Tablet] [place]-3 Fatty Acids/Fish Oil [Fish 1 cap PO DAILY 09/10/17 05/30/18 History Oil 1,000 mg Softgel] Cholecalciferol [Vitamin D3] 1,000 unit PO DAILY 01/22/18 05/30/18 History Simvastatin [Zocor] 20 mg PO HS 01/22/18 05/30/18 History Vitamin B Complex 1 cap PO DAILY 01/22/18 05/30/18 History Citalopram Hydrobromide [CeleXA] 20 mg PO DAILY #30 tab 02/27/18 05/30/18 Rx Theophylline 24 Hour [Ben-24] 300 mg PO DAILY #30 cap.er.24h 02/27/18 05/30/18 Rx predniSONE 5 mg PO DAILY 05/30/18 05/30/18 History HYDROcodone/APAP 5-325MG [[place] 1 tab PO Q4HR PRN 3 Days #12 tab 05/31/18 Rx 5-325] Allergies Allergy/AdvReac Type Severity Reaction Status Date / Time No Known Allergies Allergy Verified 06/07/18 12:04 Surgical - Exam - General well developed, well nourished, no distress - Neck no masses, trachea midline - Respiratory normal respiratory effort, clear to auscultation - Cardiovascular Rhythm: regular Abnormal Heart Sounds: no systolic murmur, no diastolic murmur - Abdomen Abdomen: soft, tender (mild LLQ tenderness), no guarding, no rigid, no rebound - Psychiatric oriented to time, oriented to person, oriented to place, speech is normal, memory intact Assessment and Plan (1) Nephrolithiasis Status: Acute Code(s): N20.0 - CALCULUS OF KIDNEY SNOMED Code(s): 99466591 Plan: I had a lengthy discussion with the patient and her daughter regarding treatment of her 7 mm left UPJ calculus. Treatment options including ESWL versus ureteroscopy with laser lithotripsy. The calculus could not be seen on a plain radiograph, and for this reason I believe she is better suited for ureteroscopy with laser lithotripsy. The procedure was reviewed in detail, including potential risks. These include anesthesia, ureteral injury, and inability to successfully remove the calculus. The need for a postoperative ureteral stent was discussed, as was the possible need for a secondary treatment.
[~2018-06-10] MED LIST: DEXAMETHASONE SOD PHOSPHATE 10 MG/ML 1 ML VIAL IV ONE; HYDROmorphone 0.5 MG/0.5 ML SYRINGE IVP PRN; LACTATED RINGERS 1,000 ML IV SCH; LIDOCAINE 1% 20 ML VIAL (10MG/ML) FOR IV START INTRADERMA PRN; ONDANSETRON 4 MG/2 ML VIAL IVP ONE; ceFAZolin 1,000 MG in DEXTROSE/WATER 1 50ML.BAG IV ONE
== END ==
LOC: OR 12:00
PROVIDERS: ATTEND Urology
DX: Z53.9 Procedure and treatment not carried out, unspecified reason (principal)
CPT/HCPCS: 74420; 82365

== ENCOUNTER 2018-06-26 14:51 | Inpatient (IN) | payer MEDICARE ==
[2018-06-26] MEDS ORDERED: SODIUM CHLORIDE 0.9% 1,000 ML IV STA ×2 (15:08)
[2018-06-26] MEDS ORDERED: IPRATROPIUM 0.5 MG/2.5 ML NEBU INHALATION STA (15:08)
[2018-06-26] MEDS ORDERED: ALBUTEROL NEBULIZED 2.5 MG/3 ML INHALATION STA (15:08)
[2018-06-26] MEDS ORDERED: methylPREDNISolone SOD SUCCI 125 MG/2 ML VIAL IV STA (15:08)
[2018-06-26 15:29] LABS: Basophils % (A) 0 %; Eosinophils # (A) 0.3 k/uL (0-0.7); Eosinophils % (A) 2 %; HCT 44.4 % (34.0-46.0); HGB 14.2 gm/dL (11.4-16.0); Lymphocytes # (A) 1.3 k/uL (1.0-4.8); Lymphocytes % (A) 11 %; MCH 31.2 pg (25.0-35.0); MCHC 31.9 g/dL (31.0-37.0); MCV 97.7 fL (80.0-100.0); Mean Platelet Volume 7.8; Monocytes # (A) 0.5 k/uL (0-1.0); Monocytes % (A) 4 %; Neutrophils # (A) 10.1 k/uL (1.3-7.7); Neutrophils % (A) 82 %; Platelet Count 282 k/uL (150-450); RBC 4.54 m/uL (3.80-5.40); RDW 13.3 % (11.5-15.5); WBC 12.4 k/uL (3.8-10.6)
[2018-06-26 15:38] LABS: ALT 81 U/L (9-52); AST 29 U/L (14-36); Alkaline Phosphatase 66 U/L (38-126); Anion Gap 10 mmol/L; Blood Urea Nitrogen 17 mg/dL (7-17); Calcium 9.7 mg/dL (8.4-10.2); Carbon Dioxide 21 mmol/L (22-30); Chloride 108 mmol/L (98-107); Glucose 226 mg/dL (74-99); Magnesium 1.7 mg/dL (1.6-2.3); Potassium 4.3 mmol/L (3.5-5.1); Sodium 139 mmol/L (137-145); Total Bilirubin 0.4 mg/dL (0.2-1.3); Total Protein 6.2 g/dL (6.3-8.2)
--- NOTE | 2018-06-26 15:40 | XR ---
EXAMINATION TYPE: XR chest 1V portable DATE OF EXAM: 06/26/2018 COMPARISON: 02/18/2018 HISTORY: Shortness of breath TECHNIQUE: Single frontal view of the chest is obtained. FINDINGS: Hyperinflation suggests COPD. Atherosclerotic change aorta. Linear changes involving the l kerri bases suggestive of atelectasis. Apical pleural thickening. Arthropathy of the shoulders with dif fuse osteopenia. Atherosclerotic change aorta. Heart size normal. IMPRESSION: COPD. Linear changes involving the lung bases suggestive of scar or atelectasis.
[2018-06-26 15:42] LABS: Prothrombin Time 9.9 sec (9.0-12.0)
[2018-06-26 15:43] LABS: Creatine Kinase 36 U/L (30-135)
--- NOTE | 2018-06-26 15:47 | ED ---
General Adult HPI - General Chief complaint: Shortness of Breath Stated complaint: KITTY Time Seen by Provider: 06/26/18 15:01 Source: patient, family, RN notes reviewed, old records reviewed Mode of arrival: wheelchair Limitations: no limitations - History of Present Illness Initial comments: This is a 78-year-old female to the ER for evaluation regarding shortness of breath increased cough and increased congestion. Patient has significant history of COPD. Patient's been doing breathing treatments as well as daily steroids with no no improvement. 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 Patient was scheduled to see him tomorrow. Patient denies fevers, she admits to diaphoresis today. She states her activity levels severity decreased strength exacerbation, no hospitalizations Manjit for COPD. Patient's most recent hospitalization was secondary to kidney stone and that was about 2 weeks ago. - Related Data Home Medications Medication Instructions Recorded Confirmed Ipratropium-Albuterol Nebulize 3 ml INHALATION RT-TID 07/22/17 06/26/18 [Duoneb 0.5 mg-3 mg/3 ml Soln] Levothyroxine Sodium [Synthroid] 75 mcg PO DAILY 07/22/17 06/26/18 Montelukast [Singulair] 10 mg PO DAILY 07/22/17 06/26/18 Umeclidinium Brm/Vilanterol Tr 1 puff INHALATION RT-DAILY 07/22/17 06/26/18 [Anoro Ellipta 62.5-25 Mcg INH] Venlafaxine HCl [Effexor XR] 75 mg PO DAILY 07/22/17 06/26/18 Ascorbic Acid [Vitamin C] 500 mg PO DAILY 09/10/17 06/26/18 Calcium Carbonate/Vitamin D3 1 tab PO DAILY 09/10/17 06/26/18 [Calcium 500-Vit D3 200 Tablet] [place]-3 Fatty Acids/Fish Oil [Fish 1 cap PO DAILY 09/10/17 06/26/18 Oil 1,000 mg Softgel] Cholecalciferol [Vitamin D3] 1,000 unit PO DAILY 01/22/18 06/26/18 Simvastatin [Zocor] 20 mg PO HS 01/22/18 06/26/18 Vitamin B Complex 1 cap PO DAILY 01/22/18 06/26/18 predniSONE 5 mg PO DAILY 05/30/18 06/26/18 Previous Rx's Medication Instructions Recorded Citalopram Hydrobromide [CeleXA] 20 mg PO DAILY #30 tab 02/27/18 Theophylline 24 Hour [Ben-24] 300 mg PO DAILY #30 cap.er.24h 02/27/18 HYDROcodone/APAP 5-325MG [[place] 1 tab PO Q4HR PRN 3 Days #12 tab 05/31/18 5-325] Allergies Allergy/AdvReac Type Severity Reaction Status Date / Time No Known Allergies Allergy Verified 06/26/18 16:13 Review of Systems ROS Statement: Those systems with pertinent positive or pertinent negative responses have been documented in the HPI. ROS Other: All systems not noted in ROS Statement are negative. Past Medical History Past Medical History: COPD, Hyperlipidemia, Hypertension, Thyroid Disorder Additional Past Medical History / Comment(s): home 02 2L at hs and prn, past thyroid nodules, kidney stones. History of Any Multi-Drug Resistant Organisms: None Reported, Other MDRO Past Surgical History: Appendectomy, Hysterectomy, Tonsillectomy Additional Past Surgical History / Comment(s): colonoscopy, one thyroid nodule removed from each side-bother were benign. Other surgeries include appendectomy , hysterectomy and tonsillectomy Past Anesthesia/Blood Transfusion Reactions: No Reported Reaction Past Psychological History: No Psychological Hx Reported Smoking Status: Former smoker Past Alcohol Use History: None Reported Past Drug Use History: None Reported - Past Family History Father Family Medical History: Myocardial Infarction ([place]) Additional Family Medical History / Comment(s): in 2009 from [place]. Mother Family Medical History: COPD Sister(s) Family Medical History: Cancer, COPD Additional Family Medical History / Comment(s): pt has two sisters who both had breast cancer. 1 sister has COPD. General Exam Limitations: no limitations General appearance: alert, in no apparent distress, anxious Head exam: Present: atraumatic, normocephalic, normal inspection Eye exam: Present: normal appearance, PERRL, EOMI. Absent: scleral icterus, conjunctival injection, periorbital swelling ENT exam: Present: normal exam, mucous membranes moist Neck exam: Present: normal inspection. Absent: tenderness, meningismus, lymphadenopathy Respiratory exam: Present: respiratory distress, wheezes, accessory muscle use, decreased breath sounds, prolonged expiratory. Absent: rales, rhonchi, stridor Cardiovascular Exam: Present: normal rhythm, tachycardia, normal heart sounds. Absent: systolic murmur, diastolic murmur, rubs, gallop, clicks GI/Abdominal exam: Present: soft, normal bowel sounds. Absent: distended, tenderness, guarding, rebound, rigid Extremities exam: Present: normal inspection, full ROM, normal capillary refill. Absent: tenderness, pedal edema, joint swelling, calf tenderness Back exam: Present: normal inspection Neurological exam: Present: alert, oriented X3, CN II-XII intact Psychiatric exam: Present: normal affect, normal mood Skin exam: Present: warm, dry, intact, normal color. Absent: rash Course Vital Signs 06/26/18 06/26/18 06/26/18 14:58 16:00 16:09 Temperature 98.7 F Pulse Rate 102 H 93 89 Respiratory 20 18 Rate Blood Pressure 132/75 130/72 O2 Sat by Pulse 95 96 Oximetry - Reevaluation(s) Reevaluation #1: 06/26/18 15:46 Patient is improving gradually with prolonged breathing treatment Reevaluation #2: 06/26/18 15:46 Patient's medical record and prior hospitalizations are reviewed EKG Findings - EKG Comments: EKG Findings:: EKG shows sinus tachycardia rate 101, NV 1:30, QRS 70, QTc 471 Medical Decision Making - Medical Decision Making 78 female the ER positive shortness of breath and significant COPD exacerbation no fever. No pneumonia noted. Patient to be admitted for evaluation and treatment, monitoring of cardiopulmonary state breathing treatments, IV steroids and IV hydration - Lab Data Result diagrams: 06/26/18 15:10 06/26/18 15:10 Lab Results 06/26/18 06/26/18 06/26/18 Range/Units 15:10 15:10 15:10 WBC 12.4 H (3.8-10.6) k/uL RBC 4.54 (3.80-5.40) m/uL Hgb 14.2 (11.4-16.0) gm/dL Hct 44.4 (34.0-46.0) % MCV 97.7 (80.0-100.0) fL MCH 31.2 (25.0-35.0) pg MCHC 31.9 (31.0-37.0) g/dL RDW 13.3 (11.5-15.5) % Plt Count 282 (150-450) k/uL Neutrophils % 82 % Lymphocytes % 11 % Monocytes % 4 % Eosinophils % 2 % Basophils % 0 % Neutrophils # 10.1 H (1.3-7.7) k/uL Lymphocytes # 1.3 (1.0-4.8) k/uL Monocytes # 0.5 (0-1.0) k/uL Eosinophils # 0.3 (0-0.7) k/uL Basophils # 0.0 (0-0.2) k/uL PT (9.0-12.0) sec INR (<1.2) APTT (22.0-30.0) sec Sodium 139 (137-145) mmol/L Potassium 4.3 (3.5-5.1) mmol/L Chloride 108 H (98-107) mmol/L Carbon Dioxide 21 L (22-30) mmol/L Anion Gap 10 mmol/L BUN 17 (7-17) mg/dL Creatinine 0.70 (0.52-1.04) mg/dL Est GFR (CKD-EPI)AfAm >90 (>60 ml/min/1.73 sqM) Est GFR (CKD-EPI)NonAf 84 (>60 ml/min/1.73 sqM) Glucose 226 H (74-99) mg/dL Calcium 9.7 (8.4-10.2) mg/dL Magnesium 1.7 (1.6-2.3) mg/dL Total Bilirubin 0.4 (0.2-1.3) mg/dL AST 29 (14-36) U/L ALT 81 H (9-52) U/L Alkaline Phosphatase 66 (38-126) U/L Total Creatine Kinase 36 (30-135) U/L CK-MB (CK-2) 1.6 (0.0-2.4) ng/mL CK-MB (CK-2) Rel Index 4.4 Troponin I <0.012 (0.000-0.034) ng/mL NT-Pro-B Natriuret Pep pg/mL Total Protein 6.2 L (6.3-8.2) g/dL Albumin 4.0 (3.5-5.0) g/dL 06/26/18 06/26/18 Range/Units 15:10 15:10 WBC (3.8-10.6) k/uL RBC (3.80-5.40) m/uL Hgb (11.4-16.0) gm/dL Hct (34.0-46.0) % MCV (80.0-100.0) fL MCH (25.0-35.0) pg MCHC (31.0-37.0) g/dL RDW (11.5-15.5) % Plt Count (150-450) k/uL Neutrophils % % Lymphocytes % % Monocytes % % Eosinophils % % Basophils % % Neutrophils # (1.3-7.7) k/uL Lymphocytes # (1.0-4.8) k/uL Monocytes # (0-1.0) k/uL Eosinophils # (0-0.7) k/uL Basophils # (0-0.2) k/uL PT 9.9 (9.0-12.0) sec INR 1.0 (<1.2) APTT 22.0 (22.0-30.0) sec Sodium (137-145) mmol/L Potassium (3.5-5.1) mmol/L Chloride (98-107) mmol/L Carbon Dioxide (22-30) mmol/L Anion Gap mmol/L BUN (7-17) mg/dL Creatinine (0.52-1.04) mg/dL Est GFR (CKD-EPI)AfAm (>60 ml/min/1.73 sqM) Est GFR (CKD-EPI)NonAf (>60 ml/min/1.73 sqM) Glucose (74-99) mg/dL Calcium (8.4-10.2) mg/dL Magnesium (1.6-2.3) mg/dL Total Bilirubin (0.2-1.3) mg/dL AST (14-36) U/L ALT (9-52) U/L Alkaline Phosphatase (38-126) U/L Total Creatine Kinase (30-135) U/L CK-MB (CK-2) (0.0-2.4) ng/mL CK-MB (CK-2) Rel Index Troponin I (0.000-0.034) ng/mL NT-Pro-B Natriuret Pep 121 pg/mL Total Protein (6.3-8.2) g/dL Albumin (3.5-5.0) g/dL - Radiology Data Radiology results: report reviewed (Chest x-rays negative for acute disease), image reviewed Disposition Clinical Impression: Acute exacerbation of chronic obstructive airways disease Disposition: ADMITTED IP TO THIS HOSP Condition: Fair Is patient prescribed a controlled substance at d/c from ED?: No Referrals: Heri Alexandra DO [Primary Care Provider] - 1-2 days
[2018-06-26 15:56] LABS: Creatine Kinase MB 1.6 ng/mL (0.0-2.4); Troponin I <0.012 ng/mL (0.000-0.034)
[2018-06-26] MEDS ORDERED: SODIUM CHLORIDE 0.9% 1,000 ML IV SCH (16:30)
[2018-06-26] MEDS: methylPREDNISolone SOD SUCCI 125 MG/2 ML VIAL IV SCH (17:49)
[2018-06-26 17:57] VITALS: BMI 30.6
--- NOTE | 2018-06-26 18:07 | P.CNPUL ---
History of Present Illness Consult date: 06/26/18 Reason for consult: dyspnea, COPD History of present illness: A pleasant 78-year-old female patient with known history of COPD with an FEV1 of 58% of predicted has been maintained on Anoro Ellipta, budesonide neb last treatment , 5 mg of prednisone outpatient basis coming in today because of worsening shortness of breath chest tightness or wheezing secondary to COPD exacerbation. 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 At the same time she was exposed to fumes from tractor there was being used nearby. Since then she became more short of breath and she started using her albuterol neb last treatment more frequently without much help and ultimately she end up in the hospital as the patient was unable to perform activities of daily today life and she was getting short of breath even at rest. No hemoptysis. No pleurisy. Chest x-ray is free of any acute pulmonary infiltrates or pneumonia. She has not smoked for the past 7-8 months. She has had previous hospitalization for COPD exacerbation. Her serum IgE level is at 3.4. The patient is also having problems with kidney stones/nephrolithiasis and she has undergone a ureteroscopy and removal of calculus by Dr. Menchaca Review of Systems Constitutional: no fever, no night sweats, no significant weight loss, no exercise intolerance, weight gain secondary to chronic steroid use Eyes Eyes: no dry eyes, no vision change, no irritation ENMT Ears: no difficulty hearing, no ear pain Nose: no frequent nosebleeds, no nose problems, no sinus problems Mouth/Throat: no sore throat, no bleeding gums, no snoring, no dry mouth, no mouth ulcers, no oral abnormalities, no teeth problems Cardiovascular Cardiovascular: no chest pain, no arm pain on exertion, no shortness of breath when lying down, no palpitations, no known heart murmur, shortness of breath when walking Respiratory Respiratory: Increased shortness of breath and wheezing Gastrointestinal Gastrointestinal: no abdominal pain, no nausea, no vomiting, no constipation, normal appetite, no diarrhea, not vomiting blood, no dyspepsia, no GERD Genitourinary Genitourinary: no incontinence, no difficulty urinating, no hematuria, no increased frequency Musculoskeletal Musculoskeletal: no muscle aches, no muscle weakness, no arthralgias/joint pain , no back pain, no swelling in the extremities Integumentary Skin: no abnormal mole, no jaundice, no rashes, no laceration Neurologic Neurologic: no loss of consciousness, no weakness, no numbness, no seizures, no dizziness, no migraines, no headaches, no tremor Psychiatric Psych: no depression, no sleep disturbances, feeling safe in a relationship, no alcohol abuse, no anxiety, no hallucinations, no suicidal thoughts Endocrine Endocrine: no fatigue Hematologic/Lymphatic Hematologic/Lymphatic no swollen glands, no bruising, no excessive bleeding Allergic/Immunologic Allergy/Immunologic: no runny nose, no sinus pressure, no itching, no hives, no frequent sneezing Past Medical History Past Medical History: COPD, Hyperlipidemia, Hypertension, Thyroid Disorder Additional Past Medical History / Comment(s): home 02 2L at hs and prn, past thyroid nodules, kidney stones. History of Any Multi-Drug Resistant Organisms: None Reported, Other MDRO Past Surgical History: Appendectomy, Hysterectomy, Tonsillectomy Additional Past Surgical History / Comment(s): colonoscopy, one thyroid nodule removed from each side-bother were benign. Other surgeries include appendectomy , hysterectomy and tonsillectomy, lithrotripsy Past Anesthesia/Blood Transfusion Reactions: No Reported Reaction Past Psychological History: No Psychological Hx Reported Additional Psychological History / Comment(s): lives with spouse. has home 02 and nebulizer Smoking Status: Former smoker Past Alcohol Use History: None Reported Additional Past Alcohol Use History / Comment(s): started smoking at age 22(1962 ), quit 2017 smoked 1 ppd Past Drug Use History: None Reported - Past Family History Father Family Medical History: Myocardial Infarction ([place]) Additional Family Medical History / Comment(s): in 2009 from [place]. Mother Family Medical History: COPD Sister(s) Family Medical History: Cancer, COPD Additional Family Medical History / Comment(s): pt has two sisters who both had breast cancer. 1 sister has COPD. Medications and Allergies Home Medications Medication Instructions Recorded Confirmed Type Ipratropium-Albuterol Nebulize 3 ml INHALATION RT-TID 07/22/17 06/26/18 History [Duoneb 0.5 mg-3 mg/3 ml Soln] Levothyroxine Sodium [Synthroid] 75 mcg PO DAILY 07/22/17 06/26/18 History Montelukast [Singulair] 10 mg PO DAILY 07/22/17 06/26/18 History Umeclidinium Brm/Vilanterol Tr 1 puff INHALATION RT-DAILY 07/22/17 06/26/18 History [Anoro Ellipta 62.5-25 Mcg INH] Venlafaxine HCl [Effexor XR] 75 mg PO DAILY 07/22/17 06/26/18 History Ascorbic Acid [Vitamin C] 500 mg PO DAILY 09/10/17 06/26/18 History Calcium Carbonate/Vitamin D3 1 tab PO DAILY 09/10/17 06/26/18 History [Calcium 500-Vit D3 200 Tablet] [place]-3 Fatty Acids/Fish Oil [Fish 1 cap PO DAILY 09/10/17 06/26/18 History Oil 1,000 mg Softgel] Cholecalciferol [Vitamin D3] 1,000 unit PO DAILY 01/22/18 06/26/18 History Simvastatin [Zocor] 20 mg PO HS 01/22/18 06/26/18 History Vitamin B Complex 1 cap PO DAILY 01/22/18 06/26/18 History Citalopram Hydrobromide [CeleXA] 20 mg PO DAILY #30 tab 02/27/18 06/26/18 Rx Theophylline 24 Hour [Ben-24] 300 mg PO DAILY #30 cap.er.24h 02/27/18 06/26/18 Rx predniSONE 5 mg PO DAILY 05/30/18 06/26/18 History Allergies Allergy/AdvReac Type Severity Reaction Status Date / Time No Known Allergies Allergy Verified 06/26/18 16:13 Physical Exam Vitals: Vital Signs Temp Pulse Pulse Resp BP BP Pulse Ox 06/26/18 17:12 97.6 F 104 H 18 161/85 96 06/26/18 16:55 97.8 F 70 16 131/74 96 06/26/18 16:51 99 06/26/18 16:30 97 06/26/18 16:09 89 06/26/18 16:00 93 18 130/72 96 06/26/18 14:58 98.7 F 102 H 20 132/75 95 Intake and Output 06/26/18 06/26/18 06/26/18 06:59 14:59 22:59 Other: # Voids 1 Weight 83.461 kg 83.461 kg General Appearance no diaphoresis, no respiratory distress, speech not interrupted by breaths, no dyspnea, no pallor, not cachectic, well nourished, appears well, obesity HEENT no pursed lip breathing, no jugular venous distention, no mucous membrane cyanosis, no perioral cyanosis, mallampati classification: class 1, Mallampati Classification: Class 3 Chest diminished breath sounds along with prolongation of expiratory phase of breathing and diffuse expiratory wheezes heard throughout the lung ramirez bilaterally Heart no right ventricular heave, no distant heart sounds, no s3 gallop, (normal ) jugular vein: jugular venous distention: by 0cm GI bowel sounds: hyperactive (borborygmi), bowel sounds: diminished or absent Extremities no cyanosis, no clubbing, no edema Neurologic no decreased mental status, no somnolence, no confusion Skin Examination of the skin revealed no evidence of significant rashes, suspicious appearing nevi or other concerning lesions. Results - Laboratory Findings CBC and BMP: 06/26/18 15:10 06/26/18 15:10 PT/INR, D-dimer PT 9.9 sec (9.0-12.0) 06/26/18 15:10 INR 1.0 (<1.2) 06/26/18 15:10 Abnormal lab findings: Abnormal Labs 06/26/18 06/26/18 15:10 15:10 WBC 12.4 H Neutrophils # 10.1 H Chloride 108 H Carbon Dioxide 21 L Glucose 226 H ALT 81 H Total Protein 6.2 L - Diagnostic Findings Chest x-ray: image reviewed Assessment and Plan Plan: 1 acute COPD exacerbation with secondary shortness of breath. No evidence of any pneumonia. The exact cause for the exacerbation is not clear. Could be related to environmental exposures/respiratory irritants. She is not smoking for now and she is an ex-smoker. 2 COPD which is of a moderate severity at baseline with an FEV1 of 58% of predicted 3 history of smoking 4 hypothyroidism 5 history of depression 6 nephrolithiasis Plan The patient was given IV Solu Medrol 60 mg every 6 hours. Dose of 1 25 mg of IV seroma that was also given in the emergency department. Continue DuoNeb neb last treatment [id number]. Monitor blood sugar and use insulin for blood sugar control. Utilize empiric antibiotic coverage with Zithromax. Resume outpatient medication. We'll continue to follow.
[2018-06-26] MEDS: IPRATROPIUM-ALBUTEROL 3 ML NEB INHALATION SCH (18:55)
[2018-06-26] MEDS: FORMOTEROL FUMARATE 20 MCG/2 ML NEBU INHALATION SCH (18:55)
[2018-06-26 20:40] LABS: Glucose,Whole Blood 245 mg/dL (75-99)
[2018-06-26] MEDS: AZITHROMYCIN 500 MG TAB PO SCH (20:47)
[2018-06-26] MEDS: INSULIN ASPART 100 UNIT/ML 1 ML 10 ML VIAL SQ SCH (20:48)
[2018-06-26] MEDS: ATORVASTATIN 10 MG TAB PO SCH (20:48)
[2018-06-26] MEDS: IPRATROPIUM-ALBUTEROL 3 ML NEB INHALATION PRN (23:01)
[2018-06-27] MEDS: methylPREDNISolone SOD SUCCI 125 MG/2 ML VIAL IV SCH ×5 (00:21→23:52)
[2018-06-27] MEDS: LEVOTHYROXINE 75 MCG TAB PO SCH (06:21)
[2018-06-27] MEDS: FORMOTEROL FUMARATE 20 MCG/2 ML NEBU INHALATION SCH ×2 (07:21→19:58)
[2018-06-27] MEDS: IPRATROPIUM-ALBUTEROL 3 ML NEB INHALATION SCH ×4 (07:21→19:58)
[2018-06-27 07:22] LABS: Glucose,Whole Blood 233 mg/dL (75-99)
[2018-06-27] MEDS: INSULIN ASPART 100 UNIT/ML 1 ML 10 ML VIAL SQ SCH ×4 (07:59→21:16)
[2018-06-27] MEDS: CALCIUM CARB-VIT D 500MG-200UN 1 EACH TAB PO SCH (08:00)
[2018-06-27] MEDS: CITALOPRAM HYDROBROMIDE 20 MG TAB PO SCH (08:00)
[2018-06-27] MEDS: VENLAFAXINE HCL ER 75 MG CAP PO SCH (08:00)
[2018-06-27] MEDS: ENOXAPARIN 40 MG/0.4 ML SYRINGE SQ SCH (08:00)
[2018-06-27] MEDS: ASCORBIC ACID 500 MG TAB PO SCH (08:00)
[2018-06-27] MEDS: CHOLECALCIFEROL 1,000 UNIT TAB PO SCH (08:00)
[2018-06-27] MEDS: MONTELUKAST 10 MG TAB PO SCH (08:00)
[2018-06-27] MEDS: AZITHROMYCIN 500 MG TAB PO SCH (08:00)
[2018-06-27] MEDS: THEOPHYLLINE 24 HOUR 300 MG CAP.ER.24H PO SCH (08:01)
[2018-06-27] MEDS ORDERED: NON-FORMULARY DRUG (Vitamin B Complex [Vitamin B Complex] 1 CAP) PO SCH (09:00)
--- NOTE | 2018-06-27 10:42 | P.HPIM ---
History of Present Illness H&P Date: 06/27/18 Chief Complaint: Shortness of breath 78-year-old female who presented to the emergency room with a chief complaint of shortness of breath. Patient has a long standing history of COPD and has had multiple hospitalizations secondary to COPD exacerbation. However she quit smoking approximately 11 months ago and had been doing very well. The patient states she was outside with her who had an old tractor running and believes the fumes may have caused her exacerbation. The patient denies chest pain or pressure. Denies fever or chills. Denies sputum production. The patient also has a history of hyperlipidemia, hypertension, and hypothyroidism. The patient is prescribed home O2 at 2 L which she uses at night and as needed. The patient was recently admitted to the hospital and May 2018 due to kidney stones. She underwent a ureteroscopy and removal of calculus by Dr. Menchaca Chest x-ray: Findings consistent with COPD. Negative for an acute process. Laboratory data reveals white count of 12.4. Hemoglobin 14.2. Platelet count 282. INR 1.0. Sodium 139. Potassium 4.3. BUN 17. Creatinine 0.7. Glucose 206. BNP 121. Troponin negative 1. The patient was admitted to the hospital under the care of Dr. Alexandra. Consultations were placed to pulmonary. Review of Systems Those systems with pertinent positive or pertinent negative responses have been documented in the HPI Past Medical History Past Medical History: COPD, Hyperlipidemia, Hypertension, Thyroid Disorder Additional Past Medical History / Comment(s): home 02 2L at hs and prn, past thyroid nodules, kidney stones. History of Any Multi-Drug Resistant Organisms: None Reported, Other MDRO Past Surgical History: Appendectomy, Hysterectomy, Tonsillectomy Additional Past Surgical History / Comment(s): colonoscopy, one thyroid nodule removed from each side-bother were benign. Other surgeries include appendectomy , hysterectomy and tonsillectomy, lithrotripsy Past Anesthesia/Blood Transfusion Reactions: No Reported Reaction Past Psychological History: No Psychological Hx Reported Additional Psychological History / Comment(s): lives with spouse. has home 02 and nebulizer Smoking Status: Former smoker Past Alcohol Use History: None Reported Additional Past Alcohol Use History / Comment(s): started smoking at age 22(1962 ), quit 2017 smoked 1 ppd Past Drug Use History: None Reported - Past Family History Father Family Medical History: Myocardial Infarction ([place]) Additional Family Medical History / Comment(s): in 2009 from [place]. Mother Family Medical History: COPD Sister(s) Family Medical History: Cancer, COPD Additional Family Medical History / Comment(s): pt has two sisters who both had breast cancer. 1 sister has COPD. Medications and Allergies Home Medications Medication Instructions Recorded Confirmed Type Ipratropium-Albuterol Nebulize 3 ml INHALATION RT-TID 07/22/17 06/26/18 History [Duoneb 0.5 mg-3 mg/3 ml Soln] Levothyroxine Sodium [Synthroid] 75 mcg PO DAILY 07/22/17 06/26/18 History Montelukast [Singulair] 10 mg PO DAILY 07/22/17 06/26/18 History Umeclidinium Brm/Vilanterol Tr 1 puff INHALATION RT-DAILY 07/22/17 06/26/18 History [Anoro Ellipta 62.5-25 Mcg INH] Venlafaxine HCl [Effexor XR] 75 mg PO DAILY 07/22/17 06/26/18 History Ascorbic Acid [Vitamin C] 500 mg PO DAILY 09/10/17 06/26/18 History Calcium Carbonate/Vitamin D3 1 tab PO DAILY 09/10/17 06/26/18 History [Calcium 500-Vit D3 200 Tablet] [place]-3 Fatty Acids/Fish Oil [Fish 1 cap PO DAILY 09/10/17 06/26/18 History Oil 1,000 mg Softgel] Cholecalciferol [Vitamin D3] 1,000 unit PO DAILY 01/22/18 06/26/18 History Simvastatin [Zocor] 20 mg PO HS 01/22/18 06/26/18 History Vitamin B Complex 1 cap PO DAILY 01/22/18 06/26/18 History Citalopram Hydrobromide [CeleXA] 20 mg PO DAILY #30 tab 02/27/18 06/26/18 Rx Theophylline 24 Hour [Ben-24] 300 mg PO DAILY #30 cap.er.24h 02/27/18 06/26/18 Rx predniSONE 5 mg PO DAILY 05/30/18 06/26/18 History Allergies Allergy/AdvReac Type Severity Reaction Status Date / Time No Known Allergies Allergy Verified 06/26/18 16:13 Physical Exam Vitals: Vital Signs Temp Pulse Pulse Resp BP BP BP 06/27/18 07:39 90 06/27/18 07:21 88 06/27/18 07:00 98.9 F 91 16 121/70 06/27/18 04:00 98 06/26/18 23:14 96 06/26/18 23:01 92 06/26/18 21:40 98.5 F 98 18 110/58 06/26/18 19:19 106 H 06/26/18 19:08 106 H 06/26/18 18:56 106 H 06/26/18 17:12 97.6 F 104 H 18 161/85 06/26/18 16:55 97.8 F 70 16 131/74 06/26/18 16:51 99 06/26/18 16:30 97 06/26/18 16:09 89 06/26/18 16:00 93 18 130/72 06/26/18 14:58 98.7 F 102 H 20 132/75 Pulse Ox 06/27/18 07:39 06/27/18 07:21 06/27/18 07:00 92 L 06/27/18 04:00 06/26/18 23:14 06/26/18 23:01 06/26/18 21:40 92 L 06/26/18 19:19 06/26/18 19:08 06/26/18 18:56 92 L 06/26/18 17:12 96 06/26/18 16:55 96 06/26/18 16:51 06/26/18 16:30 06/26/18 16:09 06/26/18 16:00 96 06/26/18 14:58 95 Intake and Output 06/26/18 06/27/18 06/27/18 22:59 06:59 14:59 Intake Total 100 Balance 100 Intake: Oral 100 Other: Voiding Method Bedside Commode Bedside Commode # Voids 3 1 Weight 83.461 kg GENERAL: This is a 78-year-old female in no apparent distress at the time of examination. Pleasant and cooperative. HEENT: Head is atraumatic, normocephalic. Pupils are equal, round, and reactive to light. Sclerae anicteric. Conjunctivae are clear. Mucus membranes of the mouth are moist. Neck is supple. RESPIRATORY: Diminished. Expiratory wheezing throughout lung ramirez. Prolonged expiration. No rales or rhonchi noted. No use of accessory muscles. Patient maintaining oxygen saturation greater than 92%. No chest wall tenderness is noted on palpation or with deep breathing. CARDIOVASCULAR: Regular rate and rhythm. S1 and S2 noted. No systolic or diastolic murmur auscultated. No JVD noted. No S3 or S4 noted. GASTROINTESTINAL: No distention noted. Abdomen soft and round. Normal active bowel sounds auscultated x 4 quadrants. No pain or tenderness noted upon palpation. INTEGUMENTARY: No cyanosis. No jaundice. No rashes noted. No cellulitis noted. EXTREMITIES: 2+ peripheral pulses. No evidence of peripheral edema. No calf tenderness noted. NEUROLOGIC: Cranial nerves II-XII intact. PSYCHIATRIC: Awake, alert, and oriented X 3. Appropriate affect. Intact judgement and insight. Results CBC & Chem 7: 06/26/18 15:10 06/26/18 15:10 Labs: Abnormal Lab Results - Last 24 Hours (Table) 06/26/18 06/26/18 06/26/18 Range/Units 15:10 15:10 20:36 WBC 12.4 H (3.8-10.6) k/uL Neutrophils # 10.1 H (1.3-7.7) k/uL Chloride 108 H (98-107) mmol/L Carbon Dioxide 21 L (22-30) mmol/L Glucose 226 H (74-99) mg/dL POC Glucose (mg/dL) 245 H (75-99) mg/dL ALT 81 H (9-52) U/L Total Protein 6.2 L (6.3-8.2) g/dL 06/27/18 Range/Units 07:18 WBC (3.8-10.6) k/uL Neutrophils # (1.3-7.7) k/uL Chloride (98-107) mmol/L Carbon Dioxide (22-30) mmol/L Glucose (74-99) mg/dL POC Glucose (mg/dL) 233 H (75-99) mg/dL ALT (9-52) U/L Total Protein (6.3-8.2) g/dL Thrombosis Risk Factor Assmnt - Choose All That Apply Each Factor Represents 1 point: Abnormal pulmonary function (COPD) Each Risk Factor Represents 3 Points: Age 75 years or older Thrombosis Risk Factor Assessment Total Risk Factor Score: 4 Thrombosis Risk Factor Assessment Level: Moderate Risk Assessment and Plan Plan: ASSESSMENT: Acute exacerbation of chronic obstructive pulmonary disease Leukocytosis, likely reactive secondary to steroids, no evidence of infectious process at this time Steroid-induced hyperglycemia Recent ureteroscopy with removal of calculus, May 2018 Hypertension Hyperlipidemia Hypothyroidism History of nicotine dependence, in remission, patient quit smoking 11 months ago Obesity: BMI 30.6 PLAN: Pulmonary on consult. Appreciate recommendations and input Continue Zithromax 500mg daily per pulmonary Continue Solu-Medrol: 60 mg IV every 6 hours. Wean per pulmonary NovoLog sliding scale per standard protocol Continue nebulizer treatments Home meds as appropriate Monitor labs GI prophylaxis: Protonix 40 mg PO Daily DVT prophylaxis: Lovenox 40 mg subcu daily Monitor vital signs and address as appropriate Discharge planning: Patient to return home when stable Further recommendations pending patient's course Nurse practitioner note has been reviewed by physician. Signing provider agrees with the documented findings, assessment, and plan of care.
[2018-06-27 11:55] LABS: Glucose,Whole Blood 236 mg/dL (75-99)
--- NOTE | 2018-06-27 12:10 | P.PN ---
Subjective Progress Note Date: 06/27/18 Principal diagnosis: Acute exacerbation of chronic obstructive pulmonary disease A pleasant 78-year-old female patient with known history of COPD with an FEV1 of 58% of predicted has been maintained on Anoro Ellipta, budesonide neb last treatment , 5 mg of prednisone outpatient basis coming in today because of worsening shortness of breath chest tightness or wheezing secondary to COPD exacerbation. 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 At the same time she was exposed to fumes from tractor there was being used nearby. Since then she became more short of breath and she started using her albuterol neb last treatment more frequently without much help and ultimately she end up in the hospital as the patient was unable to perform activities of daily today life and she was getting short of breath even at rest. No hemoptysis. No pleurisy. Chest x-ray is free of any acute pulmonary infiltrates or pneumonia. She has not smoked for the past 7-8 months. She has had previous hospitalization for COPD exacerbation. Her serum IgE level is at 3.4. The patient is also having problems with kidney stones/nephrolithiasis and she has undergone a ureteroscopy and removal of calculus by Dr. Menchaca. Patient is seen today on 06/27/2018 in follow-up on the regular medical floor. She is currently awake and alert in no acute distress. She is breathing easier today as compared to yesterday. Still not quite back to her baseline. She is maintaining good O2 saturations in the 90s on 2 L/m per nasal cannula. She's currently on bronchodilators, steroids and empiric antibiotics in the form of azithromycin. Objective - Vital Signs Vital signs: Vital Signs Temp 98.9 F 06/27/18 07:00 Pulse 93 06/27/18 11:36 Resp 16 06/27/18 07:00 BP 121/70 06/27/18 07:00 Pulse Ox 92 L 06/27/18 07:00 Intake & Output 06/26/18 06/27/18 06/27/18 18:59 06:59 18:59 Intake Total 100 Balance 100 Weight 83.461 kg 83.461 kg Intake: Oral 100 Other: Voiding Method Bedside Commode Bedside Commode # Voids 1 1 1 - Exam General Appearance no diaphoresis, no respiratory distress, speech not interrupted by breaths, no dyspnea, no pallor, not cachectic, well nourished, appears well, obesity HEENT no pursed lip breathing, no jugular venous distention, no mucous membrane cyanosis, no perioral cyanosis, mallampati classification: class 1, Mallampati Classification: Class 3 Chest diminished breath sounds along with prolongation of expiratory phase of breathing and diffuse expiratory wheezes heard throughout the lung ramirez bilaterally Heart no right ventricular heave, no distant heart sounds, no s3 gallop, (normal ) jugular vein: jugular venous distention: by 0cm GI bowel sounds: hyperactive (borborygmi), bowel sounds: diminished or absent Extremities no cyanosis, no clubbing, no edema Neurologic no decreased mental status, no somnolence, no confusion Skin Examination of the skin revealed no evidence of significant rashes, suspicious appearing nevi or other concerning lesions. - Labs CBC & Chem 7: 06/26/18 15:10 06/26/18 15:10 Labs: Abnormal Lab Results - Last 24 Hours (Table) 06/26/18 06/26/18 06/26/18 Range/Units 15:10 15:10 20:36 WBC 12.4 H (3.8-10.6) k/uL Neutrophils # 10.1 H (1.3-7.7) k/uL Chloride 108 H (98-107) mmol/L Carbon Dioxide 21 L (22-30) mmol/L Glucose 226 H (74-99) mg/dL POC Glucose (mg/dL) 245 H (75-99) mg/dL ALT 81 H (9-52) U/L Total Protein 6.2 L (6.3-8.2) g/dL 06/27/18 06/27/18 Range/Units 07:18 11:51 WBC (3.8-10.6) k/uL Neutrophils # (1.3-7.7) k/uL Chloride (98-107) mmol/L Carbon Dioxide (22-30) mmol/L Glucose (74-99) mg/dL POC Glucose (mg/dL) 233 H 236 H (75-99) mg/dL ALT (9-52) U/L Total Protein (6.3-8.2) g/dL Assessment and Plan Assessment: Impression: 1 acute COPD exacerbation with secondary shortness of breath. No evidence of any pneumonia. The exact cause for the exacerbation is not clear. Could be related to environmental exposures/respiratory irritants. She is not smoking for now and she is an ex-smoker. 2 COPD which is of a moderate severity at baseline with an FEV1 of 58% of predicted 3 history of smoking 4 hypothyroidism 5 history of depression 6 nephrolithiasis Plan: The patient was seen and evaluated by Dr. Zarate. She is improved today as compared to yesterday but not quite back to her baseline. Plan for probable discharge within the next 24 hours. We'll continue with her current treatment plan. Increase her activity as tolerated. We'll continue to follow. I, the cosigning physician, performed a history & physical examination of the patient. Lungs sounds with faint end expiratory wheeze, diminished Maintaining good O2 saturations in the 90s on 2 L/m per nasal cannula. I discussed the assessment and plan of care with my nurse practitioner, Roya Tabares. I attest to the above note as dictated by her.
[2018-06-27 17:14] LABS: Glucose,Whole Blood 205 mg/dL (75-99)
[2018-06-27 21:04] LABS: Glucose,Whole Blood 208 mg/dL (75-99)
[2018-06-27] MEDS: ATORVASTATIN 10 MG TAB PO SCH (21:16)
[2018-06-27] MEDS: TEMAZEPAM 30 MG CAP PO PRN (21:20)
[2018-06-28] MEDS: LEVOTHYROXINE 75 MCG TAB PO SCH (06:31)
[2018-06-28] MEDS: methylPREDNISolone SOD SUCCI 125 MG/2 ML VIAL IV SCH ×4 (06:31→23:38)
[2018-06-28 07:00] LABS: Glucose,Whole Blood 197 mg/dL (75-99)
[2018-06-28] MEDS: FORMOTEROL FUMARATE 20 MCG/2 ML NEBU INHALATION SCH ×2 (07:46→19:22)
[2018-06-28] MEDS: IPRATROPIUM-ALBUTEROL 3 ML NEB INHALATION SCH ×4 (07:46→19:22)
[2018-06-28] MEDS: MONTELUKAST 10 MG TAB PO SCH (08:18)
[2018-06-28] MEDS: CALCIUM CARB-VIT D 500MG-200UN 1 EACH TAB PO SCH (08:18)
[2018-06-28] MEDS: CHOLECALCIFEROL 1,000 UNIT TAB PO SCH (08:18)
[2018-06-28] MEDS: VENLAFAXINE HCL ER 75 MG CAP PO SCH (08:18)
[2018-06-28] MEDS: CITALOPRAM HYDROBROMIDE 20 MG TAB PO SCH ×2 (08:18→08:23)
[2018-06-28] MEDS: ASCORBIC ACID 500 MG TAB PO SCH (08:18)
[2018-06-28] MEDS: THEOPHYLLINE 24 HOUR 300 MG CAP.ER.24H PO SCH (08:18)
[2018-06-28] MEDS: AZITHROMYCIN 500 MG TAB PO SCH (08:18)
[2018-06-28] MEDS: INSULIN ASPART 100 UNIT/ML 1 ML 10 ML VIAL SQ SCH ×4 (08:19→22:32)
[2018-06-28] MEDS: ENOXAPARIN 40 MG/0.4 ML SYRINGE SQ SCH (08:19)
[2018-06-28] MEDS: PANTOPRAZOLE 40 MG TABLET PO SCH (08:19)
--- NOTE | 2018-06-28 09:27 | P.PN ---
Subjective Progress Note Date: 06/28/18 78-year-old female who presented to the emergency room with a chief complaint of shortness of breath. Patient has a long standing history of COPD and has had multiple hospitalizations secondary to COPD exacerbation. However she quit smoking approximately 11 months ago and had been doing very well. The patient states she was outside with her who had an old tractor running and believes the fumes may have caused her exacerbation. The patient denies chest pain or pressure. Denies fever or chills. Denies sputum production. The patient also has a history of hyperlipidemia, hypertension, and hypothyroidism. The patient is prescribed home O2 at 2 L which she uses at night and as needed. The patient was recently admitted to the hospital and May 2018 due to kidney stones. She underwent a ureteroscopy and removal of calculus by Dr. Menchaca Chest x-ray: Findings consistent with COPD. Negative for an acute process. Laboratory data reveals white count of 12.4. Hemoglobin 14.2. Platelet count 282. INR 1.0. Sodium 139. Potassium 4.3. BUN 17. Creatinine 0.7. Glucose 206. BNP 121. Troponin negative 1. The patient was admitted to the hospital under the care of Dr. Alexandra. Consultations were placed to pulmonary. 06/28/2018 Patient seen and examined at the bedside on rounds with Dr. Alexandra. She states she is sleepy this morning but relates it to taking a sleeping pill last night. Patient continues to be short of breath. She is currently completing nebulizer treatment. She remains on IV steroids. She is on 3 L nasal cannula with oxygen saturations greater than 90%. Patient does report she still uses her oxygen at home nightly when needed. Cough is still present. Denies sputum production. She denies any chest pain or pressure. Objective - Vital Signs Vital signs: Vital Signs Temp 97.2 F L 06/28/18 07:00 Pulse 91 06/28/18 08:09 Resp 16 06/28/18 07:00 BP 136/72 06/28/18 07:00 Pulse Ox 92 L 06/28/18 07:46 Intake & Output 06/27/18 06/28/18 06/28/18 18:59 06:59 18:59 Intake Total 900 120 Balance 900 120 Weight 83.461 kg Intake: Oral 900 120 Other: Voiding Method Bedside Commode Toilet # Voids 2 1 - Exam GENERAL: This is a 78-year-old female in no apparent distress at the time of examination. Pleasant and cooperative. HEENT: Head is atraumatic, normocephalic. Pupils are equal, round, and reactive to light. Sclerae anicteric. Conjunctivae are clear. Mucus membranes of the mouth are moist. Neck is supple. RESPIRATORY: Coarse. His short neck very wheezing noted throughout lung ramirez. Prolonged expiration. No crackles auscultated. No use of accessory muscles. Patient maintaining oxygen saturation greater than 90%. No chest wall tenderness is noted on palpation or with deep breathing. CARDIOVASCULAR: Regular rate and rhythm. S1 and S2 noted. No systolic or diastolic murmur auscultated. No JVD noted. No S3 or S4 noted. GASTROINTESTINAL: No distention noted. Abdomen soft and round. Normal active bowel sounds auscultated x 4 quadrants. No pain or tenderness noted upon palpation. INTEGUMENTARY: No cyanosis. No jaundice. No rashes noted. No cellulitis noted. EXTREMITIES: 2+ peripheral pulses. No evidence of peripheral edema. No calf tenderness noted. NEUROLOGIC: Cranial nerves II-XII intact. PSYCHIATRIC: Awake, alert, and oriented X 3. Appropriate affect. Intact judgement and insight. - Labs CBC & Chem 7: 06/26/18 15:10 06/26/18 15:10 Labs: Abnormal Lab Results - Last 24 Hours (Table) 06/27/18 06/27/18 06/27/18 Range/Units 11:51 17:12 21:01 POC Glucose (mg/dL) 236 H 205 H 208 H (75-99) mg/dL 06/28/18 Range/Units 06:55 POC Glucose (mg/dL) 197 H (75-99) mg/dL Assessment and Plan Plan: ASSESSMENT: Acute exacerbation of chronic obstructive pulmonary disease Leukocytosis, likely reactive secondary to steroids, no evidence of infectious process at this time Steroid-induced hyperglycemia Recent ureteroscopy with removal of calculus, May 2018 Hypertension Hyperlipidemia Hypothyroidism History of nicotine dependence, in remission, patient quit smoking 11 months ago Obesity: BMI 30.6 PLAN: Pulmonary on consult. Appreciate recommendations and input Continue Zithromax 500mg daily per pulmonary Continue Solu-Medrol: 60 mg IV every 6 hours. Wean per pulmonary NovoLog sliding scale per steroid protocol Continue nebulizer treatments Incentive spirometer 10 times an hour Home meds as appropriate Monitor labs GI prophylaxis: Protonix 40 mg PO Daily DVT prophylaxis: Lovenox 40 mg subcu daily Monitor vital signs and address as appropriate Discharge planning: Patient to return home when stable Further recommendations pending patient's course Nurse practitioner note has been reviewed by physician. Signing provider agrees with the documented findings, assessment, and plan of care.
[2018-06-28] MEDS ORDERED: ALPRAZolam 0.5 MG TAB PO PRN (10:38)
[2018-06-28] MEDS ORDERED: FUROSEMIDE 10 MG/ML 4 ML VIAL IV STA (10:38)
[2018-06-28] MEDS: IPRATROPIUM-ALBUTEROL 3 ML NEB INHALATION PRN (10:45)
--- NOTE | 2018-06-28 10:53 | XR ---
EXAMINATION TYPE: XR chest 1V portable DATE OF EXAM: 06/28/2018 COMPARISON: 06/26/2018 HISTORY: Difficulty breathing TECHNIQUE: Single frontal view of the chest is obtained. FINDINGS: Bilateral subsegmental consolidation. Hyperinflation suggests COPD. Atherosclerotic change aorta. Arthropathy of the shoulders. No pneumothorax or interstitial edema. IMPRESSION: 1. Bilateral lower lobe infiltrate.
[2018-06-28 11:07] LABS: Theophylline 8.9 ug/mL
--- NOTE | 2018-06-28 12:21 | P.PN ---
Subjective Progress Note Date: 06/28/18 A pleasant 78-year-old female patient with known history of COPD with an FEV1 of 58% of predicted has been maintained on Anoro Ellipta, budesonide neb last treatment , 5 mg of prednisone outpatient basis coming in today because of worsening shortness of breath chest tightness or wheezing secondary to COPD exacerbation. 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 At the same time she was exposed to fumes from tractor there was being used nearby. Since then she became more short of breath and she started using her albuterol neb last treatment more frequently without much help and ultimately she end up in the hospital as the patient was unable to perform activities of daily today life and she was getting short of breath even at rest. No hemoptysis. No pleurisy. Chest x-ray is free of any acute pulmonary infiltrates or pneumonia. She has not smoked for the past 7-8 months. She has had previous hospitalization for COPD exacerbation. Her serum IgE level is at 3.4. The patient is also having problems with kidney stones/nephrolithiasis and she has undergone a ureteroscopy and removal of calculus by Dr. Menchaca. Patient is seen today on 06/27/2018 in follow-up on the regular medical floor. She is currently awake and alert in no acute distress. She is breathing easier today as compared to yesterday. Still not quite back to her baseline. She is maintaining good O2 saturations in the 90s on 2 L/m per nasal cannula. She's currently on bronchodilators, steroids and empiric antibiotics in the form of azithromycin. On 06/28/2018, the patient is having more difficulty in breathing. She woke up fine however at around 10:00 AM the patient acutely became short of breath and bronchospastic and wheezy. The exact cause is not clear. I immediately attended on this patient and I find this patient anxious, bronchospastic, cough and she has a congested cough and she is unable to bring up much sputum. A stat chest x-ray was done which atelectatic changes in the lung bases with some limited infiltration. The patient's pulse ox remained around 94% of these about 2 by nasal cannula. She was found to be tachycardic with a heart rate going as high as 111, sinus. IV fluids to KVO. No signs of any significant fluid overload. Objective - Vital Signs Vital signs: Vital Signs Temp 97.2 F L 06/28/18 07:00 Pulse 111 H 06/28/18 10:55 Resp 20 06/28/18 10:21 BP 131/66 06/28/18 10:21 Pulse Ox 94 L 06/28/18 10:21 Intake & Output 06/27/18 06/28/18 06/28/18 18:59 06:59 18:59 Intake Total 900 120 Balance 900 120 Weight 83.461 kg Intake: Oral 900 120 Other: Voiding Method Bedside Commode Toilet # Voids 2 1 - Exam General Appearance no diaphoresis, no respiratory distress, speech not interrupted by breaths, no dyspnea, no pallor, not cachectic, well nourished, appears well, obesity HEENT no pursed lip breathing, no jugular venous distention, no mucous membrane cyanosis, no perioral cyanosis, mallampati classification: class 1, Mallampati Classification: Class 3 Chest diminished breath sounds along with prolongation of expiratory phase of breathing and diffuse expiratory wheezes heard throughout the lung ramirez bilaterally Heart no right ventricular heave, no distant heart sounds, no s3 gallop, (normal ) jugular vein: jugular venous distention: by 0cm GI bowel sounds: hyperactive (borborygmi), bowel sounds: diminished or absent Extremities no cyanosis, no clubbing, no edema Neurologic no decreased mental status, no somnolence, no confusion Skin Examination of the skin revealed no evidence of significant rashes, suspicious appearing nevi or other concerning lesions. - Labs CBC & Chem 7: 06/26/18 15:10 06/26/18 15:10 Labs: Abnormal Lab Results - Last 24 Hours (Table) 06/26/18 06/27/18 06/27/18 Range/Units 15:10 17:12 21:01 POC Glucose (mg/dL) 205 H 208 H (75-99) mg/dL TSH 0.455 L (0.465-4.680) mIU/L 06/28/18 Range/Units 06:55 POC Glucose (mg/dL) 197 H (75-99) mg/dL TSH (0.465-4.680) mIU/L Assessment and Plan Plan: 1 acute COPD exacerbation with secondary shortness of breath. After some initial improvement, the patient got worse and currently she is having increased dyspnea cough chest that is a wheezing. Chest x-ray shows some limited infiltrates in lung bases bilaterally. 2 COPD which is of a moderate severity at baseline with an FEV1 of 58% of predicted 3 history of smoking 4 hypothyroidism 5 history of depression 6 nephrolithiasis Plan The patient was given IV Solu Medrol 60 mg every 6 hours. Continue bronchodilators. Switch this patient to oral Levaquin. 40 mg of IV Lasix stat. Check theophylline levels. Xanax for increased anxiety. We'll continue to follow.
[2018-06-28 12:33] LABS: Glucose,Whole Blood 364 mg/dL (75-99)
[2018-06-28] MEDS ORDERED: INSULIN ASPART 100 UNIT/ML 1 ML 10 ML VIAL SQ ONE (12:44)
[2018-06-28] MEDS: LEVOFLOXACIN 750 MG TAB PO SCH (13:17)
[2018-06-28 15:47] LABS: Glucose,Whole Blood 322 mg/dL (75-99)
[2018-06-28 17:30] LABS: Glucose,Whole Blood 237 mg/dL (75-99)
[2018-06-28 20:53] LABS: Glucose,Whole Blood 254 mg/dL (75-99)
[2018-06-28] MEDS: ATORVASTATIN 10 MG TAB PO SCH (22:32)
[2018-06-28] MEDS: TEMAZEPAM 30 MG CAP PO PRN (22:32)
[2018-06-28] MEDS: INSULIN DETEMIR 100 UNIT/ML 10 ML VIAL SQ SCH (22:33)
[2018-06-29] MEDS: methylPREDNISolone SOD SUCCI 125 MG/2 ML VIAL IV SCH ×4 (06:57→23:50)
[2018-06-29] MEDS: LEVOTHYROXINE 75 MCG TAB PO SCH (06:58)
[2018-06-29 06:59] LABS: Glucose,Whole Blood 207 mg/dL (75-99)
[2018-06-29] MEDS: FORMOTEROL FUMARATE 20 MCG/2 ML NEBU INHALATION SCH ×2 (07:22→19:51)
[2018-06-29] MEDS: IPRATROPIUM-ALBUTEROL 3 ML NEB INHALATION SCH ×4 (07:22→19:52)
[2018-06-29] MEDS: INSULIN ASPART 100 UNIT/ML 1 ML 10 ML VIAL SQ SCH ×4 (09:09→21:42)
[2018-06-29] MEDS: CALCIUM CARB-VIT D 500MG-200UN 1 EACH TAB PO SCH (09:11)
[2018-06-29] MEDS: ENOXAPARIN 40 MG/0.4 ML SYRINGE SQ SCH (09:11)
[2018-06-29] MEDS: ASCORBIC ACID 500 MG TAB PO SCH (09:11)
[2018-06-29] MEDS: CHOLECALCIFEROL 1,000 UNIT TAB PO SCH (09:11)
[2018-06-29] MEDS: PANTOPRAZOLE 40 MG TABLET PO SCH (09:11)
[2018-06-29] MEDS: VENLAFAXINE HCL ER 75 MG CAP PO SCH (09:12)
[2018-06-29] MEDS: THEOPHYLLINE 24 HOUR 300 MG CAP.ER.24H PO SCH (09:12)
[2018-06-29] MEDS: MONTELUKAST 10 MG TAB PO SCH (09:12)
[2018-06-29 11:47] LABS: Glucose,Whole Blood 337 mg/dL (75-99)
[2018-06-29] MEDS: LEVOFLOXACIN 750 MG TAB PO SCH (12:26)
[2018-06-29] MEDS ORDERED: FUROSEMIDE 10 MG/ML 2 ML VIAL IV ONE (12:31)
[2018-06-29] MEDS ORDERED: INSULIN ASPART 100 UNIT/ML 1 ML 10 ML VIAL SQ ONE (12:37)
--- NOTE | 2018-06-29 13:21 | P.PN ---
Subjective 78-year-old pleasant female was admitted for COPD exacerbation patient is presently on 3 L of oxygen and still wheezing. Patient is also being treated for possible bilateral lower lobe pneumonia with levofloxacin. Patient did receive Lasix yesterday when she had an episode of acute hypoxemia. Patient is still wheezing significantly. Although her shortness of breath apparently improved Constitutional: Denied any fatigue denied any fever. Cardio vascular: denied any chest pain, palpitations Gastrointestinal denied any nausea vomiting Pulmonary: As mentioned in HPI Neurologic denied any new focal deficits Objective - Vital Signs Vital signs: Vital Signs Temp 97.8 F 06/29/18 06:18 Pulse 57 L 06/29/18 12:55 Resp 23 06/29/18 12:55 BP 136/66 06/29/18 12:55 Pulse Ox 91 L 06/29/18 12:55 Intake & Output 06/28/18 06/29/18 06/29/18 18:59 06:59 18:59 Other: Voiding Method Toilet # Voids 3 2 # Bowel Movements 0 - Exam PHYSICAL EXAMINATION: GENERAL: The patient is alert and oriented x3, not in any acute distress. Well developed, well nourished. HEENT: Pupils are round and equally reacting to light. EOMI. No scleral icterus. No conjunctival pallor. Normocephalic, atraumatic. No pharyngeal erythema. No thyromegaly. CARDIOVASCULAR: S1 and S2 present. No murmurs, rubs, or gallops. PULMONARY: Significantly decreased air entry into bilateral lung ramirez significant expiratory wheezing was appreciated. ABDOMEN: Soft, nontender, nondistended, normoactive bowel sounds. No palpable organomegaly. MUSCULOSKELETAL: No joint swelling or deformity. EXTREMITIES: No cyanosis, clubbing, or pedal edema. NEUROLOGICAL: Gross neurological examination did not reveal any focal deficits. SKIN: No rashes. - Labs CBC & Chem 7: 06/26/18 15:10 06/26/18 15:10 Labs: Abnormal Lab Results - Last 24 Hours (Table) 06/28/18 06/28/18 06/28/18 Range/Units 15:46 17:17 20:52 POC Glucose (mg/dL) 322 H 237 H 254 H (75-99) mg/dL 06/29/18 06/29/18 Range/Units 06:54 11:39 POC Glucose (mg/dL) 207 H 337 H (75-99) mg/dL Assessment and Plan Plan: -Acute Hypercapnic respiratory failure secondary to COPD exacerbation patient uses solids only at nighttime patient is on systemic steroids inhalational treatments and is on levofloxacin - possible bilateral lower lobe pneumonia for which patient is on levofloxacin which will be continued -Hypothyroidism -Depression
--- NOTE | 2018-06-29 13:26 | P.PN ---
Subjective Progress Note Date: 06/29/18 A pleasant 78-year-old female patient with known history of COPD with an FEV1 of 58% of predicted has been maintained on Anoro Ellipta, budesonide neb last treatment , 5 mg of prednisone outpatient basis coming in today because of worsening shortness of breath chest tightness or wheezing secondary to COPD exacerbation. 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 At the same time she was exposed to fumes from tractor there was being used nearby. Since then she became more short of breath and she started using her albuterol neb last treatment more frequently without much help and ultimately she end up in the hospital as the patient was unable to perform activities of daily today life and she was getting short of breath even at rest. No hemoptysis. No pleurisy. Chest x-ray is free of any acute pulmonary infiltrates or pneumonia. She has not smoked for the past 7-8 months. She has had previous hospitalization for COPD exacerbation. Her serum IgE level is at 3.4. The patient is also having problems with kidney stones/nephrolithiasis and she has undergone a ureteroscopy and removal of calculus by Dr. Menchaca. Patient is seen today on 06/27/2018 in follow-up on the regular medical floor. She is currently awake and alert in no acute distress. She is breathing easier today as compared to yesterday. Still not quite back to her baseline. She is maintaining good O2 saturations in the 90s on 2 L/m per nasal cannula. She's currently on bronchodilators, steroids and empiric antibiotics in the form of azithromycin. On 06/28/2018, the patient is having more difficulty in breathing. She woke up fine however at around 10:00 AM the patient acutely became short of breath and bronchospastic and wheezy. The exact cause is not clear. I immediately attended on this patient and I find this patient anxious, bronchospastic, cough and she has a congested cough and she is unable to bring up much sputum. A stat chest x-ray was done which atelectatic changes in the lung bases with some limited infiltration. The patient's pulse ox remained around 94% of these about 2 by nasal cannula. She was found to be tachycardic with a heart rate going as high as 111, sinus. IV fluids to KVO. No signs of any significant fluid overload. On 06/29/2018 the patient is improved compared to yesterday. Yesterday she had a rough day which showed a spastic and wheezy and immediately her chest x-ray was done that showed evidence of any pneumonia although there is some inflammatory changes in the lung bases and I switched this patient from Zithromax to Levaquin. Also given a dose of Lasix which she responded medication producing adequate amount of urine output. She is less anxious. She is on bronchodilators and steroids. She is still short of breath and she gets short of breath with limited amount of activity. No angina. No palpitations. No other complaints otherwise for now. Blood sugars are being managed and currently the patient is on Levemir the dose was increased for tighter blood sugar control in addition to NovoLog scale coverage. Objective - Vital Signs Vital signs: Vital Signs Temp 97.8 F 06/29/18 06:18 Pulse 57 L 06/29/18 12:55 Resp 23 06/29/18 12:55 BP 136/66 06/29/18 12:55 Pulse Ox 91 L 06/29/18 12:55 Intake & Output 06/28/18 06/29/18 06/29/18 18:59 06:59 18:59 Other: Voiding Method Toilet # Voids 3 2 # Bowel Movements 0 - Exam General Appearance no diaphoresis, no respiratory distress, speech not interrupted by breaths, no dyspnea, no pallor, not cachectic, well nourished, appears well, obesity HEENT no pursed lip breathing, no jugular venous distention, no mucous membrane cyanosis, no perioral cyanosis, mallampati classification: class 1, Mallampati Classification: Class 3 Chest diminished breath sounds along with prolongation of expiratory phase of breathing and diffuse expiratory wheezes heard throughout the lung ramirez bilaterally Heart no right ventricular heave, no distant heart sounds, no s3 gallop, (normal ) jugular vein: jugular venous distention: by 0cm GI bowel sounds: hyperactive (borborygmi), bowel sounds: diminished or absent Extremities no cyanosis, no clubbing, no edema Neurologic no decreased mental status, no somnolence, no confusion Skin Examination of the skin revealed no evidence of significant rashes, suspicious appearing nevi or other concerning lesions. - Labs CBC & Chem 7: 06/26/18 15:10 06/26/18 15:10 Labs: Abnormal Lab Results - Last 24 Hours (Table) 06/28/18 06/28/18 06/28/18 Range/Units 15:46 17:17 20:52 POC Glucose (mg/dL) 322 H 237 H 254 H (75-99) mg/dL 06/29/18 06/29/18 Range/Units 06:54 11:39 POC Glucose (mg/dL) 207 H 337 H (75-99) mg/dL Assessment and Plan Plan: 1 acute COPD exacerbation with secondary shortness of breath. After some worsening shortness of breath the patient looks better on today's evaluation. 2 COPD which is of a moderate severity at baseline with an FEV1 of 58% of predicted 3 history of smoking 4 hypothyroidism 5 history of depression 6 nephrolithiasis Plan The patient was given IV Solu Medrol 60 mg every 6 hours. Continue bronchodilators. Continue Levaquin. Give the patient 20 mg of IV Lasix. Theophylline levels are therapeutic. Ambulate. Increased level of activity. We'll follow.
[2018-06-29 17:06] LABS: Glucose,Whole Blood 272 mg/dL (75-99)
[2018-06-29] MEDS: SODIUM CHLORIDE 0.9% 1,000 ML IV SCH (18:59)
[2018-06-29 20:48] LABS: Glucose,Whole Blood 278 mg/dL (75-99)
[2018-06-29] MEDS: INSULIN DETEMIR 100 UNIT/ML 10 ML VIAL SQ SCH (21:42)
[2018-06-29] MEDS: ATORVASTATIN 10 MG TAB PO SCH (21:42)
[2018-06-29] MEDS: TEMAZEPAM 30 MG CAP PO PRN (21:42)
[2018-06-30] MEDS: SODIUM CHLORIDE 0.9% 1,000 ML IV SCH ×2 (06:32→15:52)
[2018-06-30] MEDS: methylPREDNISolone SOD SUCCI 125 MG/2 ML VIAL IV SCH ×3 (06:32→17:27)
[2018-06-30] MEDS: LEVOTHYROXINE 75 MCG TAB PO SCH (06:33)
[2018-06-30] MEDS: IPRATROPIUM-ALBUTEROL 3 ML NEB INHALATION SCH ×4 (07:25→20:16)
[2018-06-30] MEDS: FORMOTEROL FUMARATE 20 MCG/2 ML NEBU INHALATION SCH ×2 (07:25→20:16)
[2018-06-30 07:31] LABS: Glucose,Whole Blood 173 mg/dL (75-99)
[2018-06-30] MEDS: ASCORBIC ACID 500 MG TAB PO SCH (08:03)
[2018-06-30] MEDS: THEOPHYLLINE 24 HOUR 300 MG CAP.ER.24H PO SCH (08:03)
[2018-06-30] MEDS: CHOLECALCIFEROL 1,000 UNIT TAB PO SCH (08:03)
[2018-06-30] MEDS: ENOXAPARIN 40 MG/0.4 ML SYRINGE SQ SCH (08:03)
[2018-06-30] MEDS: MONTELUKAST 10 MG TAB PO SCH (08:03)
[2018-06-30] MEDS: CALCIUM CARB-VIT D 500MG-200UN 1 EACH TAB PO SCH (08:03)
[2018-06-30] MEDS: PANTOPRAZOLE 40 MG TABLET PO SCH (08:03)
[2018-06-30] MEDS: VENLAFAXINE HCL ER 75 MG CAP PO SCH (08:03)
[2018-06-30] MEDS: INSULIN ASPART 100 UNIT/ML 1 ML 10 ML VIAL SQ SCH ×4 (08:04→21:45)
[2018-06-30 08:23] LABS: HCT 44.3 % (34.0-46.0); HGB 14.4 gm/dL (11.4-16.0); MCHC 32.4 g/dL (31.0-37.0); MCV 98.9 fL (80.0-100.0); Mean Platelet Volume 7.4; Platelet Count 262 k/uL (150-450); RBC 4.48 m/uL (3.80-5.40); RDW 13.4 % (11.5-15.5); WBC 18.6 k/uL (3.8-10.6)
[2018-06-30 08:42] LABS: Calcium 9.6 mg/dL (8.4-10.2); Potassium 4.3 mmol/L (3.5-5.1)
--- NOTE | 2018-06-30 12:30 | P.PN ---
Subjective 78-year-old pleasant female was admitted for COPD exacerbation patient is presently on 3 L of oxygen and still wheezing. Patient is also being treated for possible bilateral lower lobe pneumonia with levofloxacin. Patient did receive Lasix yesterday when she had an episode of acute hypoxemia. Patient is still wheezing significantly. Although her shortness of breath apparently improved 06/30/2018 Her wheezing did improve compared to yesterday still has quite a bit of wheezing. Patient had lactic acidosis secondary to intravascularly depletion. Patient received IV fluids and now her possible lactic acid is around 20 continuous IV fluids and later in the day patient is presently on 3 L of oxygen only uses her oxygen at nighttime. Patient's theophylline levels are within normal limits Constitutional: Denied any fatigue denied any fever. Cardio vascular: denied any chest pain, palpitations Gastrointestinal denied any nausea vomiting Pulmonary: As mentioned in HPI Neurologic denied any new focal deficits Objective - Vital Signs Vital signs: Vital Signs Temp 97.0 F L 06/30/18 06:22 Pulse 101 H 06/30/18 11:13 Resp 17 06/30/18 06:22 BP 141/85 06/30/18 06:22 Pulse Ox 91 L 06/30/18 07:25 Intake & Output 06/29/18 06/30/18 06/30/18 18:59 06:59 18:59 Other: Voiding Method Toilet # Voids 3 1 - Exam PHYSICAL EXAMINATION: GENERAL: The patient is alert and oriented x3, not in any acute distress. Well developed, well nourished. HEENT: Pupils are round and equally reacting to light. EOMI. No scleral icterus. No conjunctival pallor. Normocephalic, atraumatic. No pharyngeal erythema. No thyromegaly. CARDIOVASCULAR: S1 and S2 present. No murmurs, rubs, or gallops. PULMONARY: Significantly decreased air entry into bilateral lung ramirez significant expiratory wheezing was appreciated. Did have a little bit of improvement in her wheezing ABDOMEN: Soft, nontender, nondistended, normoactive bowel sounds. No palpable organomegaly. MUSCULOSKELETAL: No joint swelling or deformity. EXTREMITIES: No cyanosis, clubbing, or pedal edema. NEUROLOGICAL: Gross neurological examination did not reveal any focal deficits. SKIN: No rashes. - Labs CBC & Chem 7: 06/30/18 07:42 06/30/18 07:42 Labs: Abnormal Lab Results - Last 24 Hours (Table) 06/29/18 06/29/18 06/29/18 Range/Units 17:04 17:48 20:46 WBC (3.8-10.6) k/uL BUN (7-17) mg/dL Glucose (74-99) mg/dL POC Glucose (mg/dL) 272 H 278 H (75-99) mg/dL Plasma Lactic Acid Iker 2.4 H* (0.7-2.0) mmol/L 06/29/18 06/30/18 06/30/18 Range/Units 22:18 07:29 07:42 WBC 18.6 H (3.8-10.6) k/uL BUN (7-17) mg/dL Glucose (74-99) mg/dL POC Glucose (mg/dL) 173 H (75-99) mg/dL Plasma Lactic Acid Iker 2.7 H* (0.7-2.0) mmol/L 06/30/18 Range/Units 07:42 WBC (3.8-10.6) k/uL BUN 29 H (7-17) mg/dL Glucose 178 H (74-99) mg/dL POC Glucose (mg/dL) (75-99) mg/dL Plasma Lactic Acid Iker (0.7-2.0) mmol/L Assessment and Plan Plan: -Acute Hypercapnic respiratory failure secondary to COPD exacerbation patient uses solids only at nighttime patient is on systemic steroids inhalational treatments and is on levofloxacin - possible bilateral lower lobe pneumonia for which patient is on levofloxacin which will be continued -Hypothyroidism -Depression -Lactic acidosis: Secondary to intravascular volume depletion improved with IV fluids and IV fluids will be continued until 7 PM today
[2018-06-30] MEDS: LEVOFLOXACIN 750 MG TAB PO SCH (12:48)
[2018-06-30 12:53] LABS: Glucose,Whole Blood 228 mg/dL (75-99)
--- NOTE | 2018-06-30 12:53 | P.PN ---
Subjective Progress Note Date: 06/30/18 A pleasant 78-year-old female patient with known history of COPD with an FEV1 of 58% of predicted has been maintained on Anoro Ellipta, budesonide neb last treatment , 5 mg of prednisone outpatient basis coming in today because of worsening shortness of breath chest tightness or wheezing secondary to COPD exacerbation. 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 At the same time she was exposed to fumes from tractor there was being used nearby. Since then she became more short of breath and she started using her albuterol neb last treatment more frequently without much help and ultimately she end up in the hospital as the patient was unable to perform activities of daily today life and she was getting short of breath even at rest. No hemoptysis. No pleurisy. Chest x-ray is free of any acute pulmonary infiltrates or pneumonia. She has not smoked for the past 7-8 months. She has had previous hospitalization for COPD exacerbation. Her serum IgE level is at 3.4. The patient is also having problems with kidney stones/nephrolithiasis and she has undergone a ureteroscopy and removal of calculus by Dr. Menchaca. Patient is seen today on 06/27/2018 in follow-up on the regular medical floor. She is currently awake and alert in no acute distress. She is breathing easier today as compared to yesterday. Still not quite back to her baseline. She is maintaining good O2 saturations in the 90s on 2 L/m per nasal cannula. She's currently on bronchodilators, steroids and empiric antibiotics in the form of azithromycin. On 06/28/2018, the patient is having more difficulty in breathing. She woke up fine however at around 10:00 AM the patient acutely became short of breath and bronchospastic and wheezy. The exact cause is not clear. I immediately attended on this patient and I find this patient anxious, bronchospastic, cough and she has a congested cough and she is unable to bring up much sputum. A stat chest x-ray was done which atelectatic changes in the lung bases with some limited infiltration. The patient's pulse ox remained around 94% of these about 2 by nasal cannula. She was found to be tachycardic with a heart rate going as high as 111, sinus. IV fluids to KVO. No signs of any significant fluid overload. On 06/29/2018 the patient is improved compared to yesterday. Yesterday she had a rough day which showed a spastic and wheezy and immediately her chest x-ray was done that showed evidence of any pneumonia although there is some inflammatory changes in the lung bases and I switched this patient from Zithromax to Levaquin. Also given a dose of Lasix which she responded medication producing adequate amount of urine output. She is less anxious. She is on bronchodilators and steroids. She is still short of breath and she gets short of breath with limited amount of activity. No angina. No palpitations. No other complaints otherwise for now. Blood sugars are being managed and currently the patient is on Levemir the dose was increased for tighter blood sugar control in addition to NovoLog scale coverage. On 06/30/2018, the patient is on DuoNeb neb treatments around the clock, Perforomist and Pulmicort neb last 2 minutes twice a day, oral Levaquin and IV Solu-Medrol. She has a cough which is less congested. She is on and off bringing up some sputum. No fever or chills. She is slowly improving and she is somewhat less short of breath compared to yesterday. She is spending a lot of time outside the bed compared to yesterday and she is able to sit up on a chair without any major difficulties. IV fluids are to KVO. Objective - Vital Signs Vital signs: Vital Signs Temp 97.0 F L 06/30/18 06:22 Pulse 101 H 06/30/18 11:13 Resp 17 06/30/18 06:22 BP 141/85 06/30/18 06:22 Pulse Ox 91 L 06/30/18 07:25 Intake & Output 06/29/18 06/30/18 06/30/18 18:59 06:59 18:59 Other: Voiding Method Toilet # Voids 3 1 - Exam General Appearance no diaphoresis, no respiratory distress, speech not interrupted by breaths, no dyspnea, no pallor, not cachectic, well nourished, appears well, obesity HEENT no pursed lip breathing, no jugular venous distention, no mucous membrane cyanosis, no perioral cyanosis, mallampati classification: class 1, Mallampati Classification: Class 3 Chest diminished breath sounds along with prolongation of expiratory phase of breathing and diffuse expiratory wheezes heard throughout the lung ramirez bilaterally Heart no right ventricular heave, no distant heart sounds, no s3 gallop, (normal ) jugular vein: jugular venous distention: by 0cm GI bowel sounds: hyperactive (borborygmi), bowel sounds: diminished or absent Extremities no cyanosis, no clubbing, no edema Neurologic no decreased mental status, no somnolence, no confusion Skin Examination of the skin revealed no evidence of significant rashes, suspicious appearing nevi or other concerning lesions. - Labs CBC & Chem 7: 06/30/18 07:42 06/30/18 07:42 Labs: Abnormal Lab Results - Last 24 Hours (Table) 06/29/18 06/29/18 06/29/18 Range/Units 17:04 17:48 20:46 WBC (3.8-10.6) k/uL BUN (7-17) mg/dL Glucose (74-99) mg/dL POC Glucose (mg/dL) 272 H 278 H (75-99) mg/dL Plasma Lactic Acid Iker 2.4 H* (0.7-2.0) mmol/L 06/29/18 06/30/18 06/30/18 Range/Units 22:18 07:29 07:42 WBC 18.6 H (3.8-10.6) k/uL BUN (7-17) mg/dL Glucose (74-99) mg/dL POC Glucose (mg/dL) 173 H (75-99) mg/dL Plasma Lactic Acid Iker 2.7 H* (0.7-2.0) mmol/L 06/30/18 Range/Units 07:42 WBC (3.8-10.6) k/uL BUN 29 H (7-17) mg/dL Glucose 178 H (74-99) mg/dL POC Glucose (mg/dL) (75-99) mg/dL Plasma Lactic Acid Iker (0.7-2.0) mmol/L Assessment and Plan Plan: 1 acute COPD exacerbation with secondary shortness of breath. The patient is improving slowly 2 COPD which is of a moderate severity at baseline with an FEV1 of 58% of predicted 3 history of smoking 4 hypothyroidism 5 history of depression 6 nephrolithiasis Plan Continue same treatment and consider tapering steroids as of tomorrow if the patient continues to show signs of improvement. We'll continue to follow.
[2018-06-30] MEDS: NYSTATIN 100,000 UNIT/ML SUSP 500,000 UNIT/5 ML CUP PO SCH ×3 (13:34→21:32)
[2018-06-30] MEDS ORDERED: guaiFENesin SYRUP 100MG/5ML 200 MG/10 ML CUP PO PRN (16:55)
[2018-06-30 17:07] LABS: Glucose,Whole Blood 188 mg/dL (75-99)
[2018-06-30 21:21] LABS: Glucose,Whole Blood 151 mg/dL (75-99)
[2018-06-30] MEDS: ATORVASTATIN 10 MG TAB PO SCH (21:32)
[2018-06-30] MEDS: TEMAZEPAM 30 MG CAP PO PRN (21:43)
[2018-06-30] MEDS: INSULIN DETEMIR 100 UNIT/ML 10 ML VIAL SQ SCH (21:44)
[2018-07-01] MEDS: methylPREDNISolone SOD SUCCI 125 MG/2 ML VIAL IV SCH ×2 (00:05→05:22)
[2018-07-01] MEDS: LEVOTHYROXINE 75 MCG TAB PO SCH (06:12)
[2018-07-01] MEDS: FORMOTEROL FUMARATE 20 MCG/2 ML NEBU INHALATION SCH ×2 (07:40→19:38)
[2018-07-01] MEDS: IPRATROPIUM-ALBUTEROL 3 ML NEB INHALATION SCH ×4 (07:40→19:38)
[2018-07-01 08:08] LABS: Glucose,Whole Blood 201 mg/dL (75-99)
[2018-07-01] MEDS: PANTOPRAZOLE 40 MG TABLET PO SCH (08:14)
[2018-07-01] MEDS: CHOLECALCIFEROL 1,000 UNIT TAB PO SCH (08:14)
[2018-07-01] MEDS: ASCORBIC ACID 500 MG TAB PO SCH (08:14)
[2018-07-01] MEDS: INSULIN ASPART 100 UNIT/ML 1 ML 10 ML VIAL SQ SCH ×4 (08:14→21:41)
[2018-07-01] MEDS: VENLAFAXINE HCL ER 75 MG CAP PO SCH (08:15)
[2018-07-01] MEDS: MONTELUKAST 10 MG TAB PO SCH (08:15)
[2018-07-01] MEDS: NYSTATIN 100,000 UNIT/ML SUSP 500,000 UNIT/5 ML CUP PO SCH ×4 (08:15→21:42)
[2018-07-01] MEDS: ENOXAPARIN 40 MG/0.4 ML SYRINGE SQ SCH (08:15)
[2018-07-01] MEDS: THEOPHYLLINE 24 HOUR 300 MG CAP.ER.24H PO SCH (08:15)
[2018-07-01] MEDS: CALCIUM CARB-VIT D 500MG-200UN 1 EACH TAB PO SCH (08:15)
[2018-07-01] MEDS: FLUCONAZOLE 100 MG TAB PO SCH (10:45)
--- NOTE | 2018-07-01 10:54 | P.PN ---
Subjective Progress Note Date: 07/01/18 Principal diagnosis: Acute COPD exacerbation with significant shortness of breath A pleasant 78-year-old female patient with known history of COPD with an FEV1 of 58% of predicted has been maintained on Anoro Ellipta, budesonide neb last treatment , 5 mg of prednisone outpatient basis coming in today because of worsening shortness of breath chest tightness or wheezing secondary to COPD exacerbation. 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 At the same time she was exposed to fumes from tractor there was being used nearby. Since then she became more short of breath and she started using her albuterol neb last treatment more frequently without much help and ultimately she end up in the hospital as the patient was unable to perform activities of daily today life and she was getting short of breath even at rest. No hemoptysis. No pleurisy. Chest x-ray is free of any acute pulmonary infiltrates or pneumonia. She has not smoked for the past 7-8 months. She has had previous hospitalization for COPD exacerbation. Her serum IgE level is at 3.4. The patient is also having problems with kidney stones/nephrolithiasis and she has undergone a ureteroscopy and removal of calculus by Dr. Menchaca. Patient is seen today on 06/27/2018 in follow-up on the regular medical floor. She is currently awake and alert in no acute distress. She is breathing easier today as compared to yesterday. Still not quite back to her baseline. She is maintaining good O2 saturations in the 90s on 2 L/m per nasal cannula. She's currently on bronchodilators, steroids and empiric antibiotics in the form of azithromycin. On 06/28/2018, the patient is having more difficulty in breathing. She woke up fine however at around 10:00 AM the patient acutely became short of breath and bronchospastic and wheezy. The exact cause is not clear. I immediately attended on this patient and I find this patient anxious, bronchospastic, cough and she has a congested cough and she is unable to bring up much sputum. A stat chest x-ray was done which atelectatic changes in the lung bases with some limited infiltration. The patient's pulse ox remained around 94% of these about 2 by nasal cannula. She was found to be tachycardic with a heart rate going as high as 111, sinus. IV fluids to KVO. No signs of any significant fluid overload. On 06/29/2018 the patient is improved compared to yesterday. Yesterday she had a rough day which showed a spastic and wheezy and immediately her chest x-ray was done that showed evidence of any pneumonia although there is some inflammatory changes in the lung bases and I switched this patient from Zithromax to Levaquin. Also given a dose of Lasix which she responded medication producing adequate amount of urine output. She is less anxious. She is on bronchodilators and steroids. She is still short of breath and she gets short of breath with limited amount of activity. No angina. No palpitations. No other complaints otherwise for now. Blood sugars are being managed and currently the patient is on Levemir the dose was increased for tighter blood sugar control in addition to NovoLog scale coverage. On 06/30/2018, the patient is on DuoNeb neb treatments around the clock, Perforomist and Pulmicort neb last 2 minutes twice a day, oral Levaquin and IV Solu-Medrol. She has a cough which is less congested. She is on and off bringing up some sputum. No fever or chills. She is slowly improving and she is somewhat less short of breath compared to yesterday. She is spending a lot of time outside the bed compared to yesterday and she is able to sit up on a chair without any major difficulties. IV fluids are to KVO. On 07/01/2018 patient seen in follow-up on medical surgical floor. Acute distress, but does become dyspneic with any exertion, lung sounds remain positive for diffuse wheezes bilaterally, she remains on 3 L per nasal cannula pulse ox is 99%, she is afebrile, hemodynamically stable. No new labs or chest x-rays today, patient remains on a combination of nebulized bronchodilators, empiric antibiotics, IV steroids, and theophylline, and she is improving slowly. No fever, no chills. We'll continue current plan of treatment. Objective - Vital Signs Vital signs: Vital Signs Temp 97.0 F L 07/01/18 07:00 Pulse 82 07/01/18 08:00 Resp 22 07/01/18 07:00 BP 117/52 07/01/18 07:00 Pulse Ox 99 07/01/18 07:00 Intake & Output 08/04/1207/01/18 07/01/18 18:59 06:59 18:59 Other: # Voids 2 0 # Bowel Movements 1 0 # Emeses 0 - Exam General Appearance no diaphoresis, no respiratory distress, speech not interrupted by breaths, no dyspnea, no pallor, not cachectic, well nourished, appears well, obesity HEENT no pursed lip breathing, no jugular venous distention, no mucous membrane cyanosis, no perioral cyanosis, mallampati classification: class 1, Mallampati Classification: Class 3 Chest diminished breath sounds along with prolongation of expiratory phase of breathing and diffuse expiratory wheezes heard throughout the lung ramirez bilaterally Heart no right ventricular heave, no distant heart sounds, no s3 gallop, (normal ) jugular vein: jugular venous distention: by 0cm GI bowel sounds: hyperactive (borborygmi), bowel sounds: diminished or absent Extremities no cyanosis, no clubbing, no edema Neurologic no decreased mental status, no somnolence, no confusion Skin Examination of the skin revealed no evidence of significant rashes, suspicious appearing nevi or other concerning lesions. - Labs CBC & Chem 7: 06/30/18 07:42 06/30/18 07:42 Labs: Abnormal Lab Results - Last 24 Hours (Table) 06/30/18 06/30/18 06/30/18 Range/Units 12:38 17:03 20:57 POC Glucose (mg/dL) 228 H 188 H 151 H (75-99) mg/dL 07/01/18 Range/Units 07:20 POC Glucose (mg/dL) 201 H (75-99) mg/dL Assessment and Plan Plan: Assessment: 1 acute COPD exacerbation with secondary shortness of breath. The patient is improving slowly 2 COPD which is of a moderate severity at baseline with an FEV1 of 58% of predicted 3 history of smoking 4 hypothyroidism 5 history of depression 6 nephrolithiasis Plan Patient is making slow improvement, will continue with medical treatment, continue empiric antibiotics, continue nebulized bronchodilators, we will decrease Solu-Medrol to 40 mg every 8 hours, and increase activity as tolerated. I performed a history & physical examination of the patient and discussed their management with my nurse practitioner, Dayana Collier. I reviewed the nurse practitioner's note and agree with the documented findings and plan of care. Lung sounds are positive for diffuse wheezes throughout the lung ramirez. The findings and the impression was discussed with the patient. I attest to the documentation by the nurse practitioner. Time with Patient: Less than 30
--- NOTE | 2018-07-01 11:14 | P.PN ---
Subjective Progress Note Date: 07/01/18 78-year-old female who presented to the emergency room with a chief complaint of shortness of breath. Patient has a long standing history of COPD and has had multiple hospitalizations secondary to COPD exacerbation. However she quit smoking approximately 11 months ago and had been doing very well. The patient states she was outside with her who had an old tractor running and believes the fumes may have caused her exacerbation. The patient denies chest pain or pressure. Denies fever or chills. Denies sputum production. The patient also has a history of hyperlipidemia, hypertension, and hypothyroidism. The patient is prescribed home O2 at 2 L which she uses at night and as needed. The patient was recently admitted to the hospital and May 2018 due to kidney stones. She underwent a ureteroscopy and removal of calculus by Dr. Menchaca Chest x-ray: Findings consistent with COPD. Negative for an acute process. Laboratory data reveals white count of 12.4. Hemoglobin 14.2. Platelet count 282. INR 1.0. Sodium 139. Potassium 4.3. BUN 17. Creatinine 0.7. Glucose 206. BNP 121. Troponin negative 1. The patient was admitted to the hospital under the care of Dr. Alexandra. Consultations were placed to pulmonary. 06/28/2018 Patient seen and examined at the bedside on rounds with Dr. Alexandra. She states she is sleepy this morning but relates it to taking a sleeping pill last night. Patient continues to be short of breath. She is currently completing nebulizer treatment. She remains on IV steroids. She is on 3 L nasal cannula with oxygen saturations greater than 90%. Patient does report she still uses her oxygen at home nightly when needed. Cough is still present. Denies sputum production. She denies any chest pain or pressure. 06/29/2018-Note per covering provider 06/30/2018-Note per covering provider 07/01/2018 Patient seen and examined at the bedside. Patient remains on SoluMedrol 60 mg IV every 6 hours. Wheezing is still present. The patient is making progress although she is improving slowly. She denies chest pain or pressure. Denies nausea or vomiting. Patient states her appetite is good. She complains of thrush to her oral mucosa. Objective - Vital Signs Vital signs: Vital Signs Temp 97.0 F L 07/01/18 07:00 Pulse 82 07/01/18 08:00 Resp 22 07/01/18 07:00 BP 117/52 07/01/18 07:00 Pulse Ox 99 07/01/18 07:00 Intake & Output 06/30/18 07/01/18 07/01/18 18:59 06:59 18:59 Other: # Voids 2 0 # Bowel Movements 1 0 # Emeses 0 - Exam GENERAL: This is a 78-year-old female in no apparent distress at the time of examination. Pleasant and cooperative. HEENT: Head is atraumatic, normocephalic. Pupils are equal, round, and reactive to light. Sclerae anicteric. Conjunctivae are clear. Mucus membranes of the mouth are moist. Mild thrush noted to tongue and inside of cheeks. Neck is supple. RESPIRATORY: Inspiratory and expiratory wheezing noted throughout. Prolonged expiration. No crackles auscultated. No use of accessory muscles. Patient maintaining oxygen saturation greater than 90%. No chest wall tenderness is noted on palpation or with deep breathing. CARDIOVASCULAR: Regular rate and rhythm. S1 and S2 noted. No systolic or diastolic murmur auscultated. No JVD noted. No S3 or S4 noted. GASTROINTESTINAL: No distention noted. Abdomen soft and round. Normal active bowel sounds auscultated x 4 quadrants. No pain or tenderness noted upon palpation. INTEGUMENTARY: No cyanosis. No jaundice. No rashes noted. No cellulitis noted. EXTREMITIES: 2+ peripheral pulses. No evidence of peripheral edema. No calf tenderness noted. NEUROLOGIC: Cranial nerves II-XII intact. PSYCHIATRIC: Awake, alert, and oriented X 3. Appropriate affect. Intact judgement and insight. - Labs CBC & Chem 7: 06/30/18 07:42 06/30/18 07:42 Labs: Abnormal Lab Results - Last 24 Hours (Table) 06/30/18 06/30/18 06/30/18 Range/Units 12:38 17:03 20:57 POC Glucose (mg/dL) 228 H 188 H 151 H (75-99) mg/dL 07/01/18 Range/Units 07:20 POC Glucose (mg/dL) 201 H (75-99) mg/dL Assessment and Plan Plan: ASSESSMENT: Acute exacerbation of chronic obstructive pulmonary disease Leukocytosis, likely reactive secondary to steroids, no evidence of infectious process at this time Steroid-induced hyperglycemia Recent ureteroscopy with removal of calculus, May 2018 Hypertension Hyperlipidemia Hypothyroidism History of nicotine dependence, in remission, 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 Appreciate recommendations and input Continue Levaquin Begin Diflucan 100 mg by mouth daily Continue Solu-Medrol: 60 mg IV every 6 hours. Wean per pulmonary NovoLog sliding scale per steroid protocol Continue nebulizer treatments Incentive spirometer 10 times an hour Home meds as appropriate Monitor labs GI prophylaxis: Protonix 40 mg PO Daily DVT prophylaxis: Lovenox 40 mg subcu daily Monitor vital signs and address as appropriate Discharge planning: Patient to return home when stable Further recommendations pending patient's course Nurse practitioner note has been reviewed by physician. Signing provider agrees with the documented findings, assessment, and plan of care.
[2018-07-01] MEDS: LEVOFLOXACIN 750 MG TAB PO SCH (12:39)
[2018-07-01 12:57] LABS: Glucose,Whole Blood 223 mg/dL (75-99)
[2018-07-01] MEDS: methylPREDNISolone SOD SUCCI 40 MG/ML 1 ML VIAL IV SCH ×2 (15:25→23:56)
[2018-07-01 17:23] LABS: Glucose,Whole Blood 246 mg/dL (75-99)
[2018-07-01 20:40] LABS: Glucose,Whole Blood 198 mg/dL (75-99)
[2018-07-01] MEDS: INSULIN DETEMIR 100 UNIT/ML 10 ML VIAL SQ SCH (21:41)
[2018-07-01] MEDS: TEMAZEPAM 30 MG CAP PO PRN (21:41)
[2018-07-01] MEDS: ATORVASTATIN 10 MG TAB PO SCH (21:42)
[2018-07-02] MEDS: LEVOTHYROXINE 75 MCG TAB PO SCH (06:52)
[2018-07-02] MEDS: IPRATROPIUM-ALBUTEROL 3 ML NEB INHALATION SCH ×2 (07:17→11:20)
[2018-07-02] MEDS: FORMOTEROL FUMARATE 20 MCG/2 ML NEBU INHALATION SCH (07:17)
[2018-07-02 07:39] LABS: Glucose,Whole Blood 187 mg/dL (75-99)
[2018-07-02 07:57] VITALS: BP 147/90; RESP 22; TEMP 97.5
[2018-07-02] MEDS: INSULIN ASPART 100 UNIT/ML 1 ML 10 ML VIAL SQ SCH ×2 (09:15→13:33)
[2018-07-02] MEDS: CALCIUM CARB-VIT D 500MG-200UN 1 EACH TAB PO SCH (09:17)
[2018-07-02] MEDS: THEOPHYLLINE 24 HOUR 300 MG CAP.ER.24H PO SCH (09:17)
[2018-07-02] MEDS: NYSTATIN 100,000 UNIT/ML SUSP 500,000 UNIT/5 ML CUP PO SCH ×3 (09:17→11:58)
[2018-07-02] MEDS: VENLAFAXINE HCL ER 75 MG CAP PO SCH (09:17)
[2018-07-02] MEDS: ASCORBIC ACID 500 MG TAB PO SCH (09:17)
[2018-07-02] MEDS: ENOXAPARIN 40 MG/0.4 ML SYRINGE SQ SCH (09:18)
[2018-07-02] MEDS: PANTOPRAZOLE 40 MG TABLET PO SCH (09:18)
[2018-07-02] MEDS: FLUCONAZOLE 100 MG TAB PO SCH (09:18)
--- NOTE | 2018-07-02 09:18 | P.PN ---
Subjective Progress Note Date: 07/02/18 Principal diagnosis: Acute COPD exacerbation with significant shortness of breath A pleasant 78-year-old female patient with known history of COPD with an FEV1 of 58% of predicted has been maintained on Anoro Ellipta, budesonide neb last treatment , 5 mg of prednisone outpatient basis coming in today because of worsening shortness of breath chest tightness or wheezing secondary to COPD exacerbation. 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 At the same time she was exposed to fumes from tractor there was being used nearby. Since then she became more short of breath and she started using her albuterol neb last treatment more frequently without much help and ultimately she end up in the hospital as the patient was unable to perform activities of daily today life and she was getting short of breath even at rest. No hemoptysis. No pleurisy. Chest x-ray is free of any acute pulmonary infiltrates or pneumonia. She has not smoked for the past 7-8 months. She has had previous hospitalization for COPD exacerbation. Her serum IgE level is at 3.4. The patient is also having problems with kidney stones/nephrolithiasis and she has undergone a ureteroscopy and removal of calculus by Dr. Menchaca. Patient is seen today on 06/27/2018 in follow-up on the regular medical floor. She is currently awake and alert in no acute distress. She is breathing easier today as compared to yesterday. Still not quite back to her baseline. She is maintaining good O2 saturations in the 90s on 2 L/m per nasal cannula. She's currently on bronchodilators, steroids and empiric antibiotics in the form of azithromycin. On 06/28/2018, the patient is having more difficulty in breathing. She woke up fine however at around 10:00 AM the patient acutely became short of breath and bronchospastic and wheezy. The exact cause is not clear. I immediately attended on this patient and I find this patient anxious, bronchospastic, cough and she has a congested cough and she is unable to bring up much sputum. A stat chest x-ray was done which atelectatic changes in the lung bases with some limited infiltration. The patient's pulse ox remained around 94% of these about 2 by nasal cannula. She was found to be tachycardic with a heart rate going as high as 111, sinus. IV fluids to KVO. No signs of any significant fluid overload. On 06/29/2018 the patient is improved compared to yesterday. Yesterday she had a rough day which showed a spastic and wheezy and immediately her chest x-ray was done that showed evidence of any pneumonia although there is some inflammatory changes in the lung bases and I switched this patient from Zithromax to Levaquin. Also given a dose of Lasix which she responded medication producing adequate amount of urine output. She is less anxious. She is on bronchodilators and steroids. She is still short of breath and she gets short of breath with limited amount of activity. No angina. No palpitations. No other complaints otherwise for now. Blood sugars are being managed and currently the patient is on Levemir the dose was increased for tighter blood sugar control in addition to NovoLog scale coverage. On 06/30/2018, the patient is on DuoNeb neb treatments around the clock, Perforomist and Pulmicort neb last 2 minutes twice a day, oral Levaquin and IV Solu-Medrol. She has a cough which is less congested. She is on and off bringing up some sputum. No fever or chills. She is slowly improving and she is somewhat less short of breath compared to yesterday. She is spending a lot of time outside the bed compared to yesterday and she is able to sit up on a chair without any major difficulties. IV fluids are to KVO. On 07/01/2018 patient seen in follow-up on medical surgical floor. Acute distress, but does become dyspneic with any exertion, lung sounds remain positive for diffuse wheezes bilaterally, she remains on 3 L per nasal cannula pulse ox is 99%, she is afebrile, hemodynamically stable. No new labs or chest x-rays today, patient remains on a combination of nebulized bronchodilators, empiric antibiotics, IV steroids, and theophylline, and she is improving slowly. No fever, no chills. We'll continue current plan of treatment. On 07/02/2018 patient seen in follow-up on medical surgical unit. Feeling much better today, lung sounds with hardly any wheezing, just diminished at the bases. No worsening dyspnea, patient has been tolerating ambulation in the room , no fever, no chills. She is on 3 L per nasal cannula with O2 sat at 90-92%. Vital signs are stable. Only occasional coughing, patient reports breathing much improved. She is requesting to go home today. From pulmonary standpoint patient is stable for discharge home today. Objective - Vital Signs Vital signs: Vital Signs Temp 97.5 F L 07/02/18 07:00 Pulse 82 07/02/18 07:43 Resp 22 07/02/18 07:00 BP 147/90 07/02/18 07:00 Pulse Ox 90 L 07/02/18 07:18 Intake & Output 07/01/18 07/02/18 07/02/18 18:59 06:59 18:59 Other: # Voids 1 2 # Emeses 0 - Exam General Appearance no diaphoresis, no respiratory distress, speech not interrupted by breaths, no dyspnea, no pallor, not cachectic, well nourished, appears well, obesity HEENT no pursed lip breathing, no jugular venous distention, no mucous membrane cyanosis, no perioral cyanosis, mallampati classification: class 1, Mallampati Classification: Class 3 Lungs: Diminished breath sounds, hardly any wheezes, no rhonchi, no rales Heart no right ventricular heave, no distant heart sounds, no s3 gallop, (normal ) jugular vein: jugular venous distention: by 0cm GI bowel sounds: hyperactive (borborygmi), bowel sounds: diminished or absent Extremities no cyanosis, no clubbing, no edema Neurologic no decreased mental status, no somnolence, no confusion Skin Examination of the skin revealed no evidence of significant rashes, suspicious appearing nevi or other concerning lesions. - Labs CBC & Chem 7: 06/30/18 07:42 06/30/18 07:42 Labs: Abnormal Lab Results - Last 24 Hours (Table) 07/01/18 07/01/18 07/01/18 Range/Units 12:37 17:10 20:36 POC Glucose (mg/dL) 223 H 246 H 198 H (75-99) mg/dL 07/02/18 Range/Units 07:05 POC Glucose (mg/dL) 187 H (75-99) mg/dL Assessment and Plan Plan: Assessment: 1 acute COPD exacerbation with secondary shortness of breath. Improved 2 COPD which is of a moderate severity at baseline with an FEV1 of 58% of predicted 3 history of smoking 4 hypothyroidism 5 history of depression 6 nephrolithiasis Plan Patient is stable, continues to improve. Hardly any wheezing on today's exam, patient reports feeling much better, tolerating activity, vital signs are stable , no fever, no chills, no worsening dyspnea. From pulmonary standpoint patient is stable for discharge home today, she can finish outpatient course of antibiotics, prednisone taper, and patient can resume her maintenance inhalers and nebulized treatments. Follow-up with Dr. Zarate in the office in 7-10 days. I performed a history & physical examination of the patient and discussed their management with my nurse practitioner, Dayana Collier. I reviewed the nurse practitioner's note and agree with the documented findings and plan of care. Lung sounds are positive for diminished breath sounds. The findings and the impression was discussed with the patient. I attest to the documentation by the nurse practitioner. Time with Patient: Less than 30
[2018-07-02] MEDS: MONTELUKAST 10 MG TAB PO SCH (09:19)
[2018-07-02] MEDS: methylPREDNISolone SOD SUCCI 40 MG/ML 1 ML VIAL IV SCH (09:19)
[2018-07-02] MEDS: CHOLECALCIFEROL 1,000 UNIT TAB PO SCH (09:19)
--- NOTE | 2018-07-02 10:18 | P.DS ---
Providers Date of admission: 06/26/18 16:24 Expected date of discharge: 07/02/18 Attending physician: Heri Alexandra Consults: 06/26/18 16:22 Consult Physician Routine Consulting Provider: Dani Zarate Consult Reason/Comments: copd Do you want consulting provider notified?: Yes Primary care physician: Heri Alexandra Pertinent Studies: 78-year-old female who presented to the emergency room with a chief complaint of shortness of breath. Patient has a long standing history of COPD and has had multiple hospitalizations secondary to COPD exacerbation. However she quit smoking approximately 11 months ago and had been doing very well. The patient states she was outside with her who had an old tractor running and believes the fumes may have caused her exacerbation. The patient denies chest pain or pressure. Denies fever or chills. Denies sputum production. The patient also has a history of hyperlipidemia, hypertension, and hypothyroidism. The patient is prescribed home O2 at 2 L which she uses at night and as needed. The patient was recently admitted to the hospital and May 2018 due to kidney stones. She underwent a ureteroscopy and removal of calculus by Dr. Menchaca Chest x-ray: Findings consistent with COPD. Negative for an acute process. Laboratory data reveals white count of 12.4. Hemoglobin 14.2. Platelet count 282. INR 1.0. Sodium 139. Potassium 4.3. BUN 17. Creatinine 0.7. Glucose 206. BNP 121. Troponin negative 1. The patient was admitted to the hospital under the care of Dr. Alexandra. Consultations were placed to pulmonary. Patient was placed on antibiotics and IV steroids. IV steroids were weaned as patient tolerated. Patient did develop some oral thrush and was treated with Diflucan and nystatin swish and swallow. The patient continued to slowly make improvements. She was cleared for discharge from a pulmonary standpoint. The patient was also deemed stable for DC per Dr. Alexandra. Patient is to follow up outpatient in one week with Dr. Alexandra and 7-10 days with pulmonary. Prescriptions were sent to the patient's preferred pharmacy for a prednisone taper, Levaquin 750 mg for 5 days, Diflucan 100 mg by mouth daily for 3 days, and nystatin swish and swallow. DISCHARGE DIAGNOSIS: Acute exacerbation of chronic obstructive pulmonary disease, improved Leukocytosis, likely reactive secondary to steroids, no evidence of infectious process at this time Steroid-induced hyperglycemia, improving Recent ureteroscopy with removal of calculus, May 2018 Hypertension Hyperlipidemia Hypothyroidism History of nicotine dependence, in remission, patient quit smoking 11 months ago Obesity: BMI 30.6 Oral candidiasis, improving Nurse practitioner note has been reviewed by physician. Signing provider agrees with the documented findings, assessment, and plan of care. Patient Condition at Discharge: Stable Plan - Discharge Summary Discharge Rx Participant: No New Discharge Prescriptions: New Fluconazole [Diflucan] 100 mg PO DAILY #3 tab Levofloxacin [Levaquin] 750 mg PO 1300 #5 tab Nystatin 100,000 Unit/ml Susp [Mycostatin Oral Susp] 500,000 unit PO QID #20 cup predniSONE See Taper PO DIRECTED #30 tab Continue Venlafaxine HCl [Effexor XR] 75 mg PO DAILY Levothyroxine Sodium [Synthroid] 75 mcg PO DAILY Umeclidinium Brm/Vilanterol Tr [Anoro Ellipta 62.5-25 Mcg INH] 1 puff INHALATION RT-DAILY Montelukast [Singulair] 10 mg PO DAILY Ipratropium-Albuterol Nebulize [Duoneb 0.5 mg-3 mg/3 ml Soln] 3 ml INHALATION RT-TID Calcium Carbonate/Vitamin D3 [Calcium 500-Vit D3 200 Tablet] 1 tab PO DAILY Ascorbic Acid [Vitamin C] 500 mg PO DAILY Gordon-3 Fatty Acids/Fish Oil [Fish Oil 1,000 mg Softgel] 1 cap PO DAILY Cholecalciferol [Vitamin D3] 1,000 unit PO DAILY Vitamin B Complex 1 cap PO DAILY Simvastatin [Zocor] 20 mg PO HS Theophylline 24 Hour [Ben-24] 300 mg PO DAILY #30 cap.er.24h predniSONE 5 mg PO DAILY Discharge Medication List Ipratropium-Albuterol Nebulize [Duoneb 0.5 mg-3 mg/3 ml Soln] 3 ml INHALATION RT -TID 07/22/17 [History] Levothyroxine Sodium [Synthroid] 75 mcg PO DAILY 07/22/17 [History] Montelukast [Singulair] 10 mg PO DAILY 07/22/17 [History] Umeclidinium Brm/Vilanterol Tr [Anoro Ellipta 62.5-25 Mcg INH] 1 puff INHALATION RT-DAILY 07/22/17 [History] Venlafaxine HCl [Effexor XR] 75 mg PO DAILY 07/22/17 [History] Ascorbic Acid [Vitamin C] 500 mg PO DAILY 09/10/17 [History] Calcium Carbonate/Vitamin D3 [Calcium 500-Vit D3 200 Tablet] 1 tab PO DAILY [History] Gordon-3 Fatty Acids/Fish Oil [Fish Oil 1,000 mg Softgel] 1 cap PO DAILY [History] Cholecalciferol [Vitamin D3] 1,000 unit PO DAILY 01/22/18 [History] Simvastatin [Zocor] 20 mg PO HS 01/22/18 [History] Vitamin B Complex 1 cap PO DAILY 01/22/18 [History] Theophylline 24 Hour [Ben-24] 300 mg PO DAILY #30 cap.er.24h 02/27/18 [Rx] predniSONE 5 mg PO DAILY 05/30/18 [History] Fluconazole [Diflucan] 100 mg PO DAILY #3 tab 07/02/18 [Rx] Levofloxacin [Levaquin] 750 mg PO 1300 #5 tab 07/02/18 [Rx] Nystatin 100,000 Unit/ml Susp [Mycostatin Oral Susp] 500,000 unit PO QID #20 cup 07/02/18 [Rx] predniSONE See Taper PO DIRECTED #30 tab 07/02/18 [Rx] Follow up Appointment(s)/Referral(s): Heri Alexandra DO [Primary Care Provider] - 1-2 days Dani Zarate MD [STAFF PHYSICIAN] - 1 Week
[2018-07-02 11:23] VITALS: PULSE 86
[2018-07-02] MEDS: LEVOFLOXACIN 750 MG TAB PO SCH (11:56)
[2018-07-02 13:02] LABS: Glucose,Whole Blood 245 mg/dL (75-99)
== END 2018-07-02 14:22 | disposition home or self-care (01) | DRG 190 ==
LOC: EC 14:51 → 4MS4W 16:24
PROVIDERS: ADMIT Family Medicine; ATTEND Family Medicine
DX: J44.1 Chronic obstructive pulmonary disease with (acute) exacerbation (principal); J96.02 Acute respiratory failure with hypercapnia; B37.0 Candidal stomatitis; E87.2 Acidosis; E03.9 Hypothyroidism, unspecified; E66.9 Obesity, unspecified; E78.5 Hyperlipidemia, unspecified; I10 Essential (primary) hypertension; T38.0X5A Adverse effect of glucocorticoids and synthetic analogues, initial encounter; R73.9 Hyperglycemia, unspecified; F32.9 Major depressive disorder, single episode, unspecified; F17.201 Nicotine dependence, unspecified, in remission; R09.02 Hypoxemia; D72.829 Elevated white blood cell count, unspecified; E86.9 Volume depletion, unspecified; Z68.30 Body mass index [BMI] 30.0-30.9, adult; Z79.52 Long term (current) use of systemic steroids; Z79.890 Hormone replacement therapy; Z79.899 Other long term (current) drug therapy; Z90.710 Acquired absence of both cervix and uterus; Z87.442 Personal history of urinary calculi; Z90.49 Acquired absence of other specified parts of digestive tract; Z80.3 Family history of malignant neoplasm of breast; Z82.49 Family history of ischemic heart disease and other diseases of the circulatory system; Z82.5 Family history of asthma and other chronic lower respiratory diseases
CPT/HCPCS: 36415; 71045; 80048; 80053; 80198; 82550; 82553; 83605; 83735; 83880; 84443; 84481; 84484; 85025; 85027; 85610; 85730; 93005; 94640; 94644; 94760; 96361; 96374; 99285

== ENCOUNTER → 2018-07-22 | Outpatient (CLI) | payer MEDICARE ==
--- NOTE | 2018-07-22 14:54 | US ---
EXAMINATION TYPE: US kidneys/renal and bladder DATE OF EXAM: 07/22/2018 COMPARISON: CT 05/30/2018 CLINICAL HISTORY: R93.4 History of Hydronephrosis. Difficult exam due to patient body habitus EXAM MEASUREMENTS: Right Kidney: 9.8 x 5.0 x 4.8 cm Left Kidney: 10.7 x 5.2 x 4.4 cm Right Kidney: No hydronephrosis or masses seen Left Kidney: No hydronephrosis or masses seen Bladder: wnl Bilateral Jets seen: Yes There is no evidence for hydronephrosis at this point in time. No nephrolithiasis is seen. No estela s are identified. The urinary bladder is anechoic. Bilateral ureteral jets are seen. IMPRESSION: Negative examination
== END | disposition home or self-care (01) ==
LOC: RADUSWWP 14:17
PROVIDERS: ATTEND Urology
DX: Z09 Encounter for follow-up examination after completed treatment for conditions other than malignant neoplasm (principal); Z87.448 Personal history of other diseases of urinary system
CPT/HCPCS: 76770

== ENCOUNTER 2019-03-18 18:32 | Inpatient (IN) | payer MEDICARE ==
[2019-03-18] MEDS ORDERED: SODIUM CHLORIDE 0.9% 1,000 ML IV STA ×3 (18:47→19:40)
[2019-03-18] MEDS ORDERED: SODIUM CHLORIDE 0.9% 500 ML 500 ML IV STA (18:47)
[2019-03-18 19:18] LABS: Glucose,Whole Blood 373 mg/dL (75-99)
--- NOTE | 2019-03-18 19:26 | ED ---
Recheck HPI - General Chief Complaint: Recheck/Abnormal Lab/Rx Stated Complaint: High sugar Time Seen by Provider: 03/18/19 18:47 Source: patient, old records reviewed Mode of arrival: ambulatory Limitations: no limitations - History of Present Illness Initial Comments: This is a 78-year-old female the ER for evaluation. She presents today for evaluation regards to not feeling well feeling herself. Patient has COPD and steroids and recently noted blood sugar to be high. Patient's weakness is been going on for quite some time she's been steroids now for over a year. She did not check her blood sugar she has had recent increased thirst and increased urination for 2 days. She denies any pain no headache chest pain shortness breath or abdominal pain. No other recent change in medications. Patient states her breathing her breathing seems to be well under control MD Complaint: abnormal lab -: days(s) Returns Today for: Called Because of Abnormal Lab/Test (A she is elevated blood sugar) Symptoms Since Prior Visit: no new symptoms Context: called for abnormal lab result Associated Symptoms: none Treatments Prior to Arrival: home treatments (steroids) - Related Data Home Medications Medication Instructions Recorded Confirmed Ipratropium-Albuterol Nebulize 3 ml INHALATION RT-TID 07/22/17 03/18/19 [Duoneb 0.5 mg-3 mg/3 ml Soln] Levothyroxine Sodium [Synthroid] 75 mcg PO DAILY 07/22/17 03/18/19 Montelukast [Singulair] 10 mg PO DAILY 07/22/17 03/18/19 Ascorbic Acid [Vitamin C] 500 mg PO DAILY 09/10/17 03/18/19 Calcium Carbonate/Vitamin D3 1 tab PO DAILY 09/10/17 03/18/19 [Calcium 500-Vit D3 200 Tablet] Cholecalciferol [Vitamin D3] 1,000 unit PO DAILY 01/22/18 03/18/19 Vitamin B Complex 1 cap PO DAILY 01/22/18 03/18/19 Albuterol Inhaler [Ventolin Hfa 1 - 2 puff INHALATION RT-Q6H PRN 03/18/19 Inhaler] Atorvastatin Calcium [Lipitor] 10 mg PO DAILY 03/18/19 03/18/19 Magnesium Gluconate [Magonate] 500 mg PO DAILY 03/18/19 03/18/19 Turmeric Root Extract [Turmeric] 500 mg PO DAILY 03/18/19 03/18/19 Umeclidinium Brm/Vilanterol Tr 1 puff INHALATION DAILY 03/18/19 03/18/19 [Anoro Ellipta 62.5-25 Mcg INH] predniSONE 10 mg PO DAILY 03/18/19 03/18/19 Previous Rx's Medication Instructions Recorded Theophylline 24 Hour [Ben-24] 300 mg PO DAILY #30 cap.er.24h 02/27/18 Allergies Allergy/AdvReac Type Severity Reaction Status Date / Time No Known Allergies Allergy Verified 03/18/19 19:14 Review of Systems ROS Statement: Those systems with pertinent positive or pertinent negative responses have been documented in the HPI. ROS Other: All systems not noted in ROS Statement are negative. Past Medical History Past Medical History: COPD, Hyperlipidemia, Hypertension, Thyroid Disorder Additional Past Medical History / Comment(s): home 02 2L at hs and prn, past thyroid nodules, kidney stones. History of Any Multi-Drug Resistant Organisms: None Reported Past Surgical History: Appendectomy, Hysterectomy, Tonsillectomy Additional Past Surgical History / Comment(s): colonoscopy, one thyroid nodule removed from each side-bother were benign. Other surgeries include appendectomy, hysterectomy and tonsillectomy, lithrotripsy Past Anesthesia/Blood Transfusion Reactions: No Reported Reaction Past Psychological History: No Psychological Hx Reported Smoking Status: Former smoker Past Alcohol Use History: None Reported Past Drug Use History: None Reported - Past Family History Father Family Medical History: Myocardial Infarction ([place]) Additional Family Medical History / Comment(s): in 2009 from [place]. Mother Family Medical History: COPD Sister(s) Family Medical History: Cancer, COPD Additional Family Medical History / Comment(s): pt has two sisters who both had breast cancer. 1 sister has COPD. General Exam Limitations: no limitations General appearance: alert, in no apparent distress Head exam: Present: atraumatic, normocephalic, normal inspection Eye exam: Present: normal appearance, PERRL, EOMI. Absent: scleral icterus, conjunctival injection, periorbital swelling ENT exam: Present: normal exam, mucous membranes moist Neck exam: Present: normal inspection. Absent: tenderness, meningismus, lymphadenopathy Respiratory exam: Present: normal lung sounds bilaterally. Absent: respiratory distress, wheezes, rales, rhonchi, stridor Cardiovascular Exam: Present: regular rate, normal rhythm, normal heart sounds. Absent: systolic murmur, diastolic murmur, rubs, gallop, clicks GI/Abdominal exam: Present: soft, normal bowel sounds. Absent: distended, tenderness, guarding, rebound, rigid Extremities exam: Present: normal inspection, full ROM, normal capillary refill. Absent: tenderness, pedal edema, joint swelling, calf tenderness Back exam: Present: normal inspection Neurological exam: Present: alert, oriented X3, CN II-XII intact Psychiatric exam: Present: normal affect, normal mood Skin exam: Present: warm, dry, intact, normal color. Absent: rash Course Vital Signs 03/18/19 03/18/19 03/18/19 18:39 19:24 20:04 Temperature 97.8 F 99.0 F Pulse Rate 99 85 73 Respiratory 18 18 Rate Blood Pressure 132/72 136/72 O2 Sat by Pulse 96 93 L Oximetry - Reevaluation(s) Reevaluation #1: 03/18/19 19:58 Medical record is reviewed Reevaluation #2: 03/18/19 19:58 Patient still feels weak Medical Decision Making - Medical Decision Making 78 female the ER for evaluation of weakness and not feeling well hypoglycemia. Patient is on chronic steroid use and likely has underlying secondary diabetes, she has had elevated blood sugar in the past but did resolve. Patient also feels very dehydrated weak. Will admit for rehydration and monitoring of blood sugar. - Lab Data Result diagrams: 03/18/19 19:21 03/18/19 19:21 Lab Results 03/18/19 03/18/19 03/18/19 Range/Units 19:08 19:21 19:21 WBC 15.3 H (3.8-10.6) k/uL RBC 4.74 (3.80-5.40) m/uL Hgb 15.4 (11.4-16.0) gm/dL Hct 46.7 H (34.0-46.0) % MCV 98.5 (80.0-100.0) fL MCH 32.5 (25.0-35.0) pg MCHC 33.0 (31.0-37.0) g/dL RDW 14.0 (11.5-15.5) % Plt Count 307 (150-450) k/uL Neutrophils % 84 % Lymphocytes % 11 % Monocytes % 4 % Eosinophils % 1 % Basophils % 0 % Neutrophils # 12.9 H (1.3-7.7) k/uL Lymphocytes # 1.6 (1.0-4.8) k/uL Monocytes # 0.6 (0-1.0) k/uL Eosinophils # 0.1 (0-0.7) k/uL Basophils # 0.0 (0-0.2) k/uL Sodium 133 L (137-145) mmol/L Potassium 4.5 (3.5-5.1) mmol/L Chloride 101 (98-107) mmol/L Carbon Dioxide 22 (22-30) mmol/L Anion Gap 10 mmol/L BUN 15 (7-17) mg/dL Creatinine 0.70 (0.52-1.04) mg/dL Est GFR (CKD-EPI)AfAm >90 (>60 ml/min/1.73 sqM) Est GFR (CKD-EPI)NonAf 84 (>60 ml/min/1.73 sqM) Glucose 397 H (74-99) mg/dL POC Glucose (mg/dL) 373 H (75-99) mg/dL POC Glu Laster Hand ID Ascencion, Bennie Calcium 10.0 (8.4-10.2) mg/dL Phosphorus 3.2 (2.5-4.5) mg/dL Magnesium 1.7 (1.6-2.3) mg/dL Total Bilirubin 0.7 (0.2-1.3) mg/dL AST 39 H (14-36) U/L ALT 83 H (9-52) U/L Alkaline Phosphatase 92 (38-126) U/L Total Protein 6.3 (6.3-8.2) g/dL Albumin 4.1 (3.5-5.0) g/dL Acetone, Qual Negative (Negative) - EKG Data -: EKG Interpreted by Me (EKG shows sinus rhythm rate of 87, MI 150, QRS 70, QTc 454) - Radiology Data Radiology results: report reviewed (Chest x-rays negative for acute disease), image reviewed Disposition Clinical Impression: Acute exacerbation of chronic obstructive airways disease, Hyperglycemia, Dehydration, Hyponatremia Disposition: ADMITTED IP TO THIS HOSP Condition: Fair Is patient prescribed a controlled substance at d/c from ED?: No Referrals: Heri Alexandra DO [Primary Care Provider] - 1-2 days
[2019-03-18 19:28] LABS: Basophils % (A) 0 %; Eosinophils # (A) 0.1 k/uL (0-0.7); Eosinophils % (A) 1 %; HCT 46.7 % (34.0-46.0); HGB 15.4 gm/dL (11.4-16.0); Lymphocytes # (A) 1.6 k/uL (1.0-4.8); Lymphocytes % (A) 11 %; MCH 32.5 pg (25.0-35.0); MCV 98.5 fL (80.0-100.0); Mean Platelet Volume 8.4; Monocytes # (A) 0.6 k/uL (0-1.0); Monocytes % (A) 4 %; Neutrophils # (A) 12.9 k/uL (1.3-7.7); Neutrophils % (A) 84 %; Platelet Count 307 k/uL (150-450); RBC 4.74 m/uL (3.80-5.40); WBC 15.3 k/uL (3.8-10.6)
[2019-03-18 19:38] LABS: ALT 83 U/L (9-52); AST 39 U/L (14-36); Albumin 4.1 g/dL (3.5-5.0); Alkaline Phosphatase 92 U/L (38-126); Anion Gap 10 mmol/L; Blood Urea Nitrogen 15 mg/dL (7-17); Carbon Dioxide 22 mmol/L (22-30); Chloride 101 mmol/L (98-107); Glucose 397 mg/dL (74-99); Magnesium 1.7 mg/dL (1.6-2.3); Phosphorus 3.2 mg/dL (2.5-4.5); Potassium 4.5 mmol/L (3.5-5.1); Sodium 133 mmol/L (137-145); Total Bilirubin 0.7 mg/dL (0.2-1.3); Total Protein 6.3 g/dL (6.3-8.2)
[2019-03-18] MEDS ORDERED: IPRATROPIUM-ALBUTEROL 3 ML NEB INHALATION STA (19:40)
--- NOTE | 2019-03-18 20:14 | XR ---
EXAMINATION: XR chest 2V DATE AND TIME: 03/18/2019 7:55 PM CLINICAL INDICATION: PHH; Pain TECHNIQUE: Departmental protocol COMPARISON: None FINDINGS: There is a fine reticular pattern of increased density throughout the lungs, silhouetting the pulmona ry vasculature to 8 marked degree. There are bilateral septal lines at the periphery. The changes are in keeping with marked interstitial phase pulmonary edema. No focal pulmonary consolidative opacity. No associated major silhouetting of the pleural reflections. There is hyperinflation. The pleural spaces are negative. The cardiac silhouette is not enlarged. The remainder of the mediastinal silhouette is unremarkable. The skeletal structures and soft tissues are negative for acute findings. IMPRESSION: Prominent interstitial phase pulmonary edema pattern.
[2019-03-18 20:36] LABS: VBG PH 7.41 (7.31-7.41)
[2019-03-18 20:49] LABS: Appearance,Urine Clear (Clear); Bilirubin,Urine Negative (Negative); Blood,Urine Negative (Negative); Color,Urine Light Yellow; Glucose,Urine (UA) 4+ (Negative); Ketones,Urine Negative (Negative); Leukocyte Esterase,Urine Negative (Negative); Nitrite,Urine Negative (Negative); Protein,Urine Negative (Negative); Specific Gravity,Urine 1.015 (1.001-1.035); Urobilinogen,Urine <2.0 mg/dL (<2.0)
[2019-03-18 23:43] LABS: Glucose,Whole Blood 335 mg/dL (75-99)
[2019-03-18] MEDS: CALCIUM CARB-VIT D 500MG-200UN 1 EACH TAB PO SCH (23:47)
[2019-03-18] MEDS ORDERED: INSULIN ASPART (NovoLOG) 100 UNIT/ML VIAL SQ ONE (23:52)
[2019-03-18] MEDS: ATORVASTATIN 10 MG TAB PO SCH (23:58)
[2019-03-18] MEDS: methylPREDNISolone SOD SUCCI 125 MG/2 ML VIAL IV SCH (23:58)
[2019-03-19] MEDS: SODIUM CHLORIDE 0.9% 1,000 ML IV SCH ×4 (00:01→20:46)
[2019-03-19] MEDS: methylPREDNISolone SOD SUCCI 125 MG/2 ML VIAL IV SCH (06:09)
[2019-03-19 07:14] LABS: Glucose,Whole Blood 313 mg/dL (75-99)
[2019-03-19] MEDS: IPRATROPIUM-ALBUTEROL 3 ML NEB INHALATION SCH ×4 (07:22→19:13)
[2019-03-19] MEDS: INSULIN ASPART (NovoLOG) 100 UNIT/ML VIAL SQ SCH ×6 (07:42→20:45)
[2019-03-19] MEDS: CALCIUM CARB-VIT D 500MG-200UN 1 EACH TAB PO SCH (07:44)
[2019-03-19] MEDS ORDERED: IPRATROPIUM-ALBUTEROL 3 ML NEB INHALATION SCH (08:00)
--- NOTE | 2019-03-19 08:58 | P.HPIM ---
History of Present Illness H&P Date: 03/19/19 Chief Complaint: Hyperglycemia This is a 78-year-old female with history of COPD, has been on oral steroids for nearly 1 year, complaining of not feeling well, increased thirst, increased urination 2 days, recently noted her sugars were high; states breathing controlled. Apparently patient was called regarding abnormal lab, high blood sugar. Blood sugars on admission 397, sodium 133, BUN 15, creatinine 0.70. Minimally elevated AST, ALT, 39/83. UA negative leukocytes ,with 4+ glucose, no ketones. Acetone negative. Denies nausea, vomiting or abdominal pain. EKG rep orted normal sinus rhythm. Chest x-ray reporting pulmonary interstitial disease pulmonary edema without focal consolidative opacity. Denies chest pain, palpitations or increased shortness of breath. Patient wears 2 liters NC O2 at home. Currently requiring 3 L nasal cannula O2 to maintain O2 sats of 94%. VSS. Review of Systems Review of systems: CONSTITUTIONAL: No fever, positive fatigue. HEENT: No recent visual problems or hearing problems. Denied any sore throat. Increased thirst CARDIOVASCULAR: No chest pain, orthopnea, PND, no palpitations, no syncope. PULMONARY: No shortness of breath, no cough, no hemoptysis. GASTROINTESTINAL: No diarrhea, no nausea, no vomiting, no abdominal pain. Normoactive bowel sounds. NEUROLOGICAL: No headaches, no weakness, no numbness. HEMATOLOGICAL: Denies any bleeding or petechiae. GENITOURINARY: Denies any burning micturition, positive frequency, no urgency. MUSCULOSKELETAL/RHEUMATOLOGICAL: Denies any joint pain, swelling, or any muscle pain. ENDOCRINE: Positive polyuria and polydipsia. PSYCHIATRIC: No anxiety, no depression The rest of the 14 point review of systems is negative Past Medical History Past Medical History: COPD, Hyperlipidemia, Hypertension, Thyroid Disorder Additional Past Medical History / Comment(s): home 02 2L at hs and prn, past thyroid nodules, kidney stones. History of Any Multi-Drug Resistant Organisms: None Reported Past Surgical History: Appendectomy, Hysterectomy, Tonsillectomy Additional Past Surgical History / Comment(s): colonoscopy, one thyroid nodule removed from each side-bother were benign. Other surgeries include appendectomy, hysterectomy and tonsillectomy, lithrotripsy Past Anesthesia/Blood Transfusion Reactions: No Reported Reaction Past Psychological History: No Psychological Hx Reported Additional Psychological History / Comment(s): lives with spouse. has home 02 and nebulizer Smoking Status: Never smoker Past Alcohol Use History: None Reported Additional Past Alcohol Use History / Comment(s): started smoking at age 22(1962), quit 2017 smoked 1 ppd Past Drug Use History: None Reported - Past Family History Father Family Medical History: Myocardial Infarction ([place]) Additional Family Medical History / Comment(s): in 2009 from [place]. Mother Family Medical History: COPD Sister(s) Family Medical History: Cancer, COPD Additional Family Medical History / Comment(s): pt has two sisters who both had breast cancer. 1 sister has COPD. Medications and Allergies Home Medications Medication Instructions Recorded Confirmed Type Ipratropium-Albuterol Nebulize 3 ml INHALATION RT-TID 07/22/17 03/18/19 History [Duoneb 0.5 mg-3 mg/3 ml Soln] Levothyroxine Sodium [Synthroid] 75 mcg PO DAILY 07/22/17 03/18/19 History Montelukast [Singulair] 10 mg PO DAILY 07/22/17 03/18/19 History Ascorbic Acid [Vitamin C] 500 mg PO DAILY 09/10/17 03/18/19 History Calcium Carbonate/Vitamin D3 1 tab PO DAILY 09/10/17 03/18/19 History [Calcium 500-Vit D3 200 Tablet] Cholecalciferol [Vitamin D3] 1,000 unit PO DAILY 01/22/18 03/18/19 History Vitamin B Complex 1 cap PO DAILY 01/22/18 03/18/19 History Theophylline 24 Hour [Ben-24] 300 mg PO DAILY #30 cap.er.24h 02/27/18 03/18/19 Rx Albuterol Inhaler [Ventolin Hfa 1 - 2 puff INHALATION RT-Q6H PRN 03/18/19 03/18/19 History Inhaler] Atorvastatin Calcium [Lipitor] 10 mg PO HS 03/18/19 03/18/19 History Magnesium Gluconate [Magonate] 500 mg PO DAILY 03/18/19 03/18/19 History Turmeric Root Extract [Turmeric] 500 mg PO DAILY 03/18/19 03/18/19 History Umeclidinium Brm/Vilanterol Tr 1 puff INHALATION DAILY 03/18/19 03/18/19 History [Anoro Ellipta 62.5-25 Mcg INH] predniSONE 10 mg PO DAILY 03/18/19 03/18/19 History Allergies Allergy/AdvReac Type Severity Reaction Status Date / Time No Known Allergies Allergy Verified 03/18/19 19:14 Physical Exam Vitals: Vital Signs Temp Pulse Pulse Resp BP BP Pulse Ox 03/19/19 07:34 76 03/19/19 07:25 74 94 L 03/19/19 05:12 98.2 F 71 18 115/73 96 03/19/19 00:00 78 18 03/18/19 21:33 98.2 F 78 18 134/76 94 L 03/18/19 20:56 98.6 F 80 18 130/72 94 L 03/18/19 20:04 73 03/18/19 19:24 99.0 F 85 18 136/72 93 L 03/18/19 18:39 97.8 F 99 18 132/72 96 Intake and Output 03/18/19 03/19/19 03/19/19 22:59 06:59 14:59 Other: Voiding Method Toilet # Voids 1 1 Weight 83.915 kg PHYSICAL EXAM: VITAL SIGNS: As above GENERAL: Sitting up in bed, no acute distress, eating breakfast HEENT: Conjunctivae normal. eyes normal. Oral mucosa moist NECK: No JVD. No thyroid enlargement. No LNs CARDIOVASCULAR: S1, S2 regular. No murmur RESPIRATION: Breath sounds diminished in the bases. No rhonchi or crackles. No bronchial breathing. ABDOMEN: Soft, nontender . No guarding. no masses palpable. No ascites, No hepatosplenomegaly.Bowel sounds heard. LEGS: No edema. no swelling PSYCHIATRY: Alert and oriented -3, mood and affect normal. NERVOUS SYSTEM: Cranial N 2-12 grossly normal. Moves all 4 limbs. Diffuse weakness No focal deficits. Skin: no ulcer no rash Joints: No active swelling. No inflammation. Lymphatic system. No LN neck axilla or groin. Results CBC & Chem 7: 03/18/19 19:21 03/18/19 19:21 Labs: Abnormal Lab Results - Last 24 Hours (Table) 03/18/19 03/18/19 03/18/19 Range/Units 19:08 19:21 19:21 WBC 15.3 H (3.8-10.6) k/uL Hct 46.7 H (34.0-46.0) % Neutrophils # 12.9 H (1.3-7.7) k/uL VBG pCO2 (37-51) mmHg VBG HCO3 (24-28) mmol/L Sodium 133 L (137-145) mmol/L Glucose 397 H (74-99) mg/dL POC Glucose (mg/dL) 373 H (75-99) mg/dL AST 39 H (14-36) U/L ALT 83 H (9-52) U/L Urine Glucose (UA) (Negative) 03/18/19 03/18/19 03/18/19 Range/Units 20:24 20:31 23:42 WBC (3.8-10.6) k/uL Hct (34.0-46.0) % Neutrophils # (1.3-7.7) k/uL VBG pCO2 35 L (37-51) mmHg VBG HCO3 22 L (24-28) mmol/L Sodium (137-145) mmol/L Glucose (74-99) mg/dL POC Glucose (mg/dL) 335 H (75-99) mg/dL AST (14-36) U/L ALT (9-52) U/L Urine Glucose (UA) 4+ H (Negative) 03/19/19 Range/Units 07:06 WBC (3.8-10.6) k/uL Hct (34.0-46.0) % Neutrophils # (1.3-7.7) k/uL VBG pCO2 (37-51) mmHg VBG HCO3 (24-28) mmol/L Sodium (137-145) mmol/L Glucose (74-99) mg/dL POC Glucose (mg/dL) 313 H (75-99) mg/dL AST (14-36) U/L ALT (9-52) U/L Urine Glucose (UA) (Negative) Thrombosis Risk Factor Assmnt - Choose All That Apply Any of the Below Risk Factors Present?: Yes Each Factor Represents 1 point: Abnormal pulmonary function (COPD), Obesity (BMI >25), Serious lung disease incl. pneumonia (< 1month) Other Risk Factors: Yes Each Risk Factor Represents 3 Points: Age 75 years or older Thrombosis Risk Factor Assessment Total Risk Factor Score: 6 Thrombosis Risk Factor Assessment Level: High Risk Assessment and Plan Assessment: Hyperglycemia, in a patient with diabetes mellitus, on oralsteroids for nearly 1 year.HGBA1C pending Acute COPD exacerbation, on chronic steroids Acute on chronic hypoxic respiratory failure secondary to the above, wears 2 L nasal cannula, Mild hyponatremia Dehydration Plan: Continue on current medication regime ,monitoring and symptomatic treatment. Maintain nebulized bronchodilators, IV steroids. Levemir, metformin initiated in addition to sliding scale and pre-meal insulin coverage. Dietary consult initiated as patient presenting with significant hyperglycemia, has been on oral steroids for nearly a year. Hemoglobin A1c pending. Close monitoring of Accu-Cheks. Close monitoring of electrolytes with repeat labs ordered for a.m. Discussed with patient, discharge plans of adding Levemir and metformin to home med regime with discharge planning in progress for tomorrow. All meds have been reviewed and resumed. GI and DVT prophylaxis in place. Further recommendations to follow. The impression and plan of care has been dictated as directed. : I performed a history and examination of this patient, discussed the same with the dictator. I agree with the dictator's note ,documented as a scribe. Any additional findings or plans will be noted. Takin minutes
[2019-03-19] MEDS ORDERED: INSULIN DETEMIR (LEVEMIR) 100 UNIT/ML SYR SQ SCH (09:00)
[2019-03-19] MEDS: metFORMIN 500 MG TAB PO SCH ×2 (09:08→17:04)
[2019-03-19] MEDS: MAGNESIUM OXIDE 400 MG TAB PO SCH (09:08)
[2019-03-19] MEDS: MONTELUKAST 10 MG TAB PO SCH (09:08)
[2019-03-19] MEDS: Vitamin B Complex [Vitamin B Complex] 1 CAP PO SCH (09:09)
[2019-03-19] MEDS: ASCORBIC ACID 500 MG TAB PO SCH (09:09)
[2019-03-19] MEDS: THEOPHYLLINE 24 HOUR 300 MG CAP.ER.24H PO SCH (09:09)
[2019-03-19] MEDS: Turmeric Root Extract [Turmeric] 500 MG PO SCH (09:09)
[2019-03-19] MEDS ORDERED: PANTOPRAZOLE 40 MG/10 ML VIAL IVP SCH (09:15)
[2019-03-19] MEDS: HEPARIN SODIUM,PORCINE 5,000 UNIT/ML 1 ML VIAL SQ SCH ×2 (09:36→20:45)
[2019-03-19] MEDS: CALCIUM CARBONATE 500 MG CHEWABLE PO PRN (09:37)
[2019-03-19] MEDS: FORMOTEROL FUMARATE 20 MCG/2 ML NEBU INHALATION SCH ×2 (11:12→19:14)
[2019-03-19 11:58] LABS: Glucose,Whole Blood 477 mg/dL (75-99)
[2019-03-19] MEDS ORDERED: INSULIN ASPART (NovoLOG) 100 UNIT/ML VIAL SQ ONE (12:15)
[2019-03-19] MEDS: CHOLECALCIFEROL 1,000 UNIT TAB PO SCH (12:43)
[2019-03-19 15:33] LABS: Hemoglobin A1C 12.7 % (4.0-6.0)
[2019-03-19 15:41] VITALS: BMI 30.7
[2019-03-19] MEDS: methylPREDNISolone SOD SUCCI 40 MG/ML 1 ML VIAL IV SCH ×2 (16:10→23:10)
[2019-03-19 16:58] LABS: Glucose,Whole Blood 343 mg/dL (75-99)
[2019-03-19 20:38] LABS: Glucose,Whole Blood 334 mg/dL (75-99)
[2019-03-19] MEDS: ATORVASTATIN 10 MG TAB PO SCH (20:45)
[2019-03-20] MEDS: SODIUM CHLORIDE 0.9% 1,000 ML IV SCH (05:42)
[2019-03-20 06:01] VITALS: BP 125/73; RESP 18; TEMP 97.7
[2019-03-20] MEDS ORDERED: LEVOTHYROXINE 75 MCG TAB PO SCH (06:30)
[2019-03-20 07:12] LABS: Glucose,Whole Blood 326 mg/dL (75-99)
[2019-03-20] MEDS ORDERED: PANTOPRAZOLE 40 MG TABLET PO SCH (07:30)
[2019-03-20] MEDS: metFORMIN 500 MG TAB PO SCH (07:58)
[2019-03-20] MEDS: INSULIN ASPART (NovoLOG) 100 UNIT/ML VIAL SQ SCH ×2 (07:58)
[2019-03-20] MEDS: CALCIUM CARB-VIT D 500MG-200UN 1 EACH TAB PO SCH (07:59)
[2019-03-20] MEDS: MAGNESIUM OXIDE 400 MG TAB PO SCH (07:59)
[2019-03-20] MEDS: CHOLECALCIFEROL 1,000 UNIT TAB PO SCH (07:59)
[2019-03-20] MEDS: THEOPHYLLINE 24 HOUR 300 MG CAP.ER.24H PO SCH (07:59)
[2019-03-20] MEDS: MONTELUKAST 10 MG TAB PO SCH (07:59)
[2019-03-20] MEDS: CALCIUM CARBONATE 500 MG CHEWABLE PO PRN (07:59)
[2019-03-20] MEDS: HEPARIN SODIUM,PORCINE 5,000 UNIT/ML 1 ML VIAL SQ SCH (08:00)
[2019-03-20] MEDS: ASCORBIC ACID 500 MG TAB PO SCH (08:03)
[2019-03-20] MEDS: Vitamin B Complex [Vitamin B Complex] 1 CAP PO SCH (08:05)
[2019-03-20] MEDS: Turmeric Root Extract [Turmeric] 500 MG PO SCH (08:05)
[2019-03-20] MEDS: IPRATROPIUM-ALBUTEROL 3 ML NEB INHALATION SCH ×2 (08:10→11:30)
[2019-03-20] MEDS: FORMOTEROL FUMARATE 20 MCG/2 ML NEBU INHALATION SCH (08:10)
[2019-03-20 08:31] VITALS: PULSE 84
[2019-03-20 08:50] LABS: Basophils % (A) 0 %; Eosinophils % (A) 0 %; HCT 42.4 % (34.0-46.0); HGB 13.3 gm/dL (11.4-16.0); Lymphocytes # (A) 1.2 k/uL (1.0-4.8); Lymphocytes % (A) 7 %; MCH 31.8 pg (25.0-35.0); MCHC 31.4 g/dL (31.0-37.0); MCV 101.1 fL (80.0-100.0); Macrocytosis Slight; Mean Platelet Volume 8.2; Monocytes # (A) 0.7 k/uL (0-1.0); Monocytes % (A) 4 %; Neutrophils # (A) 16.8 k/uL (1.3-7.7); Neutrophils % (A) 89 %; Platelet Count 260 k/uL (150-450); RBC 4.19 m/uL (3.80-5.40); RDW 13.2 % (11.5-15.5); WBC 18.9 k/uL (3.8-10.6)
[2019-03-20] MEDS ORDERED: predniSONE 20 MG TAB PO SCH (09:00)
[2019-03-20] MEDS ORDERED: INSULIN DETEMIR (LEVEMIR) 100 UNIT/ML SYR SQ SCH (09:00)
[2019-03-20 09:23] LABS: Anion Gap 9 mmol/L; Blood Urea Nitrogen 23 mg/dL (7-17); Calcium 9.6 mg/dL (8.4-10.2); Carbon Dioxide 21 mmol/L (22-30); Chloride 108 mmol/L (98-107); Glucose 341 mg/dL (74-99); Potassium 4.4 mmol/L (3.5-5.1); Sodium 138 mmol/L (137-145)
--- NOTE | 2019-03-20 16:32 | P.DS ---
Providers Date of admission: 03/18/19 20:28 Expected date of discharge: 03/20/19 Attending physician: Heri Alexandra Primary care physician: Heri Alexandra [facility] Hospital Course: Final Diagnoses: Hyperglycemia, in a patient with diabetes mellitus, on oralsteroids for nearly 1 year, noncompliant with medication regime.HGBA1C 12.7. Acute COPD exacerbation, on chronic steroids. Acute on chronic hypoxic respiratory failure secondary to the above, wears 2 L nasal cannula, significantly improved. Dehydration, improved. Hospital course:This is a 78-year-old female with history of COPD, has been on oral steroids for nearly 1 year, complaining of not feeling well, increased thirst, increased urination 2 days, recently noted her sugars were high; states breathing controlled. Apparently patient was called regarding abnormal lab, high blood sugar. Blood sugars on admission 397, sodium 133, BUN 15, creatinine 0.70. Minimally elevated AST, ALT, 39/83. UA negative leukocytes ,with 4+ glucose, no ketones. Acetone negative. Denies nausea, vomiting or abdominal pain. EKG reported normal sinus rhythm. Chest x-ray reporting pulmonary interstitial disease pulmonary edema without focal consolidative opacity. Denies chest pain, palpitations or increased shortness of breath. Patient wears 2 liters NC O2 at home. Currently requiring 3 L nasal cannula O2 to maintain O2 sats of 94%. VSS. Denies chest pain, palpitations or increased shortness of breath. States she used to be on a long-acting insulin pen as well as a couple oral diabetic agents at home, quit using them. Hemoglobin A1c 12.7. Blood sugars improving , IV steroids discontinued ,Levemir dose increased this morning. Patient will be discharged on increased Levemir dose, metformin, and other home diabetic med. Received instruction from lines tender. Patient has been instructed that she will be scheduled for diabetic education classes in Dr. Alexandra office. Advised to maintain log of Accu-Cheks before meals and at bedtime, take to follow-up visit with Dr. Alexandra for further recommendations next week. Importance of Compliance, risks associated with noncompliance reinforced.Significant clinical improvement, patient is being discharged home in a stable condition with guarded prognosis. EXAM: GENERAL: Alert and oriented 3, no acute distress CARDIOVASCULAR: S1, S2 regular. No murmur RESPIRATION: Breath sounds diminished in the bases. No rhonchi or crackles. Occasional expiratory wheeze. ABDOMEN: Soft, nontender . No guarding. no masses palpable.Bowel sounds heard. NERVOUS SYSTEM:No focal deficits. The impression and plan of care has been dictated as directed. : I performed a history and examination of this patient, discussed the same with the dictator. I agree with the dictator's note ,documented as a scribe. Any additional findings or plans will be noted. Time taken: 35 minutes Patient Condition at Discharge: Stable Plan - Discharge Summary New Discharge Prescriptions: New Pantoprazole [Protonix] 40 mg PO AC-BRKFST #30 tablet.dr Hugo Levothyroxine Sodium [Synthroid] 75 mcg PO DAILY Montelukast [Singulair] 10 mg PO DAILY Ipratropium-Albuterol Nebulize [Duoneb 0.5 mg-3 mg/3 ml Soln] 3 ml INHALATION RT-TID Calcium Carbonate/Vitamin D3 [Calcium 500-Vit D3 200 Tablet] 1 tab PO DAILY Ascorbic Acid [Vitamin C] 500 mg PO DAILY Cholecalciferol [Vitamin D3] 1,000 unit PO DAILY Vitamin B Complex 1 cap PO DAILY Theophylline 24 Hour [Ben-24] 300 mg PO DAILY #30 cap.er.24h Magnesium Gluconate [Magonate] 500 mg PO DAILY predniSONE 10 mg PO DAILY Umeclidinium Brm/Vilanterol Tr [Anoro Ellipta 62.5-25 Mcg INH] 1 puff INHALATION DAILY Albuterol Inhaler [Ventolin Hfa Inhaler] 1 - 2 puff INHALATION RT-Q6H PRN PRN Reason: Shortness Of Breath Atorvastatin Calcium [Lipitor] 10 mg PO HS Turmeric Root Extract [Turmeric] 500 mg PO DAILY metFORMIN HCL [Glucophage] 500 mg PO BID Changed Insulin Detemir [Levemir Flextouch] 25 units SQ HS #0 No Action Dislucan 100 mg PO DAILY Discharge Medication List Ipratropium-Albuterol Nebulize [Duoneb 0.5 mg-3 mg/3 ml Soln] 3 ml INHALATION RT-TID 07/22/17 [History] Levothyroxine Sodium [Synthroid] 75 mcg PO DAILY 07/22/17 [History] Montelukast [Singulair] 10 mg PO DAILY 07/22/17 [History] Ascorbic Acid [Vitamin C] 500 mg PO DAILY 09/10/17 [History] Calcium Carbonate/Vitamin D3 [Calcium 500-Vit D3 200 Tablet] 1 tab PO DAILY 09/10/17 [History] Cholecalciferol [Vitamin D3] 1,000 unit PO DAILY 01/22/18 [History] Vitamin B Complex 1 cap PO DAILY 01/22/18 [History] Theophylline 24 Hour [Ben-24] 300 mg PO DAILY #30 cap.er.24h 02/27/18 [Rx] Albuterol Inhaler [Ventolin Hfa Inhaler] 1 - 2 puff INHALATION RT-Q6H PRN 03/18/19 [History] Atorvastatin Calcium [Lipitor] 10 mg PO HS 03/18/19 [History] Magnesium Gluconate [Magonate] 500 mg PO DAILY 03/18/19 [History] Turmeric Root Extract [Turmeric] 500 mg PO DAILY 03/18/19 [History] Umeclidinium Brm/Vilanterol Tr [Anoro Ellipta 62.5-25 Mcg INH] 1 puff INHALATION DAILY 03/18/19 [History] predniSONE 10 mg PO DAILY 03/18/19 [History] Dislucan 100 mg PO DAILY 03/20/19 [History] Insulin Detemir [Levemir Flextouch] 25 units SQ HS #0 03/20/19 [Rx] Pantoprazole [Protonix] 40 mg PO AC-BRKFST #30 tablet.dr 03/20/19 [Rx] metFORMIN HCL [Glucophage] 500 mg PO BID 03/20/19 [History] Follow up Appointment(s)/Referral(s): Heri Alexandra DO [Primary Care Provider] - 03/27/19 9:10 am Patient Instructions/Handouts: Diabetic Hyperglycemia (DC) Activity/Diet/Wound Care/Special Instructions: Maintain log of accucheks achs, take to F/U visit with Dr. Alexandra for further rec. Diabetic Education classes at Dr. Alexandra Office Diet: COnsist. Carb Activity: Limited till F/U Ensure patient has glucometer, DM supplies Discharge Disposition: HOME SELF-CARE
== END 2019-03-20 11:41 | disposition home or self-care (01) | DRG 637 ==
LOC: EC 18:32 → 4MS4W 20:28 → 3NMEDONC 03-19 17:39
PROVIDERS: ADMIT Family Medicine; ATTEND Family Medicine
DX: E11.65 Type 2 diabetes mellitus with hyperglycemia (principal); J96.21 Acute and chronic respiratory failure with hypoxia; E87.1 Hypo-osmolality and hyponatremia; J44.1 Chronic obstructive pulmonary disease with (acute) exacerbation; J81.1 Chronic pulmonary edema; T38.0X5A Adverse effect of glucocorticoids and synthetic analogues, initial encounter; E78.5 Hyperlipidemia, unspecified; E86.0 Dehydration; I10 Essential (primary) hypertension; Z79.52 Long term (current) use of systemic steroids; Z79.890 Hormone replacement therapy; Z79.899 Other long term (current) drug therapy; Z80.3 Family history of malignant neoplasm of breast; Z82.49 Family history of ischemic heart disease and other diseases of the circulatory system; Z82.5 Family history of asthma and other chronic lower respiratory diseases; Z87.442 Personal history of urinary calculi; Z87.891 Personal history of nicotine dependence; Z90.710 Acquired absence of both cervix and uterus; Z91.14 Patient's other noncompliance with medication regimen; Z99.81 Dependence on supplemental oxygen; Y63.6 Underdosing and nonadministration of necessary drug, medicament or biological substance
CPT/HCPCS: 36415; 71046; 80048; 80053; 81003; 82009; 82803; 83036; 83735; 84100; 85025; 93005; 94640; 94760; 96360; 96361; 99285

== ENCOUNTER 2021-09-21 09:01 | Inpatient (IN) | payer MEDICARE ==
[2021-09-21] MEDS ORDERED: IPRATROPIUM-ALBUTEROL 3 ML NEB INHALATION STA (09:22)
--- NOTE | 2021-09-21 09:29 | ED ---
SOB HPI - General Chief Complaint: Shortness of Breath Stated Complaint: SOB Time Seen by Provider: 09/21/21 09:22 Source: patient, EMS Mode of arrival: EMS Limitations: no limitations - History of Present Illness Initial Comments: 81-year-old female past medical history of diabetes, COPD presents to the emergency room with reported shortness of breath. She normally wears 2 L of oxygen at night. States that over the past 2 days she has had increased work of breathing. She had quit smoking for 4 years however states that she recently started smoking again. She has been using her breathing treatments with some improvement. Patient does take 7 mg of prednisone daily. Has not missed any medications. She sees Dr. Zarate the outpatient setting. Patient took 2 breathing treatments at home and en route to the hospital EMS gave her an additional 2. She did call her primary care office for this to coming in and called in a Z-Lay[place]. Patient has yet to start taking it. Patient denies any sick contacts. No fevers or chills. Denies any chest pain. No history of cardiac disease. No other alleviating, precipitating factors - Related Data Home Medications Medication Instructions Recorded Confirmed Ipratropium-Albuterol Nebulize 3 ml INHALATION RT-TID 07/22/17 09/21/21 [Duoneb 0.5 mg-3 mg/3 ml Soln] Levothyroxine Sodium [Synthroid] 75 mcg PO DAILY 07/22/17 09/21/21 Montelukast [Singulair] 10 mg PO DAILY 07/22/17 09/21/21 Ascorbic Acid [Vitamin C] 500 mg PO DAILY 09/10/17 09/21/21 Vitamin B Complex 1 cap PO DAILY 01/22/18 09/21/21 Atorvastatin [Lipitor] 10 mg PO DAILY 09/21/21 09/21/21 Azithromycin [Zithromax Z-pack (6 See Taper PO DIRECTED 09/21/21 09/21/21 tabs)] Calcium Citrate 1,000 mg PO DAILY 09/21/21 09/21/21 Venlafaxine HCl ER [Effexor Xr] 75 mg PO DAILY 09/21/21 09/21/21 methylPREDNISolone Dose Pack See Taper PO DIRECTED 09/21/21 09/21/21 [Medrol Dose Pack] predniSONE 2 mg PO DAILY 09/21/21 09/21/21 predniSONE 5 mg PO DAILY 09/21/21 09/21/21 Previous Rx's Medication Instructions Recorded Theophylline 24 Hour [Ben-24] 300 mg PO DAILY #30 cap.er.24h 02/27/18 Allergies Allergy/AdvReac Type Severity Reaction Status Date / Time No Known Allergies Allergy Verified 09/21/21 12:34 Review of Systems ROS Statement: Those systems with pertinent positive or pertinent negative responses have been documented in the HPI. ROS Other: All systems not noted in ROS Statement are negative. Past Medical History Past Medical History: COPD, Diabetes Mellitus, Hyperlipidemia, Hypertension, Thyroid Disorder Additional Past Medical History / Comment(s): home 02 2L at hs and prn, past thyroid nodules, kidney stones. History of Any Multi-Drug Resistant Organisms: None Reported Past Surgical History: Appendectomy, Hysterectomy, Tonsillectomy Additional Past Surgical History / Comment(s): colonoscopy, one thyroid nodule removed from each side-bother were benign. Other surgeries include appendectomy, hysterectomy and tonsillectomy, lithrotripsy Past Anesthesia/Blood Transfusion Reactions: No Reported Reaction Past Psychological History: No Psychological Hx Reported Past Alcohol Use History: None Reported Past Drug Use History: None Reported - Past Family History Father Family Medical History: Myocardial Infarction ([place]) Additional Family Medical History / Comment(s): in 2009 from [place]. Mother Family Medical History: COPD Sister(s) Family Medical History: Cancer, COPD Additional Family Medical History / Comment(s): pt has two sisters who both had breast cancer. 1 sister has COPD. General Exam Limitations: no limitations Course Vital Signs 09/21/21 09/21/21 09/21/21 09:03 09:12 09:30 Temperature 97.1 F L Pulse Rate 129 H Respiratory 26 H 31 H Rate Blood Pressure 148/69 148/69 O2 Sat by Pulse 98 92 L Oximetry 09/21/21 09/21/21 09/21/21 10:00 10:07 10:14 Temperature Pulse Rate 112 H 109 H 109 H Respiratory 22 28 H 20 Rate Blood Pressure 132/75 O2 Sat by Pulse 99 Oximetry 09/21/21 11:00 Temperature Pulse Rate 103 H Respiratory 44 H Rate Blood Pressure 131/72 O2 Sat by Pulse 100 Oximetry Medical Decision Making - Medical Decision Making Upon arrival patient is placed into room 11. A thorough history and physical exam is performed. Patient does have significant workup breathing and therefore she is place on the BiPAP for approximately 2 hours. Laboratory studies are obtained. Demonstrates a white count of 16.1. Magnesium 1.9. Covid is not detected. Chest x-ray demonstrates abnormal density within the right middle lobe concerning for pneumonia. Patient is given 125 of Solu-Medrol and additional breathing treatment and a gram of magnesium. She is additionally placed on Levaquin and Vanco. Did recommend admission for which the patient did agree to. Spoke with Dr. Alexandra who agreed to admit the patient. Will place Pulmonology on consult. Patient remained in stable condition awaiting a bed - Lab Data Result diagrams: 09/21/21 10:25 09/21/21 10:25 Lab Results 09/21/21 09/21/21 09/21/21 Range/Units 10:25 10:25 10:25 WBC 16.1 H (3.8-10.6) k/uL RBC 4.54 (3.80-5.40) m/uL Hgb 15.6 (11.4-16.0) gm/dL Hct 47.8 H (34.0-46.0) % MCV 105.3 H (80.0-100.0) fL MCH 34.4 (25.0-35.0) pg MCHC 32.7 (31.0-37.0) g/dL RDW 12.6 (11.5-15.5) % Plt Count 299 (150-450) k/uL MPV 8.0 Neutrophils % 85 % Lymphocytes % 8 % Monocytes % 6 % Eosinophils % 1 % Basophils % 0 % Neutrophils # 13.7 H (1.3-7.7) k/uL Lymphocytes # 1.2 (1.0-4.8) k/uL Monocytes # 0.9 (0-1.0) k/uL Eosinophils # 0.1 (0-0.7) k/uL Basophils # 0.1 (0-0.2) k/uL Macrocytosis Slight PT 10.2 (9.0-12.0) sec INR 0.9 (<1.2) APTT 22.1 (22.0-30.0) sec Sodium 137 (137-145) mmol/L Potassium 3.9 (3.5-5.1) mmol/L Chloride 102 (98-107) mmol/L Carbon Dioxide 27 (22-30) mmol/L Anion Gap 8 mmol/L BUN 19 H (7-17) mg/dL Creatinine 0.51 L (0.52-1.04) mg/dL Est GFR (CKD-EPI)AfAm >90 (>60 ml/min/1.73 sqM) Est GFR (CKD-EPI)NonAf >90 (>60 ml/min/1.73 sqM) Glucose 155 H (74-99) mg/dL Plasma Lactic Acid Iker (0.7-2.0) mmol/L Calcium 9.4 (8.4-10.2) mg/dL Magnesium 1.9 (1.6-2.3) mg/dL Total Bilirubin 0.4 (0.2-1.3) mg/dL AST 29 (14-36) U/L ALT 28 (4-34) U/L Alkaline Phosphatase 58 (38-126) U/L Troponin I (0.000-0.034) ng/mL NT-Pro-B Natriuret Pep pg/mL Total Protein 6.2 L (6.3-8.2) g/dL Albumin 3.9 (3.5-5.0) g/dL Coronavirus (PCR) (Not Detectd) 09/21/21 09/21/21 09/21/21 Range/Units 10:25 10:25 10:25 WBC (3.8-10.6) k/uL RBC (3.80-5.40) m/uL Hgb (11.4-16.0) gm/dL Hct (34.0-46.0) % MCV (80.0-100.0) fL MCH (25.0-35.0) pg MCHC (31.0-37.0) g/dL RDW (11.5-15.5) % Plt Count (150-450) k/uL MPV Neutrophils % % Lymphocytes % % Monocytes % % Eosinophils % % Basophils % % Neutrophils # (1.3-7.7) k/uL Lymphocytes # (1.0-4.8) k/uL Monocytes # (0-1.0) k/uL Eosinophils # (0-0.7) k/uL Basophils # (0-0.2) k/uL Macrocytosis PT (9.0-12.0) sec INR (<1.2) APTT (22.0-30.0) sec Sodium (137-145) mmol/L Potassium (3.5-5.1) mmol/L Chloride (98-107) mmol/L Carbon Dioxide (22-30) mmol/L Anion Gap mmol/L BUN (7-17) mg/dL Creatinine (0.52-1.04) mg/dL Est GFR (CKD-EPI)AfAm (>60 ml/min/1.73 sqM) Est GFR (CKD-EPI)NonAf (>60 ml/min/1.73 sqM) Glucose (74-99) mg/dL Plasma Lactic Acid Iker 1.6 (0.7-2.0) mmol/L Calcium (8.4-10.2) mg/dL Magnesium (1.6-2.3) mg/dL Total Bilirubin (0.2-1.3) mg/dL AST (14-36) U/L ALT (4-34) U/L Alkaline Phosphatase (38-126) U/L Troponin I <0.012 (0.000-0.034) ng/mL NT-Pro-B Natriuret Pep 236 pg/mL Total Protein (6.3-8.2) g/dL Albumin (3.5-5.0) g/dL Coronavirus (PCR) (Not Detectd) 09/21/21 Range/Units 10:25 WBC (3.8-10.6) k/uL RBC (3.80-5.40) m/uL Hgb (11.4-16.0) gm/dL Hct (34.0-46.0) % MCV (80.0-100.0) fL MCH (25.0-35.0) pg MCHC (31.0-37.0) g/dL RDW (11.5-15.5) % Plt Count (150-450) k/uL MPV Neutrophils % % Lymphocytes % % Monocytes % % Eosinophils % % Basophils % % Neutrophils # (1.3-7.7) k/uL Lymphocytes # (1.0-4.8) k/uL Monocytes # (0-1.0) k/uL Eosinophils # (0-0.7) k/uL Basophils # (0-0.2) k/uL Macrocytosis PT (9.0-12.0) sec INR (<1.2) APTT (22.0-30.0) sec Sodium (137-145) mmol/L Potassium (3.5-5.1) mmol/L Chloride (98-107) mmol/L Carbon Dioxide (22-30) mmol/L Anion Gap mmol/L BUN (7-17) mg/dL Creatinine (0.52-1.04) mg/dL Est GFR (CKD-EPI)AfAm (>60 ml/min/1.73 sqM) Est GFR (CKD-EPI)NonAf (>60 ml/min/1.73 sqM) Glucose (74-99) mg/dL Plasma Lactic Acid Iker (0.7-2.0) mmol/L Calcium (8.4-10.2) mg/dL Magnesium (1.6-2.3) mg/dL Total Bilirubin (0.2-1.3) mg/dL AST (14-36) U/L ALT (4-34) U/L Alkaline Phosphatase (38-126) U/L Troponin I (0.000-0.034) ng/mL NT-Pro-B Natriuret Pep pg/mL Total Protein (6.3-8.2) g/dL Albumin (3.5-5.0) g/dL Coronavirus (PCR) Not Detected (Not Detectd) - EKG Data EKG Comments: EKG demonstrates sinus tachycardia with a ventricular rate of 125. SC interval 132. QRS 70. QTC of 444. Slight ST depression in V3 through V6. No acute ST segment elevations Disposition Clinical Impression: COPD exacerbation, PNA (pneumonia), BiPAP (biphasic positive airway pressure) dependence, Leukocytosis Disposition: ADMITTED IP TO THIS HOSP Condition: Stable Is patient prescribed a controlled substance at d/c from ED?: No Decision to Admit Reason: Admit from EC Decision Date: 09/21/21 Decision Time: 12:12
[2021-09-21] MEDS ORDERED: ACETAMINOPHEN TAB 500 MG TAB PO STA (10:22)
[2021-09-21 10:39] LABS: Basophils # (A) 0.1 k/uL (0-0.2); Basophils % (A) 0 %; Eosinophils # (A) 0.1 k/uL (0-0.7); Eosinophils % (A) 1 %; HCT 47.8 % (34.0-46.0); HGB 15.6 gm/dL (11.4-16.0); Lymphocytes # (A) 1.2 k/uL (1.0-4.8); Lymphocytes % (A) 8 %; MCH 34.4 pg (25.0-35.0); MCHC 32.7 g/dL (31.0-37.0); MCV 105.3 fL (80.0-100.0); Macrocytosis Slight; Monocytes # (A) 0.9 k/uL (0-1.0); Monocytes % (A) 6 %; Neutrophils # (A) 13.7 k/uL (1.3-7.7); Neutrophils % (A) 85 %; Platelet Count 299 k/uL (150-450); RBC 4.54 m/uL (3.80-5.40); RDW 12.6 % (11.5-15.5); WBC 16.1 k/uL (3.8-10.6)
--- NOTE | 2021-09-21 10:39 | XR ---
EXAMINATION TYPE: XR chest 1V portable DATE OF EXAM: 09/21/2021 COMPARISON: Chest x-ray 03/18/[address] dated 07/25/2017 HISTORY: Difficulty breathing TECHNIQUE: Single frontal view of the chest is obtained. FINDINGS: There is abnormal density present within the right middle lobe. Prominent lung findings justin ggest underlying COPD. No pneumothorax or pleural effusion. Cardiomediastinal silhouette shows a prom inent hilum. Aorta is dense. There are overlying artifacts. IMPRESSION: Correlate for pneumonia, possible pulmonary artery hypertension. There is underlying emp hysema. Rotated exam. Follow-up to resolution recommended to exclude underlying mass.
[2021-09-21 10:48] LABS: ALT 28 U/L (4-34); AST 29 U/L (14-36); African American GFR (CKD) >90 (>60 ml/min/1.73 sqM); Albumin 3.9 g/dL (3.5-5.0); Alkaline Phosphatase 58 U/L (38-126); Anion Gap 8 mmol/L; Blood Urea Nitrogen 19 mg/dL (7-17); Calcium 9.4 mg/dL (8.4-10.2); Carbon Dioxide 27 mmol/L (22-30); Chloride 102 mmol/L (98-107); Glucose 155 mg/dL (74-99); Magnesium 1.9 mg/dL (1.6-2.3); Non-African American GFR(CKD) >90 (>60 ml/min/1.73 sqM); Potassium 3.9 mmol/L (3.5-5.1); Sodium 137 mmol/L (137-145); Total Bilirubin 0.4 mg/dL (0.2-1.3); Total Protein 6.2 g/dL (6.3-8.2)
[2021-09-21 10:57] LABS: INR 0.9 (<1.2); Partial Thromboplastin Time 22.1 sec (22.0-30.0); Prothrombin Time 10.2 sec (9.0-12.0)
[2021-09-21] MEDS ORDERED: LEVOFLOXACIN 750MG-D5W PMX 750 MG in DEXTROSE/WATER 1 150ML.BAG IVPB STA (11:56)
[2021-09-21] MEDS ORDERED: VANCOMYCIN IV PER PHARMACY 1 EACH MISC MISCELLANE PRN (11:56)
[2021-09-21] MEDS ORDERED: MAGNESIUM SULFATE-D5W PMX 1 GM in DEXTROSE/WATER 1 100ML.BAG IVPB ONE (12:12)
[2021-09-21] MEDS ORDERED: methylPREDNISolone SOD SUCCI 125 MG/2 ML VIAL IV STA (12:12)
[2021-09-21] MEDS ORDERED: NALOXONE 0.4 MG/ML 1 ML VIAL IV PRN (12:13)
[2021-09-21] MEDS ORDERED: VANCOMYCIN 1,250 MG in SODIUM CHLORIDE 0.9% 250 ML IVPB ONE (13:00)
[2021-09-21] MEDS: IPRATROPIUM-ALBUTEROL 3 ML NEB INHALATION SCH ×3 (15:47→23:43)
[2021-09-21] MEDS ORDERED: RX INFO: IV CONTRAST WAS GIVEN 1 EACH MISC MISCELLANE PRN (16:02)
--- NOTE | 2021-09-21 16:52 | P.CNPUL ---
History of Present Illness Consult date: 09/21/21 Requesting physician: Heri Alexandra Reason for consult: COPD Chief complaint: shortness of breath, cough and wheezing History of present illness: This is a 81-year-old female with history of moderate severe COPD, FEV1 is in the range of 58%, patient normally sees Dr. Zarate, and the last time she saw Dr. Zarate was basically about 4 months ago. Patient is maintained on multiple bronchodilators, she is also on prednisone at 10 mg daily for quite a few years. She is to be on 5 mg daily before. Patient is also normally on theophylline [facility], and she is on Singulair. Patient is here today with a few days' history of cough wheezing and shortness of breath. Cough is described as nonproductive cough, denies any fever, no chills, no hemoptysis. Chest x-ray in the ER showed abnormal density within the right middle lobe suggestive of pneumonia, however the possibility of underlying malignancy is not entirely ruled out. Hence I'm recommending a CT of the chest with contrast on this patient. CBC showed evidence of leukocytosis. Electrolytes and renal profile are normal. PCR for COVID-19 is negative. Considering her clinical picture and considering the findings on the chest x-ray, patient was admitted and this consult was initiated, and I had a chance to see the patient in the ER. Patient is normally on oxygen and uses the option mostly at night at 2 L. She is now on 4 L nasal cannula, and her O2 saturation is 99%. Over she was as low as 92%. Review of Systems Constitutional: no fever, no night sweats, no significant weight loss, no exercise intolerance, weight gain secondary to chronic steroid use Eyes: Negative. Ears: Negative Nose: Negative Mouth/Throat: Negative Cardiovascular: Negative Respiratory: As noted in HPI Gastrointestinal: Negative Genitourinary: Negative Musculoskeletal: Negative Skin: Negative Neurologic: Negative Psych: Negative Endocrine: Negative Hematologic/Lymphatic negative Allergy/Immunologic: Negative Past Medical History Past Medical History: COPD, Diabetes Mellitus, Hyperlipidemia, Hypertension, Thyroid Disorder Additional Past Medical History / Comment(s): home 02 2L at hs and prn, past thyroid nodules, kidney stones. History of Any Multi-Drug Resistant Organisms: None Reported Past Surgical History: Appendectomy, Hysterectomy, Tonsillectomy Additional Past Surgical History / Comment(s): colonoscopy, one thyroid nodule removed from each side-bother were benign. Other surgeries include appendectomy, hysterectomy and tonsillectomy, lithrotripsy Past Anesthesia/Blood Transfusion Reactions: No Reported Reaction Past Psychological History: No Psychological Hx Reported Past Alcohol Use History: None Reported Past Drug Use History: None Reported - Past Family History Father Family Medical History: Myocardial Infarction ([place]) Additional Family Medical History / Comment(s): in 2009 from [place]. Mother Family Medical History: COPD Sister(s) Family Medical History: Cancer, COPD Additional Family Medical History / Comment(s): pt has two sisters who both had breast cancer. 1 sister has COPD. Medications and Allergies Home Medications Medication Instructions Recorded Confirmed Type Ipratropium-Albuterol Nebulize 3 ml INHALATION RT-TID 07/22/17 09/21/21 History [Duoneb 0.5 mg-3 mg/3 ml Soln] Levothyroxine Sodium [Synthroid] 75 mcg PO DAILY 07/22/17 09/21/21 History Montelukast [Singulair] 10 mg PO DAILY 07/22/17 09/21/21 History Ascorbic Acid [Vitamin C] 500 mg PO DAILY 09/10/17 09/21/21 History Vitamin B Complex 1 cap PO DAILY 01/22/18 09/21/21 History Theophylline 24 Hour [Ben-24] 300 mg PO DAILY #30 cap.er.24h 02/27/18 09/21/21 Rx Atorvastatin [Lipitor] 10 mg PO DAILY 09/21/21 09/21/21 History Azithromycin [Zithromax Z-pack (6 See Taper PO DIRECTED 09/21/21 09/21/21 History tabs)] Calcium Citrate 1,000 mg PO DAILY 09/21/21 09/21/21 History Venlafaxine HCl ER [Effexor Xr] 75 mg PO DAILY 09/21/21 09/21/21 History methylPREDNISolone Dose Pack See Taper PO DIRECTED 09/21/21 09/21/21 History [Medrol Dose Pack] predniSONE 2 mg PO DAILY 09/21/21 09/21/21 History predniSONE 5 mg PO DAILY 09/21/21 09/21/21 History Allergies Allergy/AdvReac Type Severity Reaction Status Date / Time No Known Allergies Allergy Verified 09/21/21 12:34 Physical Exam Vitals: Vital Signs Temp Pulse Resp BP Pulse Ox 09/21/21 15:59 97 22 09/21/21 15:47 87 18 09/21/21 11:00 103 H 44 H 131/72 100 09/21/21 10:14 109 H 20 09/21/21 10:07 109 H 28 H 09/21/21 10:00 112 H 22 132/75 99 09/21/21 09:30 31 H 09/21/21 09:12 148/69 92 L 09/21/21 09:03 97.1 F L 129 H 26 H 148/69 98 Intake and Output 09/21/21 09/21/21 09/21/21 06:59 14:59 22:59 Other: Weight 58.06 kg Physical Exam: Revealed 81-year-old female anxious, in mild respiratory distress. HEENT:[Neck is supple.] [No neck masses.] [No thyromegaly.] [No JVD.] Chest: Symmetrical chest expansion, diffuse wheezing noted bilaterally. Cardiac Exam: [Normal S1 and S2, no S3 gallop, no murmur.] Abdomen: [Soft, nontender, no megaly, no rebound, no guarding, normal bowel sounds.] Extremities: [No clubbing, no edema, no cyanosis.] Neurological Exam: Alert and oriented 3 focal deficits. Psychiatric: Anxious mood, normal affect, normal mental status examination. Skin: No rashes. Musko skeletal: No deformities and no limitation in range of motion. Results - Laboratory Findings CBC and BMP: 09/21/21 10:25 09/21/21 10:25 PT/INR, D-dimer PT 10.2 sec (9.0-12.0) 09/21/21 10:25 INR 0.9 (<1.2) 09/21/21 10:25 Abnormal lab findings: Abnormal Labs 09/21/21 09/21/21 10:25 10:25 WBC 16.1 H Hct 47.8 H MCV 105.3 H Neutrophils # 13.7 H BUN 19 H Creatinine 0.51 L Glucose 155 H Total Protein 6.2 L - Diagnostic Findings Chest x-ray: image reviewed (As noted in HPI.) Assessment and Plan Assessment: Impression: Acute on chronic hypoxic respiratory failure Acute exacerbation of COPD Possible right middle lobe pneumonia or possible malignancy involving the right middle lobe has a CT of the chest was ordered. History of smoking. Hypothyroidism. History of depression History of nephrolithiasis. Recommendation: Continue bronchodilators including DuoNeb, Perforomist, and Pulmicort, Continue Solu-Medrol at 60 mg IV push every 6 hours. Add Levaquin 750 mg IV piggyback daily Arrange for CT of the chest with contrast. Review home meds. GI and DVT prophylaxis. Will continue to follow, and based on the findings of the CT of the chest, further recommendations will follow. Prognosis is definitely guarded. Patient was seen in the ER before admission. Time with Patient: Greater than 30
[2021-09-21] MEDS ORDERED: IPRATROPIUM-ALBUTEROL 3 ML NEB INHALATION PRN (18:33)
[2021-09-21] MEDS: methylPREDNISolone SOD SUCCI 40 MG/ML 1 ML VIAL IV SCH ×2 (18:44→23:17)
[2021-09-21] MEDS: MONTELUKAST 10 MG TAB PO SCH (18:45)
[2021-09-21] MEDS: THEOPHYLLINE 24 HOUR 300 MG CAP.ER.24H PO SCH (18:45)
[2021-09-21] MEDS: PANTOPRAZOLE 40 MG/10 ML VIAL IVP SCH (18:45)
--- NOTE | 2021-09-21 19:48 | CT ---
EXAMINATION TYPE: CT chest w con DATE OF EXAM: 09/21/2021 COMPARISON: Chest x-ray today. HISTORY: Shortness of breath. CT DLP: 238 mGycm Automated exposure control for dose reduction was used. CONTRAST: Performed with IV Contrast, patient injected with 100 mL of Isovue 300. Images obtained from the thoracic inlet to the diaphragm with IV contrast. There is some airspace consolidation and atelectasis in the right middle lobe. The heart size is norm al. There are no hilar masses. I see no evidence of a bronchial mass. There is no pericardial effusio n. There is no mediastinal adenopathy. There is 10 mm pretracheal lymph node. There is some atheromat ous change in the thoracic aorta. The other lung ramirez are clear. There is no pleural effusion. Uppe r abdominal soft tissues are intact. Thoracic spine is intact. There is no compression fracture. Sternum is intact. IMPRESSION: There is right middle lobe consolidation and atelectasis. No central mass seen. This is likely relate d to pneumonia.
[2021-09-21] MEDS: FORMOTEROL FUMARATE 20 MCG/2 ML NEBU INHALATION SCH (20:34)
[2021-09-21] MEDS: BUDESONIDE 1 MG/2 ML NEBU INHALATION SCH (20:34)
[2021-09-21] MEDS ORDERED: methylPREDNISolone SOD SUCCI 40 MG/ML 1 ML VIAL IV SCH (21:00)
[2021-09-21] MEDS: guaiFENesin-DM 600/30MG 1 EACH TAB.ER.12H PO SCH (23:16)
[2021-09-22] MEDS ORDERED: VANCOMYCIN 1,000 MG in SODIUM CHLORIDE 0.9% 250 ML IVPB SCH ×2
[2021-09-22] MEDS: IPRATROPIUM-ALBUTEROL 3 ML NEB INHALATION SCH ×6 (03:28→23:13)
[2021-09-22] MEDS: methylPREDNISolone SOD SUCCI 40 MG/ML 1 ML VIAL IV SCH ×4 (05:56→23:17)
[2021-09-22 07:45] LABS: African American GFR (CKD) >90 (>60 ml/min/1.73 sqM); Anion Gap 5 mmol/L; Blood Urea Nitrogen 16 mg/dL (7-17); Calcium 9.4 mg/dL (8.4-10.2); Carbon Dioxide 27 mmol/L (22-30); Chloride 105 mmol/L (98-107); Glucose 161 mg/dL (74-99); Non-African American GFR(CKD) >90 (>60 ml/min/1.73 sqM); Potassium 4.1 mmol/L (3.5-5.1); Sodium 137 mmol/L (137-145)
[2021-09-22] MEDS: PANTOPRAZOLE 40 MG/10 ML VIAL IVP SCH (08:05)
[2021-09-22] MEDS: CALCIUM CARBONATE 500 MG CHEWABLE PO SCH (08:06)
[2021-09-22] MEDS: ASCORBIC ACID 500 MG TAB PO SCH (08:06)
[2021-09-22] MEDS: guaiFENesin-DM 600/30MG 1 EACH TAB.ER.12H PO SCH ×2 (08:06→21:37)
[2021-09-22] MEDS: ATORVASTATIN 10 MG TAB PO SCH (08:06)
[2021-09-22] MEDS: LEVOTHYROXINE 75 MCG TAB PO SCH (08:07)
[2021-09-22] MEDS: NON FORMULARY DRUG (Vitamin B Complex [Vitamin B Complex] 1 EACH Capsule) PO SCH (08:07)
[2021-09-22] MEDS: THEOPHYLLINE 24 HOUR 300 MG CAP.ER.24H PO SCH (08:07)
[2021-09-22] MEDS: VENLAFAXINE HCL ER 75 MG CAP PO SCH (08:07)
[2021-09-22] MEDS: MONTELUKAST 10 MG TAB PO SCH (08:07)
[2021-09-22] MEDS: FORMOTEROL FUMARATE 20 MCG/2 ML NEBU INHALATION SCH ×2 (08:58→19:59)
[2021-09-22] MEDS: BUDESONIDE 1 MG/2 ML NEBU INHALATION SCH ×2 (08:58→19:59)
[2021-09-22 10:05] LABS: Basophils # (A) 0.02 X 10*3/uL (0.00-0.10); Basophils % (A) 0.2 %; Eosinophils # (A) 0 X 10*3/uL (0.04-0.35); Eosinophils % (A) 0 %; HGB 14.4 g/dL (12.0-15.0); Lymphocytes # (A) 0.74 X 10*3/uL (0.90-5.00); Lymphocytes % (A) 6.4 %; MCH 33.5 pg (27.0-32.0); MCHC 32.7 g/dL (32.0-37.0); MCV 102.3 fL (80.0-97.0); Mean Platelet Volume 10.3 fL (9.5-12.2); Neutrophils # (A) 10.06 X 10*3/uL (1.80-7.70); Neutrophils % (A) 86.9 %; Platelet Count 297 X 10*3/uL (140-440); WBC 11.58 X 10*3/uL (4.50-10.00)
[2021-09-22] MEDS: LEVOFLOXACIN 750MG-D5W PMX 750 MG in DEXTROSE/WATER 1 150ML.BAG IVPB SCH (12:14)
--- NOTE | 2021-09-22 12:57 | P.PN ---
Subjective Progress Note Date: 09/22/21 Principal diagnosis: Shortness of breath, cough and wheezing This is a 81-year-old female with history of moderate severe COPD, FEV1 is in the range of 58%, patient normally sees Dr. Zarate, and the last time she saw Dr. Zarate was basically about 4 months ago. Patient is maintained on multiple bronchodilators, she is also on prednisone at 10 mg daily for quite a few years. She is to be on 5 mg daily before. Patient is also normally on theophylline [facility], and she is on Singulair. Patient is here today with a few days' history of cough wheezing and shortness of breath. Cough is described as nonproductive cough, denies any fever, no chills, no hemoptysis. Chest x-ray in the ER showed abnormal density within the right middle lobe suggestive of pneumonia, however the possibility of underlying malignancy is not entirely ruled out. Hence I'm recommending a CT of the chest with contrast on this patient. CBC showed evidence of leukocytosis. Electrolytes and renal profile are normal. PCR for COVID-19 is negative. Considering her clinical picture and considering the findings on the chest x-ray, patient was admitted and this consult was initiated, and I had a chance to see the patient in the ER. Patient is normally on oxygen and uses the option mostly at night at 2 L. She is now on 4 L nasal cannula, and her O2 saturation is 99%. Over she was as low as 92%. On 09/22/2021 patient seen in follow-up. She speaks easier, still has congested cough, dyspnea and wheezing, but improving. On 4 L of oxygen her pulse ox is 90%, she's been afebrile. CT chest showed right middle lobe consolidation and atelectasis, no central mass. White blood cell count is improving and is down to 7.5 on today's labs, hemoglobin is 14.4, electrolytes are within normal limits, BUN is 16 creatinine 0.48. Troponin is less than 0.012. Pro-calcitonin level was negative at 0.06. Patient is adequate for antibiotic coverage, she continues on IV Solu-Medrol and nebulized bronchodilators. Objective - Vital Signs Vital signs: Vital Signs Temp 98.3 F 09/22/21 08:00 Pulse 87 09/22/21 12:19 Resp 20 09/22/21 08:00 BP 149/75 09/22/21 08:00 Pulse Ox 98 09/22/21 08:59 Intake & Output 09/21/21 09/22/21 09/22/21 18:59 06:59 18:59 Weight 58.06 kg 58.06 kg Other: Voiding Method Bedpan Bedside Commode # Voids 1 - Exam GENERAL EXAM: Alert, very pleasant, 81-year-old white female, response. Pulse ox of 90% comfortable in no apparent distress. HEAD: Normocephalic/atraumatic. EYES: Normal reaction of pupils, equal size. Conjunctiva pink, sclera white. NOSE: Clear with pink turbinates. THROAT: No erythema or exudates. NECK: No masses, no JVD, no thyroid enlargement, no adenopathy. CHEST: No chest wall deformity. Symmetrical expansion. LUNGS: Equal air entry with diffuse rhonchi and wheezes CVS: Regular rate and rhythm, normal S1 and S2, no gallops, no murmurs, no rubs ABDOMEN: Soft, nontender. No hepatosplenomegaly, normal bowel sounds, no guarding or rigidity. EXTREMITIES: No clubbing, no edema, no cyanosis, 2+ pulses and upper and lower extremities. MUSCULOSKELETAL: Muscle strength and tone normal. SPINE: No scoliosis or deformity SKIN: No rashes CENTRAL NERVOUS SYSTEM: Alert and oriented -3. No focal deficits, tone is normal in all 4 extremities. PSYCHIATRIC: Alert and oriented -3. Appropriate affect. Intact judgment and insight. - Labs CBC & Chem 7: 09/22/21 07:00 09/22/21 07:00 Labs: Abnormal Lab Results - Last 24 Hours (Table) 09/22/21 09/22/21 Range/Units 07:00 07:00 WBC 11.58 H (4.50-10.00) X 10*3/uL MCV 102.3 H (80.0-97.0) fL MCH 33.5 H (27.0-32.0) pg Immature Gran # 0.06 H (0.00-0.04) X 10*3/uL Neutrophils # 10.06 H (1.80-7.70) X 10*3/uL Lymphocytes # 0.74 L (0.90-5.00) X 10*3/uL Eosinophils # 0 L (0.04-0.35) X 10*3/uL Creatinine 0.48 L (0.52-1.04) mg/dL Glucose 161 H (74-99) mg/dL Assessment and Plan Plan: Assessment: #1. Acute on chronic hypoxic respiratory failure related to possibility of right middle lobe pneumonia #2. Acute exacerbation of COPD #3. History of smoking #4. Hypothyroidism #5. History of depression #6. History of nephrolithiasis Plan: Continue current treatment Continue nebulized bronchodilators and IV steroids Continue antibiotics CT chest has been reviewed, the findings are more consistent with right middle lobe consolidation and atelectasis Procalcitonin level was negative, however in view of patient's symptoms and chest x-ray and computed tomography scan findings will continue on antibiotics We'll continue to follow I performed a history & physical examination of the patient and discussed their management with my nurse practitioner, Dayana Collier. I reviewed the nurse practitioner's note and agree with the documented findings and plan of care. Lung sounds are positive for diminished breath sounds with diffuse wheezes throughout the lung ramirez. The findings and the impression was discussed with the patient. I attest to the documentation by the nurse practitioner. Time with Patient: Less than 30
--- NOTE | 2021-09-22 18:04 | P.HPIM ---
History of Present Illness H&P Date: 09/22/21 Chief Complaint: Worsening shortness of breath This is a 81-year-old female with past medical history of moderate severe COPD, steroid dependent ,chronic hypoxic respiratory failure, wears 2 L prn & at night, hyperlipidemia, hypertension and hypothyroidism, nicotine dependence and multiple other medical issues presented to the ER with complaints of worsening of shortness of breath accompanied by nonproductive cough. Denies hemoptysis. Reports she has been under significant stress, recently , she relocated and resumed smoking. Denies nausea vomiting or diarrhea. Denies abdominal pain. Denies lightheadedness, dizziness or focal deficits. Denies chest pain, palpitations. EKG reported sinus tachycardia, troponin negative 1. Denies fever or chills. Afebrile, WBC elevation 16.1 down to 11.58, electrolytes within normal limits, renal function stable, lactic acid 1.6, pro calcitonin 0.06,coronovirus not detected.Chest x-ray reported with abnormal density within the right middle lobe, chest CT reported right middle lobe consolidation and atelectasis with no central mass seen, likely related to pneumonia. 10 mm pretracheal lymph node. Currently maintaining O2 sats in the 90s on 4 L nasal cannula. Continues on nebulized bronchodilators, IV steroids, Levaquin. Blood sugars 150s to 160s. Review of Systems ROS Statement: Those systems with pertinent positive or pertinent negative responses have been documented in the HPI. ROS Other: All systems not noted in ROS Statement are negative. Past Medical History Past Medical History: COPD, Hyperlipidemia, Hypertension, Thyroid Disorder Additional Past Medical History / Comment(s): home 02 2L at hs and prn, past thyroid nodules, kidney stones. History of Any Multi-Drug Resistant Organisms: None Reported Past Surgical History: Appendectomy, Hysterectomy, Tonsillectomy Additional Past Surgical History / Comment(s): colonoscopy, one thyroid nodule removed from each side-bother were benign. Other surgeries include appendectomy, hysterectomy and tonsillectomy, lithrotripsy Past Anesthesia/Blood Transfusion Reactions: No Reported Reaction Past Psychological History: No Psychological Hx Reported Additional Psychological History / Comment(s): lives with spouse. has home 02 and nebulizer Smoking Status: Current every day smoker Past Alcohol Use History: None Reported Additional Past Alcohol Use History / Comment(s): started smoking at age 22(1962), quit 2017 smoked 1 ppd Past Drug Use History: None Reported - Past Family History Father Family Medical History: Myocardial Infarction ([place]) Additional Family Medical History / Comment(s): in 2009 from [place]. Mother Family Medical History: COPD Sister(s) Family Medical History: Cancer, COPD Additional Family Medical History / Comment(s): pt has two sisters who both had breast cancer. 1 sister has COPD. Medications and Allergies Home Medications Medication Instructions Recorded Confirmed Type Ipratropium-Albuterol Nebulize 3 ml INHALATION RT-TID 07/22/17 09/21/21 History [Duoneb 0.5 mg-3 mg/3 ml Soln] Levothyroxine Sodium [Synthroid] 75 mcg PO DAILY 07/22/17 09/21/21 History Montelukast [Singulair] 10 mg PO DAILY 07/22/17 09/21/21 History Ascorbic Acid [Vitamin C] 500 mg PO DAILY 09/10/17 09/21/21 History Vitamin B Complex 1 cap PO DAILY 01/22/18 09/21/21 History Theophylline 24 Hour [Ben-24] 300 mg PO DAILY #30 cap.er.24h 02/27/18 09/21/21 Rx Atorvastatin [Lipitor] 10 mg PO DAILY 09/21/21 09/21/21 History Azithromycin [Zithromax Z-pack (6 See Taper PO DIRECTED 09/21/21 09/21/21 History tabs)] Calcium Citrate 1,000 mg PO DAILY 09/21/21 09/21/21 History Venlafaxine HCl ER [Effexor Xr] 75 mg PO DAILY 09/21/21 09/21/21 History methylPREDNISolone Dose Pack See Taper PO DIRECTED 09/21/21 09/21/21 History [Medrol Dose Pack] predniSONE 2 mg PO DAILY 09/21/21 09/21/21 History predniSONE 5 mg PO DAILY 09/21/21 09/21/21 History Allergies Allergy/AdvReac Type Severity Reaction Status Date / Time No Known Allergies Allergy Verified 09/21/21 12:34 Physical Exam Vitals: Vital Signs Temp Pulse Pulse Resp BP BP Pulse Ox 09/22/21 16:50 94 09/22/21 16:43 98 09/22/21 16:39 88 09/22/21 14:00 98.1 F 57 L 20 137/66 93 L 09/22/21 12:19 87 09/22/21 12:08 83 09/22/21 09:26 88 09/22/21 09:12 87 09/22/21 08:59 89 98 09/22/21 08:00 98.3 F 92 20 149/75 97 09/22/21 03:39 88 09/22/21 03:28 84 09/22/21 02:00 98.8 F 90 19 147/81 99 09/21/21 23:57 84 09/21/21 23:43 85 98 09/21/21 22:26 97.4 F L 73 17 131/75 96 09/21/21 22:19 97.9 F 72 19 122/61 97 09/21/21 20:56 87 09/21/21 20:50 87 09/21/21 20:35 89 96 09/21/21 20:13 89 19 133/70 97 Intake and Output 09/22/21 09/22/21 09/22/21 06:59 14:59 22:59 Other: Voiding Method Bedpan Bedside Commode # Voids 1 2 PHYSICAL EXAM: VITAL SIGNS: As above GENERAL: Sitting up in bed, no acute distress HEENT: Conjunctivae normal. eyes normal. Oral mucosa moist NECK: Supple, No JVD. No thyroid enlargement. No LNs CARDIOVASCULAR: S1, S2 regular. No murmur RESPIRATION: Breath sounds diminished in the bases. Scattered rhonchi, fine right basilar crackles and expiratory wheezes ABDOMEN: Soft, nontender . No guarding. no masses palpable. No ascites, No hepatosplenomegaly.Bowel sounds heard. LEGS: No edema. no swelling PSYCHIATRY: Alert and oriented -3, mood and affect normal. NERVOUS SYSTEM: Cranial N 2-12 grossly normal. Moves all 4 limbs. No focal deficits. Skin: Warm and dry, no rash Lymphatic system. No LN neck axilla. Results CBC & Chem 7: 09/22/21 07:00 09/22/21 07:00 Labs: Abnormal Lab Results - Last 24 Hours (Table) 09/22/21 09/22/21 Range/Units 07:00 07:00 WBC 11.58 H (4.50-10.00) X 10*3/uL MCV 102.3 H (80.0-97.0) fL MCH 33.5 H (27.0-32.0) pg Immature Gran # 0.06 H (0.00-0.04) X 10*3/uL Neutrophils # 10.06 H (1.80-7.70) X 10*3/uL Lymphocytes # 0.74 L (0.90-5.00) X 10*3/uL Eosinophils # 0 L (0.04-0.35) X 10*3/uL Creatinine 0.48 L (0.52-1.04) mg/dL Glucose 161 H (74-99) mg/dL Thrombosis Risk Factor Assmnt - Choose All That Apply Any of the Below Risk Factors Present?: Yes Each Factor Represents 1 point: Abnormal pulmonary function (COPD) Other Risk Factors: Yes Each Risk Factor Represents 3 Points: Age 75 years or older Thrombosis Risk Factor Assessment Total Risk Factor Score: 4 Thrombosis Risk Factor Assessment Level: Moderate Risk Assessment and Plan Assessment: Acute COPD exacerbation, on chronic steroids. Possible acute right middle lobe pneumonia as per CT Acute on chronic hypoxic respiratory failure secondary to all the above, wears 2 L nasal cannula daily at bedtime Grieving, recently lost her Stress, anxiety, in addition to passing away, recently moved ,resumed smoking again Hyperlipidemia Hypertension Hypothyroidism Ongoing nicotine dependence History of nephrolithiasis Plan: Continue on current medication regime ,monitoring and symptomatic treat ment. Aggressive pulmonary toileting, maintain nebulized bronchodilators, IV steroids, antibiotics. Increase ambulation as tolerated. Follow closely with pulmonary. The impression and plan of care has been dictated as directed. : I performed a history and examination of this patient, discussed the same with the dictator. I agree with the dictator's note ,documented as a scribe. Any ad ditional findings or plans will be noted.
[2021-09-22 21:17] LABS: Glucose,Whole Blood 155 mg/dL (75-99)
[2021-09-22] MEDS: INSULIN ASPART (NovoLOG) 100 UNIT/ML VIAL SQ SCH (21:37)
[2021-09-23] MEDS: ALPRAZolam 0.5 MG TAB PO PRN ×2 (00:28→22:38)
[2021-09-23] MEDS: IPRATROPIUM-ALBUTEROL 3 ML NEB INHALATION SCH ×5 (04:02→20:11)
[2021-09-23] MEDS: methylPREDNISolone SOD SUCCI 40 MG/ML 1 ML VIAL IV SCH ×3 (06:17→17:17)
[2021-09-23] MEDS: CALCIUM CARBONATE 500 MG CHEWABLE PO SCH (08:08)
[2021-09-23] MEDS: VENLAFAXINE HCL ER 75 MG CAP PO SCH (08:08)
[2021-09-23] MEDS: MONTELUKAST 10 MG TAB PO SCH (08:08)
[2021-09-23] MEDS: ATORVASTATIN 10 MG TAB PO SCH (08:08)
[2021-09-23] MEDS: PANTOPRAZOLE 40 MG TABLET PO SCH (08:08)
[2021-09-23] MEDS: ASCORBIC ACID 500 MG TAB PO SCH (08:08)
[2021-09-23] MEDS: INSULIN ASPART (NovoLOG) 100 UNIT/ML VIAL SQ SCH ×4 (08:08→20:59)
[2021-09-23] MEDS: THEOPHYLLINE 24 HOUR 300 MG CAP.ER.24H PO SCH (08:09)
[2021-09-23] MEDS: guaiFENesin-DM 600/30MG 1 EACH TAB.ER.12H PO SCH ×2 (08:09→20:59)
[2021-09-23] MEDS: LEVOTHYROXINE 75 MCG TAB PO SCH (08:09)
[2021-09-23 08:13] LABS: Glucose,Whole Blood 243 mg/dL (75-99)
[2021-09-23] MEDS: FORMOTEROL FUMARATE 20 MCG/2 ML NEBU INHALATION SCH ×2 (08:19→20:11)
[2021-09-23] MEDS: BUDESONIDE 1 MG/2 ML NEBU INHALATION SCH ×2 (08:20→20:11)
[2021-09-23 09:43] LABS: Basophils # (A) 0.03 X 10*3/uL (0.00-0.10); Basophils % (A) 0.2 %; Eosinophils # (A) 0 X 10*3/uL (0.04-0.35); Eosinophils % (A) 0 %; HCT 43.1 % (37.2-46.3); HGB 14.2 g/dL (12.0-15.0); Lymphocytes # (A) 1.19 X 10*3/uL (0.90-5.00); Lymphocytes % (A) 7.1 %; MCH 34.6 pg (27.0-32.0); MCHC 32.9 g/dL (32.0-37.0); MCV 105.1 fL (80.0-97.0); Mean Platelet Volume 10.5 fL (9.5-12.2); Monocytes # (A) 0.94 X 10*3/uL (0.20-1.00); Monocytes % (A) 5.6 %; Neutrophils % (A) 86.5 %; Platelet Count 292 X 10*3/uL (140-440); RDW 13.7 % (11.5-14.5); WBC 16.86 X 10*3/uL (4.50-10.00)
[2021-09-23] MEDS: NON FORMULARY DRUG (Vitamin B Complex [Vitamin B Complex] 1 EACH Capsule) PO SCH (10:17)
[2021-09-23 11:24] LABS: African American GFR (CKD) 81.3 (60.0-200.0); Anion Gap 12.2 mmol/L (4.00-12.00); BUN/Creat Ratio 26.63 Ratio (12.00-20.00); Blood Urea Nitrogen 21.3 mg/dL (9.0-27.0); Calcium 9.2 mg/dL (8.7-10.3); Carbon Dioxide 23.8 mmol/L (21.6-31.8); Non-African American GFR(CKD) 70.1 (60.0-200.0); Potassium 4.5 mmol/L (3.5-5.5)
[2021-09-23 11:39] LABS: Glucose,Whole Blood 174 mg/dL (75-99)
[2021-09-23] MEDS: LEVOFLOXACIN 750MG-D5W PMX 750 MG in DEXTROSE/WATER 1 150ML.BAG IVPB SCH (12:23)
--- NOTE | 2021-09-23 14:07 | P.PN ---
Subjective Progress Note Date: 09/23/21 Principal diagnosis: Community acquired pneumonia This is a 81-year-old female with history of moderate severe COPD, FEV1 is in the range of 58%, patient normally sees Dr. Zarate, and the last time she saw Dr. Zarate was basically about 4 months ago. Patient is maintained on multiple bronchodilators, she is also on prednisone at 10 mg daily for quite a few years. She is to be on 5 mg daily before. Patient is also normally on theophylline [facility], and she is on Singulair. Patient is here today with a few days' history of cough wheezing and shortness of breath. Cough is described as nonproductive cough, denies any fever, no chills, no hemoptysis. Chest x-ray in the ER showed abnormal density within the right middle lobe suggestive of pneumonia, however the possibility of underlying malignancy is not entirely ruled out. Hence I'm recommending a CT of the chest with contrast on this patient. CBC showed evidence of leukocytosis. Electrolytes and renal profile are normal. PCR for COVID-19 is negative. Considering her clinical picture and considering the findings on the chest x-ray, patient was admitted and this consult was initiated, and I had a chance to see the patient in the ER. Patient is normally on oxygen and uses the option mostly at night at 2 L. She is now on 4 L nasal cannula, and her O2 saturation is 99%. Over she was as low as 92%. On 09/22/2021 patient seen in follow-up. She speaks easier, still has congested cough, dyspnea and wheezing, but improving. On 4 L of oxygen her pulse ox is 90%, she's been afebrile. CT chest showed right middle lobe consolidation and atelectasis, no central mass. White blood cell count is improving and is down to 7.5 on today's labs, hemoglobin is 14.4, electrolytes are within normal limits, BUN is 16 creatinine 0.48. Troponin is less than 0.012. Pro-calcitonin level was negative at 0.06. Patient is adequate for antibiotic coverage, she continues on IV Solu-Medrol and nebulized bronchodilators. The patient is seen today 09/23/2021 in follow-up on the regular medical floor. She is currently resting fairly comfortably in bed. She still has a loose nonproductive cough. Still dyspneic with conversation and minimal exertion. Still with some chest tightness and wheezing. She is maintaining O2 saturation in the mid 90s on 3 L/m per nasal cannula. She is afebrile. Blood glucose 174. She is continued on DuoNeb inhalations, Pulmicort and Perforomist inhalations, IV Solu-Medrol, Singulair, theophylline. She is on antibiotics in the form of Levaquin. Objective - Vital Signs Vital signs: Vital Signs Temp 98.4 F 09/23/21 13:56 Pulse 93 09/23/21 13:56 Resp 16 09/23/21 13:56 BP 125/68 09/23/21 13:56 Pulse Ox 96 09/23/21 13:56 Intake & Output 09/22/21 09/23/21 09/23/21 18:59 06:59 18:59 Intake Total 472 Balance 472 Intake: Oral 472 Other: Voiding Method Bedside Commode Bedside Commode # Voids 2 1 1 - Exam GENERAL EXAM: Alert, very pleasant 81-year-old female patient, on 3 L nasal cannula, fairly comfortable in no apparent distress. HEAD: Normocephalic. EYES: Normal reaction of pupils, equal size. NOSE: Clear with pink turbinates. THROAT: No erythema or exudates. NECK: No masses, no JVD. CHEST: No chest wall deformity. LUNGS: Equal air entry with bilateral end expiratory wheeze, few scattered rhonchi, crackles in the right lung base. CVS: S1 and S2 normal with no audible murmur, regular rhythm. ABDOMEN: No hepatosplenomegaly, normal bowel sounds, no guarding or rigidity. SPINE: No scoliosis or deformity SKIN: No rashes CENTRAL NERVOUS SYSTEM: No focal deficits, tone is normal in all 4 extremities. EXTREMITIES: There is no peripheral edema. No clubbing, no cyanosis. Peripheral pulses are intact. - Labs CBC & Chem 7: 09/23/21 05:41 09/23/21 05:41 Labs: Abnormal Lab Results - Last 24 Hours (Table) 09/22/21 09/23/21 09/23/21 Range/Units 21:15 05:41 05:41 WBC 16.86 H (4.50-10.00) X 10*3/uL MCV 105.1 H (80.0-97.0) fL MCH 34.6 H (27.0-32.0) pg Immature Gran # 0.10 H (0.00-0.04) X 10*3/uL Neutrophils # 14.60 H (1.80-7.70) X 10*3/uL Eosinophils # 0 L (0.04-0.35) X 10*3/uL Anion Gap 12.20 H (4.00-12.00) mmol/L BUN/Creatinine Ratio 26.63 H (12.00-20.00) Ratio Glucose 167 H (70-110) mg/dL POC Glucose (mg/dL) 155 H (75-99) mg/dL 09/23/21 09/23/21 Range/Units 08:07 11:38 WBC (4.50-10.00) X 10*3/uL MCV (80.0-97.0) fL MCH (27.0-32.0) pg Immature Gran # (0.00-0.04) X 10*3/uL Neutrophils # (1.80-7.70) X 10*3/uL Eosinophils # (0.04-0.35) X 10*3/uL Anion Gap (4.00-12.00) mmol/L BUN/Creatinine Ratio (12.00-20.00) Ratio Glucose (70-110) mg/dL POC Glucose (mg/dL) 243 H 174 H (75-99) mg/dL Assessment and Plan Assessment: 1 Acute on chronic hypoxic respiratory failure related to right middle lobe pneumonia 2 Acute exacerbation of COPD 3 History of smoking 4 Hypothyroidism 5 History of depression 6 History of nephrolithiasis Plan: The patient was seen and evaluated by Dr. Kaye Improved but not quite back to her baseline Continue the current treatment plan Follow-up chest x-ray in a.m. Titrate the FiO2 as tolerated Increase her energy is tolerating We will continue to follow I, the cosigning physician, performed a history & physical examination of the patient. Lungs sounds bilateral scattered rhonchi, end expiratory wheeze, crackles in the right lung base. Maintaining good O2 saturations in the 90s on 3 L/m per nasal cannula. I discussed the assessment and plan of care with my nurse practitioner, Roya Tabares. I attest to the above note as dictated by her.
--- NOTE | 2021-09-23 16:05 | P.PN ---
Subjective Progress Note Date: 09/23/21 This is a 81-year-old female with past medical history of moderate severe COPD, steroid dependent ,chronic hypoxic respiratory failure, wears 2 L prn & at night, hyperlipidemia, hypertension and hypothyroidism, nicotine dependence and multiple other medical issues presented to the ER with complaints of worsening of shortness of breath accompanied by nonproductive cough. Denies hemoptysis. Reports she has been under significant stress, recently , she relocated and resumed smoking. Denies nausea vomiting or diarrhea. Denies abdominal pain. Denies lightheadedness, dizziness or focal deficits. Denies chest pain, palpitations. EKG reported sinus tachycardia, troponin negative 1. Denies fever or chills. Afebrile, WBC elevation 16.1 down to 11.58, electrolytes within normal limits, renal function stable, lactic acid 1.6, pro calcitonin 0.06,coronovirus not detected.Chest x-ray reported with abnormal density within the right middle lobe, chest CT reported right middle lobe cons olidation and atelectasis with no central mass seen, likely related to pneumonia. 10 mm pretracheal lymph node. Currently maintaining O2 sats in the 90s on 4 L nasal cannula. Continues on nebulized bronchodilators, IV steroids, Levaquin. Blood sugars 150s to 160s. 09/23/2021 Labs pending. continues on nebulized bronchodilators, Pulmicort, performomist, IV steroids, theophylline, Singulair and Levaquin. maintaining O2 sats in the high 90s on 4 L nasal cannula. Nonproductive cough-loose. Slept well during the night. Afebrile. Objective - Vital Signs Vital signs: Vital Signs Temp 98.4 F 09/23/21 13:56 Pulse 96 09/23/21 15:32 Resp 16 09/23/21 13:56 BP 125/68 09/23/21 13:56 Pulse Ox 96 09/23/21 13:56 Intake & Output 09/22/21 09/23/21 09/23/21 18:59 06:59 18:59 Intake Total 472 Balance 472 Intake: Oral 472 Other: Voiding Method Bedside Commode Bedside Commode # Voids 2 1 1 - Exam PHYSICAL EXAM: VITAL SIGNS: As above GENERAL: Sitting up in bed, no acute distress HEENT: Conjunctivae normal. eyes normal. Oral mucosa moist NECK: Supple, No JVD. CARDIOVASCULAR: S1, S2 regular. No murmur RESPIRATION: Breath sounds diminished in the bases. Occasional Scattered rhonchi, fine right basilar crackles and expiratory wheezes ABDOMEN: Soft, nontender . No guarding. no masses palpable. No ascites, No hepatosplenomegaly.Bowel sounds heard. LEGS: No edema. no swelling PSYCHIATRY: Alert and oriented -3, mood and affect normal. NERVOUS SYSTEM: Cranial N 2-12 grossly normal. Moves all 4 limbs. No focal deficits. Skin: Warm and dry, no rash - Labs CBC & Chem 7: 09/23/21 05:41 09/23/21 05:41 Labs: Abnormal Lab Results - Last 24 Hours (Table) 09/22/21 09/23/21 09/23/21 Range/Units 21:15 05:41 05:41 WBC 16.86 H (4.50-10.00) X 10*3/uL MCV 105.1 H (80.0-97.0) fL MCH 34.6 H (27.0-32.0) pg Immature Gran # 0.10 H (0.00-0.04) X 10*3/uL Neutrophils # 14.60 H (1.80-7.70) X 10*3/uL Eosinophils # 0 L (0.04-0.35) X 10*3/uL Anion Gap (4.00-12.00) mmol/L BUN/Creatinine Ratio (12.00-20.00) Ratio Glucose (70-110) mg/dL POC Glucose (mg/dL) 155 H (75-99) mg/dL Hemoglobin A1c 6.5 H (4.0-6.0) % 09/23/21 09/23/21 09/23/21 Range/Units 05:41 08:07 11:38 WBC (4.50-10.00) X 10*3/uL MCV (80.0-97.0) fL MCH (27.0-32.0) pg Immature Gran # (0.00-0.04) X 10*3/uL Neutrophils # (1.80-7.70) X 10*3/uL Eosinophils # (0.04-0.35) X 10*3/uL Anion Gap 12.20 H (4.00-12.00) mmol/L BUN/Creatinine Ratio 26.63 H (12.00-20.00) Ratio Glucose 167 H (70-110) mg/dL POC Glucose (mg/dL) 243 H 174 H (75-99) mg/dL Hemoglobin A1c (4.0-6.0) % Assessment and Plan Assessment: Acute COPD exacerbation, on chronic steroids. Possible acute right middle lobe pneumonia as per CT Acute on chronic hypoxic respiratory failure secondary to all the above, wears 2 L nasal cannula daily at bedtime Grieving, recently lost her Stress, anxiety, in addition to passing away, recently moved ,resumed smoking again Hyperlipidemia Hypertension Hypothyroidism Ongoing nicotine dependence History of nephrolithiasis Plan: Continue on current medication regime ,monitoring and symptomatic treatment. Titrate FiO2 as tolerated. Aggressive pulmonary toileting, maintain nebulized bronchodilators, IV steroids, antibiotics. Increase ambulation as tolerated. Follow closely with pulmonary. Labs pending. The impression and plan of care has been dictated as directed. : I performed a history and examination of this patient, discussed the same with the dictator. I agree with the dictator's note ,documented as a scribe. Any additional findings or plans will be noted.
[2021-09-23 16:37] LABS: Glucose,Whole Blood 143 mg/dL (75-99)
[2021-09-23 20:06] LABS: Glucose,Whole Blood 144 mg/dL (75-99)
[2021-09-23] MEDS: MELATONIN 5 MG TABLET PO SCH (20:59)
[2021-09-24] MEDS: methylPREDNISolone SOD SUCCI 40 MG/ML 1 ML VIAL IV SCH ×4 (00:22→17:02)
[2021-09-24] MEDS: IPRATROPIUM-ALBUTEROL 3 ML NEB INHALATION SCH ×6 (00:31→19:59)
[2021-09-24 07:11] LABS: Glucose,Whole Blood 135 mg/dL (75-99)
[2021-09-24] MEDS: BUDESONIDE 1 MG/2 ML NEBU INHALATION SCH ×2 (07:53→19:59)
[2021-09-24] MEDS: FORMOTEROL FUMARATE 20 MCG/2 ML NEBU INHALATION SCH ×2 (07:53→19:59)
--- NOTE | 2021-09-24 08:11 | XR ---
EXAMINATION TYPE: XR chest 1V portable DATE OF EXAM: 09/24/2021 COMPARISON: Chest x-ray 09/21/2021 HISTORY: Pneumonia TECHNIQUE: Single frontal view of the chest is obtained. FINDINGS: Prominent lung volumes may be indicative of underlying COPD. There is no pneumothorax or p leural effusion. Patchy airspace disease is suspected at the lower right lung laterally. Cardiac medi astinal silhouette is stable. IMPRESSION: There is some improvement in aeration
[2021-09-24] MEDS: INSULIN ASPART (NovoLOG) 100 UNIT/ML VIAL SQ SCH ×4 (08:40→20:43)
[2021-09-24] MEDS: MONTELUKAST 10 MG TAB PO SCH (08:41)
[2021-09-24] MEDS: ATORVASTATIN 10 MG TAB PO SCH (08:41)
[2021-09-24] MEDS: PANTOPRAZOLE 40 MG TABLET PO SCH (08:41)
[2021-09-24] MEDS: THEOPHYLLINE 24 HOUR 300 MG CAP.ER.24H PO SCH (08:41)
[2021-09-24] MEDS: CALCIUM CARBONATE 500 MG CHEWABLE PO SCH (08:41)
[2021-09-24] MEDS: LEVOTHYROXINE 75 MCG TAB PO SCH (08:41)
[2021-09-24] MEDS: VENLAFAXINE HCL ER 75 MG CAP PO SCH (08:41)
[2021-09-24] MEDS: ASCORBIC ACID 500 MG TAB PO SCH (08:41)
[2021-09-24] MEDS: guaiFENesin-DM 600/30MG 1 EACH TAB.ER.12H PO SCH ×2 (08:42→20:43)
[2021-09-24] MEDS: NON FORMULARY DRUG (Vitamin B Complex [Vitamin B Complex] 1 EACH Capsule) PO SCH (10:06)
[2021-09-24 11:24] LABS: Glucose,Whole Blood 281 mg/dL (75-99)
[2021-09-24] MEDS: LEVOFLOXACIN 750 MG TAB PO SCH (12:09)
--- NOTE | 2021-09-24 12:09 | P.HPIM ---
History of Present Illness Patient is being treated for COPD exacerbation and the pneumonia patient on levofloxacin at this time patient is on 3 L of oxygen patient does have significant rhonchi patient respiratory status is not her back at her baseline yet. Constitutional: Denied any fatigue denied any fever. Cardio vascular: denied any chest pain, palpitations Gastrointestinal denied any nausea vomiting Pulmonary: As mentioned in HPI Neurologic denied any new focal deficits All inpatient medications were reviewed and appropriate changes in these me dications as dictated in the interval history and assessment and plan. PHYSICAL EXAMINATION: GENERAL: The patient is alert and oriented x3, not in any acute distress. Well developed, well nourished. HEENT: Pupils are round and equally reacting to light. EOMI. No scleral icterus. No conjunctival pallor. Normocephalic, atraumatic. No pharyngeal erythema. No thyromegaly. CARDIOVASCULAR: S1 and S2 present. No murmurs, rubs, or gallops. PULMONARY: Diffuse bilateral rhonchi and expiratory wheezing ABDOMEN: Soft, nontender, nondistended, normoactive bowel sounds. No palpable organomegaly. MUSCULOSKELETAL: No joint swelling or deformity. EXTREMITIES: No cyanosis, clubbing, or pedal edema. NEUROLOGICAL: Gross neurological examination did not reveal any focal deficits. SKIN: No rashes. Assessment and plan Acute on chronic hypercapnic and hypoxic respiratory failure secondary to pneumonia and COPD exacerbation is likely patient will be continued on antibiotics systemic steroids inhalational treatments -Hyperthyroidism next time-depression -Oxygen dependent chronic hypoxic respiratory failure secondary to COPD DVT prophylaxis: Lovenox Past Medical History Past Medical History: COPD, Hyperlipidemia, Hypertension, Thyroid Disorder Additional Past Medical History / Comment(s): home 02 2L at hs and prn, past thyroid nodules, kidney stones. History of Any Multi-Drug Resistant Organisms: None Reported Past Surgical History: Appendectomy, Hysterectomy, Tonsillectomy Additional Past Surgical History / Comment(s): colonoscopy, one thyroid nodule removed from each side-bother were benign. Other surgeries include appendectomy, hysterectomy and tonsillectomy, lithrotripsy Past Anesthesia/Blood Transfusion Reactions: No Reported Reaction Past Psychological History: No Psychological Hx Reported Additional Psychological History / Comment(s): lives with spouse. has home 02 and nebulizer Smoking Status: Current every day smoker Past Alcohol Use History: None Reported Additional Past Alcohol Use History / Comment(s): started smoking at age 22(1962), quit 2017 smoked 1 ppd Past Drug Use History: None Reported - Past Family History Father Family Medical History: Myocardial Infarction ([place]) Additional Family Medical History / Comment(s): in 2009 from [place]. Mother Family Medical History: COPD Sister(s) Family Medical History: Cancer, COPD Additional Family Medical History / Comment(s): pt has two sisters who both had breast cancer. 1 sister has COPD. Medications and Allergies Home Medications Medication Instructions Recorded Confirmed Type Ipratropium-Albuterol Nebulize 3 ml INHALATION RT-TID 07/22/17 09/21/21 History [Duoneb 0.5 mg-3 mg/3 ml Soln] Levothyroxine Sodium [Synthroid] 75 mcg PO DAILY 07/22/17 09/21/21 History Montelukast [Singulair] 10 mg PO DAILY 07/22/17 09/21/21 History Ascorbic Acid [Vitamin C] 500 mg PO DAILY 09/10/17 09/21/21 History Vitamin B Complex 1 cap PO DAILY 01/22/18 09/21/21 History Theophylline 24 Hour [Ben-24] 300 mg PO DAILY #30 cap.er.24h 02/27/18 09/21/21 Rx Atorvastatin [Lipitor] 10 mg PO DAILY 09/21/21 09/21/21 History Azithromycin [Zithromax Z-pack (6 See Taper PO DIRECTED 09/21/21 09/21/21 History tabs)] Calcium Citrate 1,000 mg PO DAILY 09/21/21 09/21/21 History Venlafaxine HCl ER [Effexor Xr] 75 mg PO DAILY 09/21/21 09/21/21 History methylPREDNISolone Dose Pack See Taper PO DIRECTED 09/21/21 09/21/21 History [Medrol Dose Pack] predniSONE 2 mg PO DAILY 09/21/21 09/21/21 History predniSONE 5 mg PO DAILY 09/21/21 09/21/21 History Allergies Allergy/AdvReac Type Severity Reaction Status Date / Time No Known Allergies Allergy Verified 09/21/21 12:34 Physical Exam Vitals: Vital Signs Temp Pulse Pulse Resp BP Pulse Ox 09/24/21 11:47 100 09/24/21 11:36 100 09/24/21 08:17 96 09/24/21 08:08 92 09/24/21 08:07 92 09/24/21 07:53 92 09/24/21 06:43 98.6 F 80 158/78 99 09/24/21 04:08 88 09/24/21 03:56 88 09/24/21 02:00 97.9 F 73 18 146/67 98 09/23/21 20:37 90 09/23/21 20:24 92 09/23/21 20:23 92 09/23/21 20:11 88 09/23/21 20:00 20 09/23/21 19:23 98.5 F 90 18 126/44 98 09/23/21 15:32 96 09/23/21 15:18 100 09/23/21 13:56 98.4 F 93 16 125/68 96 Intake and Output 09/23/21 09/24/21 09/24/21 22:59 06:59 14:59 Intake Total 236 Balance 236 Intake: Oral 236 Other: # Voids 1 1 Results CBC & Chem 7: 09/23/21 05:41 09/23/21 05:41 Labs: Abnormal Lab Results - Last 24 Hours (Table) 09/23/21 09/23/21 09/23/21 Range/Units 05:41 16:36 20:04 POC Glucose (mg/dL) 143 H 144 H (75-99) mg/dL Hemoglobin A1c 6.5 H (4.0-6.0) % 09/24/21 09/24/21 Range/Units 07:09 11:23 POC Glucose (mg/dL) 135 H 281 H (75-99) mg/dL Hemoglobin A1c (4.0-6.0) % Thrombosis Risk Factor Assmnt - Choose All That Apply Any of the Below Risk Factors Present?: Yes Each Factor Represents 1 point: Abnormal pulmonary function (COPD) Other Risk Factors: Yes Each Risk Factor Represents 3 Points: Age 75 years or older Thrombosis Risk Factor Assessment Total Risk Factor Score: 4 Thrombosis Risk Factor Assessment Level: Moderate Risk
--- NOTE | 2021-09-24 12:10 | P.PN ---
Subjective Patient is being treated for COPD exacerbation and the pneumonia patient on levofloxacin at this time patient is on 3 L of oxygen patient does have significant rhonchi patient respiratory status is not her back at her baseline yet. Constitutional: Denied any fatigue denied any fever. Cardio vascular: denied any chest pain, palpitations Gastrointestinal denied any nausea vomiting Pulmonary: As mentioned in HPI Neurologic denied any new focal deficits All inpatient medications were reviewed and appropriate changes in these medications as dictated in the interval history and assessment and plan. PHYSICAL EXAMINATION: GENERAL: The patient is alert and oriented x3, not in any acute distress. Well developed, well nourished. HEENT: Pupils are round and equally reacting to light. EOMI. No scleral icterus. No conjunctival pallor. Normocephalic, atraumatic. No pharyngeal erythema. No thyromegaly. CARDIOVASCULAR: S1 and S2 present. No murmurs, rubs, or gallops. PULMONARY: Diffuse bilateral rhonchi and expiratory wheezing ABDOMEN: Soft, nontender, nondistended, normoactive bowel sounds. No palpable organomegaly. MUSCULOSKELETAL: No joint swelling or deformity. EXTREMITIES: No cyanosis, clubbing, or pedal edema. NEUROLOGICAL: Gross neurological examination did not reveal any focal deficits. SKIN: No rashes. Assessment and plan Acute on chronic hypercapnic and hypoxic respiratory failure secondary to pneumonia and COPD exacerbation is likely patient will be continued on antibiotics systemic steroids inhalational treatments -Hyperthyroidism next time-depression -Oxygen dependent chronic hypoxic respiratory failure secondary to COPD Objective - Vital Signs Vital signs: Vital Signs Temp 98.6 F 09/24/21 06:43 Pulse 100 09/24/21 11:47 Resp 18 09/24/21 02:00 BP 158/78 09/24/21 06:43 Pulse Ox 99 09/24/21 06:43 Intake & Output 09/23/21 09/24/21 09/24/21 18:59 06:59 18:59 Intake Total 708 Balance 708 Intake: Oral 708 Other: Voiding Method Bedside Commode # Voids 3 1 - Labs CBC & Chem 7: 09/23/21 05:41 09/23/21 05:41 Labs: Abnormal Lab Results - Last 24 Hours (Table) 09/23/21 09/23/21 09/23/21 Range/Units 05:41 16:36 20:04 POC Glucose (mg/dL) 143 H 144 H (75-99) mg/dL Hemoglobin A1c 6.5 H (4.0-6.0) % 09/24/21 09/24/21 Range/Units 07:09 11:23 POC Glucose (mg/dL) 135 H 281 H (75-99) mg/dL Hemoglobin A1c (4.0-6.0) %
--- NOTE | 2021-09-24 15:55 | P.PN ---
Subjective Progress Note Date: 09/24/21 Principal diagnosis: Community acquired pneumonia This is a 81-year-old female with history of moderate severe COPD, FEV1 is in the range of 58%, patient normally sees Dr. Zarate, and the last time she saw Dr. Zarate was basically about 4 months ago. Patient is maintained on multiple bronchodilators, she is also on prednisone at 10 mg daily for quite a few years. She is to be on 5 mg daily before. Patient is also normally on theophylline [facility], and she is on Singulair. Patient is here today with a few days' history of cough wheezing and shortness of breath. Cough is described as nonproductive cough, denies any fever, no chills, no hemoptysis. Chest x-ray in the ER showed abnormal density within the right middle lobe suggestive of pneumonia, however the possibility of underlying malignancy is not entirely ruled out. Hence I'm recommending a CT of the chest with contrast on this patient. CBC showed evidence of leukocytosis. Electrolytes and renal profile are normal. PCR for COVID-19 is negative. Considering her clinical picture and considering the findings on the chest x-ray, patient was admitted and this consult was initiated, and I had a chance to see the patient in the ER. Patient is normally on oxygen and uses the option mostly at night at 2 L. She is now on 4 L nasal cannula, and her O2 saturation is 99%. Over she was as low as 92%. On 09/22/2021 patient seen in follow-up. She speaks easier, still has congested cough, dyspnea and wheezing, but improving. On 4 L of oxygen her pulse ox is 90%, she's been afebrile. CT chest showed right middle lobe consolidation and atelectasis, no central mass. White blood cell count is improving and is down to 7.5 on today's labs, hemoglobin is 14.4, electrolytes are within normal limits, BUN is 16 creatinine 0.48. Troponin is less than 0.012. Pro-calcitonin level was negative at 0.06. Patient is adequate for antibiotic coverage, she continues on IV Solu-Medrol and nebulized bronchodilators. The patient is seen today 09/23/2021 in follow-up on the regular medical floor. She is currently resting fairly comfortably in bed. She still has a loose nonproductive cough. Still dyspneic with conversation and minimal exertion. Still with some chest tightness and wheezing. She is maintaining O2 saturation in the mid 90s on 3 L/m per nasal cannula. She is afebrile. Blood glucose 174. She is continued on DuoNeb inhalations, Pulmicort and Perforomist inhalations, IV Solu-Medrol, Singulair, theophylline. She is on antibiotics in the form of Levaquin. The patient is seen today 09/24/2021 in follow-up on the regular medical floor. She is currently sitting up in bed. Awake and alert in no acute distress. She has been slow to progress. Still quite bronchospastic and wheezy. Chest x-ray showing some improvement in aeration. Underlying COPD. Patchy airspace disease in the right lower lobe. Blood glucose 281. She is continued on DuoNeb inhalations, Pulmicort and Perforomist inhalations, IV Solu-Medrol, Singulair, theophylline. Antibiotics in the form of Levaquin. Objective - Vital Signs Vital signs: Vital Signs Temp 97.8 F 09/24/21 14:11 Pulse 96 09/24/21 15:38 Resp 18 09/24/21 02:00 BP 125/66 09/24/21 14:11 Pulse Ox 96 09/24/21 14:11 Intake & Output 09/23/21 09/24/21 09/24/21 18:59 06:59 18:59 Intake Total 708 Balance 708 Intake: Oral 708 Other: Voiding Method Bedside Commode # Voids 3 1 - Exam GENERAL EXAM: Alert, very pleasant 81-year-old female patient, on 2 L nasal cannula, fairly comfortable in no apparent distress. HEAD: Normocephalic. EYES: Normal reaction of pupils, equal size. NOSE: Clear with pink turbinates. THROAT: No erythema or exudates. NECK: No masses, no JVD. CHEST: No chest wall deformity. LUNGS: Equal air entry with bilateral end expiratory wheeze, few scattered rhonchi, crackles in the right lung base. CVS: S1 and S2 normal with no audible murmur, regular rhythm. ABDOMEN: No hepatosplenomegaly, normal bowel sounds, no guarding or rigidity. SPINE: No scoliosis or deformity SKIN: No rashes CENTRAL NERVOUS SYSTEM: No focal deficits, tone is normal in all 4 extremities. EXTREMITIES: There is no peripheral edema. No clubbing, no cyanosis. Periphe ral pulses are intact. - Labs CBC & Chem 7: 09/23/21 05:41 09/23/21 05:41 Labs: Abnormal Lab Results - Last 24 Hours (Table) 09/23/21 09/23/21 09/24/21 Range/Units 16:36 20:04 07:09 POC Glucose (mg/dL) 143 H 144 H 135 H (75-99) mg/dL 09/24/21 Range/Units 11:23 POC Glucose (mg/dL) 281 H (75-99) mg/dL Assessment and Plan Assessment: 1 Acute on chronic hypoxic respiratory failure related to right middle lobe pneumonia, slow to progress 2 Acute exacerbation of COPD 3 History of smoking 4 Hypothyroidism 5 History of depression 6 History of nephrolithiasis Plan: The patient was seen and evaluated by Dr. Kaye Chest x-ray reviewed, slight improvement Continue the current treatment plan Titrate the FiO2 as tolerated Increase her activity as tolerated We will continue to follow I, the cosigning physician, performed a history & physical examination of the patient. Lungs sounds bilateral scattered rhonchi, end expiratory wheeze, crackles in the right lung base. Maintaining good O2 saturations in the 90s on 2 L/m per nasal cannula. I discussed the assessment and plan of care with my nurse practitioner, Roya Tabares. I attest to the above note as dictated by her.
[2021-09-24] MEDS: ALPRAZolam 0.25 MG TAB PO PRN (15:58)
[2021-09-24 16:54] LABS: Glucose,Whole Blood 76 mg/dL (75-99)
[2021-09-24 20:11] LABS: Glucose,Whole Blood 143 mg/dL (75-99)
[2021-09-24] MEDS: MELATONIN 5 MG TABLET PO SCH (21:12)
[2021-09-24] MEDS: ALPRAZolam 0.5 MG TAB PO PRN (22:23)
[2021-09-25] MEDS: methylPREDNISolone SOD SUCCI 40 MG/ML 1 ML VIAL IV SCH ×4 (00:21→17:09)
[2021-09-25] MEDS: IPRATROPIUM-ALBUTEROL 3 ML NEB INHALATION SCH ×6 (01:29→20:29)
[2021-09-25 07:09] LABS: Glucose,Whole Blood 159 mg/dL (75-99)
[2021-09-25] MEDS: FORMOTEROL FUMARATE 20 MCG/2 ML NEBU INHALATION SCH (07:33)
[2021-09-25] MEDS: BUDESONIDE 1 MG/2 ML NEBU INHALATION SCH ×2 (07:33→20:29)
[2021-09-25] MEDS: ENOXAPARIN 40 MG/0.4 ML SYRINGE SQ SCH (08:30)
[2021-09-25] MEDS: INSULIN ASPART (NovoLOG) 100 UNIT/ML VIAL SQ SCH ×4 (08:30→20:51)
[2021-09-25] MEDS: ALPRAZolam 0.25 MG TAB PO PRN (08:30)
[2021-09-25] MEDS: CALCIUM CARBONATE 500 MG CHEWABLE PO SCH (08:31)
[2021-09-25] MEDS: MONTELUKAST 10 MG TAB PO SCH (08:31)
[2021-09-25] MEDS: PANTOPRAZOLE 40 MG TABLET PO SCH (08:31)
[2021-09-25] MEDS: ASCORBIC ACID 500 MG TAB PO SCH (08:31)
[2021-09-25] MEDS: guaiFENesin-DM 600/30MG 1 EACH TAB.ER.12H PO SCH ×2 (08:31→20:51)
[2021-09-25] MEDS: LEVOTHYROXINE 75 MCG TAB PO SCH (08:31)
[2021-09-25] MEDS: ATORVASTATIN 10 MG TAB PO SCH (08:31)
[2021-09-25] MEDS: THEOPHYLLINE 24 HOUR 300 MG CAP.ER.24H PO SCH (08:32)
[2021-09-25] MEDS: NON FORMULARY DRUG (Vitamin B Complex [Vitamin B Complex] 1 EACH Capsule) PO SCH (08:32)
[2021-09-25] MEDS: VENLAFAXINE HCL ER 75 MG CAP PO SCH (08:32)
--- NOTE | 2021-09-25 08:48 | P.PN ---
Subjective Patient is being treated for COPD exacerbation and the pneumonia patient on levofloxacin at this time patient is on 3 L of oxygen patient does have significant rhonchi patient respiratory status is not her back at her baseline yet. 09/25/2021 Patient still hasn't been wheezing although oxygen saturations are getting better patient was on BiPAP for some time yesterday. I'm expecting her to improve significantly by tomorrow continue with present antibiotics. Constitutional: Denied any fatigue denied any fever. Cardio vascular: denied any chest pain, palpitations Gastrointestinal denied any nausea vomiting Pulmonary: As mentioned in HPI Neurologic denied any new focal deficits All inpatient medications were reviewed and appropriate changes in these medications as dictated in the interval history and assessment and plan. PHYSICAL EXAMINATION: GENERAL: The patient is alert and oriented x3, not in any acute distress. Well developed, well nourished. HEENT: Pupils are round and equally reacting to light. EOMI. No scleral icterus. No conjunctival pallor. Normocephalic, atraumatic. No pharyngeal erythema. No thyromegaly. CARDIOVASCULAR: S1 and S2 present. No murmurs, rubs, or gallops. PULMONARY: Diffuse bilateral rhonchi and expiratory wheezing ABDOMEN: Soft, nontender, nondistended, normoactive bowel sounds. No palpable organomegaly. MUSCULOSKELETAL: No joint swelling or deformity. EXTREMITIES: No cyanosis, clubbing, or pedal edema. NEUROLOGICAL: Gross neurological examination did not reveal any focal deficits. SKIN: No rashes. Assessment and plan Acute on chronic hypercapnic and hypoxic respiratory failure secondary to pneumonia and COPD exacerbation. patient will be continued on antibiotics systemic steroids inhalational treatments -Hyperthyroidism -depression -Oxygen dependent chronic hypoxic respiratory failure secondary to COPD Objective - Vital Signs Vital signs: Vital Signs Temp 97.6 F 09/25/21 05:45 Pulse 92 09/25/21 07:59 Resp 14 09/25/21 05:45 BP 134/71 09/25/21 05:45 Pulse Ox 98 09/25/21 05:45 Intake & Output 09/24/21 09/25/21 09/25/21 18:59 06:59 18:59 Intake Total 240 Balance 240 Intake: Oral 240 Other: Voiding Method Bedside Commode Bedside Commode Bedpan # Voids 1 - Labs CBC & Chem 7: 09/23/21 05:41 10/29/21 05:41 Labs: Abnormal Lab Results - Last 24 Hours (Table) 09/24/21 09/24/21 09/25/21 Range/Units 11:23 20:09 07:08 POC Glucose (mg/dL) 281 H 143 H 159 H (75-99) mg/dL
[2021-09-25 11:36] LABS: Glucose,Whole Blood 232 mg/dL (75-99)
[2021-09-25] MEDS: LEVOFLOXACIN 750 MG TAB PO SCH (12:16)
[2021-09-25] MEDS ORDERED: ALPRAZolam 0.25 MG TAB PO PRN (14:16)
--- NOTE | 2021-09-25 16:08 | P.PN ---
Subjective Progress Note Date: 09/25/21 Principal diagnosis: Community acquired pneumonia This is a 81-year-old female with history of moderate severe COPD, FEV1 is in the range of 58%, patient normally sees Dr. Zarate, and the last time she saw Dr. Zarate was basically about 4 months ago. Patient is maintained on multiple bronchodilators, she is also on prednisone at 10 mg daily for quite a few years. She is to be on 5 mg daily before. Patient is also normally on theophylline [facility], and she is on Singulair. Patient is here today with a few days' history of cough wheezing and shortness of breath. Cough is described as nonproductive cough, denies any fever, no chills, no hemoptysis. Chest x-ray in the ER showed abnormal density within the right middle lobe suggestive of pneumonia, however the possibility of underlying malignancy is not entirely ruled out. Hence I'm recommending a CT of the chest with contrast on this patient. CBC showed evidence of leukocytosis. Electrolytes and renal profile are normal. PCR for COVID-19 is negative. Considering her clinical picture and considering the findings on the chest x-ray, patient was admitted and this consult was initiated, and I had a chance to see the patient in the ER. Patient is normally on oxygen and uses the option mostly at night at 2 L. She is now on 4 L nasal cannula, and her O2 saturation is 99%. Over she was as low as 92%. On 09/22/2021 patient seen in follow-up. She speaks easier, still has congested cough, dyspnea and wheezing, but improving. On 4 L of oxygen her pulse ox is 90%, she's been afebrile. CT chest showed right middle lobe consolidation and atelectasis, no central mass. White blood cell count is improving and is down to 7.5 on today's labs, hemoglobin is 14.4, electrolytes are within normal limits, BUN is 16 creatinine 0.48. Troponin is less than 0.012. Pro-calcitonin level was negative at 0.06. Patient is adequate for antibiotic coverage, she continues on IV Solu-Medrol and nebulized bronchodilators. The patient is seen today 09/23/2021 in follow-up on the regular medical floor. She is currently resting fairly comfortably in bed. She still has a loose nonproductive cough. Still dyspneic with conversation and minimal exertion. Still with some chest tightness and wheezing. She is maintaining O2 saturation in the mid 90s on 3 L/m per nasal cannula. She is afebrile. Blood glucose 174. She is continued on DuoNeb inhalations, Pulmicort and Perforomist inhalations, IV Solu-Medrol, Singulair, theophylline. She is on antibiotics in the form of Levaquin. The patient is seen today 09/24/2021 in follow-up on the regular medical floor. She is currently sitting up in bed. Awake and alert in no acute distress. She has been slow to progress. Still quite bronchospastic and wheezy. Chest x-ray showing some improvement in aeration. Underlying COPD. Patchy airspace disease in the right lower lobe. Blood glucose 281. She is continued on DuoNeb inhalations, Pulmicort and Perforomist inhalations, IV Solu-Medrol, Singulair, theophylline. Antibiotics in the form of Levaquin. The patient is seen today 09/25/2021 in follow-up on the regular medical floor. He is currently resting fairly comfortably in bed. She is still somewhat bronchospastic and wheezy. Concerns regarding her reaction to Perforomist. Remains on DuoNeb inhalations, Pulmicort inhalations, IV Solu-Medrol, theophylline, Singulair. Sputum culture pending. She remains on Levaquin. She is maintaining good O2 saturations in the mid 90s on 2 L/m per nasal cannula. Objective - Vital Signs Vital signs: Vital Signs Temp 98.1 F 09/25/21 14:00 Pulse 77 09/25/21 14:00 Resp 16 09/25/21 14:00 BP 135/67 09/25/21 14:00 Pulse Ox 97 09/25/21 14:00 Intake & Output 09/24/21 09/25/21 09/25/21 18:59 06:59 18:59 Intake Total 240 Balance 240 Intake: Oral 240 Other: Voiding Method Bedside Commode Bedside Commode Bedpan # Voids 1 - Exam GENERAL EXAM: Alert, very pleasant 81-year-old female patient, on 2 L nasal cannula, fairly comfortable in no apparent distress. HEAD: Normocephalic. EYES: Normal reaction of pupils, equal size. NOSE: Clear with pink turbinates. THROAT: No erythema or exudates. NECK: No masses, no JVD. CHEST: No chest wall deformity. LUNGS: Equal air entry with bilateral end expiratory wheeze, few scattered rh onchi, crackles in the right lung base. CVS: S1 and S2 normal with no audible murmur, regular rhythm. ABDOMEN: No hepatosplenomegaly, normal bowel sounds, no guarding or rigidity. SPINE: No scoliosis or deformity SKIN: No rashes CENTRAL NERVOUS SYSTEM: No focal deficits, tone is normal in all 4 extremities. EXTREMITIES: There is no peripheral edema. No clubbing, no cyanosis. Peripheral pulses are intact. - Labs CBC & Chem 7: 09/23/21 05:41 09/23/21 05:41 Labs: Abnormal Lab Results - Last 24 Hours (Table) 09/24/21 09/25/21 09/25/21 Range/Units 20:09 07:08 11:35 POC Glucose (mg/dL) 143 H 159 H 232 H (75-99) mg/dL Microbiology - Last 24 Hours (Table) 09/24/21 16:30 Sputum Culture - Preliminary Sputum Assessment and Plan Assessment: 1 Acute on chronic hypoxic respiratory failure related to right middle lobe pneumonia, slow to progress 2 Acute exacerbation of COPD 3 History of smoking 4 Hypothyroidism 5 History of depression 6 History of nephrolithiasis Plan: The patient was seen and evaluated by Dr. Vargas Flanagan Perforomist We will continue to follow I, the cosigning physician, performed a history & physical examination of the patient. Lungs sounds bilateral scattered rhonchi, end expiratory wheeze, crackles in the right lung base. Maintaining good O2 saturations in the 90s on 2 L/m per nasal cannula. I discussed the assessment and plan of care with my nurse practitioner, Roya Tabares. I attest to the above note as dictated by her.
[2021-09-25 16:39] LABS: Glucose,Whole Blood 116 mg/dL (75-99)
[2021-09-25 20:19] LABS: Glucose,Whole Blood 185 mg/dL (75-99)
[2021-09-25] MEDS: ALPRAZolam 0.5 MG TAB PO PRN (20:51)
[2021-09-25] MEDS: MELATONIN 5 MG TABLET PO SCH (20:52)
[2021-09-26] MEDS: IPRATROPIUM-ALBUTEROL 3 ML NEB INHALATION SCH ×6 (00:11→21:02)
[2021-09-26] MEDS: methylPREDNISolone SOD SUCCI 40 MG/ML 1 ML VIAL IV SCH ×5 (00:18→23:35)
[2021-09-26 06:58] LABS: Glucose,Whole Blood 216 mg/dL (75-99)
[2021-09-26] MEDS: PANTOPRAZOLE 40 MG TABLET PO SCH (07:53)
[2021-09-26] MEDS: VENLAFAXINE HCL ER 75 MG CAP PO SCH (07:54)
[2021-09-26] MEDS: LEVOTHYROXINE 75 MCG TAB PO SCH (07:54)
[2021-09-26] MEDS: ASCORBIC ACID 500 MG TAB PO SCH (07:54)
[2021-09-26] MEDS: CALCIUM CARBONATE 500 MG CHEWABLE PO SCH (07:54)
[2021-09-26] MEDS: guaiFENesin-DM 600/30MG 1 EACH TAB.ER.12H PO SCH ×2 (07:54→21:25)
[2021-09-26] MEDS: MONTELUKAST 10 MG TAB PO SCH (07:54)
[2021-09-26] MEDS: ATORVASTATIN 10 MG TAB PO SCH (07:54)
[2021-09-26] MEDS: ENOXAPARIN 40 MG/0.4 ML SYRINGE SQ SCH (07:55)
[2021-09-26] MEDS: INSULIN ASPART (NovoLOG) 100 UNIT/ML VIAL SQ SCH ×4 (07:55→21:36)
[2021-09-26] MEDS: THEOPHYLLINE 24 HOUR 300 MG CAP.ER.24H PO SCH (07:55)
[2021-09-26] MEDS: BUDESONIDE 1 MG/2 ML NEBU INHALATION SCH ×2 (08:37→21:03)
[2021-09-26 08:43] LABS: HCT 43.6 % (37.2-46.3); HGB 14.5 g/dL (12.0-15.0); MCH 34.4 pg (27.0-32.0); MCHC 33.3 g/dL (32.0-37.0); MCV 103.6 fL (80.0-97.0); Platelet Count 235 X 10*3/uL (140-440); RBC 4.21 X 10*6/uL (4.10-5.20); RDW 13.2 % (11.5-14.5); WBC 13.36 X 10*3/uL (4.50-10.00)
[2021-09-26 09:09] LABS: African American GFR (CKD) 95.5 (60.0-200.0); Anion Gap 11.1 mmol/L (4.00-12.00); BUN/Creat Ratio 32.57 Ratio (12.00-20.00); Blood Urea Nitrogen 22.8 mg/dL (9.0-27.0); Carbon Dioxide 28.9 mmol/L (21.6-31.8); Non-African American GFR(CKD) 82.4 (60.0-200.0); Potassium 4.6 mmol/L (3.5-5.5)
[2021-09-26] MEDS: NON FORMULARY DRUG (Vitamin B Complex [Vitamin B Complex] 1 EACH Capsule) PO SCH (11:38)
[2021-09-26 11:52] LABS: Glucose,Whole Blood 350 mg/dL (75-99)
[2021-09-26] MEDS ORDERED: INSULIN ASPART (NovoLOG) 100 UNIT/ML VIAL SQ ONE (12:15)
[2021-09-26] MEDS: LEVOFLOXACIN 750 MG TAB PO SCH (12:26)
[2021-09-26] MEDS: INSULIN DETEMIR (LEVEMIR) 100 UNIT/ML SYR SQ SCH (12:35)
--- NOTE | 2021-09-26 15:52 | P.PN ---
Subjective Progress Note Date: 09/26/21 Principal diagnosis: Shortness of breath, cough and wheezing This is a 81-year-old female with history of moderate severe COPD, FEV1 is in the range of 58%, patient normally sees Dr. Zarate, and the last time she saw Dr. Zarate was basically about 4 months ago. Patient is maintained on multiple bronchodilators, she is also on prednisone at 10 mg daily for quite a few years. She is to be on 5 mg daily before. Patient is also normally on theophylline [facility], and she is on Singulair. Patient is here today with a few days' history of cough wheezing and shortness of breath. Cough is described as nonproductive cough, denies any fever, no chills, no hemoptysis. Chest x-ray in the ER showed abnormal density within the right middle lobe suggestive of pneumonia, however the possibility of underlying malignancy is not entirely ruled out. Hence I'm recommending a CT of the chest with contrast on this patient. CBC showed evidence of leukocytosis. Electrolytes and renal profile are normal. PCR for COVID-19 is negative. Considering her clinical picture and considering the findings on the chest x-ray, patient was admitted and this consult was initiated, and I had a chance to see the patient in the ER. Patient is normally on oxygen and uses the option mostly at night at 2 L. She is now on 4 L nasal cannula, and her O2 saturation is 99%. Over she was as low as 92%. On 09/22/2021 patient seen in follow-up. She speaks easier, still has congested cough, dyspnea and wheezing, but improving. On 4 L of oxygen her pulse ox is 90%, she's been afebrile. CT chest showed right middle lobe consolidation and atelectasis, no central mass. White blood cell count is improving and is down to 7.5 on today's labs, hemoglobin is 14.4, electrolytes are within normal limits, BUN is 16 creatinine 0.48. Troponin is less than 0.012. Pro-calcitonin level was negative at 0.06. Patient is adequate for antibiotic coverage, she continues on IV Solu-Medrol and nebulized bronchodilators. On 09/26/2021 patient seen in follow-up on medical surgical floor. She is still quite dyspneic, and congested, she is wheezy. Coughing. She is currently on 2 L of oxygen her pulse ox 100%. She remains on Levaquin 750 mg daily, nebulized bronchodilators, in the form of Pulmicort performance, DuoNeb, and IV steroids with Solu-Medrol 60 mg every 6 hours, in addition patient is also on theophylline 300 mg daily. Her sputum culture is still pending, her sputum Gram stain showed moderate PMNs, few epithelial cells, few budding yeast, few gram- positive cocci and few gram-positive bacilli, final culture is pending. Today's labs have been reviewed showing white blood cell count of 13.3, hemoglobin of 14.5, electrolytes and renal profile were within normal limits. Objective - Vital Signs Vital signs: Vital Signs Temp 98.7 F 09/26/21 14:00 Pulse 96 09/26/21 14:00 Resp 17 09/26/21 14:00 BP 138/76 09/26/21 14:00 Pulse Ox 99 09/26/21 14:00 Intake & Output 09/25/21 09/26/21 09/26/21 18:59 06:59 18:59 Other: Voiding Method Bedside Commode Bedside Commode Bedpan Bedpan # Voids 1 - Exam GENERAL EXAM: Alert, very pleasant, 81-year-old white female, response. Pulse ox of 99% comfortable in no apparent distress. HEAD: Normocephalic/atraumatic. EYES: Normal reaction of pupils, equal size. Conjunctiva pink, sclera white. NOSE: Clear with pink turbinates. THROAT: No erythema or exudates. NECK: No masses, no JVD, no thyroid enlargement, no adenopathy. CHEST: No chest wall deformity. Symmetrical expansion. LUNGS: Equal air entry with diffuse rhonchi and wheezes CVS: Regular rate and rhythm, normal S1 and S2, no gallops, no murmurs, no rubs ABDOMEN: Soft, nontender. No hepatosplenomegaly, normal bowel sounds, no guarding or rigidity. EXTREMITIES: No clubbing, no edema, no cyanosis, 2+ pulses and upper and lower extremities. MUSCULOSKELETAL: Muscle strength and tone normal. SPINE: No scoliosis or deformity SKIN: No rashes CENTRAL NERVOUS SYSTEM: Alert and oriented -3. No focal deficits, tone is no rmal in all 4 extremities. PSYCHIATRIC: Alert and oriented -3. Appropriate affect. Intact judgment and insight. - Labs CBC & Chem 7: 09/26/21 02:56 09/26/21 02:56 Labs: Abnormal Lab Results - Last 24 Hours (Table) 09/25/21 09/25/21 09/26/21 Range/Units 16:35 20:17 02:56 WBC 13.36 H (4.50-10.00) X 10*3/uL MCV 103.6 H (80.0-97.0) fL MCH 34.4 H (27.0-32.0) pg BUN/Creatinine Ratio (12.00-20.00) Ratio Glucose (70-110) mg/dL POC Glucose (mg/dL) 116 H 185 H (75-99) mg/dL 09/26/21 09/26/21 09/26/21 Range/Units 02:56 06:56 11:51 WBC (4.50-10.00) X 10*3/uL MCV (80.0-97.0) fL MCH (27.0-32.0) pg BUN/Creatinine Ratio 32.57 H (12.00-20.00) Ratio Glucose 196 H (70-110) mg/dL POC Glucose (mg/dL) 216 H 350 H (75-99) mg/dL Microbiology - Last 24 Hours (Table) 09/24/21 16:30 Gram Stain - Preliminary Sputum Sputum Culture - Preliminary Assessment and Plan Plan: Assessment: #1. Acute on chronic hypoxic respiratory failure related to possibility of right middle lobe pneumonia #2. Acute exacerbation of COPD #3. History of smoking #4. Hypothyroidism #5. History of depression #6. History of nephrolithiasis Plan: Continue current treatment Continue nebulized bronchodilators Continue antibiotics Continue IV steroids GI and DVT prophylaxis Patient is still quite dyspneic and bronchospastic Not ready for discharge Continue to follow clinical course Follow-up chest x-ray tomorrow I performed a history & physical examination of the patient and discussed their management with my nurse practitioner, Dayana Collier. I reviewed the nurse practitioner's note and agree with the documented findings and plan of care. Lung sounds are positive for diminished breath sounds with diffuse wheezes throughout the lung ramirez. The findings and the impression was discussed with the patient. I attest to the documentation by the nurse practitioner. Time with Patient: Less than 30
--- NOTE | 2021-09-26 16:32 | P.PN ---
Subjective Progress Note Date: 09/26/21 This is a 81-year-old female with past medical history of moderate severe COPD, steroid dependent ,chronic hypoxic respiratory failure, wears 2 L prn & at night, hyperlipidemia, hypertension and hypothyroidism, nicotine dependence and multiple other medical issues presented to the ER with complaints of worsening of shortness of breath accompanied by nonproductive cough. Denies hemoptysis. Reports she has been under significant stress, recently , she relocated and resumed smoking. Denies nausea vomiting or diarrhea. Denies abdominal pain. Denies lightheadedness, dizziness or focal deficits. Denies chest pain, palpitations. EKG reported sinus tachycardia, troponin negative 1. Denies fever or chills. Afebrile, WBC elevation 16.1 down to 11.58, electrolytes within normal limits, renal function stable, lactic acid 1.6, pro calcitonin 0.06,coronovirus not detected.Chest x-ray reported with abnormal density within the right middle lobe, chest CT reported right middle lobe cons olidation and atelectasis with no central mass seen, likely related to pneumonia. 10 mm pretracheal lymph node. Currently maintaining O2 sats in the 90s on 4 L nasal cannula. Continues on nebulized bronchodilators, IV steroids, Levaquin. Blood sugars 150s to 160s. 09/23/2021 Labs pending. continues on nebulized bronchodilators, Pulmicort, performomist, IV steroids, theophylline, Singulair and Levaquin. maintaining O2 sats in the high 90s on 4 L nasal cannula. Nonproductive cough-loose. Slept well during the night. Afebrile. 09/26/21 maintained on Levaquin, nebulized bronchodilators,Pulmicort, IV steroids.maintaining O2 sats in the high 90s to 100% on 2 L nasal cannula.sputum culture pending.Afebrile,WBC 13.36.BiPAP throughout the night. Has just woken up, wheezy upon awakening.hyperglycemic. Objective - Vital Signs Vital signs: Vital Signs Temp 98.7 F 09/26/21 14:00 Pulse 90 09/26/21 16:09 Resp 17 09/26/21 14:00 BP 138/76 09/26/21 14:00 Pulse Ox 99 09/26/21 14:00 Intake & Output 09/25/21 09/26/21 09/26/21 18:59 06:59 18:59 Other: Voiding Method Bedside Commode Bedside Commode Bedpan Bedpan # Voids 1 - Exam PHYSICAL EXAM: VITAL SIGNS: As above GENERAL: Sitting up in bed, no acute distress HEENT: Conjunctivae normal. eyes normal. Oral mucosa moist NECK: Supple, No JVD. CARDIOVASCULAR: S1, S2 regular. No murmur RESPIRATION: Breath sounds diminished in the bases. Occasional Scattered rhonchi, and expiratory wheezes ABDOMEN: Soft, nontender . No guarding. no masses palpable. Bowel sounds heard. LEGS: No edema. no swelling PSYCHIATRY: Alert and oriented -3, mood and affect normal. NERVOUS SYSTEM: Cranial N 2-12 grossly normal. Moves all 4 limbs. No focal deficits. Skin: Warm and dry, no rash - Labs CBC & Chem 7: 09/26/21 02:56 09/26/21 02:56 Labs: Abnormal Lab Results - Last 24 Hours (Table) 09/25/21 09/25/21 09/26/21 Range/Units 16:35 20:17 02:56 WBC 13.36 H (4.50-10.00) X 10*3/uL MCV 103.6 H (80.0-97.0) fL MCH 34.4 H (27.0-32.0) pg BUN/Creatinine Ratio (12.00-20.00) Ratio Glucose (70-110) mg/dL POC Glucose (mg/dL) 116 H 185 H (75-99) mg/dL 09/26/21 09/26/21 09/26/21 Range/Units 02:56 06:56 11:51 WBC (4.50-10.00) X 10*3/uL MCV (80.0-97.0) fL MCH (27.0-32.0) pg BUN/Creatinine Ratio 32.57 H (12.00-20.00) Ratio Glucose 196 H (70-110) mg/dL POC Glucose (mg/dL) 216 H 350 H (75-99) mg/dL Microbiology - Last 24 Hours (Table) 09/24/21 16:30 Gram Stain - Preliminary Sputum Sputum Culture - Preliminary Assessment and Plan Assessment: Acute COPD exacerbation, on chronic steroids. Possible acute right middle lobe pneumonia as per CT Acute on chronic hypoxic respiratory failure secondary to all the above, wears 2 L nasal cannula daily at bedtime Grieving, recently lost her Stress, anxiety, in addition to passing away, recently moved ,resumed smoking again Hyperlipidemia Hypertension Hypothyroidism Ongoing nicotine dependence History of nephrolithiasis hyperglycemia, steroid-induced Plan: Continue on current medication regime ,monitoring and symptomatic treatment. in addition to sliding scale, Levemir insulin added to med regimen with close monitoring of Accu-Cheks. Maintain aggressive pulmonary toileting,nebulized bronchodilators, IV steroids, antibiotics. Increase ambulation as tolerated-staff reports minimal exertional reserve.Declining SHIRA. The impression and plan of care has been dictated as directed. : I performed a history and examination of this patient, discussed the same with the dictator. I agree with the dictator's note ,documented as a scribe. Any additional findings or plans will be noted.
[2021-09-26 16:45] LABS: Glucose,Whole Blood 76 mg/dL (75-99)
[2021-09-26] MEDS: FORMOTEROL FUMARATE 20 MCG/2 ML NEBU INHALATION SCH (21:03)
[2021-09-26] MEDS: ALPRAZolam 0.5 MG TAB PO PRN (21:25)
[2021-09-26] MEDS: MELATONIN 5 MG TABLET PO SCH (21:26)
[2021-09-26 21:31] LABS: Glucose,Whole Blood 191 mg/dL (75-99)
[2021-09-27] MEDS: IPRATROPIUM-ALBUTEROL 3 ML NEB INHALATION SCH ×6 (01:16→20:06)
[2021-09-27] MEDS: methylPREDNISolone SOD SUCCI 40 MG/ML 1 ML VIAL IV SCH ×3 (05:29→17:12)
[2021-09-27] MEDS: FORMOTEROL FUMARATE 20 MCG/2 ML NEBU INHALATION SCH (07:39)
[2021-09-27] MEDS: BUDESONIDE 1 MG/2 ML NEBU INHALATION SCH (07:39)
[2021-09-27 08:40] LABS: Glucose,Whole Blood 255 mg/dL (75-99)
--- NOTE | 2021-09-27 09:10 | XR ---
EXAMINATION TYPE: XR chest 1V portable DATE OF EXAM: 09/27/2021 COMPARISON: Chest x-ray 09/24/2021 HISTORY: And shortness of breath TECHNIQUE: Single frontal view of the chest is obtained. FINDINGS: Suspect some improvement in aeration. No evident pneumothorax or pleural effusion. Cardiac mediastinal silhouette is unchanged. There is a slight spinal curvature. Aorta is dense. IMPRESSION: Improvement in aeration.
[2021-09-27] MEDS: CALCIUM CARBONATE 500 MG CHEWABLE PO SCH (09:12)
[2021-09-27] MEDS: MONTELUKAST 10 MG TAB PO SCH (09:13)
[2021-09-27] MEDS: guaiFENesin-DM 600/30MG 1 EACH TAB.ER.12H PO SCH ×2 (09:13→21:38)
[2021-09-27] MEDS: PANTOPRAZOLE 40 MG TABLET PO SCH (09:14)
[2021-09-27] MEDS: VENLAFAXINE HCL ER 75 MG CAP PO SCH (09:15)
[2021-09-27] MEDS: LEVOTHYROXINE 75 MCG TAB PO SCH (09:16)
[2021-09-27] MEDS: THEOPHYLLINE 24 HOUR 300 MG CAP.ER.24H PO SCH (09:16)
[2021-09-27] MEDS: ASCORBIC ACID 500 MG TAB PO SCH (09:17)
[2021-09-27] MEDS: ATORVASTATIN 10 MG TAB PO SCH (09:17)
[2021-09-27] MEDS: INSULIN DETEMIR (LEVEMIR) 100 UNIT/ML SYR SQ SCH (09:20)
[2021-09-27] MEDS: ENOXAPARIN 40 MG/0.4 ML SYRINGE SQ SCH (09:22)
[2021-09-27] MEDS: INSULIN ASPART (NovoLOG) 100 UNIT/ML VIAL SQ SCH ×4 (09:30→21:39)
[2021-09-27] MEDS: NON FORMULARY DRUG (Vitamin B Complex [Vitamin B Complex] 1 EACH Capsule) PO SCH (09:39)
[2021-09-27 11:27] LABS: Glucose,Whole Blood 221 mg/dL (75-99)
--- NOTE | 2021-09-27 11:37 | P.PN ---
Subjective Progress Note Date: 09/27/21 Principal diagnosis: Community acquired pneumonia This is a 81-year-old female with history of moderate severe COPD, FEV1 is in the range of 58%, patient normally sees Dr. Zarate, and the last time she saw Dr. Zarate was basically about 4 months ago. Patient is maintained on multiple bronchodilators, she is also on prednisone at 10 mg daily for quite a few years. She is to be on 5 mg daily before. Patient is also normally on theophylline [facility], and she is on Singulair. Patient is here today with a few days' history of cough wheezing and shortness of breath. Cough is described as nonproductive cough, denies any fever, no chills, no hemoptysis. Chest x-ray in the ER showed abnormal density within the right middle lobe suggestive of pneumonia, however the possibility of underlying malignancy is not entirely ruled out. Hence I'm recommending a CT of the chest with contrast on this patient. CBC showed evidence of leukocytosis. Electrolytes and renal profile are normal. PCR for COVID-19 is negative. Considering her clinical picture and considering the findings on the chest x-ray, patient was admitted and this consult was initiated, and I had a chance to see the patient in the ER. Patient is normally on oxygen and uses the option mostly at night at 2 L. She is now on 4 L nasal cannula, and her O2 saturation is 99%. Over she was as low as 92%. On 09/22/2021 patient seen in follow-up. She speaks easier, still has congested cough, dyspnea and wheezing, but improving. On 4 L of oxygen her pulse ox is 90%, she's been afebrile. CT chest showed right middle lobe consolidation and atelectasis, no central mass. White blood cell count is improving and is down to 7.5 on today's labs, hemoglobin is 14.4, electrolytes are within normal limits, BUN is 16 creatinine 0.48. Troponin is less than 0.012. Pro-calcitonin level was negative at 0.06. Patient is adequate for antibiotic coverage, she continues on IV Solu-Medrol and nebulized bronchodilators. The patient is seen today 09/23/2021 in follow-up on the regular medical floor. She is currently resting fairly comfortably in bed. She still has a loose nonproductive cough. Still dyspneic with conversation and minimal exertion. Still with some chest tightness and wheezing. She is maintaining O2 saturation in the mid 90s on 3 L/m per nasal cannula. She is afebrile. Blood glucose 174. She is continued on DuoNeb inhalations, Pulmicort and Perforomist inhalations, IV Solu-Medrol, Singulair, theophylline. She is on antibiotics in the form of Levaquin. The patient is seen today 09/24/2021 in follow-up on the regular medical floor. She is currently sitting up in bed. Awake and alert in no acute distress. She has been slow to progress. Still quite bronchospastic and wheezy. Chest x-ray showing some improvement in aeration. Underlying COPD. Patchy airspace disease in the right lower lobe. Blood glucose 281. She is continued on DuoNeb inhalations, Pulmicort and Perforomist inhalations, IV Solu-Medrol, Singulair, theophylline. Antibiotics in the form of Levaquin. The patient is seen today 09/25/2021 in follow-up on the regular medical floor. He is currently resting fairly comfortably in bed. She is still somewhat bronchospastic and wheezy. Concerns regarding her reaction to Perforomist. Remains on DuoNeb inhalations, Pulmicort inhalations, IV Solu-Medrol, theophylline, Singulair. Sputum culture pending. She remains on Levaquin. She is maintaining good O2 saturations in the mid 90s on 2 L/m per nasal cannula. The patient is seen today 09/27/2021 in follow-up on the regular medical floor. She is currently sitting up in a chair at the bedside. Awake and alert in no acute distress. Breathing quite a bit better today. Nearly back to her baseline. Less cough and congestion. Less chest tightness and wheezing. Maintaining O2 saturations in the upper 90s on 2 L per nasal cannula. Chest x- ray is showing improved aeration. Sputum culture revealed no growth. Blood glucose 221. She's continued on DuoNeb inhalations, theophylline, Singulair, IV Solu-Medrol. Antibiotics in the form of Levaquin. Objective - Vital Signs Vital signs: Vital Signs Temp 98.5 F 09/27/21 08:00 Pulse 90 09/27/21 11:18 Resp 20 09/27/21 08:00 BP 157/74 09/27/21 08:00 Pulse Ox 98 09/27/21 08:00 Intake & Output 09/26/21 09/27/21 09/27/21 18:59 06:59 18:59 Other: Voiding Method Bedside Commode # Voids 1 1 # Bowel Movements 0 - Exam GENERAL EXAM: Alert, very pleasant 81-year-old female patient, on 2 L nasal cannula, fairly comfortable in no apparent distress. HEAD: Normocephalic. EYES: Normal reaction of pupils, equal size. NOSE: Clear with pink turbinates. THROAT: No erythema or exudates. NECK: No masses, no JVD. CHEST: No chest wall deformity. LUNGS: Equal air entry with faint end expiratory wheeze, crackles in the right lung base. CVS: S1 and S2 normal with no audible murmur, regular rhythm. ABDOMEN: No hepatosplenomegaly, normal bowel sounds, no guarding or rigidity. SPINE: No scoliosis or deformity SKIN: No rashes CENTRAL NERVOUS SYSTEM: No focal deficits, tone is normal in all 4 extremities. EXTREMITIES: There is no peripheral edema. No clubbing, no cyanosis. Peripheral pulses are intact. - Labs CBC & Chem 7: 09/26/21 02:56 09/26/21 02:56 Labs: Abnormal Lab Results - Last 24 Hours (Table) 09/26/21 09/26/21 09/27/21 Range/Units 11:51 21:29 08:39 POC Glucose (mg/dL) 350 H 191 H 255 H (75-99) mg/dL 09/27/21 Range/Units 11:25 POC Glucose (mg/dL) 221 H (75-99) mg/dL Microbiology - Last 24 Hours (Table) 09/24/21 16:30 Gram Stain - Final Sputum Sputum Culture - Final Assessment and Plan Assessment: 1 Acute on chronic hypoxic respiratory failure related to right middle lobe pneumonia, slow to progress 2 Acute exacerbation of COPD secondary to above 3 History of smoking 4 Hypothyroidism 5 History of depression 6 History of nephrolithiasis Plan: The patient was seen and evaluated by Dr. Coleman Discontinue Perforomist and Pulmicort she does not tolerate them Continue DuoNeb inhalations, theophylline, Singulair, Levaquin Probably home within the next 24 hours We will continue to follow I, the cosigning physician, performed a history & physical examination of the patient. Lungs sounds end expiratory wheeze, crackles in the right lung base. Maintaining good O2 saturations in the 90s on 2 L/m per nasal cannula. I discussed the assessment and plan of care with my nurse practitioner, Roya Tabares. I attest to the above note as dictated by her.
[2021-09-27] MEDS: LEVOFLOXACIN 750 MG TAB PO SCH (11:43)
[2021-09-27 14:41] VITALS: BMI 21.2
--- NOTE | 2021-09-27 16:43 | P.PN ---
Subjective Progress Note Date: 09/27/21 This is a 81-year-old female with past medical history of moderate severe COPD, steroid dependent ,chronic hypoxic respiratory failure, wears 2 L prn & at night, hyperlipidemia, hypertension and hypothyroidism, nicotine dependence and multiple other medical issues presented to the ER with complaints of worsening of shortness of breath accompanied by nonproductive cough. Denies hemoptysis. Reports she has been under significant stress, recently , she relocated and resumed smoking. Denies nausea vomiting or diarrhea. Denies abdominal pain. Denies lightheadedness, dizziness or focal deficits. Denies chest pain, palpitations. EKG reported sinus tachycardia, troponin negative 1. Denies fever or chills. Afebrile, WBC elevation 16.1 down to 11.58, electrolytes within normal limits, renal function stable, lactic acid 1.6, pro calcitonin 0.06,coronovirus not detected.Chest x-ray reported with abnormal density within the right middle lobe, chest CT reported right middle lobe cons olidation and atelectasis with no central mass seen, likely related to pneumonia. 10 mm pretracheal lymph node. Currently maintaining O2 sats in the 90s on 4 L nasal cannula. Continues on nebulized bronchodilators, IV steroids, Levaquin. Blood sugars 150s to 160s. 09/23/2021 Labs pending. continues on nebulized bronchodilators, Pulmicort, performomist, IV steroids, theophylline, Singulair and Levaquin. maintaining O2 sats in the high 90s on 4 L nasal cannula. Nonproductive cough-loose. Slept well during the night. Afebrile. 09/26/21 maintained on Levaquin, nebulized bronchodilators,Pulmicort, IV steroids.maintaining O2 sats in the high 90s to 100% on 2 L nasal cannula.sputum culture pending.Afebrile,WBC 13.36.BiPAP throughout the night. Has just woken up, wheezy upon awakening.hyperglycemic. 09/27/2021 doing better today, did not require BiPAP during the night, maintaining O2 sats in the 90s on 2 L nasal cannula. Wheezing improved. Chest x-ray reporting improvement in aeration. Afebrile. Maintained on IV steroids. Blood sugars in the low 200s. Objective - Vital Signs Vital signs: Vital Signs Temp 97.6 F 09/27/21 14:00 Pulse 87 09/27/21 16:21 Resp 18 09/27/21 16:21 BP 137/65 09/27/21 14:00 Pulse Ox 97 09/27/21 16:21 Intake & Output 09/26/21 09/27/21 09/27/21 18:59 06:59 18:59 Weight 58.06 kg Other: Voiding Method Bedside Commode Bedside Commode # Voids 1 1 # Bowel Movements 0 - Exam PHYSICAL EXAM: VITAL SIGNS: As above GENERAL: Sitting up in bed, no acute distress HEENT: Conjunctivae normal. eyes normal. Oral mucosa moist NECK: Supple, No JVD. CARDIOVASCULAR: S1, S2 regular. No murmur RESPIRATION: Breath sounds diminished in the bases. Occasional Scattered rhonchi, expiratory wheezes, fine right basilar crackles. ABDOMEN: Soft, nontender . No guarding. no masses palpable. Bowel sounds heard . LEGS: No edema. no swelling PSYCHIATRY: Alert and oriented -3, mood and affect normal. NERVOUS SYSTEM: Cranial N 2-12 grossly normal. Moves all 4 limbs. No focal deficits. Skin: Warm and dry, no rash - Labs CBC & Chem 7: 09/26/21 02:56 09/26/21 02:56 Labs: Abnormal Lab Results - Last 24 Hours (Table) 09/26/21 09/27/21 09/27/21 Range/Units 21:29 08:39 11:25 POC Glucose (mg/dL) 191 H 255 H 221 H (75-99) mg/dL Microbiology - Last 24 Hours (Table) 09/24/21 16:30 Gram Stain - Final Sputum Sputum Culture - Final Assessment and Plan Assessment: Acute COPD exacerbation, on chronic steroids. Possible acute right middle lobe pneumonia as per CT Acute on chronic hypoxic respiratory failure secondary to all the above, wears 2 L nasal cannula daily at bedtime Grieving, recently lost her Stress, anxiety, in addition to passing away, recently moved ,resumed smoking again Hyperlipidemia Hypertension Hypothyroidism Ongoing nicotine dependence History of nephrolithiasis Diabetes mellitus, A1c 6.5, hyperglycemia, steroid-induced, close monitoring outpatient in clinic Plan: Continue on current medication regime ,monitoring and symptomatic treatment. Continue aggressive pulmonary toileting,nebulized bronchodilators, IV steroids, antibiotics. Steroid tapering as per pulmonary.Increase ambulation as tolerated. Declining SHIRA. Discharge planning in progress for potentially tomorrow pending final DC recommendations and clearance per pulmonary. The impression and plan of care has been dictated as directed. : I performed a history and examination of this patient, discussed the same with the dictator. I agree with the dictator's note ,documented as a scribe. Any additional findings or plans will be noted.
[2021-09-27 16:52] LABS: Glucose,Whole Blood 139 mg/dL (75-99)
[2021-09-27] MEDS: FLUCONAZOLE 100 MG TAB PO SCH (17:11)
[2021-09-27] MEDS: NYSTATIN 100,000 UNIT/ML SUSP 500,000 UNIT/5 ML CUP PO SCH ×2 (17:12→21:38)
[2021-09-27 20:09] LABS: Glucose,Whole Blood 166 mg/dL (75-99)
[2021-09-27] MEDS: ALPRAZolam 0.5 MG TAB PO PRN (21:38)
[2021-09-27] MEDS: MELATONIN 5 MG TABLET PO SCH (21:40)
[2021-09-28] MEDS: methylPREDNISolone SOD SUCCI 40 MG/ML 1 ML VIAL IV SCH ×4 (00:01→16:59)
[2021-09-28] MEDS: IPRATROPIUM-ALBUTEROL 3 ML NEB INHALATION SCH ×6 (01:08→20:02)
[2021-09-28 07:18] LABS: Glucose,Whole Blood 152 mg/dL (75-99)
[2021-09-28] MEDS: INSULIN ASPART (NovoLOG) 100 UNIT/ML VIAL SQ SCH ×4 (07:39→20:40)
[2021-09-28] MEDS: PANTOPRAZOLE 40 MG TABLET PO SCH (07:40)
[2021-09-28] MEDS: INSULIN DETEMIR (LEVEMIR) 100 UNIT/ML SYR SQ SCH (07:40)
[2021-09-28] MEDS: guaiFENesin-DM 600/30MG 1 EACH TAB.ER.12H PO SCH ×2 (10:11→21:02)
[2021-09-28] MEDS: CALCIUM CARBONATE 500 MG CHEWABLE PO SCH (10:11)
[2021-09-28] MEDS: FLUCONAZOLE 100 MG TAB PO SCH (10:12)
[2021-09-28] MEDS: THEOPHYLLINE 24 HOUR 300 MG CAP.ER.24H PO SCH (10:12)
[2021-09-28] MEDS: VENLAFAXINE HCL ER 75 MG CAP PO SCH (10:12)
[2021-09-28] MEDS: MONTELUKAST 10 MG TAB PO SCH (10:12)
[2021-09-28] MEDS: LEVOTHYROXINE 75 MCG TAB PO SCH (10:12)
[2021-09-28] MEDS: ATORVASTATIN 10 MG TAB PO SCH (10:12)
[2021-09-28] MEDS: ASCORBIC ACID 500 MG TAB PO SCH (10:12)
[2021-09-28] MEDS: ENOXAPARIN 40 MG/0.4 ML SYRINGE SQ SCH (10:13)
[2021-09-28] MEDS: NYSTATIN 100,000 UNIT/ML SUSP 500,000 UNIT/5 ML CUP PO SCH ×4 (10:13→21:02)
[2021-09-28] MEDS: NON FORMULARY DRUG (Vitamin B Complex [Vitamin B Complex] 1 EACH Capsule) PO SCH (10:20)
[2021-09-28 11:32] LABS: Glucose,Whole Blood 216 mg/dL (75-99)
[2021-09-28] MEDS: LEVOFLOXACIN 750 MG TAB PO SCH (11:49)
--- NOTE | 2021-09-28 12:25 | P.PN ---
Subjective Progress Note Date: 09/28/21 Principal diagnosis: Community acquired pneumonia This is a 81-year-old female with history of moderate severe COPD, FEV1 is in the range of 58%, patient normally sees Dr. Zarate, and the last time she saw Dr. Zarate was basically about 4 months ago. Patient is maintained on multiple bronchodilators, she is also on prednisone at 10 mg daily for quite a few years. She is to be on 5 mg daily before. Patient is also normally on theophylline [facility], and she is on Singulair. Patient is here today with a few days' history of cough wheezing and shortness of breath. Cough is described as nonproductive cough, denies any fever, no chills, no hemoptysis. Chest x-ray in the ER showed abnormal density within the right middle lobe suggestive of pneumonia, however the possibility of underlying malignancy is not entirely ruled out. Hence I'm recommending a CT of the chest with contrast on this patient. CBC showed evidence of leukocytosis. Electrolytes and renal profile are normal. PCR for COVID-19 is negative. Considering her clinical picture and considering the findings on the chest x-ray, patient was admitted and this consult was initiated, and I had a chance to see the patient in the ER. Patient is normally on oxygen and uses the option mostly at night at 2 L. She is now on 4 L nasal cannula, and her O2 saturation is 99%. Over she was as low as 92%. On 09/22/2021 patient seen in follow-up. She speaks easier, still has congested cough, dyspnea and wheezing, but improving. On 4 L of oxygen her pulse ox is 90%, she's been afebrile. CT chest showed right middle lobe consolidation and atelectasis, no central mass. White blood cell count is improving and is down to 7.5 on today's labs, hemoglobin is 14.4, electrolytes are within normal limits, BUN is 16 creatinine 0.48. Troponin is less than 0.012. Pro-calcitonin level was negative at 0.06. Patient is adequate for antibiotic coverage, she continues on IV Solu-Medrol and nebulized bronchodilators. The patient is seen today 09/23/2021 in follow-up on the regular medical floor. She is currently resting fairly comfortably in bed. She still has a loose nonproductive cough. Still dyspneic with conversation and minimal exertion. Still with some chest tightness and wheezing. She is maintaining O2 saturation in the mid 90s on 3 L/m per nasal cannula. She is afebrile. Blood glucose 174. She is continued on DuoNeb inhalations, Pulmicort and Perforomist inhalations, IV Solu-Medrol, Singulair, theophylline. She is on antibiotics in the form of Levaquin. The patient is seen today 09/24/2021 in follow-up on the regular medical floor. She is currently sitting up in bed. Awake and alert in no acute distress. She has been slow to progress. Still quite bronchospastic and wheezy. Chest x-ray showing some improvement in aeration. Underlying COPD. Patchy airspace disease in the right lower lobe. Blood glucose 281. She is continued on DuoNeb inhalations, Pulmicort and Perforomist inhalations, IV Solu-Medrol, Singulair, theophylline. Antibiotics in the form of Levaquin. The patient is seen today 09/25/2021 in follow-up on the regular medical floor. He is currently resting fairly comfortably in bed. She is still somewhat bronchospastic and wheezy. Concerns regarding her reaction to Perforomist. Remains on DuoNeb inhalations, Pulmicort inhalations, IV Solu-Medrol, theophylline, Singulair. Sputum culture pending. She remains on Levaquin. She is maintaining good O2 saturations in the mid 90s on 2 L/m per nasal cannula. The patient is seen today 09/27/2021 in follow-up on the regular medical floor. She is currently sitting up in a chair at the bedside. Awake and alert in no acute distress. Breathing quite a bit better today. Nearly back to her baseline. Less cough and congestion. Less chest tightness and wheezing. Maintaining O2 saturations in the upper 90s on 2 L per nasal cannula. Chest x- ray is showing improved aeration. Sputum culture revealed no growth. Blood glucose 221. She's continued on DuoNeb inhalations, theophylline, Singulair, IV Solu-Medrol. Antibiotics in the form of Levaquin. The patient is seen today 09/28/2021 in follow-up on the regular medical floor. She is awake and alert in no acute distress. She is still not quite back to her baseline. Still complaining of shortness of breath with minimal exertion. Sputum culture revealed no growth. Blood glucose 216. Maintaining O2 saturations in the mid 90s on 3 L/m per nasal cannula. She's afebrile. Hemodynamically stable. She's continued on DuoNeb inhalations, theophylline, Singulair, IV Solu-Medrol. Antibiotics in the form of Levaquin. Objective - Vital Signs Vital signs: Vital Signs Temp 98 F 09/28/21 08:23 Pulse 88 09/28/21 11:16 Resp 17 09/28/21 11:09 BP 134/70 09/28/21 08:23 Pulse Ox 97 09/28/21 08:23 Intake & Output 09/27/21 09/28/21 09/28/21 18:59 06:59 18:59 Weight 58.06 kg Other: Voiding Method Bedside Commode Bedside Commode Bedside Commode # Voids 1 1 # Bowel Movements 0 - Exam GENERAL EXAM: Alert, very pleasant 81-year-old female patient, on 3 L nasal cannula, fairly comfortable in no apparent distress. HEAD: Normocephalic. EYES: Normal reaction of pupils, equal size. NOSE: Clear with pink turbinates. THROAT: No erythema or exudates. NECK: No masses, no JVD. CHEST: No chest wall deformity. LUNGS: Equal air entry with faint end expiratory wheeze, crackles in the right lung base. CVS: S1 and S2 normal with no audible murmur, regular rhythm. ABDOMEN: No hepatosplenomegaly, normal bowel sounds, no guarding or rigidity. SPINE: No scoliosis or deformity SKIN: No rashes CENTRAL NERVOUS SYSTEM: No focal deficits, tone is normal in all 4 extremities. EXTREMITIES: There is no peripheral edema. No clubbing, no cyanosis. Peripheral pulses are intact. - Labs CBC & Chem 7: 09/26/21 02:56 09/26/21 02:56 Labs: Abnormal Lab Results - Last 24 Hours (Table) 09/27/21 09/27/21 09/28/21 Range/Units 16:51 20:06 07:16 POC Glucose (mg/dL) 139 H 166 H 152 H (75-99) mg/dL 09/28/21 Range/Units 11:31 POC Glucose (mg/dL) 216 H (75-99) mg/dL Microbiology - Last 24 Hours (Table) 09/24/21 16:30 Gram Stain - Final Sputum Sputum Culture - Final Assessment and Plan Assessment: 1 Acute on chronic hypoxic respiratory failure related to right middle lobe pneumonia, slow to progress 2 Acute exacerbation of COPD secondary to above 3 History of smoking 4 Hypothyroidism 5 History of depression 6 History of nephrolithiasis Plan: The patient was seen and evaluated by Dr. Coleman Not quite back to her baseline. Not ready for discharge Continue DuoNeb inhalations, theophylline, Singulair, Levaquin Probably home in a.m. We will continue to follow I, the cosigning physician, performed a history & physical examination of the patient. Lungs sounds end expiratory wheeze, crackles in the right lung base. Maintaining good O2 saturations in the 90s on 3 L/m per nasal cannula. I discussed the assessment and plan of care with my nurse practitioner, Roya Tabares. I attest to the above note as dictated by her.
[2021-09-28 16:42] LABS: Glucose,Whole Blood 144 mg/dL (75-99)
[2021-09-28 20:29] LABS: Glucose,Whole Blood 195 mg/dL (75-99)
[2021-09-28] MEDS: ALPRAZolam 0.5 MG TAB PO PRN (20:40)
[2021-09-28] MEDS: MELATONIN 5 MG TABLET PO SCH (20:40)
[2021-09-29] MEDS: methylPREDNISolone SOD SUCCI 40 MG/ML 1 ML VIAL IV SCH ×4 (00:10→17:09)
[2021-09-29] MEDS: IPRATROPIUM-ALBUTEROL 3 ML NEB INHALATION SCH ×5 (00:59→15:22)
[2021-09-29 02:45] VITALS: TEMP 97.6
[2021-09-29 07:13] LABS: Glucose,Whole Blood 173 mg/dL (75-99)
[2021-09-29] MEDS: INSULIN ASPART (NovoLOG) 100 UNIT/ML VIAL SQ SCH ×3 (08:09→17:08)
[2021-09-29] MEDS: INSULIN DETEMIR (LEVEMIR) 100 UNIT/ML SYR SQ SCH (08:09)
[2021-09-29 08:13] VITALS: BP 121/66
[2021-09-29] MEDS: MONTELUKAST 10 MG TAB PO SCH (08:15)
[2021-09-29] MEDS: LEVOTHYROXINE 75 MCG TAB PO SCH (08:15)
[2021-09-29] MEDS: PANTOPRAZOLE 40 MG TABLET PO SCH (08:15)
[2021-09-29] MEDS: FLUCONAZOLE 100 MG TAB PO SCH (08:15)
[2021-09-29] MEDS: ASCORBIC ACID 500 MG TAB PO SCH (08:15)
[2021-09-29] MEDS: ATORVASTATIN 10 MG TAB PO SCH (08:15)
[2021-09-29] MEDS: CALCIUM CARBONATE 500 MG CHEWABLE PO SCH (08:15)
[2021-09-29] MEDS: VENLAFAXINE HCL ER 75 MG CAP PO SCH (08:16)
[2021-09-29] MEDS: ENOXAPARIN 40 MG/0.4 ML SYRINGE SQ SCH (08:16)
[2021-09-29] MEDS: NYSTATIN 100,000 UNIT/ML SUSP 500,000 UNIT/5 ML CUP PO SCH ×3 (08:16→17:08)
[2021-09-29] MEDS: THEOPHYLLINE 24 HOUR 300 MG CAP.ER.24H PO SCH (08:16)
[2021-09-29] MEDS: guaiFENesin-DM 600/30MG 1 EACH TAB.ER.12H PO SCH (08:16)
[2021-09-29] MEDS: NON FORMULARY DRUG (Vitamin B Complex [Vitamin B Complex] 1 EACH Capsule) PO SCH (08:17)
[2021-09-29] MEDS: LEVOFLOXACIN 750 MG TAB PO SCH (11:24)
[2021-09-29 11:31] LABS: Glucose,Whole Blood 230 mg/dL (75-99)
--- NOTE | 2021-09-29 12:56 | P.PN ---
Subjective Progress Note Date: 09/29/21 Principal diagnosis: Community acquired pneumonia This is a 81-year-old female with history of moderate severe COPD, FEV1 is in the range of 58%, patient normally sees Dr. Zarate, and the last time she saw Dr. Zarate was basically about 4 months ago. Patient is maintained on multiple bronchodilators, she is also on prednisone at 10 mg daily for quite a few years. She is to be on 5 mg daily before. Patient is also normally on theophylline [facility], and she is on Singulair. Patient is here today with a few days' history of cough wheezing and shortness of breath. Cough is described as nonproductive cough, denies any fever, no chills, no hemoptysis. Chest x-ray in the ER showed abnormal density within the right middle lobe suggestive of pneumonia, however the possibility of underlying malignancy is not entirely ruled out. Hence I'm recommending a CT of the chest with contrast on this patient. CBC showed evidence of leukocytosis. Electrolytes and renal profile are normal. PCR for COVID-19 is negative. Considering her clinical picture and considering the findings on the chest x-ray, patient was admitted and this consult was initiated, and I had a chance to see the patient in the ER. Patient is normally on oxygen and uses the option mostly at night at 2 L. She is now on 4 L nasal cannula, and her O2 saturation is 99%. Over she was as low as 92%. On 09/22/2021 patient seen in follow-up. She speaks easier, still has congested cough, dyspnea and wheezing, but improving. On 4 L of oxygen her pulse ox is 90%, she's been afebrile. CT chest showed right middle lobe consolidation and atelectasis, no central mass. White blood cell count is improving and is down to 7.5 on today's labs, hemoglobin is 14.4, electrolytes are within normal limits, BUN is 16 creatinine 0.48. Troponin is less than 0.012. Pro-calcitonin level was negative at 0.06. Patient is adequate for antibiotic coverage, she continues on IV Solu-Medrol and nebulized bronchodilators. The patient is seen today 09/23/2021 in follow-up on the regular medical floor. She is currently resting fairly comfortably in bed. She still has a loose nonproductive cough. Still dyspneic with conversation and minimal exertion. Still with some chest tightness and wheezing. She is maintaining O2 saturation in the mid 90s on 3 L/m per nasal cannula. She is afebrile. Blood glucose 174. She is continued on DuoNeb inhalations, Pulmicort and Perforomist inhalations, IV Solu-Medrol, Singulair, theophylline. She is on antibiotics in the form of Levaquin. The patient is seen today 09/24/2021 in follow-up on the regular medical floor. She is currently sitting up in bed. Awake and alert in no acute distress. She has been slow to progress. Still quite bronchospastic and wheezy. Chest x-ray showing some improvement in aeration. Underlying COPD. Patchy airspace disease in the right lower lobe. Blood glucose 281. She is continued on DuoNeb inhalations, Pulmicort and Perforomist inhalations, IV Solu-Medrol, Singulair, theophylline. Antibiotics in the form of Levaquin. The patient is seen today 09/25/2021 in follow-up on the regular medical floor. He is currently resting fairly comfortably in bed. She is still somewhat bronchospastic and wheezy. Concerns regarding her reaction to Perforomist. Remains on DuoNeb inhalations, Pulmicort inhalations, IV Solu-Medrol, theophylline, Singulair. Sputum culture pending. She remains on Levaquin. She is maintaining good O2 saturations in the mid 90s on 2 L/m per nasal cannula. The patient is seen today 09/27/2021 in follow-up on the regular medical floor. She is currently sitting up in a chair at the bedside. Awake and alert in no acute distress. Breathing quite a bit better today. Nearly back to her baseline. Less cough and congestion. Less chest tightness and wheezing. Maintaining O2 saturations in the upper 90s on 2 L per nasal cannula. Chest x- ray is showing improved aeration. Sputum culture revealed no growth. Blood glucose 221. She's continued on DuoNeb inhalations, theophylline, Singulair, IV Solu-Medrol. Antibiotics in the form of Levaquin. The patient is seen today 09/28/2021 in follow-up on the regular medical floor. She is awake and alert in no acute distress. She is still not quite back to her baseline. Still complaining of shortness of breath with minimal exertion. Sputum culture revealed no growth. Blood glucose 216. Maintaining O2 saturations in the mid 90s on 3 L/m per nasal cannula. She's afebrile. Hemodynamically stable. She's continued on DuoNeb inhalations, theophylline, Singulair, IV Solu-Medrol. Antibiotics in the form of Levaquin. The patient is seen today 09/29/2021 in follow-up on the regular medical floor. She is currently sitting up in a chair at the bedside. Awake and alert in no acute distress. Feeling quite a bit better. Back to her baseline. No worsening shortness of breath, cough or congestion. She is maintaining good O2 saturation in the upper 90s on 3 L/m per nasal cannula. She's afebrile. Hemodynamically stable. Patient culture reveals no growth. Blood glucose 173. He is continued on DuoNeb inhalations, theophylline, Singulair IV solu Medrol, antibiotics in the form of Levaquin. Objective - Vital Signs Vital signs: Vital Signs Temp 97.6 F 09/29/21 08:00 Pulse 80 09/29/21 11:13 Resp 18 09/29/21 08:00 BP 121/66 09/29/21 08:00 Pulse Ox 99 09/29/21 08:00 Intake & Output 09/28/21 09/29/21 09/29/21 18:59 06:59 18:59 Other: Voiding Method Bedside Commode # Voids 1 2 - Exam GENERAL EXAM: Alert, very pleasant 81-year-old female patient, on 3 L nasal ca nnula, fairly comfortable in no apparent distress. HEAD: Normocephalic. EYES: Normal reaction of pupils, equal size. NOSE: Clear with pink turbinates. THROAT: No erythema or exudates. NECK: No masses, no JVD. CHEST: No chest wall deformity. LUNGS: Equal air entry with faint end expiratory wheeze, crackles in the right lung base. CVS: S1 and S2 normal with no audible murmur, regular rhythm. ABDOMEN: No hepatosplenomegaly, normal bowel sounds, no guarding or rigidity. SPINE: No scoliosis or deformity SKIN: No rashes CENTRAL NERVOUS SYSTEM: No focal deficits, tone is normal in all 4 extremities. EXTREMITIES: There is no peripheral edema. No clubbing, no cyanosis. Peripheral pulses are intact. - Labs CBC & Chem 7: 09/26/21 02:56 09/26/21 02:56 Labs: Abnormal Lab Results - Last 24 Hours (Table) 09/28/21 09/28/21 09/29/21 Range/Units 16:41 20:26 07:04 POC Glucose (mg/dL) 144 H 195 H 173 H (75-99) mg/dL 09/29/21 Range/Units 11:26 POC Glucose (mg/dL) 230 H (75-99) mg/dL Assessment and Plan Assessment: 1 Acute on chronic hypoxic respiratory failure related to right middle lobe pneumonia, slow to progress 2 Acute exacerbation of COPD secondary to above 3 History of smoking 4 Hypothyroidism 5 History of depression 6 History of nephrolithiasis Plan: The patient was seen and evaluated by Dr. Coleman She is cleared for discharge from the pulmonary standpoint Continue DuoNeb inhalations, theophylline, Singulair, Levaquin Complete prednisone taper Follow-up in our office in 1-2 weeks' I, the cosigning physician, performed a history & physical examination of the patient. Lungs sounds end expiratory wheeze, crackles in the right lung base. Maintaining good O2 saturations in the 90s on 3 L/m per nasal cannula. I discussed the assessment and plan of care with my nurse practitioner, Roya Tabares. I attest to the above note as dictated by her.
--- NOTE | 2021-09-29 14:16 | P.DS ---
Providers Date of admission: 09/21/21 12:23 Expected date of discharge: 09/28/21 Attending physician: Heri Alexandra Consults: 09/21/21 12:22 Consult Physician Urgent Consulting Provider: Hua Kaye Consult Reason/Comments: acute NIVDRF, CAP, COPD exacerbation Do you want consulting provider notified?: Yes Primary care physician: Heri Alexandra Hospital Course: Acute COPD exacerbation, on chronic steroids. Possible acute right middle lobe pneumonia as per CT Acute on chronic hypoxic respiratory failure secondary to all the above, wears 2 L nasal cannula daily at bedtime Grieving, recently lost her Stress, anxiety, in addition to passing away, recently moved ,resumed smoking again Hyperlipidemia Hypertension Hypothyroidism Ongoing nicotine dependence History of nephrolithiasis Diabetes mellitus, A1c 6.5, hyperglycemia, steroid-induced, close monitoring outpatient in clinic Hospital course:This is a 81-year-old female with past medical history of moderate severe COPD, steroid dependent ,chronic hypoxic respiratory failure, wears 2 L prn & at night, hyperlipidemia, hypertension and hypothyroidism, nicotine dependence and multiple other medical issues presented to the ER with complaints of worsening of shortness of breath accompanied by nonproductive cough. Denies hemoptysis. Reports she has been under significant stress, recently , she relocated and resumed smoking. Denies nausea vomiting or diarrhea. Denies abdominal pain. Denies lightheadedness, dizziness or focal deficits. Denies chest pain, palpitations. EKG reported sinus tachycardia, troponin negative 1. Denies fever or chills. Afebrile, WBC elevation 16.1 down to 11.58, electrolytes within normal limits, renal function stable, lactic acid 1.6, pro calcitonin 0.06,coronovirus not detected.Chest x- ray reported with abnormal density within the right middle lobe, chest CT reported right middle lobe consolidation and atelectasis with no central mass seen, likely related to pneumonia. 10 mm pretracheal lymph node. Currently maintaining O2 sats in the 90s on 4 L nasal cannula. Continues on nebulized bronchodilators, IV steroids, Levaquin. Blood sugars 150s to 160s. 09/23/2021 Labs pending. continues on nebulized bronchodilators, Pulmicort, performomist, IV steroids, theophylline, Singulair and Levaquin. maintaining O2 sats in the high 90s on 4 L nasal cannula. Nonproductive cough-loose. Slept well during the night. Afebrile. 09/26/21 maintained on Levaquin, nebulized bronchodilators,Pulmicort, IV steroids.maintaining O2 sats in the high 90s to 100% on 2 L nasal cannula.sputum culture pending.Afebrile,WBC 13.36.BiPAP throughout the night. Has just woken up, wheezy upon awakening.hyperglycemic. 09/27/2021 doing better today, did not require BiPAP during the night, maintaining O2 sats in the 90s on 2 L nasal cannula. Wheezing improved. Chest x-ray reporting improvement in aeration. Afebrile. Maintained on IV steroids. Blood sugars in the low 200s. Maintained on IV steroids, completed 1 week of Levaquin. Sputum culture reported no growth Denies chest pain, palpitations or increasing shortness of breath. Significant clinical improvement.Patient will be discharged home today in a stable condition with guarded prognosis pending final DC recommendations and clearance per pulmonary. The impression and plan of care has been dictated as directed. : I performed a history and examination of this patient, discussed the same with the dictator. I agree with the dictator's note ,documented as a scribe. Any additional findings or plans will be noted. Patient Condition at Discharge: Stable Plan - Discharge Summary Discharge Rx Participant: Yes New Discharge Prescriptions: New guaiFENesin-DM 600/30MG [Mucinex Dm] 2 each PO Q12HR tablet Pantoprazole [Protonix] 40 mg PO AC-BRKFST #30 tab predniSONE 10 mg PO DIRECTED #30 tab Continue Levothyroxine Sodium [Synthroid] 75 mcg PO DAILY Montelukast [Singulair] 10 mg PO DAILY Ascorbic Acid [Vitamin C] 500 mg PO DAILY Vitamin B Complex 1 cap PO DAILY Theophylline 24 Hour [Ben-24] 300 mg PO DAILY #30 cap.er.24h Venlafaxine HCl ER [Effexor XR] 75 mg PO DAILY Calcium Citrate 1,000 mg PO DAILY Atorvastatin [Lipitor] 10 mg PO DAILY predniSONE 2 mg PO DAILY #0 predniSONE 5 mg PO DAILY #0 Changed Ipratropium-Albuterol Nebulize [Duoneb 0.5 mg-3 mg/3 ml Soln] 3 ml INHALATION QID #0 Discontinued methylPREDNISolone Dose Pack [Medrol Dose Pack] See Taper PO DIRECTED Azithromycin [Zithromax Z-pack (6 tabs)] See Taper PO DIRECTED Discharge Medication List Levothyroxine Sodium [Synthroid] 75 mcg PO DAILY 07/22/17 [History] Montelukast [Singulair] 10 mg PO DAILY 07/22/17 [History] Ascorbic Acid [Vitamin C] 500 mg PO DAILY 09/10/17 [History] Vitamin B Complex 1 cap PO DAILY 01/22/18 [History] Theophylline 24 Hour [Ben-24] 300 mg PO DAILY #30 cap.er.24h 02/27/18 [Rx] Atorvastatin [Lipitor] 10 mg PO DAILY 09/21/21 [History] Calcium Citrate 1,000 mg PO DAILY 09/21/21 [History] Venlafaxine HCl ER [Effexor XR] 75 mg PO DAILY 09/21/21 [History] Ipratropium-Albuterol Nebulize [Duoneb 0.5 mg-3 mg/3 ml Soln] 3 ml INHALATION QID #0 09/28/21 [Rx] Pantoprazole [Protonix] 40 mg PO AC-BRKFST #30 tab 09/28/21 [Rx] guaiFENesin-DM 600/30MG [Mucinex Dm] 2 each PO Q12HR tablet 09/28/21 [Rx] predniSONE 2 mg PO DAILY #0 09/28/21 [Rx] predniSONE 5 mg PO DAILY #0 09/28/21 [Rx] predniSONE 10 mg PO DIRECTED #30 tab 09/28/21 [Rx] Follow up Appointment(s)/Referral(s): Heri Alexandra DO [Primary Care Provider] - 10/06/21 10:20 am Dani Zarate MD [STAFF PHYSICIAN] - 10/12/21 1:15 pm Patient Instructions/Handouts: COPD (Chronic Obstructive Pulmonary Disease) (DC), Pneumonia (DC) Activity/Diet/Wound Care/Special Instructions: Completed 1 week of antibiotics. Pending final DC recommendations and clearance as per pulmonary. Confirm pulmonary follow-up visit. Patient requires 3 Liters of oxygen 24 hours a day to manage her COPD at home.
[2021-09-29 15:26] VITALS: RESP 16
[2021-09-29 15:33] VITALS: PULSE 80
[2021-09-29 16:37] LABS: Glucose,Whole Blood 131 mg/dL (75-99)
== END 2021-09-29 18:40 | disposition home or self-care (01) | DRG 193 ==
LOC: EC 09:01 → 4SSUR 12:23
PROVIDERS: ADMIT Family Medicine; ATTEND Family Medicine
PROC: 5A09357 Assistance with Respiratory Ventilation, Less than 24 Consecutive Hours, Continuous Positive Airway Pressure (ICD-10-PCS; principal; 2021-09-21)
DX: J18.9 Pneumonia, unspecified organism (principal); J96.21 Acute and chronic respiratory failure with hypoxia; J96.22 Acute and chronic respiratory failure with hypercapnia; J44.1 Chronic obstructive pulmonary disease with (acute) exacerbation; J44.0 Chronic obstructive pulmonary disease with (acute) lower respiratory infection; J98.11 Atelectasis; T38.0X5A Adverse effect of glucocorticoids and synthetic analogues, initial encounter; Z20.822 Contact with and (suspected) exposure to COVID-19; E03.9 Hypothyroidism, unspecified; E05.90 Thyrotoxicosis, unspecified without thyrotoxic crisis or storm; E11.65 Type 2 diabetes mellitus with hyperglycemia; E78.5 Hyperlipidemia, unspecified; F17.210 Nicotine dependence, cigarettes, uncomplicated; F32.9 Major depressive disorder, single episode, unspecified; I10 Essential (primary) hypertension; Z63.4 Disappearance and death of family member; Z99.81 Dependence on supplemental oxygen; Z79.51 Long term (current) use of inhaled steroids; Z79.52 Long term (current) use of systemic steroids; Z79.890 Hormone replacement therapy; Z79.899 Other long term (current) drug therapy; Z80.3 Family history of malignant neoplasm of breast; Z82.49 Family history of ischemic heart disease and other diseases of the circulatory system; Z82.5 Family history of asthma and other chronic lower respiratory diseases; Z87.442 Personal history of urinary calculi; Z90.710 Acquired absence of both cervix and uterus; Z90.89 Acquired absence of other organs; Z98.890 Other specified postprocedural states
CPT/HCPCS: 36415; 71045; 71260; 80048; 80053; 83036; 83605; 83735; 83880; 84145; 84484; 85025; 85027; 85610; 85730; 87070; 87205; 87635; 93005; 94640; 94660; 94760; 96365; 96366; 96367; 96375; 99285